=== PATIENT | female | born 1940 | race Caucasian/White ===

== ENCOUNTER 2020-07-03 06:47 | Emergency (ER) | payer MEDICARE, SELFPAY ==
--- NOTE | ~2020-07-03 | XR_ITS ---
EXAMINATION: XR CHEST CLINICAL INFORMATION: Chest pain. COMPARISON: 05/31/2011 chest radiographs TECHNIQUE: Frontal view of the chest was obtained. FINDINGS: The lungs are clear. The heart and mediastinal structures are remarkable. Mild multilevel degenerative changes and scoliosis are seen in the thoracolumbar spine. XR/XR chest 1V IMPRESSION: No acute cardiopulmonary process.
--- NOTE | ~2020-07-03 | CT_ITS ---
EXAMINATION: CT CHEST ANGIOGRAM PE PROTOCOL CLINICAL INFORMATION: , Reason for Exam dyspnea chest pain r/o PE COMPARISON: None TECHNIQUE: Volumetric imaging was performed through the chest. Reformatted coronal and sagittal imaging was performed. 3-D MIP images performed at a dedicated separate workstation. This CT examination was performed using dose optimization techniques as appropriate, variously including the following: *Automated exposure control *Adjustment of mA and/or kV according to patient size (this includes techniques or standardized protocols for targeted exams where dose is matched to indication/reason for exam; i.e. extremities or head) *Use of iterative reconstruction technique CONTRAST: 65 mL of Omnipaque 350 injected. DLP: 1442 FINDINGS: PULMONARY ARTERIES: There is proper opacification of the pulmonary artery and its main branches. No CT evidence of pulmonary emboli. LINES/TUBES: None LUNGS: Lung Parenchyma: There is no CT evidence of significant lung parenchymal disease. Lung Nodules:There is 8 mm nodule right upper lobe image 49 series 7. No suspicious lung mass. AIRWAYS: Trachea and bronchi are normal. PLEURA: No pleural effusion or pneumothorax. MEDIASTINUM AND EDDIE: The visualized thyroid gland is unremarkable. No mediastinal, hilar or axillary lymphadenopathy. Esophagus is mildly dilated with fluid throughout, cannot rule out systemic sclerosis /scleroderma. VESSELS: Ascending aorta borderline aneurysmal measure up to 4 cm. HEART AND PERICARDIUM: Heart is normal in size. There is no pericardial effusion. There are coronary calcifications. CHEST WALL, LOWER NECK, SURROUNDING SOFT TISSUES: Normal VISUALIZED ABDOMEN: Unremarkable BONES: The visualized bony thorax is within normal limits. CT/CT angio chest PE protocol IMPRESSION: 1. No CT evidence of pulmonary emboli 2. Esophagus is mildly dilated fluid-filled, nonspecific, cannot rule out scleroderma. Please correlate clinically. 3. 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 Follow-up CT in one year recommended.
--- NOTE | 2020-07-03 06:52 | ECG_ITS ---
Test Reason : REPEA Blood Pressure : / mmHG Vent. Rate : 061 BPM Atrial Rate : 061 BPM P-R Int : 174 ms QRS Dur : 082 ms QT Int : 442 ms P-R-T Axes : 043 -16 022 degrees QTc Int : 444 ms Normal sinus rhythm Normal ECG When compared with ECG of 03-JUL-2020 07:11, No significant change was found Referred By: Miley Gray Electronically Signed By:CORNELIA LAWSON
--- NOTE | 2020-07-03 06:57 | ED.CHESTPAIN ---
HPI - Chest Pain General Chief Complaint: Chest Pain Stated Complaint: chest pressure Time Seen by Provider: 07/03/20 06:52 Source: patient and EMS Mode of arrival: EMS Limitations: no limitations History of Present Illness HPI narrative: 80 yo female with HTN, HPL, hypothyroidism noted since yesterday some increased dyspnea and feels she cannot catch her breath she also notes the start of chest heaviness at that time as well, no prior cardiac issues per her came to get checked out today because her BP was 180 systolics MD complaint: chest heaviness Onset (ago): day(s) (1) Timing of current episode: constant Onset: during rest Pain location: substernal Pain radiation: none Severity: mild Quality: heaviness Relieving factors: nothing Exacerbating factors: inspiration Associated symptoms: dyspnea Treatment prior to arrival: none Related Data Previous Rx's Medication Instructions Recorded lorazepam [Ativan] 0.5 mg PO DAILY PRN #5 tab 07/03/20 Allergies Allergy/AdvReac Type Severity Reaction Status Date / Time amoxicillin [Amoxicillin] Allergy Intermediate RASH Unverified 02/12/20 14:51 cantaloupe Allergy Unknown Verified 07/03/20 09:16 fish derived [fish] Allergy Anaphylaxis Verified 07/03/20 09:16 shellfish derived Allergy Anaphylaxis Verified 07/03/20 09:16 gabapentin AdvReac Unknown Verified 07/03/20 09:16 Review of Systems Review of Systems: Constitutional : No Weight loss, No Fever, No Chills ENT/Mouth : No sore throat, No Rhinorrhea Eyes: No Eye Pain, No Swelling Cardiovascular : pos Chest Pain, pos SOB, no Dyspnea on Exertion, No Orthopnea, No Edema, No Palpitations Respiratory : No Cough, No Sputum Gastrointestinal : no Nausea, No Vomiting, No Diarrhea, No abdominal Pain, No Hematochezia, No Melena Genitourinary : No Dysuria, No Urinary Frequency Musculoskeletal : No joint pain, No Myalgias, No Joint Swelling Skin : No Skin Lesions, No rash Neuro : No Weakness, No Numbness, No Dizziness, No Headache Psych : No Anxiety/Panic, No Depression Heme/Lymph: No Bruising, No Lymphadenopathy Endocrine : No Polyuria, No Polydipsia All other systems reviewed and are negative [facility] Past Medical History Attestation statement: The following information was validated with the patient. Medical History (Updated 07/03/20 @ 11:30 by Miley Gray DO) HTN (hypertension) Hyperlipidemia Hypothyroidism Vertigo Social History Social History (Updated 07/03/20 @ 07:01 by Miley Gray DO) Smoking Status: Never smoker Advance Directives: No Advance Directives Information Provided: No Physical Exam Vital Signs: Vital Signs: Last Vital Signs Temp 98.2 F 07/03/20 06:59 Pulse 68 07/03/20 09:16 Resp 19 07/03/20 09:16 BP 152/85 H 07/03/20 09:16 Pulse Ox 96 07/03/20 09:16 Body Mass Index 29.2 Appearance: Alert. Oriented X3. No acute distress. Eyes: Pupils equal, round and reactive to light. ENT: Pharynx normal. Neck: Normal inspection. Neck supple. CVS: Normal heart rate and rhythm. Pulses normal. Respiratory: No respiratory distress. Breath sounds normal. Abdomen: Soft and non-tender. Skin: Skin warm and dry. Normal skin color. Normal skin turgor. Extremities: No lower extremity edema. No calf ttp Neuro: Oriented X 3. No motor deficit. No sensory deficit. Course Course Course Narrative: ddimer 254 above threshold, CTA for PE ordered negative CTA for PE EKG and trop negative with 24 hours of symptoms BP down to 160s after discussion she will monitor it this weekend and then follow up with PCP, dyspnea and heaviness resolved with ativan MDM - Chest Pain MDM Narrative Medical decision making narrative: 80 yo female with HTN, HPL, non smoker c/o dyspnea and chest heaviness that has worsened since yesterday - her BP has been elevated as well and she reports compliance with her medications, will give ASA obtain labs - ddimer and troponin, CXR, dispo per results and findings. Lab Data Result diagrams: 07/03/20 07:22 07/03/20 07:22 Labs: Lab Results 07/03/20 07/03/20 07/03/20 Range/Units 07:22 07:22 07:22 WBC 5.8 (4.8-10.8) X10*3/uL RBC 4.30 (4.20-5.50) X10*6/uL Hgb 12.9 (12.0-16.0) g/dl Hct 39.5 (37-47) % MCV 91.9 (80-98) fL MCH 30.0 (27.0-33.0) pg MCHC 32.7 (31.0-35.0) g/dl RDW 12.4 (11.0-16.0) % Plt Count 256 (160-400) X10*3/uL MPV 10.5 (9.4-12.3) fL Immature Gran % (Auto) 0.2 (0.0-0.4) % Neut % (Auto) 58.0 (45-73) % Lymph % (Auto) 28.5 (20-40) % Ponce % (Auto) 10.0 (2-11) % Eos % (Auto) 2.8 (0-4) % Baso % (Auto) 0.5 (0-2) % Lymph # (Auto) 1.7 (1.2-4.9) X10*3/uL Ponce # (Auto) 0.6 (0.1-1.2) X10*3/uL Eos # (Auto) 0.2 (0.0-0.4) X10*3/uL Baso # (Auto) 0.0 (0.0-0.2) X10*3/uL Abs Immat Gran (auto) 0.01 (0.00-0.03) X10*3/uL Absolute Neuts (auto) 3.4 (2.0-8.3) X10*3/uL Absolute Nucleated RBC 0.000 (0.0-0.012) X10*3/uL Nucleated RBC % (auto) 0.0 (0.0-0.2) /100WBC PT 12.6 (10.8-13.0) SEC INR 1.1 (0.9-1.1) APTT 32.1 (24.1-38.0) SEC D-Dimer 254 NG/ML Sodium 142 (135-145) mmol/L Potassium 4.0 (3.3-5.1) mmol/L Chloride 107 (96-108) mmol/L Carbon Dioxide 28 (22-29) mmol/L Anion Gap 11 L (12-20) BUN 10 (9-16) mg/dL Creatinine 0.66 (0.5-1.4) mg/dL Estim Creat Clear Calc 69.4 Estimated GFR > 60 Random Glucose 113 (60-115) mg/dL Calcium 9.8 (8.4-10.2) mg/dL Magnesium 2.1 (1.6-2.6) mg/dL Total Bilirubin 0.4 (0.0-1.0) mg/dL Direct Bilirubin 0.2 (0.0-0.5) mg/dL AST 17 (5-31) U/L ALT 11 (0-31) U/L Alkaline Phosphatase 107 (39-117) U/L Troponin I High Sens (<3.5-17.0) ng/L B-Natriuretic Peptide (<100) pg/mL Total Protein 6.7 (6.5-8.0) g/dL Albumin 4.2 (3.5-5.0) g/dL Lipase 13 (8-78) U/L COVID-19 ([facility]) (Negative) COVID-19 Clin Com 07/03/20 07/03/20 Range/Units 07:22 07:22 WBC (4.8-10.8) X10*3/uL RBC (4.20-5.50) X10*6/uL Hgb (12.0-16.0) g/dl Hct (37-47) % MCV (80-98) fL MCH (27.0-33.0) pg MCHC (31.0-35.0) g/dl RDW (11.0-16.0) % Plt Count (160-400) X10*3/uL MPV (9.4-12.3) fL Immature Gran % (Auto) (0.0-0.4) % Neut % (Auto) (45-73) % Lymph % (Auto) (20-40) % Ponce % (Auto) (2-11) % Eos % (Auto) (0-4) % Baso % (Auto) (0-2) % Lymph # (Auto) (1.2-4.9) X10*3/uL Ponce # (Auto) (0.1-1.2) X10*3/uL Eos # (Auto) (0.0-0.4) X10*3/uL Baso # (Auto) (0.0-0.2) X10*3/uL Abs Immat Gran (auto) (0.00-0.03) X10*3/uL Absolute Neuts (auto) (2.0-8.3) X10*3/uL Absolute Nucleated RBC (0.0-0.012) X10*3/uL Nucleated RBC % (auto) (0.0-0.2) /100WBC PT (10.8-13.0) SEC INR (0.9-1.1) APTT (24.1-38.0) SEC D-Dimer NG/ML Sodium (135-145) mmol/L Potassium (3.3-5.1) mmol/L Chloride (96-108) mmol/L Carbon Dioxide (22-29) mmol/L Anion Gap (12-20) BUN (9-16) mg/dL Creatinine (0.5-1.4) mg/dL Estim Creat Clear Calc Estimated GFR Random Glucose (60-115) mg/dL Calcium (8.4-10.2) mg/dL Magnesium (1.6-2.6) mg/dL Total Bilirubin (0.0-1.0) mg/dL Direct Bilirubin (0.0-0.5) mg/dL AST (5-31) U/L ALT (0-31) U/L Alkaline Phosphatase (39-117) U/L Troponin I High Sens 3.5 (<3.5-17.0) ng/L B-Natriuretic Peptide 228 H (<100) pg/mL Total Protein (6.5-8.0) g/dL Albumin (3.5-5.0) g/dL Lipase (8-78) U/L COVID-19 ([facility]) Negative (Negative) COVID-19 Clin Com See Note ECG Data ECG #1: Attestation: I personally reviewed and interpreted this ECG as follows: ECG interpretation date: 07/03/20 ECG interpretation time: 07:19 Interpretation: Rate: 70 Rhythm: NSR Coronado: left Normal P waves. Normal DANDY. Normal QRS complex. ST T wave : nonspecific, no TAMMY qTC: normal prior studies: no ischemia but artifact noted The study has been interpreted contemporaneously by me. . ECG #2: Attestation: I personally reviewed and interpreted this ECG as follows: ECG interpretation date: 07/03/20 ECG interpretation time: 08:01 Interpretation: Rate: 61 Rhythm: NSR Coronado: left Normal P waves. Normal DANDY. Normal QRS complex. ST T wave : normal no TAMMY qTC: normal prior studies: no acute ischemia, done as artifact in first EKG The study has been interpreted contemporaneously by me. . Discharge Plan Discharge Clinical Impression: Acute dyspnea Chest pain Qualifiers: Chest pain type: chest pain on breathing Qualified Code(s): R07.1 - Chest pain on breathing Patient Disposition: Home, Self-Care Instructions: Chest Pain (ED), Chronic Hypertension (ED) Additional Instructions: return to ED for any worsening symptoms or concerns CT scan 1. No CT evidence of pulmonary emboli 2. Esophagus is mildly dilated fluid-filled, nonspecific, cannot rule out scleroderma. Please correlate clinically. 3. 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 Follow-up CT in one year recommended. Prescriptions: New lorazepam [Ativan] 0.5 mg tablet 0.5 mg PO DAILY PRN (Reason: anxiety) Qty: 5 RF: 0 Referrals: Edvin Pruett MD [Primary Care Provider] - 2 days (recheck blood pressure)
[2020-07-03 06:59] VITALS: BP 179/99; BP 180/96; PULSE 70; PULSE 95; RESP 17; TEMP 36.8; O2SAT 97; BMI 29.2
[2020-07-03 07:27] LABS: MANUAL DIFF FLAG NO
[2020-07-03 07:30] LABS: Basophils Percent Auto 0.5 % (0-2); Eosinophils Absolute Auto 0.2 X10*3/uL (0.0-0.4); Eosinophils Percent Auto 2.8 % (0-4); Hematocrit 39.5 % (37-47); Hemoglobin 12.9 g/dl (12.0-16.0); Imm Gran Abs Auto 0.01 X10*3/uL (0.00-0.03); Imm Gran Pct Auto 0.2 % (0.0-0.4); Lymphocytes Absolute Auto 1.7 X10*3/uL (1.2-4.9); Lymphocytes Percent Auto 28.5 % (20-40); Mean Corpuscular HGB Conc 32.7 g/dl (31.0-35.0); Mean Corpuscular Volume 91.9 fL (80-98); Mean Platelet Volume 10.5 fL (9.4-12.3); Monocytes Absolute Auto 0.6 X10*3/uL (0.1-1.2); Neutrophils Absolute Auto 3.4 X10*3/uL (2.0-8.3); Platelet Count 256 X10*3/uL (160-400); Red Cell Distribution Width 12.4 % (11.0-16.0); White Blood Count 5.8 X10*3/uL (4.8-10.8)
[2020-07-03 07:36] LABS: INTERNATIONAL NORM RATIO 1.1 (0.9-1.1); Prothrombin Time 12.6 SEC (10.8-13.0)
[2020-07-03 07:39] LABS: D Dimer 254 NG/ML; Partial Thromboplastin Time 32.1 SEC (24.1-38.0)
[2020-07-03 07:44] LABS: IDNOW Serial# 9DD0AD1C
[2020-07-03 07:45] LABS: COVID-19 Test Negative (Negative)
[2020-07-03] MEDS: LORazepam 0.5 MG TABLET PO (07:47)
[2020-07-03] MEDS: Aspirin 81 MG TAB.CHEW 162 MG PO (07:48)
[2020-07-03 08:01] LABS: Alanine Aminotransferase 11 U/L (0-31); Albumin Level 4.2 g/dL (3.5-5.0); Alkaline Phosphatase 107 U/L (39-117); Anion Gap 11 (12-20); Aspartate Amino Transferase 17 U/L (5-31); Bilirubin Direct 0.2 mg/dL (0.0-0.5); Bilirubin Total 0.4 mg/dL (0.0-1.0); Blood Urea Nitrogen 10 mg/dL (9-16); Calcium 9.8 mg/dL (8.4-10.2); Carbon Dioxide 28 mmol/L (22-29); Chloride 107 mmol/L (96-108); Creatinine Clr Calc Pharmacy 69.4; Estimated Glomerular Filt Rate > 60; Glucose Random 113 mg/dL (60-115); Lipase 13 U/L (8-78); Magnesium 2.1 mg/dL (1.6-2.6); Sodium 142 mmol/L (135-145); Total Protein 6.7 g/dL (6.5-8.0)
[2020-07-03 08:08] LABS: B Type Natriuretic Peptide 228 pg/mL (<100); Troponin-I High Sensitivity 3.5 ng/L (<3.5-17.0)
[2020-07-03 09:16] VITALS: BP 152/85; PULSE 68; RESP 19; O2SAT 96
[2020-07-03] MEDS: diphenhydrAMINE HCL 50 MG/ML VIAL 25 MG IVPUSH (09:28)
[2020-07-03] MEDS: methylPREDNISolone Sod Succ/PF 125 MG/2 ML VIAL IVPUSH (09:28)
[2020-07-03] MEDS: iohexoL 350 MG/ML 100 ML INFUS..BTL IV (10:29)
[2020-07-03 11:59] VITALS: BP 153/76; PULSE 65; RESP 16; TEMP 36.4; O2SAT 94
== END 2020-07-03 12:14 | disposition home or self-care (01) ==
PROVIDERS: Emergency Provider Emergency Medicine; PCP Internal Medicine
DX: R06.00 Dyspnea, unspecified (principal); R07.1 Chest pain on breathing; I10 Essential (primary) hypertension; Z20.822 Contact with and (suspected) exposure to COVID-19
CPT/HCPCS: 36415; 71045; 71275; 80048; 80076; 83690; 83735; 83880; 84484; 85025; 85379; 85610; 85730; 87635; 93005; 96374; 96375; 99284; J1200; J2930; Q9967

== ENCOUNTER 2021-03-04 12:58 | Outpatient (REF) | payer MEDICARE, OTHER, SELFPAY | END 2021-03-04 12:59 | disposition home or self-care (01) | LOC: HO.LAB 12:58 | PROVIDERS: PCP Internal Medicine; Visit Provider Internal Medicine | DX: Z20.822 Contact with and (suspected) exposure to COVID-19 (principal) | CPT/HCPCS: C9803; U0003; U0005 ==

== ENCOUNTER 2022-07-28 14:52 | Observation (INO) | payer MEDICARE, SELFPAY ==
--- NOTE | ~2022-07-28 | CT_ITS ---
EXAMINATION: CT head/brain wo IV con CLINICAL INFORMATION: Expressive aphasia COMPARISON: None. TECHNIQUE: Contiguous axial imaging was performed from the skull base to vertex without intravenous contrast. Sagittal and coronal reformatted images were obtained. This CT examination was performed using dose optimization techniques as appropriate, variously including the following: * Automated exposure control * Adjustment of mA and/or kV according to patient size (this includes techniques or standardized protocols for targeted exams where dose is matched to indication/reason for exam; i.e. extremities or head) Use of iterative reconstruction technique DLP: 532.26 mGy-cm mGy-cm FINDINGS: The ventricles and sulci are normal in size and configuration without significant volume loss or hydrocephalus. There is no abnormal attenuation within the brain parenchyma. No territorial loss of jean baptiste-white differentiation.No acute intracranial hemorrhage or extra-axial fluid collection. No mass lesion, significant mass effect, or herniation pattern. The orbits are grossly normal. Imaged portions of the paranasal sinuses demonstrate partial opacification within the nasal cavities. The mastoid air cells are well aerated. Osseous structures are intact. CT/CT head/brain wo IV con IMPRESSION: No territorial loss of jean baptiste-white matter differentiation, noting MRI would be more sensitive modality for detection of acute ischemia. No acute intracranial hemorrhage.
--- NOTE | ~2022-07-28 | MR_ITS ---
EXAMINATION: MR BRAIN WITHOUT CONTRAST CLINICAL INFORMATION: Stroke COMPARISON: CT head without contrast 07/28/2022 TECHNIQUE: Multiplanar multisequence MR imaging of the brain was obtained without intravenous contrast. FINDINGS: There is no acute infarct on diffusion-weighted imaging. Right globus pallidus susceptibility artifact, corresponding to mineralization on noncontrast CT. No extra-axial collection or mass effect/herniation. Patchy periventricular, deep white matter, and brainstem T2 FLAIR hyperintensities consistent with moderate underlying microangiopathy. No hydrocephalus. The ventricles are normal in morphology and size. The major flow voids at the skull base are preserved. The midline structures are normal. The cerebellar tonsils are normally positioned. The craniocervical junction is normal. Upper cervical facet arthropathy. Marrow signal is within normal limits. The visualized soft tissues are without significant abnormality. No signal abnormality within the paranasal sinuses or within the mastoid air cells. MR/MR head/brain wo con IMPRESSION: No acute infarct or other acute intracranial abnormality Moderate chronic microangiopathy.
--- NOTE | ~2022-07-28 | US_ITS ---
EXAMINATION: US EXTRACRANIAL CAROTID DUPLEX, BILATERAL CLINICAL INFORMATION: TIA. COMPARISON: None TECHNIQUE: Real-time ultrasound and Doppler techniques (integrating B-mode 2-D vascular images, Doppler spectral analysis and color-flow Doppler imaging) were utilized to interrogate the extracranial carotid arteries, the vertebral arteries and proximal subclavian arteries bilaterally. The degree of stenosis is determined by criteria similar to NASCET. FINDINGS: No significant atherosclerotic plaque was seen in the carotid bulbs bilaterally. Color Doppler interrogation demonstrated normal arterial waveforms with brisk systolic upstrokes. No tardus parvus waveform was identified. Arterial velocities were as follows in cm/s: RIGHT: Proximal CCA: 59 Distal CCA: 65 Bulb: Patent Proximal ICA: 56 Mid ICA: 63 Distal ICA: 75 ECA: 83 LEFT: Proximal CCA: 82 Distal CCA: 63 Bulb: Patent Proximal ICA: 46 Mid ICA: 55 Distal ICA: 73 ECA: 76 The vertebral arteries demonstrated normal arterial waveforms and direction of flow. US/US carotid duplex BI IMPRESSION: No hemodynamically significant arterial stenosis bilaterally.
[2022-07-28 15:01] VITALS: BP 173/85; BP 178/98; PULSE 80; RESP 18; TEMP 37.1; O2SAT 95; O2SAT 98; BMI 29.0
--- NOTE | 2022-07-28 15:23 | ECG_ITS ---
Test Reason : cp Blood Pressure : / mmHG Vent. Rate : 077 BPM Atrial Rate : 077 BPM P-R Int : 176 ms QRS Dur : 084 ms QT Int : 414 ms P-R-T Axes : 038 -27 -03 degrees QTc Int : 468 ms Normal sinus rhythm Minimal voltage criteria for LVH, may be normal variant ( R in aVL ) Borderline ECG When compared with ECG of 03-JUL-2020 07:54, No significant change was found Referred By: Generic ED Physician Electronically Signed By:CORNELIA LAWSON
--- NOTE | 2022-07-28 15:29 | PC.NURSE ---
PA notified of patient.
--- NOTE | 2022-07-28 15:45 | MHC.EDTECH ---
this pct assumed care of pt at 1545 ,stroke protocol done and blood sugar taken ,also 1600 vitals sign ,pt resting in bed .
[2022-07-28 15:59] LABS: MANUAL DIFF FLAG NO
[2022-07-28 15:59] LABS: Glucose, Whole Blood 115 mg/dL (60-115)
[2022-07-28 16:00] VITALS: BP 137/77; PULSE 80; RESP 16; TEMP 36.7; O2SAT 98
[2022-07-28 16:01] LABS: Basophils Percent Auto 0.3 % (0-2); Eosinophils Absolute Auto 0.2 X10*3/uL (0.0-0.4); Hematocrit 39.3 % (37.0-47.0); Hemoglobin 12.7 g/dl (12.0-16.0); Imm Gran Abs Auto 0.02 X10*3/uL (0.00-0.03); Imm Gran Pct Auto 0.3 % (0.0-0.4); Lymphocytes Absolute Auto 1.5 X10*3/uL (1.2-4.9); Mean Corpuscular HGB Conc 32.3 g/dl (31.0-35.0); Mean Corpuscular Volume 92.9 fL (80.0-98.0); Mean Platelet Volume 10.3 fL (9.4-12.3); Monocytes Absolute Auto 0.8 X10*3/uL (0.1-1.2); Monocytes Percent Auto 13.4 % (2-11); Neutrophils Absolute Auto 3.3 x10*3/uL (2.0-8.3); Platelet Count 269 X10*3/uL (160-400); Red Blood Count 4.23 X10*6/uL (4.20-5.50); Red Cell Distribution Width 12.6 % (11.0-16.0); White Blood Count 5.7 X10*3/uL (4.8-10.8)
[2022-07-28 16:06] LABS: Appearance Urine Clear; Color Urine Yellow; Glucose Urine UA Negative (Negative); Leukocyte Esterase Urine Negative (Negative); Nitrite Urine Negative (Negative); PH 6.5 (5.0-9.0); Prothrombin Time 11.6 SEC (10.0-13.1); Specific Gravity - Urine <= 1.005 (1.005-1.025); Urine Blood Negative (Negative); Urine Ketones Negative (Negative); Urine Protein Negative (Neg-Trace)
--- NOTE | 2022-07-28 16:08 | ED.NEUROSD ---
HPI - Neuro Symptoms/Deficit General Chief Complaint: Neuro Symptoms/Deficit Stated Complaint: Jaw tightness, diff speaking since 2pm per EMS Time Seen by Provider: 07/28/22 16:01 Source: patient Limitations: no limitations History of Present Illness HPI Narrative: 82-year-old female who presents emergency department for evaluation of expressive aphasia. The patient states that at 14:15 hours she got up from her chair and developed pain across her lower thoracic back. She states that the pain was hard to describe approximately 3/10. The pain lasted about 10 minutes. She denied associated symptoms with the back pain such as lightheadedness, dizziness, pain in her neck, jaw or arms numbness or weakness. She was then looking at her calendar and was trying to pronounce the word August 03 but was unable to say it. She states that this difficulty with pronouncing words lasted for approximately 2 minutes. The patient states that this is a 1st episode of this type of difficulty with speaking and with back pain. She was concerned that she may be having a stroke so she came to the emergency department for evaluation. Related Data Home Medications Medication Instructions Recorded Confirmed clonidine HCl 0.2 mg tablet 1 tab PO BID 07/28/22 07/28/22 levothyroxine 88 mcg tablet 88 mcg PO DAILY 07/28/22 07/28/22 losartan 25 mg tablet 1 tab PO DAILY 07/28/22 07/28/22 pravastatin 40 mg tablet 1 tab PO BEDTIME 07/28/22 07/28/22 Allergies Allergy/AdvReac Type Severity Reaction Status Date / Time amoxicillin [Amoxicillin] Allergy Intermediate RASH Verified 07/28/22 15:12 cantaloupe Allergy Unknown Verified 07/28/22 15:12 fish derived [fish] Allergy Anaphylaxis Verified 07/28/22 15:12 shellfish derived Allergy Anaphylaxis Verified 07/28/22 15:12 gabapentin AdvReac Unknown Verified 07/28/22 15:12 Review of Systems Review of Systems: Yes all other systems are reviewed and are negative [facility] Past Medical History [facility] Narrative: Past medical history: Reviewed below she also states she has dysphagia secondary to esophageal stricture and requires this often dilatation every 6 months. Social history: She lives alone. She denies tobacco, alcohol and drug use. Medical History HTN (hypertension) Hyperlipidemia Hypothyroidism Vertigo Social History Social History Alcohol intake: never Smoked in Last 30 Days: No Use of substances other than those prescribed or required for medical reasons: No Advance Directives: No Advance Directives Information Provided: Yes Physical Exam Vital Signs: Vital Signs: Last Vital Signs Temp 98.3 F 07/28/22 18:33 Pulse 67 07/28/22 18:33 Resp 16 07/28/22 18:33 BP 130/81 07/28/22 18:33 Pulse Ox 97 07/28/22 18:33 O2 Del Method 07/28/22 18:33 BMI result Body Mass Index 29.0 Const: General: cooperative and no acute distress Orientation/consciousness: oriented to person and oriented to place Limitations: no limitations HEENT: Head: Yes normal to inspection, Yes normocephalic and Yes atraumatic Ears: external ears normal General nose exam: Normal external nose present Face and sinus: Yes normal facial exam Mouth: Normal oral and palatal mucosa present Throat: Yes posterior oropharynx normal Eyes: General: appearance normal, both eyes and all related structures Pupils: Equal, round and reactive pupils present Neck: Neck: Yes normal visual inspection, Yes no lymphadenopathy, Yes trachea midline and Yes supple Chest: Chest palpation & inspection: normal inspection of the chest and normal palpation of entire chest wall Resp: Effort & Inspection: normal respiratory effort and able to speak in complete sentences Auscultation: clear to auscultation bilaterally Cardio: Rate: regular rate Rhythm: regular rhythm Heart sounds: S1 normal heart sound present, S2 normal heart sound present and no murmurs GI: Inspection: Yes normal to inspection Palpation (GI): Soft to palpation, nontender and no guarding Auscultation: normal bowel sounds : General: Yes no CVA tenderness Back/Spine/Pelvis: Back: no CVA tenderness Skin: General skin exam: no rashes or lesions noted Neuro: General: oriented to person and oriented to place Cranial nerves: Yes CN's II-XII intact bilaterally and Yes Equal, round and reactive pupils present Cognition (Neuro): normal cognition Motor exam (neuro): 5/5 motor strength present throughout Extrem: General: Yes normal to inspection Psych: Appearance: grossly normal Speech and movement: Normal speech and movement present Affect: normal affect Attitude: cooperative Thought process: Normal thought process present Thought content: Normal thought content present Medications Administered Discontinued Medications Generic Name Dose Route Start Last Admin Trade Name Kentrell PRN Reason Stop Dose Admin Aspirin 324 mg 07/28/22 19:07 07/28/22 19:15 Aspirin 81 Mg Tab.Chew PO 07/28/22 19:08 324 mg ONCE ONE Administration Medical Decision Making Medical Decision Making [facility] [place] Narrative: 82-year-old female who presents emergency department for evaluation of back pain and difficulty with word finding that lasted approximately 2 minutes. The patient's symptoms have completely resolved. Patient's physical examination was unremarkable with a normal neurologic exam and an AH stroke scale of 0. Did order laboratory evaluation to include CBC, CMP, PT/INR, PTT, troponin, urinalysis. 190: Independent interpretation of the patient's laboratory evaluation as follows: CBC was normal. CMP was normal except for an elevated glucose of 120. Urinalysis was negative. CT scan of the head revealed no acute disease. Twelve EKG was unremarkable. The patient's presentation is consistent with either a new TIA or small stroke. The patient was ordered to get aspirin 324 mg orally. The patient has no symptoms, her NIH stroke scale is 0 therefore she is not a thrombolytics candidate at this time. I will discuss the patient's admission with the covering hospitalist. 192: I did discuss over tiger text the patient with the covering hospitalist, the patient will be admitted for further management. Differential Diagnosis Differential Diagnoses: The differential diagnosis associated with the presentation includes Differential diagnosis includes but is not limited to stroke, TIA, seizure, electrolyte abnormality Consult Healthcare Provider Management of the patient was discussed with: Hospitalist Lab Data [facility] [place] Lab Attestation statement: I reviewed the patient's lab results. Please see [facility] [place] for discussion 07/28/22 15:52 07/28/22 15:52 Labs: Lab Results 07/28/22 07/28/22 07/28/22 Range/Units 15:52 15:52 15:52 WBC 5.7 (4.8-10.8) X10*3/uL RBC 4.23 (4.20-5.50) X10*6/uL Hgb 12.7 (12.0-16.0) g/dl Hct 39.3 (37.0-47.0) % MCV 92.9 (80.0-98.0) fL MCH 30.0 (27.0-33.0) pg MCHC 32.3 (31.0-35.0) g/dl RDW 12.6 (11.0-16.0) % Plt Count 269 (160-400) X10*3/uL MPV 10.3 (9.4-12.3) fL Immature Gran % (Auto) 0.3 (0.0-0.4) % Neut % (Auto) 57.0 (45-73) % Lymph % (Auto) 26.0 (20-40) % [place] % (Auto) 13.4 H (2-11) % Eos % (Auto) 3.0 (0-4) % Baso % (Auto) 0.3 (0-2) % Lymph # (Auto) 1.5 (1.2-4.9) X10*3/uL [place] # (Auto) 0.8 (0.1-1.2) X10*3/uL Eos # (Auto) 0.2 (0.0-0.4) X10*3/uL Baso # (Auto) 0.0 (0.0-0.2) X10*3/uL Abs Immat Gran (auto) 0.02 (0.00-0.03) X10*3/uL Absolute Neuts (auto) 3.3 (2.0-8.3) x10*3/uL Absolute Nucleated RBC 0.000 (0.0-0.012) X10*3/uL Nucleated RBC % (auto) 0.0 (0.0-0.2) /100WBC PT 11.6 (10.0-13.1) SEC Whole Blood PT (11.1-13.5) sec INR 1.0 (0.9-1.1) Whole Blood INR (0.9-1.1) APTT 29.5 (26.0-36.4) SEC Sodium 142 (135-145) mmol/L Potassium 4.1 (3.3-5.1) mmol/L Chloride 108 (96-108) mmol/L Carbon Dioxide 27 (22-29) mmol/L Anion Gap 11 L (12-20) BUN 9 (9-16) mg/dL Creatinine 0.69 (0.5-1.4) mg/dL Estim Creat Clear Calc 68.9 Estimated GFR > 60 POC Glucose (60-115) mg/dL Random Glucose 120 H (60-115) mg/dL Calcium 9.9 (8.4-10.2) mg/dL Total Bilirubin 0.4 (0.0-1.0) mg/dL Direct Bilirubin 0.2 (0.0-0.5) mg/dL AST 17 (5-31) U/L ALT 8 (0-31) U/L Alkaline Phosphatase 116 (39-117) U/L Total Creatine Kinase 73 (26-140) U/L Troponin I High Sens (<3.5-17.0) ng/L Total Protein 6.3 L (6.5-8.0) g/dL Albumin 3.9 (3.5-5.0) g/dL Urine Color Urine Appearance Urine pH (5.0-9.0) Ur Specific White (1.005-1.025) Urine Protein (Neg-Trace) mg/dL Urine Glucose (UA) (Negative) mg/dL Urine Ketones (Negative) mg/dL Urine Blood (Negative) Urine Nitrite (Negative) Ur Leukocyte Esterase (Negative) COVID-19 ([facility]) (Negative) COVID-19 Clin Com Influenza Type A (YAYA) (Negative) Influenza Type B (YAYA) (Negative) Influenza A & B Note 07/28/22 07/28/22 07/28/22 Range/Units 15:52 15:52 15:52 WBC (4.8-10.8) X10*3/uL RBC (4.20-5.50) X10*6/uL Hgb (12.0-16.0) g/dl Hct (37.0-47.0) % MCV (80.0-98.0) fL MCH (27.0-33.0) pg MCHC (31.0-35.0) g/dl RDW (11.0-16.0) % Plt Count (160-400) X10*3/uL MPV (9.4-12.3) fL Immature Gran % (Auto) (0.0-0.4) % Neut % (Auto) (45-73) % Lymph % (Auto) (20-40) % [place] % (Auto) (2-11) % Eos % (Auto) (0-4) % Baso % (Auto) (0-2) % Lymph # (Auto) (1.2-4.9) X10*3/uL [place] # (Auto) (0.1-1.2) X10*3/uL Eos # (Auto) (0.0-0.4) X10*3/uL Baso # (Auto) (0.0-0.2) X10*3/uL Abs Immat Gran (auto) (0.00-0.03) X10*3/uL Absolute Neuts (auto) (2.0-8.3) x10*3/uL Absolute Nucleated RBC (0.0-0.012) X10*3/uL Nucleated RBC % (auto) (0.0-0.2) /100WBC PT (10.0-13.1) SEC Whole Blood PT 12.4 (11.1-13.5) sec INR (0.9-1.1) Whole Blood INR 1.0 (0.9-1.1) APTT (26.0-36.4) SEC Sodium (135-145) mmol/L Potassium (3.3-5.1) mmol/L Chloride (96-108) mmol/L Carbon Dioxide (22-29) mmol/L Anion Gap (12-20) BUN (9-16) mg/dL Creatinine (0.5-1.4) mg/dL Estim Creat Clear Calc Estimated GFR POC Glucose (60-115) mg/dL Random Glucose (60-115) mg/dL Calcium (8.4-10.2) mg/dL Total Bilirubin (0.0-1.0) mg/dL Direct Bilirubin (0.0-0.5) mg/dL AST (5-31) U/L ALT (0-31) U/L Alkaline Phosphatase (39-117) U/L Total Creatine Kinase (26-140) U/L Troponin I High Sens < 3.5 (<3.5-17.0) ng/L Total Protein (6.5-8.0) g/dL Albumin (3.5-5.0) g/dL Urine Color Yellow Urine Appearance Clear Urine pH 6.5 (5.0-9.0) Ur Specific White <= 1.005 (1.005-1.025) Urine Protein Negative (Neg-Trace) mg/dL Urine Glucose (UA) Negative (Negative) mg/dL Urine Ketones Negative (Negative) mg/dL Urine Blood Negative (Negative) Urine Nitrite Negative (Negative) Ur Leukocyte Esterase Negative (Negative) COVID-19 ([facility]) (Negative) COVID-19 Clin Com Influenza Type A (YAYA) (Negative) Influenza Type B (YAYA) (Negative) Influenza A & B Note 07/28/22 07/28/22 07/28/22 Range/Units 15:54 18:39 18:39 WBC (4.8-10.8) X10*3/uL RBC (4.20-5.50) X10*6/uL Hgb (12.0-16.0) g/dl Hct (37.0-47.0) % MCV (80.0-98.0) fL MCH (27.0-33.0) pg MCHC (31.0-35.0) g/dl RDW (11.0-16.0) % Plt Count (160-400) X10*3/uL MPV (9.4-12.3) fL Immature Gran % (Auto) (0.0-0.4) % Neut % (Auto) (45-73) % Lymph % (Auto) (20-40) % [place] % (Auto) (2-11) % Eos % (Auto) (0-4) % Baso % (Auto) (0-2) % Lymph # (Auto) (1.2-4.9) X10*3/uL [place] # (Auto) (0.1-1.2) X10*3/uL Eos # (Auto) (0.0-0.4) X10*3/uL Baso # (Auto) (0.0-0.2) X10*3/uL Abs Immat Gran (auto) (0.00-0.03) X10*3/uL Absolute Neuts (auto) (2.0-8.3) x10*3/uL Absolute Nucleated RBC (0.0-0.012) X10*3/uL Nucleated RBC % (auto) (0.0-0.2) /100WBC PT (10.0-13.1) SEC Whole Blood PT (11.1-13.5) sec INR (0.9-1.1) Whole Blood INR (0.9-1.1) APTT (26.0-36.4) SEC Sodium (135-145) mmol/L Potassium (3.3-5.1) mmol/L Chloride (96-108) mmol/L Carbon Dioxide (22-29) mmol/L Anion Gap (12-20) BUN (9-16) mg/dL Creatinine (0.5-1.4) mg/dL Estim Creat Clear Calc Estimated GFR POC Glucose 115 (60-115) mg/dL Random Glucose (60-115) mg/dL Calcium (8.4-10.2) mg/dL Total Bilirubin (0.0-1.0) mg/dL Direct Bilirubin (0.0-0.5) mg/dL AST (5-31) U/L ALT (0-31) U/L Alkaline Phosphatase (39-117) U/L Total Creatine Kinase (26-140) U/L Troponin I High Sens (<3.5-17.0) ng/L Total Protein (6.5-8.0) g/dL Albumin (3.5-5.0) g/dL Urine Color Urine Appearance Urine pH (5.0-9.0) Ur Specific White (1.005-1.025) Urine Protein (Neg-Trace) mg/dL Urine Glucose (UA) (Negative) mg/dL Urine Ketones (Negative) mg/dL Urine Blood (Negative) Urine Nitrite (Negative) Ur Leukocyte Esterase (Negative) COVID-19 ([facility]) Negative (Negative) COVID-19 Clin Com See Note Influenza Type A (YAYA) Negative (Negative) Influenza Type B (YAYA) Negative (Negative) Influenza A & B Note See Note Independent Interpretation I performed an independent interpretation of an: EKG Interpretation: My independent interpretation of the EKG done at 15:42 hours is as follows: Normal sinus rhythm rate of 77, normal [place], QRS and QTC interval, no ST segment elevation, no ST segment depression, no PACs, no PVCs. This is a normal EKG Radiology Impression Discussion of test interpretation with radiology: I have reviewed the radiologist's reading. Radiologist Impression: IMPRESSION: No territorial loss of jean baptiste-white matter differentiation, noting MRI would be more sensitive modality for detection of acute ischemia. No acute intracranial hemorrhage. Dictated By:Yvonne Gallowaygned By:<Electronically signed by Elyse Galloway in OV>07/28/22 7662 NIH Stroke Scale Internal: Initial- Upon Arrival Level of Consciousness: Alert Level of Consciousness Questions: Answers both questions correctly Level of Consciousness Commands: Performs both tasks correctly Best Gaze: Normal Visual: No visual loss Facial Palsy: Normal Motor Arm (Right): No drift Motor Arm (Left): No drift Motor Leg (Right): No drift Motor Leg (Left): No drift Limb Ataxia: Absent Sensory: Normal Best Language: No aphasia Dysarthia: Normal Extinction and Inattention: No abnormality Score: 0 Discharge Plan Discharge Clinical Impression: Brain TIA Patient Disposition: Admitted As Inpatient
[2022-07-28 16:09] LABS: Partial Thromboplastin Time 29.5 SEC (26.0-36.4)
[2022-07-28 16:22] LABS: Troponin-I High Sensitivity < 3.5 ng/L (<3.5-17.0)
[2022-07-28 16:23] LABS: Alanine Aminotransferase 8 U/L (0-31); Albumin Level 3.9 g/dL (3.5-5.0); Alkaline Phosphatase 116 U/L (39-117); Anion Gap 11 (12-20); Aspartate Amino Transferase 17 U/L (5-31); Bilirubin Direct 0.2 mg/dL (0.0-0.5); Bilirubin Total 0.4 mg/dL (0.0-1.0); Blood Urea Nitrogen 9 mg/dL (9-16); Calcium 9.9 mg/dL (8.4-10.2); Carbon Dioxide 27 mmol/L (22-29); Chloride 108 mmol/L (96-108); Creatinine Clr Calc Pharmacy 68.9; Estimated Glomerular Filt Rate > 60; Glucose Random 120 mg/dL (60-115); Potassium 4.1 mmol/L (3.3-5.1); Prothrombin Time Whole Bld POC 12.4 sec (11.1-13.5); Sodium 142 mmol/L (135-145); Total Protein 6.3 g/dL (6.5-8.0)
[2022-07-28 17:32] LABS: Stroke Lab Use COMPLETE
--- NOTE | 2022-07-28 17:33 | PHA.MEDREC ---
Pharmacy Consult ? Medication Reconciliation Pharmacy has completed the medication reconciliation. spoke with pt
[2022-07-28 18:33] VITALS: BP 130/81; PULSE 67; RESP 16; TEMP 36.8; O2SAT 97
[2022-07-28 19:10] LABS: COVID-19 Test Negative (Negative); IDNOW Serial# 16C4AD1C; IDNOW Serial# BCCEAD1C; Influenza A Negative (Negative); Influenza B2 Negative (Negative)
[2022-07-28] MEDS: Aspirin 81 MG TAB.CHEW 324 MG PO (19:15)
--- NOTE | 2022-07-28 20:19 | P.HPHOSP_ITS ---
History of Present Illness Date of Service: 07/28/22 Chief Complaint: Aphasia This is a 82-year-old female with pertinent history of essential hypertension, hypothyroidism, mixed hyperlipidemia who presents to the emergency department for evaluation of dysarthria/expressive aphasia. Patient states that in the aft ernoon while she was sitting in the chair, she looked at the calendar and could not say the word July or . Patient states this lasted for about 2-3 minutes. Never has happened in the past. No history of atrial fibrillation. No focal motor weakness, facial droop, blurry vision, headache. Had mild associated back pain but no tingling or numbness in extremities. Patient was concerned for stroke and hence decided to present to the ER. No loss of consciousness or rhythmic jerking movement of extremities. Patient denies fever, chills, chest discomfort, palpitations, shortness of breath, abdominal pain, changes in urinary or bowel habits. In the emergency department CT head without acute abnormalities Review of Systems Constitutional: Constitutional: Reports no additional constitutional complaints Cardiovascular: Cardiovascular: Reports no additional cardiovascular complaints Respiratory: Respiratory: Reports no additional respiratory complaints Gastrointestinal: Gastrointestinal: Reports no additional gastrointestinal complaints Genitourinary: Genitourinary: Reports no additional female genitourinary complaints Musculoskeletal: Musculoskeletal: Reports no additional musculoskeletal complaints Neurologic: Reports Abnormal speech present [facility] Medical History HTN (hypertension) Hyperlipidemia Hypothyroidism Vertigo Social History Alcohol intake: never Patient Tobacco Use Status: Never used Tobacco Smoked in Last 30 Days: No Use of substances other than those prescribed or required for medical reasons: No Advance Directives: No Advance Directives Information Provided: Yes Meds Allergies Allergy/AdvReac Type Severity Reaction Status Date / Time amoxicillin [Amoxicillin] Allergy Intermediate RASH Verified 07/28/22 15:12 cantaloupe Allergy Unknown Verified 07/28/22 15:12 fish derived [fish] Allergy Anaphylaxis Verified 07/28/22 15:12 shellfish derived Allergy Anaphylaxis Verified 07/28/22 15:12 gabapentin AdvReac Unknown Verified 07/28/22 15:12 Active Medications: Current Medications Pharmacy Consult (Consult Rx Perform Med Rec) 1 each MISCELLANE ONCE PRN PRN Reason: Consult order Home Medications Medication Instructions Recorded Confirmed Last Taken Type clonidine HCl 0.2 mg tablet 1 tab PO BID 07/28/22 07/28/22 07/28/22 History levothyroxine 88 mcg tablet 88 mcg PO DAILY 07/28/22 07/28/22 Unknown History losartan 25 mg tablet 1 tab PO DAILY 07/28/22 07/28/22 07/28/22 History pravastatin 40 mg tablet 1 tab PO BEDTIME 07/28/22 07/28/22 Unknown History Physical Exam Vital Signs and Narrative: Vital Signs: Last Vital Signs Temp 98.3 F 07/28/22 18:33 Pulse 67 07/28/22 18:33 Resp 16 07/28/22 18:33 BP 130/81 07/28/22 18:33 Pulse Ox 97 07/28/22 18:33 O2 Del Method 07/28/22 18:33 BMI result Body Mass Index 29.0 Elderly female lying in bed in no distress Neck supple, no JVD Regular rate and rhythm, S1-S2 heard Regular breath sounds bilaterally, no wheezing or crackles appreciated Abdomen soft nontender, no guarding, no rigidity Patient is awake, alert and oriented to self, place, time and person ; no facial droop, no nystagmus, strength equal in bilateral upper and lower extremities, tongue and uvula midline, Psych: Normal mood No pedal edema Neuro: Speech: Abnormal speech present Results Labs 07/28/22 15:52 07/28/22 15:52 Labs: Laboratory Results - last 24 hr 07/28/22 07/28/22 07/28/22 15:52 15:52 15:52 MCV 92.9 MCH 30.0 MCHC 32.3 RDW 12.6 Plt Count 269 MPV 10.3 Immature Gran % (Auto) 0.3 Neut % (Auto) 57.0 Lymph % (Auto) 26.0 [place] % (Auto) 13.4 H Eos % (Auto) 3.0 Baso % (Auto) 0.3 Lymph # (Auto) 1.5 [place] # (Auto) 0.8 Eos # (Auto) 0.2 Baso # (Auto) 0.0 Abs Immat Gran (auto) 0.02 Absolute Neuts (auto) 3.3 Absolute Nucleated RBC 0.000 Nucleated RBC % (auto) 0.0 PT 11.6 Whole Blood PT INR 1.0 Whole Blood INR APTT 29.5 Anion Gap 11 L Estim Creat Clear Calc 68.9 Estimated GFR > 60 POC Glucose Random Glucose 120 H Calcium 9.9 Total Bilirubin 0.4 Direct Bilirubin 0.2 AST 17 ALT 8 Alkaline Phosphatase 116 Total Creatine Kinase 73 Troponin I High Sens Total Protein 6.3 L Albumin 3.9 Urine Color Urine Appearance Urine pH Ur Specific [place] Urine Protein Urine Glucose (UA) Urine Ketones Urine Blood Urine Nitrite Ur Leukocyte Esterase COVID-19 ([facility]) COVID-19 Clin Com Influenza Type A (YAYA) Influenza Type B (YAYA) Influenza A & B Note 07/28/22 07/28/22 07/28/22 15:52 15:52 15:52 MCV MCH MCHC RDW Plt Count MPV Immature Gran % (Auto) Neut % (Auto) Lymph % (Auto) [place] % (Auto) Eos % (Auto) Baso % (Auto) Lymph # (Auto) [place] # (Auto) Eos # (Auto) Baso # (Auto) Abs Immat Gran (auto) Absolute Neuts (auto) Absolute Nucleated RBC Nucleated RBC % (auto) PT Whole Blood PT 12.4 INR Whole Blood INR 1.0 APTT Anion Gap Estim Creat Clear Calc Estimated GFR POC Glucose Random Glucose Calcium Total Bilirubin Direct Bilirubin AST ALT Alkaline Phosphatase Total Creatine Kinase Troponin I High Sens < 3.5 Total Protein Albumin Urine Color Yellow Urine Appearance Clear Urine pH 6.5 Ur Specific [place] <= 1.005 Urine Protein Negative Urine Glucose (UA) Negative Urine Ketones Negative Urine Blood Negative Urine Nitrite Negative Ur Leukocyte Esterase Negative COVID-19 ([facility]) COVID-19 Clin Com Influenza Type A (YAYA) Influenza Type B (YAYA) Influenza A & B Note 07/28/22 07/28/22 07/28/22 15:54 18:39 18:39 MCV MCH MCHC RDW Plt Count MPV Immature Gran % (Auto) Neut % (Auto) Lymph % (Auto) [place] % (Auto) Eos % (Auto) Baso % (Auto) Lymph # (Auto) [place] # (Auto) Eos # (Auto) Baso # (Auto) Abs Immat Gran (auto) Absolute Neuts (auto) Absolute Nucleated RBC Nucleated RBC % (auto) PT Whole Blood PT INR Whole Blood INR APTT Anion Gap Estim Creat Clear Calc Estimated GFR POC Glucose 115 Random Glucose Calcium Total Bilirubin Direct Bilirubin AST ALT Alkaline Phosphatase Total Creatine Kinase Troponin I High Sens Total Protein Albumin Urine Color Urine Appearance Urine pH Ur Specific [place] Urine Protein Urine Glucose (UA) Urine Ketones Urine Blood Urine Nitrite Ur Leukocyte Esterase COVID-19 ([facility]) Negative COVID-19 Clin Com See Note Influenza Type A (YAYA) Negative Influenza Type B (YAYA) Negative Influenza A & B Note See Note Imaging Radiologist's Impressions: Impressions Head CT 07/28/22 18:18 IMPRESSION: No territorial loss of jean baptiste-white matter differentiation, noting MRI would be more sensitive modality for detection of acute ischemia. No acute intracranial hemorrhage. Assessment and Plan (1) Abnormal rate of speech: Status: Acute Plan This is a 82-year-old female with pertinent history of essential hypertension, hypothyroidism, mixed hyperlipidemia who presents to the emergency department for evaluation of dysarthria/expressive aphasia. #. Abnormal speech, resolved: Concerning for TIA. 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 Obtaining MRI of the brain to rule out CVA. Consulted Neurology, appreciate assistance. Obtaining echo, carotid ultrasound, A1c and lipid panel to complete workup. Patient received aspirin in the ER #. Essential hypertension: Continue home antihypertensives #. Hypothyroidism: On Synthroid. Obtaining TSH #. Mixed hyperlipidemia: On statin DVT prophylaxis: Lovenox 40 mg daily Cardiac diet after bedside speech evaluation Full code Time Spent With Patient Time: Total time managing care of this patient today ____ minutes. Quality Stroke Does the patient have a stroke diagnosis?: No Reason for No Anti-thrombotic by Day Two: N/A - Med Ordered VTE Prior VTE?: No VTE Risk Level:: Medical - moderate - high VTE Device Contraindication: Treatment Not Indicated VTE Drug Contraindication: N/A - Med Ordered
[2022-07-28 21:26] LABS: Cholesterol 162 mg/dL; HDL Cholesterol 54 mg/dL; LDL Cholesterol Calculated 73 mg/dl; Triglycerides 179 mg/dL
[2022-07-28 21:27] VITALS: BP 162/78; PULSE 86; RESP 16; TEMP 36.8; O2SAT 97
--- NOTE | 2022-07-28 21:27 | MHC.EDTECH ---
pt was given a turkey sandwich and a glass of water for snack .
[2022-07-28] MEDS: Enoxaparin Sodium 40 MG/0.4 ML SYRINGE SUBCUT (22:34)
[2022-07-28] MEDS: Pravastatin Sodium 40 MG TABLET PO (22:34)
[2022-07-28] MEDS: cloNIDine HCL 0.2 MG TABLET PO (22:34)
--- NOTE | 2022-07-28 22:40 | MHC.CM.PN ---
ELLIS 3/. Met with admitted patient with bed assignment pending. A&O x4. Speech clear, no difficulty with finding words. Placed to observation. Lives alone. Sister is next door. Independent. No DME/services. Pfizer x2/1 booster. HCP at home. HCP/daughter Yessica Estes ([phone]). D/C plan: Home without services. Patient to arrange transport home. CM will follow for d/c needs.
[2022-07-28] MEDS: 0.9 % Sodium Chloride Flush 3 ML SYRINGE IVFLUSH (23:47)
--- NOTE | 2022-07-29 02:21 | PC.NURSE ---
Attempted to call report at 02:21.
[2022-07-29 04:00] VITALS: BP 130/71; PULSE 62; RESP 16; TEMP 36.6; O2SAT 97
[2022-07-29] MEDS: Levothyroxine Sodium 88 MCG TABLET PO (04:53)
[2022-07-29 05:10] LABS: Estimated Average Glucose 123 mg/dL; Hemoglobin A1c % 5.9 %
[2022-07-29 06:07] VITALS: BMI 28.9
[2022-07-29 06:25] LABS: MANUAL DIFF FLAG NO
[2022-07-29 06:35] LABS: Hematocrit 39.9 % (37.0-47.0); Mean Corpuscular Volume 92.1 fL (80.0-98.0); Red Blood Count 4.33 X10*6/uL (4.20-5.50); White Blood Count 6.4 X10*3/uL (4.8-10.8)
[2022-07-29 06:36] LABS: Basophils Percent Auto 0.6 % (0-2); Eosinophils Absolute Auto 0.2 X10*3/uL (0.0-0.4); Eosinophils Percent Auto 3.6 % (0-4); Imm Gran Abs Auto 0.02 X10*3/uL (0.00-0.03); Imm Gran Pct Auto 0.3 % (0.0-0.4); Lymphocytes Absolute Auto 1.8 X10*3/uL (1.2-4.9); Lymphocytes Percent Auto 28.1 % (20-40); Mean Corpuscular HGB Conc 32.6 g/dl (31.0-35.0); Mean Platelet Volume 10.2 fL (9.4-12.3); Monocytes Absolute Auto 0.8 X10*3/uL (0.1-1.2); Monocytes Percent Auto 12.3 % (2-11); Neutrophils Absolute Auto 3.5 x10*3/uL (2.0-8.3); Neutrophils Percent Auto 55.1 % (45-73); Platelet Count 280 X10*3/uL (160-400); Red Cell Distribution Width 12.5 % (11.0-16.0)
[2022-07-29 06:52] LABS: Anion Gap 12 (12-20); Blood Urea Nitrogen 11 mg/dL (9-16); Calcium 9.7 mg/dL (8.4-10.2); Carbon Dioxide 26 mmol/L (22-29); Chloride 108 mmol/L (96-108); Creatinine Clr Calc Pharmacy 66.8; Estimated Glomerular Filt Rate > 60; Glucose Random 113 mg/dL (60-115); Potassium 4.3 mmol/L (3.3-5.1); Sodium 142 mmol/L (135-145)
[2022-07-29 07:08] LABS: Thyroid Stimulating Hormone 1.08 uIU/mL (0.32-4.0)
[2022-07-29 07:40] VITALS: BP 165/84; PULSE 65; RESP 17; TEMP 36.2; O2SAT 96
[2022-07-29] MEDS: Acetaminophen 325 MG TABLET 650 MG PO (09:47)
[2022-07-29] MEDS: 0.9 % Sodium Chloride Flush 3 ML SYRINGE IVFLUSH (09:48)
[2022-07-29] MEDS: Losartan Potassium 25 MG TABLET PO (09:48)
[2022-07-29] MEDS: cloNIDine HCL 0.2 MG TABLET PO (09:48)
--- NOTE | 2022-07-29 11:59 | MHC.STROKE ---
07/28/22 [facility] PRE-NOTIFIED JAW PAIN, WORD-FINDING ISSUES STARTED AROUND 1355, RESOLVED. NO STROKE ALERT CALLED. ARRIVED AT [facility] 1452 TRIAGE AND SEEN BY PROVIDER AT 1601, NIHSS = 0. CTH DONE AT 1752, I VERIFIED SHE PASSED NURSING SWALLOW SCREEN AT 1900. STARTED ON ASPIRIN. EXCLUDED FROM TPA BASED ON NIHSS = 0, ASSIGNED TO OBSERVATION, NO STROKE ORDER SET, ASSESSED FOR REHAB BUT BACK TO BASELINE, AMB AD ESSENCE. I ADDED STROKE EDUCATION, I NOTIFIED DR SRIVASTAVA OF THE CONSULT, I ALSO F/U WITH THE [facility]NA[facility]. I WILL CONTINUE TO FOLLOW.
[2022-07-29 12:00] VITALS: BP 138/75; PULSE 75; RESP 17; TEMP 36.7; O2SAT 98
--- NOTE | 2022-07-29 12:33 | P.CNNE_ITS ---
History of Present Illness Data of Consult Service Date: 07/29/22 Primary Care Provider: Edvin Pruett MD [facility] Reason for consult: Transient speech deficit This is a 82-year-old female with history of essential hypertension, hypothyroidism, mixed hyperlipidemia who presented to the ER for evaluation of a <5minute episode of dysarthria/expressive aphasia.?She lives alone and around 2pm yesterday, she looked at the calendar and could not say the word July or .? Patient states this lasted for about 2-3 minutes.? No h/o stroke, TIA.? No history of atrial fibrillation.? No focal motor weakness, facial droop, blurry vision, headache.?Patient denies fever, chills, chest discomfort, palpitations Review of Systems Review of Systems: Yes all other systems are reviewed and are negative Constitutional: Constitutional: Reports no additional constitutional complaints Cardiovascular: Cardiovascular: Reports no additional cardiovascular complaints Respiratory: Respiratory: Reports no additional respiratory complaints Gastrointestinal: Gastrointestinal: Reports no additional gastrointestinal complaints Musculoskeletal: Musculoskeletal: Reports no additional musculoskeletal complaints Neurologic: Reports Abnormal speech present [facility] Past Medical History Medical History HTN (hypertension) Hyperlipidemia Hypothyroidism Vertigo Social History Social History Alcohol intake: never Patient Tobacco Use Status: Never used Tobacco Second Hand Smoke Exposure: No service: No Current occupational status: retired Meds Allergies Allergy/AdvReac Type Severity Reaction Status Date / Time amoxicillin [Amoxicillin] Allergy Intermediate RASH Verified 07/28/22 15:12 cantaloupe Allergy Unknown Verified 07/28/22 15:12 fish derived [fish] Allergy Anaphylaxis Verified 07/28/22 15:12 shellfish derived Allergy Anaphylaxis Verified 07/28/22 15:12 gabapentin AdvReac Unknown Verified 07/28/22 15:12 Active Medications: Current Medications Acetaminophen (Acetaminophen 325 Mg Tablet) 650 mg PO Q6H PRN PRN Reason: Pain, Mild (Pain Scale 1-3) Last Admin: 07/29/22 09:47 Dose: 650 mg Aspirin (Aspirin Enteric Coated 81 Mg Tablet.) 81 mg PO DAILY KAYLEEN Clonidine HCl (Clonidine Hcl 0.2 Mg Tablet) 0.2 mg PO BID KAYLEEN; Protocol Last Admin: 07/29/22 09:48 Dose: 0.2 mg Enoxaparin Sodium (Enoxaparin Sodium 40 Mg/0.4 Ml Syringe) 40 mg SUBCUT Q24H [facility] Last Admin: 07/28/22 22:34 Dose: 40 mg Levothyroxine Sodium (Levothyroxine Sodium 88 Mcg Tablet) 88 mcg PO DAILY@0600 [facility] Last Admin: 07/29/22 04:53 Dose: 88 mcg Losartan Potassium (Losartan Potassium 25 Mg Tablet) 25 mg PO DAILY [facility]; Protocol Last Admin: 07/29/22 09:48 Dose: 25 mg Melatonin (Melatonin 3 Mg Tablet) 6 mg PO BEDTIME PRN PRN Reason: Insomnia Ondansetron HCl (Ondansetron Hcl 4 Mg/2 Ml Vial) 4 mg IVPUSH Q8H PRN PRN Reason: Nausea and Vomiting Pharmacy Consult (Consult Rx Perform Med Rec) 1 each MISCELLANE ONCE PRN PRN Reason: Consult order Pravastatin Sodium (Pravastatin Sodium 40 Mg Tablet) 40 mg PO BEDTIME [facility] Last Admin: 07/28/22 22:34 Dose: 40 mg Sodium Chloride (0.9 % Sodium Chloride Flush 3 Ml Syringe) 3 ml IVFLUSH QSHIFT [facility] Last Admin: 07/29/22 09:48 Dose: 3 ml Home Medications Medication Instructions Recorded Confirmed Last Taken Type clonidine HCl 0.2 mg tablet 1 tab PO BID 07/28/22 07/28/22 07/28/22 History levothyroxine 88 mcg tablet 88 mcg PO DAILY 07/28/22 07/28/22 Unknown History losartan 25 mg tablet 1 tab PO DAILY 07/28/22 07/28/22 07/28/22 History pravastatin 40 mg tablet 1 tab PO BEDTIME 07/28/22 07/28/22 Unknown History Physical Exam Vital Signs: Vital Signs: Last Vital Signs Temp 98.0 F 07/29/22 12:00 Pulse 75 07/29/22 12:00 Resp 17 07/29/22 12:00 BP 138/75 07/29/22 12:00 Pulse Ox 98 07/29/22 12:00 O2 Del Method 07/29/22 12:00 BMI result Body Mass Index 28.9 Const: General: cooperative and no acute distress Orientation/consciousness: oriented to person and oriented to place Limitations: no limitations HEENT: Head: Yes normal to inspection, Yes normocephalic and Yes atraumatic Ears: external ears normal General nose exam: Normal external nose present Face and sinus: Yes normal facial exam Mouth: Normal oral and palatal mucosa present Throat: Yes posterior oropharynx normal Eyes: General: appearance normal, both eyes and all related structures Pupils: Equal, round and reactive pupils present Neck: Neck: Yes normal visual inspection, Yes no lymphadenopathy, Yes trachea midline and Yes supple Chest: Chest palpation & inspection: normal inspection of the chest and normal palpation of entire chest wall Resp: Effort & Inspection: normal respiratory effort and able to speak in complete sentences Auscultation: clear to auscultation bilaterally Cardio: Rate: regular rate Rhythm: regular rhythm Heart sounds: S1 normal heart sound present, S2 normal heart sound present and no murmurs GI: Inspection: Yes normal to inspection Palpation (GI): Soft to palpation, nontender and no guarding Auscultation: normal bowel sounds : General: Yes no CVA tenderness Back/Spine/Pelvis: Back: no CVA tenderness Skin: General skin exam: no rashes or lesions noted Neuro: Other: completely normal. General: oriented to person and oriented to place Cranial nerves: Yes CN's II-XII intact bilaterally and Yes Equal, round and reactive pupils present Cognition (Neuro): normal cognition Speech: Abnormal speech present Motor exam (neuro): 5/5 motor strength present throughout Extrem: General: Yes normal to inspection Psych: Appearance: grossly normal Speech and movement: Normal speech and movement present Affect: normal affect Attitude: cooperative Thought process: Normal thought process present Thought content: Normal thought content present Results Labs 07/29/22 06:16 07/29/22 06:16 Labs: Short CBC 07/28/22 07/29/22 Range/Units 15:52 06:16 WBC 5.7 6.4 (4.8-10.8) X10*3/uL Hgb 12.7 13.0 (12.0-16.0) g/dl Hct 39.3 39.9 (37.0-47.0) % Plt Count 269 280 (160-400) X10*3/uL BMP 07/28/22 07/29/22 15:52 06:16 Sodium 142 142 Potassium 4.1 4.3 Chloride 108 108 Carbon Dioxide 27 26 BUN 9 11 Creatinine 0.69 0.71 Calcium 9.9 9.7 Cardiac Enzymes 07/28/22 Range/Units 15:52 Total Creatine Kinase 73 (26-140) U/L Liver Function 07/28/22 Range/Units 15:52 Total Bilirubin 0.4 (0.0-1.0) mg/dL Direct Bilirubin 0.2 (0.0-0.5) mg/dL AST 17 (5-31) U/L ALT 8 (0-31) U/L Alkaline Phosphatase 116 (39-117) U/L Albumin 3.9 (3.5-5.0) g/dL Urine 07/28/22 Range/Units 15:52 Urine Color Yellow Urine Appearance Clear Urine pH 6.5 (5.0-9.0) Ur Specific [place] <= 1.005 (1.005-1.025) Urine Protein Negative (Neg-Trace) mg/dL Urine Glucose (UA) Negative (Negative) mg/dL Assessment and Plan (1) Abnormal rate of speech: Status: Acute (2) Brain TIA: Status: Acute Probable TIA left hemisphere. MRI shows no acute infarct. Chronic microvascular changes. Carotid doppler normal. Recommend: Echocardiogram bubble study. Can be done OP. Start ASA 81mg/ day. Patient can be discharged Plan This is a 82-year-old female with pertinent history of essential hypertension, hypothyroidism, mixed hyperlipidemia who presents to the emergency department for evaluation of dysarthria/expressive aphasia. #. Abnormal speech, resolved: Concerning for TIA. 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 Obtaining MRI of the brain to rule out CVA. Consulted Neurology, appreciate assistance. Obtaining echo, carotid ultrasound, A1c and lipid panel to complete workup. Patient received aspirin in the ER #. Essential hypertension: Continue home antihypertensives #. Hypothyroidism: On Synthroid. Obtaining TSH #. Mixed hyperlipidemia: On statin DVT prophylaxis: Lovenox 40 mg daily Cardiac diet after bedside speech evaluation Full code Time Spent With Patient Time: Total time managing care of this patient today ____ minutes. Procedures Date of Service Date of Service: 07/29/22
--- NOTE | 2022-07-29 13:05 | PM.DS ---
DS: Providers Provider Date of Service: 07/29/22 Date of admission: 07/28/22 20:17 Date of discharge: 07/29/22 Primary care physician: Edvin Pruett MD Attending physician on admission: Salazar Mart Consults: 07/28/22 20:34 Consult to Neurology Routine Consulting Provider: [facility] Reason for consultation: TIA vs CVA Attending physician on discharge: Vikas [facility] Discharging clinician: Lizeth Bosch DS: Diagnosis Discharge Diagnosis (1) Abnormal rate of speech: Status: Acute (2) Brain TIA: Status: Acute DS: Summary Hospital Course Hospital Course: HPI on admission by Dr. Mart 07/28/22: This is a 82-year-old female with pertinent history of essential hypertension, hypothyroidism, mixed hyperlipidemia who presents to the emergency department for evaluation of dysarthria/expressive aphasia.? Patient states that in the afternoon while she was sitting in the chair, she looked at the calendar and could not say the word July or .? Patient states this lasted for about 2-3 minutes.? Never has happened in the past.? No history of atrial fibrillation.? No focal motor weakness, facial droop, blurry vision, headache.? Had mild associated back pain but no tingling or numbness in extremities.? Patient was concerned for stroke and hence decided to present to the ER.? No loss of consciousness or rhythmic jerking movement of extremities.? Patient denies fever, chills, chest discomfort, palpitations, shortness of breath, abdominal pain, changes in urinary or bowel habits. In the emergency department CT head without acute abnormalities Hospital course: Pt admitted for further work up and monitoring after probable TIA. Pt asymptomatic on admission without any recurrence of symptoms. MRI brain was obtained without any acute infarct or other acute intracranial abnormality. There was moderate chronic microangiopathy noted. While in the ED, she was given 325 mg aspirin and was continued on 81 mg of aspirin daily. Pravastatin 40 mg was continued on admission. Lipid profile revealed total cholesterol 162, LDL 73, HDL 54, triglycerides 179. Although other labs unremarkable. Patient has no known history of atrial fibrillation or atrial flutter and no events were noted on telemetry. She was evaluated by Neurology who does agree this was likely a TIA. Patient will be discharged home advised to continue 81 mg aspirin daily, statin as prescribed, and follow up for outpatient echocardiogram with bubble study per neurology. Follow-up with PCP soon. Educated on signs and symptoms of stroke and educated to return to the ED immediately should she experience any recurrent symptoms. Status at Discharge Functional status at discharge: independent ambulation Overall status at discharge: patient is back to baseline Time Spent with Patient Time attestation: Total time managing care of this patient today ____ minutes. Discharge coordination time: Greater than 30 minutes Quality: Safe Use of Opioids Does Pt have an Active Cancer Diagnosis on the Problem List?: No Quality: Stroke Does the patient have a stroke diagnosis?: No Physical Exam Vital Signs: Vital Signs: Last Vital Signs Temp 98.0 F 07/29/22 12:00 Pulse 75 07/29/22 12:00 Resp 17 07/29/22 12:00 BP 138/75 07/29/22 12:00 Pulse Ox 98 07/29/22 12:00 O2 Del Method 07/29/22 12:00 BMI result Body Mass Index 28.9 Constitutional - Awake and Alert, No apparent distress Eyes - PERRLA, EOMI Cardiovascular - S1S2, RRR, No edema Respiratory - Normal lung expansion, Normal respiratory effort, No respiratory distress, CTA bilaterally Gastrointestinal - NT / ND; +BS; No rebound or guarding Extremities - no calf tenderness bilaterally, no swelling Skin - Warm/Dry Neurological - Alert & oriented x3, CN II-XII in tact, 5/5 strength BUE and BLE Psychological - Appropriate affect DS: Data Data Completed and Pending Labs on day of discharge: Laboratory Results - last 24 hr 07/28/22 07/28/22 07/28/22 15:52 15:52 15:52 WBC 5.7 RBC 4.23 Hgb 12.7 Hct 39.3 MCV 92.9 MCH 30.0 MCHC 32.3 RDW 12.6 Plt Count 269 MPV 10.3 Immature Gran % (Auto) 0.3 Neut % (Auto) 57.0 Lymph % (Auto) 26.0 [place] % (Auto) 13.4 H Eos % (Auto) 3.0 Baso % (Auto) 0.3 Lymph # (Auto) 1.5 [place] # (Auto) 0.8 Eos # (Auto) 0.2 Baso # (Auto) 0.0 Abs Immat Gran (auto) 0.02 Absolute Neuts (auto) 3.3 Absolute Nucleated RBC 0.000 Nucleated RBC % (auto) 0.0 PT 11.6 Whole Blood PT INR 1.0 Whole Blood INR APTT 29.5 Sodium 142 Potassium 4.1 Chloride 108 Carbon Dioxide 27 Anion Gap 11 L BUN 9 Creatinine 0.69 Estim Creat Clear Calc 68.9 Estimated GFR > 60 POC Glucose Random Glucose 120 H Estimat Average Glucose Hemoglobin A1c % Calcium 9.9 Total Bilirubin 0.4 Direct Bilirubin 0.2 AST 17 ALT 8 Alkaline Phosphatase 116 Total Creatine Kinase 73 Troponin I High Sens Total Protein 6.3 L Albumin 3.9 Triglycerides 179 Cholesterol 162 LDL Cholesterol, Calc 73 HDL Cholesterol 54 TSH Urine Color Urine Appearance Urine pH Ur Specific [place] Urine Protein Urine Glucose (UA) Urine Ketones Urine Blood Urine Nitrite Ur Leukocyte Esterase COVID-19 ([facility]) COVID-19 Clin Com Influenza Type A (YAYA) Influenza Type B (YAYA) Influenza A & B Note 07/28/22 07/28/22 07/28/22 15:52 15:52 15:52 WBC RBC Hgb Hct MCV MCH MCHC RDW Plt Count MPV Immature Gran % (Auto) Neut % (Auto) Lymph % (Auto) [place] % (Auto) Eos % (Auto) Baso % (Auto) Lymph # (Auto) [place] # (Auto) Eos # (Auto) Baso # (Auto) Abs Immat Gran (auto) Absolute Neuts (auto) Absolute Nucleated RBC Nucleated RBC % (auto) PT Whole Blood PT 12.4 INR Whole Blood INR 1.0 APTT Sodium Potassium Chloride Carbon Dioxide Anion Gap BUN Creatinine Estim Creat Clear Calc Estimated GFR POC Glucose Random Glucose Estimat Average Glucose Hemoglobin A1c % Calcium Total Bilirubin Direct Bilirubin AST ALT Alkaline Phosphatase Total Creatine Kinase Troponin I High Sens < 3.5 Total Protein Albumin Triglycerides Cholesterol LDL Cholesterol, Calc HDL Cholesterol TSH Urine Color Yellow Urine Appearance Clear Urine pH 6.5 Ur Specific [place] <= 1.005 Urine Protein Negative Urine Glucose (UA) Negative Urine Ketones Negative Urine Blood Negative Urine Nitrite Negative Ur Leukocyte Esterase Negative COVID-19 ([facility]) COVID-19 Clin Com Influenza Type A (YAYA) Influenza Type B (YAYA) Influenza A & B Note 07/28/22 07/28/22 07/28/22 15:52 15:54 18:39 WBC RBC Hgb Hct MCV MCH MCHC RDW Plt Count MPV Immature Gran % (Auto) Neut % (Auto) Lymph % (Auto) [place] % (Auto) Eos % (Auto) Baso % (Auto) Lymph # (Auto) [place] # (Auto) Eos # (Auto) Baso # (Auto) Abs Immat Gran (auto) Absolute Neuts (auto) Absolute Nucleated RBC Nucleated RBC % (auto) PT Whole Blood PT INR Whole Blood INR APTT Sodium Potassium Chloride Carbon Dioxide Anion Gap BUN Creatinine Estim Creat Clear Calc Estimated GFR POC Glucose 115 Random Glucose Estimat Average Glucose 123 Hemoglobin A1c % 5.9 Calcium Total Bilirubin Direct Bilirubin AST ALT Alkaline Phosphatase Total Creatine Kinase Troponin I High Sens Total Protein Albumin Triglycerides Cholesterol LDL Cholesterol, Calc HDL Cholesterol TSH Urine Color Urine Appearance Urine pH Ur Specific [place] Urine Protein Urine Glucose (UA) Urine Ketones Urine Blood Urine Nitrite Ur Leukocyte Esterase COVID-19 ([facility]) COVID-19 Clin Com Influenza Type A (YAYA) Negative Influenza Type B (YAYA) Negative Influenza A & B Note See Note 07/28/22 07/29/22 07/29/22 18:39 06:16 06:16 WBC 6.4 RBC 4.33 Hgb 13.0 Hct 39.9 MCV 92.1 MCH 30.0 MCHC 32.6 RDW 12.5 Plt Count 280 MPV 10.2 Immature Gran % (Auto) 0.3 Neut % (Auto) 55.1 Lymph % (Auto) 28.1 [place] % (Auto) 12.3 H Eos % (Auto) 3.6 Baso % (Auto) 0.6 Lymph # (Auto) 1.8 [place] # (Auto) 0.8 Eos # (Auto) 0.2 Baso # (Auto) 0.0 Abs Immat Gran (auto) 0.02 Absolute Neuts (auto) 3.5 Absolute Nucleated RBC 0.000 Nucleated RBC % (auto) 0.0 PT Whole Blood PT INR Whole Blood INR APTT Sodium 142 Potassium 4.3 Chloride 108 Carbon Dioxide 26 Anion Gap 12 BUN 11 Creatinine 0.71 Estim Creat Clear Calc 66.8 Estimated GFR > 60 POC Glucose Random Glucose 113 Estimat Average Glucose Hemoglobin A1c % Calcium 9.7 Total Bilirubin Direct Bilirubin AST ALT Alkaline Phosphatase Total Creatine Kinase Troponin I High Sens Total Protein Albumin Triglycerides Cholesterol LDL Cholesterol, Calc HDL Cholesterol TSH 1.08 Urine Color Urine Appearance Urine pH Ur Specific [place] Urine Protein Urine Glucose (UA) Urine Ketones Urine Blood Urine Nitrite Ur Leukocyte Esterase COVID-19 ([facility]) Negative COVID-19 Clin Com See Note Influenza Type A (YAYA) Influenza Type B (YAYA) Influenza A & B Note Discharge Plan Discharge Anticipated Discharge Date/Time: 07/29/22 12:58 Patient Disposition: Home, Self-Care Discharge Diagnosis: TIA Referrals: Edvin Pruett MD [Primary Care Provider] - 1 Week Discharge Medications: New aspirin 81 mg Tablet,Delayed Release (Dr/Ec) 81 mg PO DAILY Qty: 30 0RF Continued pravastatin 40 mg tablet 1 tab PO BEDTIME clonidine HCl 0.2 mg tablet 1 tab PO BID levothyroxine 88 mcg tablet 88 mcg PO DAILY losartan 25 mg tablet 1 tab PO DAILY Discharge Orders: Discharge Order (Routine); Ordered 07/29/22 Ordered By: Lizeth Bosch Diet: Advance to usual diet Activity on Discharge: As tolerated Stand Alone Forms: Patient Portal Discharge page Other Ambulatory Orders: [place] echo transthoracic complete (Routine) Timeframe: 1 Week Facility: [facility] - Location: Cardiology Ordered By: Lizeth Bosch Care Plan Goals: Prevent stroke Health Concerns: TIA- transient ischemic attack mini stroke Plan of Treatment: TIA -The brief expressive aphasia you experienced was likely the result of a TIA -Head ct and brain mri were negative for stroke which is reassuring -You were evaluated by neurology who recommends outpatient follow up for an echo bubble study to look for anything abnormal with the heart that could predispose you to stroke -You should continue on your pravastatin and take a baby aspirin daily to help prevfent future strokes -Should you have any recurrent symptoms or focal weakness/numbness present to the ED immediately -Follow up with PCP soon Assessment: see above
[2022-07-29] MEDS: Aspirin Enteric Coated 81 MG TABLET.DR PO (13:51)
--- NOTE | 2022-07-29 15:11 | MHC.CM.PN ---
DP: PT HAS BEEN MEDICALLY CLEARED FOR DC HOME, NO SERVICES. RN AWARE. [facility] WILL TRANSPORT HOME
[2022-07-29 15:56] VITALS: BP 132/81; PULSE 83; RESP 17; TEMP 36.9; O2SAT 93
== END 2022-07-29 16:12 | disposition home or self-care (01) ==
LOC: HO.ED 19:08 → HO.EDOVER 20:38 → HO.IMC 07-29 00:59
PROVIDERS: Emergency Medicine; Admitting Provider Student in an Organized Health Care Education/Training Program; Emergency Provider Emergency Medicine Emergency Medical Services; PCP Internal Medicine; Visit Provider Physician Assistant
DX: G45.9 Transient cerebral ischemic attack, unspecified (principal); R47.89 Other speech disturbances; R47.01 Aphasia; Z20.822 Contact with and (suspected) exposure to COVID-19; I10 Essential (primary) hypertension; E78.5 Hyperlipidemia, unspecified; E03.9 Hypothyroidism, unspecified; Z79.02 Long term (current) use of antithrombotics/antiplatelets; Z79.899 Other long term (current) drug therapy
CPT/HCPCS: 36415; 70450; 70551; 80048; 80061; 80076; 81003; 82550; 82947; 83036; 84443; 84484; 85025; 85610; 85730; 87502; 87635; 93005; 93880; 96372; 99222; 99285; J1650

== ENCOUNTER 2022-08-01 15:22 | Emergency (ER) | payer MEDICARE, SELFPAY ==
[2022-08-01 15:31] VITALS: BP 168/100; PULSE 90; O2SAT 98
--- NOTE | 2022-08-01 15:39 | ED.GENADULT ---
HPI - General Adult General Chief complaint: Anxiety Stated complaint: BODY SHAKING PER EMS Time Seen by Provider: 08/01/22 15:39 Source: patient and EMS Mode of arrival: EMS Limitations: no limitations History of Present Illness HPI narrative: Patient is an 82 year old assigned female at with a history of anxiety and TIA presenting to the emergency department today after an episode of shivering, high blood pressure, and palpitations. Patient states that she was discharged 3 days ago after a TIA and is concerned that this episode is something similar. Patient denies any neurological symptoms. Patient states that it was a quick episode of shivering and she checked her blood pressure and it was high, then she felt palpitations. Patient denies any current dizziness, lightheadedness, abdominal pain, nausea, vomiting, fever, chills, blurry vision, double vision, loss of vision, chest pain, difficulty breathing, shortness of breath, back pain, night sweats, pain with urination, increased urinary frequency, increased urinary urgency, blood in her urine or stool, syncope or a near syncopal episode, recent trauma or falls, bowel incontinence, bladder incontinence, bowel retention, bladder retention, or any other complaints at this time. Radiation: non-radiation Severity: mild Severity scale (1-10): 2 Relieving factors: none Exacerbating factors: none Associated symptoms: denies other symptoms Treatments prior to arrival: none Related Data Home Medications Medication Instructions Recorded Confirmed clonidine HCl 0.2 mg tablet 1 tab PO BID 07/28/22 07/28/22 levothyroxine 88 mcg tablet 88 mcg PO DAILY 07/28/22 07/28/22 losartan 25 mg tablet 1 tab PO DAILY 07/28/22 07/28/22 pravastatin 40 mg tablet 1 tab PO BEDTIME 07/28/22 07/28/22 Previous Rx's Medication Instructions Recorded aspirin 81 mg tablet,delayed 81 mg PO DAILY #30 tabs 07/29/22 release Allergies Allergy/AdvReac Type Severity Reaction Status Date / Time amoxicillin [Amoxicillin] Allergy Intermediate RASH Verified 07/28/22 15:12 cantaloupe Allergy Unknown Verified 07/28/22 15:12 fish derived [fish] Allergy Anaphylaxis Verified 07/28/22 15:12 shellfish derived Allergy Anaphylaxis Verified 07/28/22 15:12 gabapentin AdvReac Unknown Verified 07/28/22 15:12 Review of Systems Constitutional: Constitutional: Reports no additional constitutional complaints, Denies chills, Denies fever(s) and Denies night sweats Eyes: Eyes: Reports no additional eye complaints, Denies blurry vision, Denies change in vision, Denies diplopia, Denies eye discharge, Denies loss of vision and Denies eye pain ENT: Denies dizziness Cardiovascular: Cardiovascular: Reports no additional cardiovascular complaints, Denies chest pain, Denies lightheadedness, Denies Loss of Consciousness and Denies dyspnea Respiratory: Respiratory: Reports no additional respiratory complaints and Denies dyspnea Gastrointestinal: Gastrointestinal: Reports no additional gastrointestinal complaints, Denies abdominal pain, Denies melena, Denies hematochezia, Denies change in bowel habits and Denies change in stool character Genitourinary: Genitourinary: Denies hematuria, Denies urinary frequency, Denies dysuria, Denies urinary incontinence, Denies urinary hesitancy and Denies urinary urgency Musculoskeletal: Musculoskeletal: Reports no additional musculoskeletal complaints, Denies numbness and Denies tingling Neurologic: Denies dizziness, Denies loss of vision, Denies numbness and Denies tingling Psychiatric: Psychiatric: Reports no additional psychiatric complaints Endocrine: Endocrine: Reports no additional endocrine complaints Hematologic/Lymphatic: Hematologic/Lymphatic: Reports no additional hematologic/lymphatic complaints Allergic/Immunologic: Allergic/Immunologic: Reports no additional allergic/immunologic complaints [facility] Past Medical History Attestation statement: The following information was validated with the patient. Source: old records reviewed and nursing notes reviewed Medical History HTN (hypertension) Hyperlipidemia Hypothyroidism Vertigo Social History Social History Alcohol intake: never Patient Tobacco Use Status: Never used Tobacco Smoked in Last 30 Days: No Second Hand Smoke Exposure: No Use of substances other than those prescribed or required for medical reasons: No Advance Directives: No Advance Directives Information Provided: No service: No Current occupational status: retired Physical Exam ED Vital Signs: Vital Signs - 24 hr 08/01/22 15:54 08/01/22 16:03 Temperature 98.2 F 97.7 F Pulse Rate 80 Respiratory Rate 16 Blood Pressure 145/72 H Pulse Oximetry 96 Oxygen Delivery Method Room Air BMI result Body Mass Index 27.8 Const General: cooperative, no acute distress, alert and awake Nutritional Appearance: well nourished Orientation/consciousness: patient oriented x3 Limitations: no limitations HENMT Head: Yes normal to inspection and Yes atraumatic Ears: hearing grossly normal bilaterally and external ears normal General nose exam: Normal external nose present, no nasal discharge noted and no epistaxis Face and sinus: Yes normal facial exam, No abrasion and No laceration Mouth: Normal oral and palatal mucosa present, no drooling and no muffled voice Eyes General: appearance normal, both eyes and all related structures Periorbital: periorbital findings normal Eyelids: Yes eyelids normal Conjunctivae: conjunctivae normal Pupils: Equal, round and reactive pupils present EOM: EOMs intact bilaterally Neck Neck: Yes normal visual inspection, Yes full ROM and Yes no lymphadenopathy Chest Chest palpation & inspection: normal inspection of the chest Resp Effort & Inspection: normal respiratory effort and able to speak in complete sentences Auscultation: clear to auscultation bilaterally Cardio Rate: regular rate Rhythm: regular rhythm GI Inspection: Yes normal to inspection Palpation (GI): Soft to palpation, not firm, nontender, no guarding and not rigid Neuro General: patient oriented x3 and moves all extremities Cranial nerves: Yes Equal, round and reactive pupils present Cognition (Neuro): normal cognition Motor exam (neuro): 5/5 motor strength present throughout Sensory Exam: Normal double simultaneous stimulation for sensation Coordination: [id number] test normal Extrem General: Yes normal to inspection, Yes full ROM and Yes capillary refill normal Psych Appearance: grossly normal Mental Status: mental status grossly normal Affect: normal affect Attitude: cooperative Thought process: Normal thought process present Thought content: Normal thought content present Insight: Good insight present (Psych) NIH Stroke Scale Internal: Initial- Upon Arrival Time: 15:39 Level of Consciousness: Alert Level of Consciousness Questions: Answers both questions correctly Level of Consciousness Commands: Performs both tasks correctly Best Gaze: Normal Visual: No visual loss Facial Palsy: Normal Motor Arm (Right): No drift Motor Arm (Left): No drift Motor Leg (Right): No drift Motor Leg (Left): No drift Limb Ataxia: Absent Sensory: Normal Best Language: No aphasia Dysarthia: Normal Extinction and Inattention: No abnormality Score: 0 Medications Administered Discontinued Medications Generic Name Dose Route Start Last Admin Trade Name Freq PRN Reason Stop Dose Admin Lorazepam 1 mg 08/01/22 17:10 08/01/22 17:34 Lorazepam 1 Mg Tablet PO 08/01/22 17:11 1 mg ONCE ONE Administration Medical Decision Making Medical Decision Making [facility] Narrative: Patient is an 82 year old assigned female at with a history of anxiety and a TIA presenting to the emergency department today after an episode of a shiver and high blood pressure. Patient's physical exam was unremarkable. Patient's blood work was unremarkable. Patient's urine showed no acute process. Patient's EKG was unremarkable. I spoke to neurology who believed this to be anxiety and recommended discharging the patient and giving her strict return precautions. I explained my physical exam findings as well as all test results to the patient. I answered all questions asked by the patient. I stressed the importance of the patient taking her medication as prescribed. I stressed the importance of the patient following up with her primary care provider and her neurologist. I stressed the importance of the patient returning to the emergency department immediately if her symptoms were to worsen or if she were to develop any dizziness, shortness of breath, difficulty breathing, chest pain, blurry vision, loss of vision, nausea, vomiting, abdominal pain, fever, chills, back pain, or any other complaints. Patient verbalized agreement and understanding with this treatment plan and discharge. Differential Diagnosis Differential Diagnoses: The differential diagnosis associated with the presentation includes anxiety Consult Healthcare Provider Management of the patient was discussed with: Water Treatment Specialist (neurology believed this to be an anxious episode and recommended discharge with strict return precautions) Lab Data [facility] Lab Attestation statement: I reviewed the patient's lab results. 08/01/22 16:27 08/01/22 16:27 Labs: Lab Results 08/01/22 08/01/22 08/01/22 Range/Units 16:12 16:27 16:27 WBC 7.4 (4.8-10.8) X10*3/uL RBC 4.54 (4.20-5.50) X10*6/uL Hgb 13.5 (12.0-16.0) g/dl Hct 41.8 (37.0-47.0) % MCV 92.1 (80.0-98.0) fL MCH 29.7 (27.0-33.0) pg MCHC 32.3 (31.0-35.0) g/dl RDW 12.3 (11.0-16.0) % Plt Count 291 (160-400) X10*3/uL MPV 10.1 (9.4-12.3) fL Immature Gran % (Auto) 0.3 (0.0-0.4) % Neut % (Auto) 66.0 (45-73) % Lymph % (Auto) 19.5 L (20-40) % [place] % (Auto) 11.9 H (2-11) % Eos % (Auto) 1.9 (0-4) % Baso % (Auto) 0.4 (0-2) % Lymph # (Auto) 1.4 (1.2-4.9) X10*3/uL [place] # (Auto) 0.9 (0.1-1.2) X10*3/uL Eos # (Auto) 0.1 (0.0-0.4) X10*3/uL Baso # (Auto) 0.0 (0.0-0.2) X10*3/uL Abs Immat Gran (auto) 0.02 (0.00-0.03) X10*3/uL Absolute Neuts (auto) 4.9 (2.0-8.3) x10*3/uL Absolute Nucleated RBC 0.000 (0.0-0.012) X10*3/uL Nucleated RBC % (auto) 0.0 (0.0-0.2) /100WBC Sodium 142 (135-145) mmol/L Potassium 4.4 (3.3-5.1) mmol/L Chloride 107 (96-108) mmol/L Carbon Dioxide 29 (22-29) mmol/L Anion Gap 10 L (12-20) BUN 11 (9-16) mg/dL Creatinine 0.70 (0.5-1.4) mg/dL Estim Creat Clear Calc 68.9 Estimated GFR > 60 Random Glucose 114 (60-115) mg/dL Calcium 10.6 H D (8.4-10.2) mg/dL Magnesium 2.0 (1.6-2.6) mg/dL Total Bilirubin 0.4 (0.0-1.0) mg/dL AST 16 (5-31) U/L ALT 9 (0-31) U/L Alkaline Phosphatase 112 (39-117) U/L Troponin I High Sens (<3.5-17.0) ng/L B-Natriuretic Peptide (<100) pg/mL Total Protein 6.6 (6.5-8.0) g/dL Albumin 4.2 (3.5-5.0) g/dL Urine Color Yellow Urine Appearance Clear Urine pH 6.0 (5.0-9.0) Ur Specific [place] <= 1.005 (1.005-1.025) Urine Protein Negative (Neg-Trace) mg/dL Urine Glucose (UA) Negative (Negative) mg/dL Urine Ketones Negative (Negative) mg/dL Urine Blood Negative (Negative) Urine Nitrite Negative (Negative) Ur Leukocyte Esterase Trace H (Negative) Urine RBC 0-2 (0-2) /HPF Urine WBC 0-5 (0-5) /HPF Ur Squamous Epith Cells 0-2 (0-2) /HPF Urine Bacteria None Seen (None Seen) Hyaline Casts 0-2 (0-2) /LPF COVID-19 ([facility]) (Negative) COVID-19 Clin Com 08/01/22 08/01/22 08/01/22 Range/Units 16:27 16:27 16:27 WBC (4.8-10.8) X10*3/uL RBC (4.20-5.50) X10*6/uL Hgb (12.0-16.0) g/dl Hct (37.0-47.0) % MCV (80.0-98.0) fL MCH (27.0-33.0) pg MCHC (31.0-35.0) g/dl RDW (11.0-16.0) % Plt Count (160-400) X10*3/uL MPV (9.4-12.3) fL Immature Gran % (Auto) (0.0-0.4) % Neut % (Auto) (45-73) % Lymph % (Auto) (20-40) % [place] % (Auto) (2-11) % Eos % (Auto) (0-4) % Baso % (Auto) (0-2) % Lymph # (Auto) (1.2-4.9) X10*3/uL [place] # (Auto) (0.1-1.2) X10*3/uL Eos # (Auto) (0.0-0.4) X10*3/uL Baso # (Auto) (0.0-0.2) X10*3/uL Abs Immat Gran (auto) (0.00-0.03) X10*3/uL Absolute Neuts (auto) (2.0-8.3) x10*3/uL Absolute Nucleated RBC (0.0-0.012) X10*3/uL Nucleated RBC % (auto) (0.0-0.2) /100WBC Sodium (135-145) mmol/L Potassium (3.3-5.1) mmol/L Chloride (96-108) mmol/L Carbon Dioxide (22-29) mmol/L Anion Gap (12-20) BUN (9-16) mg/dL Creatinine (0.5-1.4) mg/dL Estim Creat Clear Calc Estimated GFR Random Glucose (60-115) mg/dL Calcium (8.4-10.2) mg/dL Magnesium (1.6-2.6) mg/dL Total Bilirubin (0.0-1.0) mg/dL AST (5-31) U/L ALT (0-31) U/L Alkaline Phosphatase (39-117) U/L Troponin I High Sens < 3.5 (<3.5-17.0) ng/L B-Natriuretic Peptide 84 (<100) pg/mL Total Protein (6.5-8.0) g/dL Albumin (3.5-5.0) g/dL Urine Color Urine Appearance Urine pH (5.0-9.0) Ur Specific [place] (1.005-1.025) Urine Protein (Neg-Trace) mg/dL Urine Glucose (UA) (Negative) mg/dL Urine Ketones (Negative) mg/dL Urine Blood (Negative) Urine Nitrite (Negative) Ur Leukocyte Esterase (Negative) Urine RBC (0-2) /HPF Urine WBC (0-5) /HPF Ur Squamous Epith Cells (0-2) /HPF Urine Bacteria (None Seen) Hyaline Casts (0-2) /LPF COVID-19 ([place]) Negative (Negative) COVID-19 Clin Com See Note Independent Interpretation I performed an independent interpretation of an: EKG Interpretation: Vent. Rate: 080 BPM ? ? Atrial Rate: 080 BPM P-R Int: 176 ms? QRS Dur: 088 ms QT Int: 398 ms ? ? ? P-R-T Axes: 033 -30 001 degrees QTc Int: 459 ms ? Normal sinus rhythm Left axis deviation Moderate voltage criteria for LVH, may be normal variant ( R in aVL , [place] product ) Abnormal ECG When compared with ECG of 28-JUL-2022 15:42, No significant change was found DD/ 1606 Independent Historian Clinical information obtained from an independent historian. History obtained from or confirmed by: EMS Critical Care Time Critical Care Time Critical Care Time: Yes Total Critical Care Time: 30 Attestation: I spent 30 minutes of Critical Care Time with this patient. This does not include time spent on separately reported billable procedures. Discharge Plan Discharge Clinical Impression: Acute anxiety Patient Disposition: Home, Self-Care Instructions: Anxiety (ED) Additional Instructions: Follow up with your primary care provider and your neurologist. Get your echo as scheduled. Return to the emergency department immediately if your symptoms worsen or if you develop any dizziness, shortness of breath, difficulty breathing, chest pain, blurry vision, loss of vision, nausea, vomiting, abdominal pain, fever, chills, back pain, or any other complaints. Prescriptions: No Action pravastatin 40 mg tablet 1 tab PO BEDTIME clonidine HCl 0.2 mg tablet 1 tab PO BID levothyroxine 88 mcg tablet 88 mcg PO DAILY losartan 25 mg tablet 1 tab PO DAILY aspirin 81 mg Tablet,Delayed Release (Dr/Ec) 81 mg PO DAILY Qty: 30 0RF [place] [facility] [place] Group] Edvin Pruett MD [Primary Care Provider] - Interventions: ED Discharge Assessment Last Done: 08/01/22 18:30 Discharge Date/Time: 08/01/22 18:30 Print Language: Turkish
--- NOTE | 2022-08-01 15:52 | ECG_ITS ---
Test Reason : WEAKNESS Blood Pressure : / mmHG Vent. Rate : 080 BPM Atrial Rate : 080 BPM P-R Int : 176 ms QRS Dur : 088 ms QT Int : 398 ms P-R-T Axes : 033 -30 001 degrees QTc Int : 459 ms Normal sinus rhythm Left axis deviation Moderate voltage criteria for LVH, may be normal variant ( R in aVL , [place] product ) Abnormal ECG When compared with ECG of 28-JUL-2022 15:42, No significant change was found Referred By: Verna Mays Electronically Signed By:CORNELIA LAWSON
[2022-08-01 15:54] VITALS: TEMP 36.8; BMI 27.8
[2022-08-01 16:03] VITALS: BP 145/72; PULSE 80; RESP 16; TEMP 36.5; O2SAT 96
[2022-08-01 16:29] LABS: Appearance Urine Clear; Color Urine Yellow; Glucose Urine UA Negative (Negative); Leukocyte Esterase Urine Trace (Negative); Nitrite Urine Negative (Negative); Specific Gravity - Urine <= 1.005 (1.005-1.025); UMIC TRIGGER UACC YES; Urine Blood Negative (Negative); Urine Ketones Negative (Negative); Urine Protein Negative (Neg-Trace)
--- NOTE | 2022-08-01 16:31 | MHC.STROKE ---
1517 EMS PRE-NOTIFIED SHAKING MOVEMENTS OVERALL WEAKNESS BP 168/100, ARRIVED AT [place] 1522. SEEN BY PROVIDER NIHSS = 0, WE DISCUSSED THE CASE, PATIENT KNOWN TO STROKE SERVICE FROM RECENT VISIT 07/28/22-07/29/22, AT THAT TIME SEEN BY DR. SRIVASTAVA, HE RECOMMENDED ASPIRIN, AND AN ECHO WITH BUBBLE WHICH IS BOOKED FOR THIS Sunday08/03/22. I DID MEET WITH HER, SHE EXPLAINED THAT SHE STARTED TO FEEL COLD AND THEN STARTED TO SHAKE, SHE WAS FEELING NERVOUS AND THIS HAS HAPPENED BEFORE. I DID DISCUSS THE PATIENT WITH DR. SRIVASTAVA, SHE HAD A COMPLETE WORK UP DURING THAT VISIT AND THE ONLY RECOMMENDATION IS TO GIVE HER A SMALL DOSE OF ATIVAN AND MAKE SURE SHE COMES IN ON SUNDAY FOR HER APPOINTMENT. SHE SAID SHE DID RECEIVE STROKE EDUCATION THE LAST VISIT THAT'S WHY SHE CALLED [phone]. I REINFORCED THE PLAN OF CARE AND REVIEWED HER MEDICATIONS, HER INDIVIDUAL RISK FACTORS, RELAXATION TECHNIQUES, SHE DOES TRY TO CLOSE HER EYES AND RELAX. I GAVE HER THE STROKE EDUCATION BOOKLET, HER SON IS THE PERSON THAT WILL DRIVE HER HOME IF SHE IS DISCHARGED, SHE DOES CONTINUE TO DRIVE AND IS SELF-SUFFICIENT. LABS ARE BEING DRAWN, CASE REVIEWED WITH
[2022-08-01 16:36] LABS: MANUAL DIFF FLAG NO
[2022-08-01 16:40] LABS: Basophils Percent Auto 0.4 % (0-2); Eosinophils Absolute Auto 0.1 X10*3/uL (0.0-0.4); Eosinophils Percent Auto 1.9 % (0-4); Hematocrit 41.8 % (37.0-47.0); Hemoglobin 13.5 g/dl (12.0-16.0); Imm Gran Abs Auto 0.02 X10*3/uL (0.00-0.03); Imm Gran Pct Auto 0.3 % (0.0-0.4); Lymphocytes Absolute Auto 1.4 X10*3/uL (1.2-4.9); Lymphocytes Percent Auto 19.5 % (20-40); Mean Corpuscular HGB Conc 32.3 g/dl (31.0-35.0); Mean Corpuscular Hemoglobin 29.7 pg (27.0-33.0); Mean Corpuscular Volume 92.1 fL (80.0-98.0); Mean Platelet Volume 10.1 fL (9.4-12.3); Monocytes Absolute Auto 0.9 X10*3/uL (0.1-1.2); Monocytes Percent Auto 11.9 % (2-11); Neutrophils Absolute Auto 4.9 x10*3/uL (2.0-8.3); Platelet Count 291 X10*3/uL (160-400); Red Blood Count 4.54 X10*6/uL (4.20-5.50); Red Cell Distribution Width 12.3 % (11.0-16.0); White Blood Count 7.4 X10*3/uL (4.8-10.8)
[2022-08-01 16:59] LABS: COVID-19 Test Negative (Negative); IDNOW Serial# BCCEAD1C
[2022-08-01 17:01] LABS: Alanine Aminotransferase 9 U/L (0-31); Albumin Level 4.2 g/dL (3.5-5.0); Alkaline Phosphatase 112 U/L (39-117); Anion Gap 10 (12-20); Aspartate Amino Transferase 16 U/L (5-31); Bilirubin Total 0.4 mg/dL (0.0-1.0); Blood Urea Nitrogen 11 mg/dL (9-16); Calcium 10.6 mg/dL (8.4-10.2); Carbon Dioxide 29 mmol/L (22-29); Chloride 107 mmol/L (96-108); Creatinine Clr Calc Pharmacy 68.9; Estimated Glomerular Filt Rate > 60; Glucose Random 114 mg/dL (60-115); Potassium 4.4 mmol/L (3.3-5.1); Sodium 142 mmol/L (135-145); Total Protein 6.6 g/dL (6.5-8.0)
[2022-08-01 17:08] LABS: B Type Natriuretic Peptide 84 pg/mL (<100)
[2022-08-01 17:09] LABS: Troponin-I High Sensitivity < 3.5 ng/L (<3.5-17.0)
[2022-08-01] MEDS: LORazepam 1 MG TABLET PO (17:34)
[2022-08-01 18:35] LABS: Bacteria Urine None Seen (None Seen); Hyaline Casts Urine 0-2 /LPF (0-2); RBC Urine 0-2 /HPF (0-2); Squamous Epithelial Cell Urine 0-2 /HPF (0-2); WBC Urine 0-5 /HPF (0-5)
== END 2022-08-01 18:30 | disposition home or self-care (01) ==
PROVIDERS: Physician Assistant Medical; Emergency Provider Student in an Organized Health Care Education/Training Program; PCP Internal Medicine
DX: F41.9 Anxiety disorder, unspecified (principal); R06.02 Shortness of breath; R53.1 Weakness; Z20.822 Contact with and (suspected) exposure to COVID-19; Z20.828 Contact with and (suspected) exposure to other viral communicable diseases; Z86.73 Personal history of transient ischemic attack (TIA), and cerebral infarction without residual deficits; Z79.899 Other long term (current) drug therapy
CPT/HCPCS: 80053; 81001; 83735; 83880; 84484; 85025; 87635; 93005; 99283; 99284

== ENCOUNTER → 2022-08-15 13:10 | Outpatient (REF) | payer MEDICARE, SELFPAY ==
--- NOTE | 2022-08-15 13:13 | CA_ITS ---
Transthoracic Echocardiogram Patient (Last, First, Middle): Madalyn Vera M Gender: Female Date of : 1940 Age: 82 Procedure Date: 08/15/2022 Procedure Type: Transthoracic Echocardiogram Location: S3W Height: 165.1 cm Weight: 80.29 kg BSA: 1.88 m2 Heart Rate: 61 bpm BP: 110 / 65 mmHg Customer Contact Sales Associate: PANFILO Elias MD: Lizeth [employer]ISH [employer] Alcohol Counselor: Jairo Aguilar MD Symptoms: tia, bubble study Study Quality: Adequate ECG Rhythm: Sinus Conclusions: - 1. Normal LV systolic function with grade 1 diastolic dysfunction 2. Mild aortic regurgitation 3. Normal RV systolic pressure 4. 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 No pericardial effusion Findings Left Ventricle Normal left ventricular size, thickness, and systolic function. The visually estimated ejection fraction is between 60-65%. Spectral Doppler is indicative of an impaired relaxation filling pattern. E/E prime ratio is <8, consistent with normal filling pressures. Evidence suggests grade I (mild) diastolic dysfunction. Right Ventricle Normal right ventricular cavity size and systolic function. Atria The left atrium is normal in size. There is lipomatous hypertrophy of the interatrial septum. There is no evidence of interatrial shunt. The right atrium is normal in size. Aortic Valve Normal aortic valve structure and function. There is no aortic valve stenosis. There is mild aortic valve regurgitation. Mitral Valve There is mild anterior and posterior mitral leaflet thickening. There is mild mitral annular calcification. There is trace mitral valve regurgitation. There is no mitral valve stenosis. Pulmonic Valve The pulmonic valve is likely normal. Tricuspid Valve Normal tricuspid valve structure. There is trace tricuspid valve regurgitation. The right ventricular systolic pressure is normal. The right ventricular systolic pressure is 22 mmHg. Normal right atrial pressure. There is no evidence of pulmonary hypertension. Great Vessels The pulmonary artery was not well visualized. There is mild dilatation of the ascending aorta measuring 4.00 cm. Small plaque is seen in the sino tubular ridge. Venous The inferior vena cava is normal in size and collapses greater than 50% with inspiration. Pericardium/Pleural There is no evidence of pericardial effusion. Prior Study Comparison No prior study available for comparison. Measurements 2D Linear Measurements IVSd: 1.20 0.6-0.9/0.6-1.0 cm LVIDd: 4.05 3.9-5.3/4.2-5.9 cm LVIDd Index: 2.15 2.4-3.2/2.2-3.1 cm/m2 LVIDs: 2.53 2.0-3.6 cm LVPWd: 1.28 0.7-1.1 cm LA Diam: 3.40 2.7-3.8/3.0-4.0 cm LAIDs Index: 1.81 1.5-2.3 cm/m2 LV Mass: 220.50 67-162/88-224 g LV Mass Index: 117.28 43-95/49-115 g/m2 LVOT Diam: 1.90 3.0+(-)1.3 cm 2D Systolic Function EF 4C: 66.20 >55% EF 2C: 60.20 >55% EF BiP: 62.90 >55% Mitral Valve MV Pk E: 0.50 MV PK A: 0.98 MV Decel Time: 304.00 E/A: 0.50 E'Lateral: 5.17 E'Medial: 3.86 E/E' Med: 13.00 E/E' Lat: 9.70 PHT: 89.00 MVA PHT: 2.47 Decel [place]: 1.65 Aortic Valve AoV Pk Doug: 1.14 AoV Mn Doug: 0.91 AoV VTI: 0.26 AoV Pk Grad: 5.00 Aov Mn Grad: 4.00 ELEANOR Cont.VTI: 2.83 AI Pk Doug: 3.60 AI [place]: 1.28 LVOT LVOT Pk Doug: 1.12 LVOT Mn Doug: 0.78 LVOT VTI: 0.26 LVOT Pk Grad: 5.00 LVOT Mn Grad: 3.00 LVOT Diam: 1.90 LVOT Area: 2.84 Diastolic Function MV Pk E: 0.50 MV Pk A: 0.98 E/A: 0.50 E'Medial: 3.86 E/E' Med: 13.00 E' Laterial: 5.17 E/E' Lat: 9.70 Right Ventricle TAPSE (mm): 22.40 TVS' Doug: 15.40 Tricuspid Valve TR Pk Doug: 2.18 TR Pk Grad: 19.00 RA Press: 3.00 RVSP: 22.00 Great Vessels Aorta Sinus of Valsalva: 3.80 2.0-3.5 cm Ao Asc: 4.00 2.1-3.4 cm Pulmonary Valve PV Pk Doug: 0.80 Peak PV Grad: 3.00 Updated in Other Vendor System with Status of Final Jairo Aguilar MD electronically signed on 08/15/2022 4:44:38 PM with status of Final
== END ==
LOC: HO.CARD 13:10
PROVIDERS: PCP Internal Medicine; Visit Provider Nurse Practitioner Primary Care
DX: R00.2 Palpitations (principal); G45.9 Transient cerebral ischemic attack, unspecified
CPT/HCPCS: 93306

== ENCOUNTER 2022-10-15 15:15 | Emergency (ER) | payer MEDICARE, SELFPAY ==
[2022-10-15 15:35] VITALS: BP 149/86; PULSE 88; RESP 18; TEMP 36.6; O2SAT 95; BMI 32.2
--- NOTE | 2022-10-15 15:36 | ED.GENADULT ---
HPI - General Adult General Chief complaint: Wound/Laceration Stated complaint: bumped head, bleeding Time Seen by Provider: 10/15/22 16:57 Source: patient Mode of arrival: ambulatory History of Present Illness HPI narrative: 82 yold female presents to the ED for scalp laceration after hitting head on overhead door at [facility]. patient states it was a low impact hit. patient denies falling to the ground or loss of conscisouness. Patient denies any other trauma. Patient states no nausea, vomiting, dizziness, chest pain, shortness of breath, slurred speech, facial droop, loss of vision, or paralysis of extremities. Patient takes daily aspirin. Patient denies any history of brain bleed. Related Data Home Medications Medication Instructions Recorded Confirmed clonidine HCl 0.2 mg tablet 1 tab PO BID 07/28/22 07/28/22 levothyroxine 88 mcg tablet 88 mcg PO DAILY 07/28/22 07/28/22 losartan 25 mg tablet 1 tab PO DAILY 07/28/22 07/28/22 pravastatin 40 mg tablet 1 tab PO BEDTIME 07/28/22 07/28/22 Previous Rx's Medication Instructions Recorded aspirin 81 mg tablet,delayed 81 mg PO DAILY #30 tabs 07/29/22 release Allergies Allergy/AdvReac Type Severity Reaction Status Date / Time amoxicillin [Amoxicillin] Allergy Intermediate RASH Verified 10/15/22 15:34 cantaloupe Allergy Unknown Verified 10/15/22 15:34 fish derived [fish] Allergy Anaphylaxis Verified 10/15/22 15:34 shellfish derived Allergy Anaphylaxis Verified 07/28/22 15:12 gabapentin AdvReac Unknown Verified 10/15/22 15:34 Review of Systems Review of Systems: scalp laceration Yes all other systems are reviewed and are negative [facility] Past Medical History Medical History HTN (hypertension) Hyperlipidemia Hypothyroidism Vertigo Social History Social History Alcohol intake: never Patient Tobacco Use Status: Never used Tobacco Second Hand Smoke Exposure: No Advance Directives: No Advance Directives Information Provided: No service: No Current occupational status: retired Physical Exam ED Vital Signs: Vital Signs - 24 hr 10/15/22 15:35 Temperature 97.9 F Pulse Rate 88 Respiratory Rate 18 Blood Pressure 149/86 H Pulse Oximetry 95 Oxygen Delivery Method Room Air BMI result Body Mass Index 32.2 Const General: cooperative, healthy appearing, comfortable, no acute distress, well developed, alert, awake and Physically active Orientation/consciousness: oriented to person, oriented to place, oriented to time and patient oriented x3 HENIL Head: Yes normal to inspection, Yes No palpable skull fracture present and Yes normocephalic Head images: 1. Small abrasion with mild bleeding. no crepitus/tenderness on palpation. Ears: hearing grossly normal bilaterally, external ears normal, TM's normal bilaterally, EAC's normal, mastoids normal and no periauricular adenopathy General nose exam: Normal external nose present and Normal nares present Face and sinus: Yes normal facial exam and Yes sinuses nontender Throat: Yes posterior oropharynx normal, Yes tonsils normal and Yes uvula midline Eyes General: appearance normal, both eyes and all related structures Neck Neck: Yes normal visual inspection, Yes full ROM, Yes no lymphadenopathy, Yes no meningeal signs, Yes trachea midline, Yes supple, No anterior neck swelling and No tender Chest Chest palpation & inspection: normal inspection of the chest and normal palpation of entire chest wall Resp Effort & Inspection: normal respiratory effort and able to speak in complete sentences Auscultation: clear to auscultation bilaterally Cardio Jugular venous distension: no JVD Heart sounds: S1 normal heart sound present and S2 normal heart sound present GI Inspection: Yes normal to inspection and No abdominal wall ecchymosis Palpation (GI): Soft to palpation, not firm, nontender, no guarding and not rigid General: No CVA tenderness and Yes no CVA tenderness Back/Spine/Pelvis Back: no CVA tenderness, No CVA tenderness and No back tenderness Skin General skin exam: no rashes or lesions noted and elasticity normal Neuro General: oriented to person, oriented to place, oriented to time, patient oriented x3, gait normal, tone normal, moves all extremities, Normal light touch and pain sensation, no meningeal signs, no focal motor deficits, CN's II-XI intact bilaterally and normal sensation to monofilament Extrem General: Yes normal to inspection and Yes full ROM Psych Appearance: grossly normal, well kempt and not disheveled Course Course Course Narrative: RME: 82 yold female presents to the Ed for head injury. Patient hit her head unto an overhead door at [facility] and now is bleeding from her sclap. positive for scalp laceration ( more like an abrasion). patient taking asprin daily. Medical Decision Making Medical Decision Making [facility] Narrative: 82-year-old female presents to the ED for evaluation of bleeding from scalp. Patient states she was in [employer] and she bumped her head against an overhead door. Patient it was low impact. Patient denies falling to the ground, loss of consciousness, dizziness, nausea weakness, blurry vision, or ringing in the ears. Injury occurred 3 hours ago. Physical exam shows more abrasion of scalp. No jg needed. No signs of any neuro deficits. Ear exam negative for bleeding, hemotympanic membrane, CSF fluids. Eyes exam normal. Negative for any cervical motion tenderness. patient only on 81mg Dose Asprin. Not supecting Brain bleed or Cervical spine fracture. patient presently asympomatic and is A0x3. patieint uptodate wtih tetanus Differential Diagnosis Differential Diagnoses: The differential diagnosis associated with the presentation includes (Abrasions, scalp laceration, brain bleed, cervical spine fracture. ) Admission/Observation Consideration of admission/observation: Escalation of care including admission/observation considered Tests considered The following testing was considered but not selected: head and CErvical SPine CT Discharge Plan Discharge Clinical Impression: Abrasion head, Head injury Patient Disposition: Home, Self-Care Instructions: Head Injury (ED), Abrasion (ED) Additional Instructions: Return to the ED immediately for any dizziness, nausea, vomiting, headache, altered mental status, worsening bleeding, bleeding from ears, paralysis/tingling of extremities, or any other concerning symptoms. Please follow-up with primary care provider. Prescriptions: No Action pravastatin 40 mg tablet 1 tab PO BEDTIME clonidine HCl 0.2 mg tablet 1 tab PO BID levothyroxine 88 mcg tablet 88 mcg PO DAILY losartan 25 mg tablet 1 tab PO DAILY aspirin 81 mg Tablet,Delayed Release (Dr/Ec) 81 mg PO DAILY Qty: 30 0RF Interventions: ED Discharge Assessment Last Done: 10/15/22 17:17 Discharge Date/Time: 10/15/22 17:18 Print Language: Upper Sorbian
--- NOTE | 2022-10-15 15:55 | PC.NURSE ---
wound cleansed with NS and hydrogen peroxide. wound bed was visualized, debris removed, bleeding controlled- well tolerated by pt, no new orders at this time
== END 2022-10-15 17:18 | disposition home or self-care (01) ==
PROVIDERS: Emergency Provider Internal Medicine; PCP Internal Medicine
DX: S00.91XA Abrasion of unspecified part of head, initial encounter (principal); R51.9 Headache, unspecified; Y29.XXXA Contact with blunt object, undetermined intent, initial encounter; Y93.9 Activity, unspecified; Y92.512 Supermarket, store or market as the place of occurrence of the external cause; Y99.9 Unspecified external cause status; Z79.899 Other long term (current) drug therapy
CPT/HCPCS: 99282; 99283

== ENCOUNTER → 2022-10-30 14:20 | Outpatient (BNVA) | payer MEDICARE, SELFPAY | PROVIDERS: PCP Internal Medicine; Referring Provider Internal Medicine; Visit Provider Internal Medicine | DX: I71.21 Aneurysm of the ascending aorta, without rupture (principal); G45.9 Transient cerebral ischemic attack, unspecified; R00.2 Palpitations | CPT/HCPCS: 99202 ==

== ENCOUNTER → 2022-11-02 13:40 | Outpatient (REF) | payer MEDICARE, SELFPAY ==
--- NOTE | 2022-11-02 13:44 | HM_ITS ---
Cardiac event monitor Indication: Paroxysmal atrial fibrillation Technique: Patient was hooked up to cardiac event monitor on 11/02/2022 for total period of 30 days with a compliance rate of 95% Findings: Baseline was normal sinus rhythm with slowest heart rate of 48 beats per minute and fastest heart of 148 beats per minute. There were no episodes of atrial fibrillation noted. There were rare PACs and PVCs noted Patient reported 1 event without any reported symptoms that correlated sinus rhythm Patient reported 1 event of chest pressure that correlated with PACs Patient reported 4 events with no symptoms in diary correlating sinus rhythm or PACs Patient reported 1 event of palpitation that correlated with sinus bradycardia. Conclusion: 1. Baseline was normal sinus rhythm with no pauses 2. No episodes of atrial fibrillation with rare PACs and PVCs 3. Patient reported multiple events correlated mostly with sinus rhythm and rarely with PACs MTDD
== END ==
LOC: HO.CARD 13:40
PROVIDERS: PCP Internal Medicine; Visit Provider Internal Medicine
DX: R00.2 Palpitations (principal); I48.0 Paroxysmal atrial fibrillation
CPT/HCPCS: 93270

== ENCOUNTER → 2022-11-02 13:44 | Outpatient (BNV) | payer MEDICARE, SELFPAY | PROVIDERS: PCP Internal Medicine; Visit Provider Internal Medicine Cardiovascular Disease | DX: I48.91 Unspecified atrial fibrillation (principal) | CPT/HCPCS: 93272 ==

== ENCOUNTER 2023-01-30 13:43 | Outpatient (AMB) | payer MEDICARE, SELFPAY ==
[2023-01-30 13:46] VITALS: BP 114/72; PULSE 80; BMI 30.6
--- NOTE | 2023-01-30 13:46 | MHC.OFFVIS ---
Intake Vital Signs 01/30/23 13:46 Height 5 ft 4 in Weight 178 lb 9.191 oz BMI 30.6 BP 114/72 Blood Pressure Location Lt brachial Position Sitting Pulse 80 Pulse Source Pulse Oximeter Intake Visit Reasons: 3 mth f/u after 30 day holter Intake Note: 3 month follow up after holter Air And Water Filler Required: No Allergies amoxicillin [Amoxicillin] Allergy (Intermediate, Verified 01/30/23 13:52) RASH cantaloupe Allergy (Verified 01/30/23 13:52) Unknown fish derived [fish] Allergy (Verified 01/30/23 13:52) Anaphylaxis shellfish derived Allergy (Verified 01/30/23 13:52) Anaphylaxis gabapentin Adverse Reaction (Verified 01/30/23 13:52) Unknown Medication List - Last Reconciled 01/30/23 by MARYBETH KiranC aspirin 81 mg PO DAILY clonidine HCl 0.2 mg PO BID epinephrine 0.3 mg IM ONCE levothyroxine 88 mcg PO DAILY losartan 50 mg PO DAILY meclizine 25 mg PO TID PRN pravastatin 40 mg PO BEDTIME HPI 3 mth f/u after 30 day holter HPI Details Madalyn is an 82-year-old female with past medical history of hypertension, hyperlipidemia who had a TIA episode in July with dysphagia that resolved quickly, reported heart palpitations who is undergoing evaluation to rule out atrial fibrillation. Today she reports she has been feeling well since her last visit in October. She has no recurrent neurological type symptoms. She denies any visual disturbances. No speech changes or word finding. Note numbness or tingling of her extremities. She reports good activity tolerance. No shortness of breath, chest discomfort, palpitations, presyncope, syncope, PND, orthopnea or edema. She does have a history of vertigo without recent problems. She describes having her esophagus dilated and Botox injected recently. She describes having a hiatal hernia and feels that may be the palpitations she previously felt. She takes all her meds as directed. [facility] Medical History Ascending aortic aneurysm HTN (hypertension) Hyperlipidemia Hypothyroidism Vertigo Family History Mother No problems noted. Father No problems noted. Social History Alcohol intake: never Patient Tobacco Use Status: Never used Tobacco Second Hand Smoke Exposure: No service: No Current occupational status: retired Review of Systems Const All systems reviewed & are unremarkable except as noted in HPI and below ENT Reports dizziness Card Denies chest pain, Denies chest pain at rest, Denies chest pain with activity, Denies rapid heart rate, Denies pedal edema, Denies edema, Denies leg edema, Denies lightheadedness, Denies palpitations, Denies dyspnea, Denies dyspnea on exertion and Denies orthopnea Resp Denies cough, Denies dyspnea and Denies dyspnea on exertion GI Denies hematochezia and Denies change in stool character Musc Denies abnormal gait, Denies limited range of motion, Denies muscle cramps, Denies muscle weakness, Denies numbness, Denies radiating pain into limb, Denies stiffness and Denies tingling Neuro Denies abnormal gait, Reports dizziness, Denies numbness and Denies tingling Endo Denies palpitations Physical Exam Vital Signs: Last Vital Signs Pulse 80 01/30/23 13:46 BP 114/72 01/30/23 13:46 BMI result Body Mass Index 30.6 Const General: cooperative, healthy appearing, comfortable and no acute distress Orientation/consciousness: patient oriented x3 Neck Neck: Yes normal visual inspection and Yes no JVD Resp Effort & Inspection: normal respiratory effort Auscultation: clear to auscultation bilaterally, no crackles, no rales, no rhonchi and no wheezes Cardio Jugular venous distension: no JVD Rate: regular rate Rhythm: regular rhythm Heart sounds: S1 normal heart sound present, S2 normal heart sound present, no gallops, no murmurs and no rubs Peripheral pulses: Peripheral pulses 2+ throughout Neuro General: patient oriented x3 Extrem General: Yes normal to inspection, No no pedal edema and No calf tenderness Psych Appearance: grossly normal Mental Status: mental status grossly normal Speech and movement: Normal speech and movement present Assessment & Plan Assessment & Plan (1) Heart palpitations: Code(s): R00.2 - Palpitations Plan: On last visit reported heart palpitations described as intermittent feeling of her heart racing that could last up to 15 or 20 minute. Concern for possible atrial fibrillation in the setting of TIA July 2022. Brain MRI did not show any acute findings. EKG done on 08/01/2022 shows normal sinus rhythm with no acute ST or T-wave abnormalities. Echocardiogram done 08/15/2022 showed EF 60-65%, mild aortic regurgitation, ascending aorta 4 cm. Thirty day cardiac event monitor applied 11/02/2022 shows sinus rhythm, no atrial fibrillation, heart rate range 48 to 148 with occasional PACs and PVCs. Her symptoms correlated with sinus rhythm and PACs. Today she reports that she has not been bothered as much by any heart palpitations. She has had no new neurological changes, TIAs. She describes having her esophagus dilated, and underlying hiatal hernia. She believes that gives her bubbling sensations in her chest that she feels could be the symptom of palpitations she was feeling. Pulse is regular on examination today. Discussed further evaluation for AFib with a implanted loop recorder. She is quite reluctant at this time. She says she is overall feeling fine. Spent time reviewing the signs and symptoms of stroke so that early recognition can be achieved. She will continue on aspirin 81 mg daily. Continue pravastatin. Blood pressure is currently well controlled. Emergency care if needed for any concerning symptoms. Cardiology office visit in 6 months, sooner if needed. (2) Brain TIA: Code(s): G45.9 - Transient cerebral ischemic attack, unspecified (3) Ascending aortic aneurysm: Code(s): I71.21 - Aneurysm of the ascending aorta, without rupture Plan: Echocardiogram done 08/15/2022 showed ascending aorta 4 cm. Plan for repeat echo in 1 year from last, due 07/2023. Blood pressure is well controlled Coding Level of Care Code Est Pt Level 4 (43235) Diagnoses Heart palpitations R00.2 Brain TIA G45.9 Ascending aortic aneurysm I71.21 Time Spent (min) 24 Comment Chart review, documentation, interview, assess
== END 2023-01-30 14:18 | disposition home or self-care (01) ==
PROVIDERS: PCP Internal Medicine; Referring Provider Internal Medicine; Visit Provider Nurse Practitioner Family
DX: R00.2 Palpitations (principal); G45.9 Transient cerebral ischemic attack, unspecified; I71.21 Aneurysm of the ascending aorta, without rupture
CPT/HCPCS: 99214

== ENCOUNTER → 2023-01-30 13:43 | Outpatient (BNVA) | payer MEDICARE, SELFPAY | PROVIDERS: PCP Internal Medicine; Referring Provider Internal Medicine; Visit Provider Nurse Practitioner Family | DX: I71.21 Aneurysm of the ascending aorta, without rupture (principal); G45.9 Transient cerebral ischemic attack, unspecified; R00.2 Palpitations | CPT/HCPCS: 99212 ==

== ENCOUNTER → 2023-08-16 09:51 | Outpatient (REF) | payer MEDICARE, SELFPAY ==
--- NOTE | 2023-08-16 09:54 | CA_ITS ---
Transthoracic Echocardiogram Patient (Last, First, Middle): Madalyn Vera M Gender: Female Date of : 1940 Age: 83 Procedure Date: 08/16/2023 Procedure Type: Transthoracic Echocardiogram Location: OP Height: 165.1 cm Weight: 78.47 kg BSA: 1.86 m2 Heart Rate: bpm BP: 142 / 82 mmHg Ocular Care Aide: TO Referring MD: Ally Olivares QUANTITATIVE DEVELOPERGonzálezC Symptoms: I71.21 - Aneurysm of the ascending aorta, without rupture Study Quality: Adequate ECG Rhythm: Sinus Conclusions: - The calculated ejection fraction is 68% by biplane method. There is no evidence of regional wall motion abnormalities. - There is mild aortic valve regurgitation. - There is mild dilatation of the ascending aorta measuring 4.20 cm. Findings Left Ventricle Normal left ventricular cavity size. The left ventricular systolic function is normal. The calculated ejection fraction is 68% by biplane method. There is no evidence of regional wall motion abnormalities. Evidence suggests grade I (mild) diastolic dysfunction. There is mild septal asymmetric hypertrophy. LV peak GLS -19.7%. Right Ventricle Normal right ventricular cavity size and systolic function. Atria The left atrium is mildly dilated. The right atrium is normal in size. Aortic Valve There is a normal trileaflet aortic valve. There is mild calcification of the aortic valve. There is no aortic valve stenosis. There is mild aortic valve regurgitation. Mitral Valve There is mild mitral annular calcification. There is mild mitral valve regurgitation. There is no mitral valve stenosis. Pulmonic Valve There is trace pulmonic valve regurgitation. Tricuspid Valve There is mild tricuspid valve regurgitation. There is no evidence of pulmonary hypertension. Great Vessels There is mild dilatation of the ascending aorta measuring 4.20 cm. Venous The inferior vena cava is normal in size and collapses greater than 50% with inspiration. Pericardium/Pleural There is no evidence of pericardial effusion. Prior Study Comparison Changes noted compared to prior study dated: 08/15/2022. change in ascending aortic size. Measurements 2D Linear Measurements IVSd: 1.24 0.6-0.9/0.6-1.0 cm LVIDd: 4.36 3.9-5.3/4.2-5.9 cm LVIDd Index: 2.34 2.4-3.2/2.2-3.1 cm/m2 LVIDs: 2.67 2.0-3.6 cm LVPWd: 0.78 0.7-1.1 cm LA Diam: 3.70 2.7-3.8/3.0-4.0 cm LAIDs Index: 1.99 1.5-2.3 cm/m2 LV Mass: 183.50 67-162/88-224 g LV Mass Index: 98.66 43-95/49-115 g/m2 LVOT Diam: 2.00 3.0+(-)1.3 cm 2D Systolic Function EF 4C: 66.80 >55% EF 2C: 69.80 >55% EF BiP: 67.70 >55% Mitral Valve MV VTI: 0.30 MV Pk Doug: 1.16 MV Mn Doug: 0.50 MV Pk Grad: 5.00 MV Mn Grad: 1.00 MV Pk E: 0.58 MV PK A: 0.95 MV Decel Time: 221.00 E/A: 0.60 E'Lateral: 5.44 E'Medial: 3.48 E/E' Med: 16.60 E/E' Lat: 10.60 PHT: 65.00 MVA PHT: 3.38 MVA Continuity: 2.62 Decel Sullivan: 2.62 Aortic Valve AoV Pk Doug: 1.13 AoV Mn Doug: 0.78 AoV VTI: 0.24 AoV Pk Grad: 5.00 Aov Mn Grad: 3.00 ELEANOR Cont.VTI: 3.34 AI Pk Doug: 4.08 AI Sullivan: 1.54 LVOT LVOT Pk Doug: 1.06 LVOT Mn Doug: 0.70 LVOT VTI: 0.25 LVOT Pk Grad: 4.00 LVOT Mn Grad: 2.00 LVOT Diam: 2.00 LVOT Area: 3.14 Diastolic Function MV Pk E: 0.58 MV Pk A: 0.95 E/A: 0.60 E'Medial: 3.48 E/E' Med: 16.60 E' Laterial: 5.44 E/E' Lat: 10.60 Right Ventricle TAPSE (mm): 19.50 TVS' Doug: 11.20 Tricuspid Valve TR Pk Doug: 2.49 TR Pk Grad: 25.00 RA Press: 3.00 RVSP: 28.00 Great Vessels Aorta Sinus of Valsalva: 3.99 2.0-3.[address] Ridge: 3.43 1.7-3.4 cm Ao Asc: 4.20 2.1-3.4 cm Ao Arch: 3.60 Updated in Other Vendor System with Status of Final Ernesto Camejo MD electronically signed on 08/18/2023 11:16:57 AM with status of Final
== END ==
LOC: HO.CARD 09:51
PROVIDERS: PCP Internal Medicine; Visit Provider Nurse Practitioner Family
DX: I71.21 Aneurysm of the ascending aorta, without rupture (principal)
CPT/HCPCS: 93306; 93356

== ENCOUNTER → 2023-08-16 09:54 | Outpatient (BNV) | payer MEDICARE, SELFPAY | PROVIDERS: PCP Internal Medicine; Visit Provider Internal Medicine | DX: I35.1 Nonrheumatic aortic (valve) insufficiency (principal) | CPT/HCPCS: 93306; 93356 ==

== ENCOUNTER 2023-08-21 13:49 | Outpatient (AMB) | payer MEDICARE, SELFPAY ==
[2023-08-21 13:52] VITALS: BP 120/82; PULSE 73; BMI 30.9
--- NOTE | 2023-08-21 13:52 | A.OFFVIS_ITS ---
Intake Vital Signs 08/21/23 13:52 Height 5 ft 4 in Weight 179 lb 14.355 oz BMI 30.9 BP 120/82 Blood Pressure Location Rt brachial Position Sitting Pulse 73 Pulse Source Monitor Intake Visit Reasons: f/u after after echo Allergies amoxicillin [Amoxicillin] Allergy (Intermediate, Verified 08/21/23 13:54) RASH cantaloupe Allergy (Verified 08/21/23 13:54) Unknown fish derived [fish] Allergy (Verified 08/21/23 13:54) Anaphylaxis shellfish derived Allergy (Verified 08/21/23 13:54) Anaphylaxis gabapentin Adverse Reaction (Verified 08/21/23 13:54) Unknown Medication List - Last Reconciled 08/21/23 by Ally Olivares, CANDELARIO-C aspirin 81 mg PO DAILY clonidine HCl 0.2 mg PO BID epinephrine 0.3 mg IM ONCE levothyroxine 88 mcg PO DAILY losartan 50 mg PO DAILY meclizine 25 mg PO TID PRN pravastatin 40 mg PO BEDTIME HPI f/u after after echo HPI Details Madalyn is an 83-year-old female with past medical history of hypertension, hyperlipidemia who had a TIA episode in July 2022 with dysarthria that resolved quickly, heart palpitations without findings of AFib, dilated ascending aorta who presents for follow-up after recent echocardiogram. Today she reports she has been doing well since her last visit in January. She will feel very brief heart palpitations lasting a second. No sustained heart palpitations or rapid rates. No new neurological type symptoms. She does have some double vision in her left eye if she lays on her left side. She has seen an eye doctor and was told that everything was okay. No chest discomfort, shortness of breath, lightheadedness, presyncope, syncope, falls. No PND, orthopnea or edema. Takes meds as directed [facility] Medical History Ascending aortic aneurysm Hypothyroidism Hyperlipidemia Vertigo HTN (hypertension) Family History Mother No problems noted. Father No problems noted. Social History Alcohol intake: never Patient Tobacco Use Status: Never used Tobacco Second Hand Smoke Exposure: No service: No Current occupational status: retired Review of Systems Const All systems reviewed & are unremarkable except as noted in HPI and below ENT Denies dizziness Card Details: Brief heart palpitations Denies chest pain, Denies chest pain at rest, Denies chest pain with activity, Denies rapid heart rate, Denies pedal edema, Denies edema, Denies leg edema, Denies lightheadedness, Denies palpitations, Denies dyspnea, Denies dyspnea on exertion and Denies orthopnea Resp Denies cough, Denies dyspnea and Denies dyspnea on exertion GI Denies hematochezia and Denies change in stool character Musc Denies abnormal gait, Denies limited range of motion, Denies muscle cramps, Denies muscle weakness, Denies numbness, Denies radiating pain into limb, Denies stiffness and Denies tingling Neuro Denies abnormal gait, Denies dizziness, Denies numbness and Denies tingling Endo Denies palpitations Physical Exam Vital Signs: Last Vital Signs Pulse 73 08/21/23 13:52 BP 120/82 08/21/23 13:52 BMI result Body Mass Index 30.9 Const General: cooperative, healthy appearing, comfortable and no acute distress Orientation/consciousness: patient oriented x3 Neck Neck: Yes normal visual inspection and Yes no JVD Resp Effort & Inspection: normal respiratory effort Auscultation: clear to auscultation bilaterally, no crackles, no rales, no rhonchi and no wheezes Cardio Jugular venous distension: no JVD Rate: regular rate Rhythm: regular rhythm Heart sounds: S1 normal heart sound present, S2 normal heart sound present, no gallops, no murmurs and no rubs Peripheral pulses: Peripheral pulses 2+ throughout Neuro General: patient oriented x3 Extrem General: Yes normal to inspection, No no pedal edema and No calf tenderness Psych Appearance: grossly normal Mental Status: mental status grossly normal Speech and movement: Normal speech and movement present Office Procedures EKG Details: Today, read by me, normal sinus rhythm, left axis deviation, nonspecific ST abno rmality, rate 73, QTC 445 millisecond [id number], Complete Assessment & Plan Assessment & Plan (1) Heart palpitations: Code(s): R00.2 - Palpitations Plan: Previously reported heart palpitations described as intermittent feeling of her heart racing that could last up to 15 or 20 minute. Concern for possible atrial fibrillation in the setting of TIA July 2022. Brain MRI did not show any acute findings. EKG done on 08/01/2022 shows normal sinus rhythm with no acute ST or T-wave abnormalities. Echocardiogram done 08/15/2022 showed sinus rhythm, EF 60-65%, mild aortic regurgitation, ascending aorta 4 cm. Thirty day cardiac event monitor applied 11/02/2022 shows sinus rhythm, no atrial fibrillation, heart rate range 48 to 148 with occasional PACs and PVCs. Her symptoms correlated with sinus rhythm and PACs. Today she reports very brief heart palpitations lasting a second and resolving. She has had no new neurological changes, TIAs. She previously had her esophagus dilated, and has hiatal hernia. She believed that gives her bubbling sensations in her chest that she feels could be the symptom of palpitations she was feeling. EKG done today showing normal sinus rhythm, rate 73. Previously Discussed further evaluation for AFib with a implanted loop recorder. And she declined. I brought it up again today and she again declines. She will notify this office if she has any concerning heart palpitations. Emergency care if needed for symptoms. Spent time reviewing the signs and symptoms of stroke so that early recognition can be achieved. She will continue on aspirin 81 mg daily. Continue pravastatin. Blood pressure is currently well controlled. Cardiology office visit in 6 months, sooner if needed. (2) Brain TIA: Code(s): G45.9 - Transient cerebral ischemic attack, unspecified Plan: As above (3) Ascending aortic aneurysm: Code(s): I71.21 - Aneurysm of the ascending aorta, without rupture Plan: Echocardiogram done 08/15/2022 showed ascending aorta 4 cm. Echocardiogram done 08/16/2023 shows EF 68%, ascending aorta 4.2 cm. Blood pressure is well controlled. Will continue to follow Plan Time spent on chart review, documentation, interview and assessment Coding Level of Care Code Est Pt Level 3 (24356) Diagnoses Heart palpitations R00.2 Brain TIA G45.9 Ascending aortic aneurysm I71.21 CPT Codes EKG - CPT: 86176-[id number], Complete ([id number]) Time Spent (min) 24
== END 2023-08-21 14:29 | disposition home or self-care (01) ==
PROVIDERS: PCP Internal Medicine; Visit Provider Nurse Practitioner Family
DX: R00.2 Palpitations (principal); G45.9 Transient cerebral ischemic attack, unspecified; I71.21 Aneurysm of the ascending aorta, without rupture
CPT/HCPCS: 93010; 99213

== ENCOUNTER → 2023-08-21 13:49 | Outpatient (BNVA) | payer MEDICARE, SELFPAY | PROVIDERS: PCP Internal Medicine; Visit Provider Nurse Practitioner Family | DX: I10 Essential (primary) hypertension (principal); I71.21 Aneurysm of the ascending aorta, without rupture; E78.5 Hyperlipidemia, unspecified; R00.2 Palpitations; Z86.73 Personal history of transient ischemic attack (TIA), and cerebral infarction without residual deficits | CPT/HCPCS: 93005; 99212 ==

== ENCOUNTER 2023-09-09 02:24 | Emergency (ER) | payer MEDICARE, SELFPAY ==
--- NOTE | 2023-09-09 | ECG_ITS ---
Test Reason : dizziness Blood Pressure : / mmHG Vent. Rate : 075 BPM Atrial Rate : 075 BPM P-R Int : 176 ms QRS Dur : 084 ms QT Int : 424 ms P-R-T Axes : 029 -29 006 degrees QTc Int : 473 ms Normal sinus rhythm Minimal voltage criteria for LVH, may be normal variant ( R in aVL ) Borderline ECG When compared with ECG of 01-AUG-2022 16:06, No significant change was found Referred By: Generic ED Physician Electronically Signed By:Chato Landon
[2023-09-09 02:47] VITALS: BP 146/76; BP 150/70; PULSE 82; PULSE 84; RESP 17; TEMP 36.6; O2SAT 93; O2SAT 98; BMI 30.1
--- NOTE | 2023-09-09 03:05 | PC.NURSE ---
pt biba from home, a&ox4, respirations even and unlabored, reporting x3 days of increasing dizziness, reports hx of vertigo, reports at 0030 she began feeling chest flutters which are intermittent. ems placed 20G in pt left forearm. pt denies chest pain, n/v/d. pt neuros in tact.
[2023-09-09 03:08] LABS: MANUAL DIFF FLAG NO
[2023-09-09 03:10] LABS: Basophils Percent Auto 0.7 % (0-2); Eosinophils Absolute Auto 0.2 X10*3/uL (0.0-0.4); Eosinophils Percent Auto 3.1 % (0-4); Hematocrit 38.9 % (37.0-47.0); Hemoglobin 12.9 g/dl (12.0-16.0); Imm Gran Abs Auto 0.01 X10*3/uL (0.00-0.03); Imm Gran Pct Auto 0.2 % (0.0-0.4); Lymphocytes Absolute Auto 1.4 X10*3/uL (1.2-4.9); Lymphocytes Percent Auto 23.3 % (20-40); Mean Corpuscular HGB Conc 33.2 g/dl (31.0-35.0); Mean Corpuscular Hemoglobin 29.8 pg (27.0-33.0); Mean Corpuscular Volume 89.8 fL (80.0-98.0); Monocytes Absolute Auto 0.7 X10*3/uL (0.1-1.2); Monocytes Percent Auto 11.6 % (2-11); Neutrophils Absolute Auto 3.6 x10*3/uL (2.0-8.3); Neutrophils Percent Auto 61.1 % (45-73); Platelet Count 259 X10*3/uL (160-400); Red Blood Count 4.33 X10*6/uL (4.20-5.50); Red Cell Distribution Width 12.9 % (11.0-16.0); White Blood Count 5.8 X10*3/uL (4.8-10.8)
[2023-09-09 03:24] LABS: Alanine Aminotransferase 10 U/L (0-31); Albumin Level 4.1 g/dL (3.5-5.0); Alkaline Phosphatase 110 U/L (39-117); Anion Gap 11 (12-20); Aspartate Amino Transferase 18 U/L (5-31); Bilirubin Total 0.4 mg/dL (0.0-1.0); Blood Urea Nitrogen 12 mg/dL (9-16); Calcium 10.7 mg/dL (8.4-10.2); Carbon Dioxide 27 mmol/L (22-29); Chloride 108 mmol/L (96-108); Creatinine Clr Calc Pharmacy 67.4; Estimated Glomerular Filt Rate > 60; Glucose Random 128 mg/dL (60-115); Sodium 142 mmol/L (135-145); Total Protein 6.9 g/dL (6.5-8.0)
[2023-09-09 03:31] LABS: Troponin-I High Sensitivity < 2.7 ng/L (<3.5-17.0)
--- NOTE | 2023-09-09 05:17 | ED_ITS ---
HPI - Dizziness General Chief Complaint: Dizziness Stated Complaint: SOB, DIZZY Time Seen by Provider: 09/09/23 05:13 History of Present Illness HPI Narrative: Patient went to sleep woke up from sleep not feeling good and then noticed her heart was beating fast which lasted for 10-15 minutes with dizziness, Patient does have episodes of intermittent heart racing lasting for 15-20 minutes concern for possible AFib with setting of TIA in 08/17 no proof of AFib so far Patient had 30 day event monitor applied on 11/02/2022 which showed normal sinus rhythm no AFib Related Data Home Medications ?Medication ?Instructions ?Recorded ?Confirmed levothyroxine 88 mcg tablet 88 mcg PO DAILY 07/28/22 08/21/23 clonidine HCl 0.2 mg tablet 0.2 mg PO BID 10/30/22 08/21/23 pravastatin 40 mg tablet 40 mg PO BEDTIME 10/30/22 08/21/23 epinephrine 0.3 mg/0.3 mL 0.3 mg IM ONCE 01/30/23 08/21/23 injection, auto-injector losartan 50 mg tablet 50 mg PO DAILY 01/30/23 08/21/23 meclizine 25 mg tablet 25 mg PO TID PRN 01/30/23 08/21/23 Previous Rx's ?Medication ?Instructions ?Recorded aspirin 81 mg tablet,delayed 81 mg PO DAILY #30 tabs 07/29/22 release Allergies Allergy/AdvReac Type Severity Reaction Status Date / Time amoxicillin [Amoxicillin] Allergy Intermediate RASH Verified 09/09/23 02:49 cantaloupe Allergy Unknown Verified 09/09/23 02:49 fish derived [fish] Allergy Anaphylaxis Verified 09/09/23 02:49 shellfish derived Allergy Anaphylaxis Verified 09/09/23 02:49 gabapentin AdvReac Unknown Verified 09/09/23 02:49 Review of Systems 2 Review of Systems: Yes all other systems are reviewed and are negative [facility] Past Medical History Medical History Ascending aortic aneurysm Hypothyroidism Hyperlipidemia Vertigo HTN (hypertension) Family History Family History Mother No problems noted. Father No problems noted. Social History Social History Alcohol intake: never Patient Tobacco Use Status: Never used Tobacco Smoked in Last 30 Days: No Second Hand Smoke Exposure: No Use of substances other than those prescribed or required for medical reasons: No Advance Directives: No Advance Directives Information Provided: No service: No Current occupational status: retired Physical Exam 2 Vital Signs: Vital Signs: Last Vital Signs Temp 97.7 F 09/09/23 06:09 Pulse 61 09/09/23 06:09 Resp 12 09/09/23 06:09 BP 120/70 09/09/23 06:09 Pulse Ox 94 09/09/23 06:09 O2 Del Method Room Air 09/09/23 06:09 BMI result Body Mass Index 30.1 Appearance: Alert. Oriented X3. No acute distress. Eyes: PERRLA, No Nystagmus ENT: Pharynx normal. Oral Mucosa moist Neck: Normal inspection. Neck supple. CVS: Normal heart rate and rhythm. Pulses normal. Respiratory: No respiratory distress. Equal air entry bilateral, no wheezing/rales/rhonchi Abdomen: Soft and nontender. Bowel sounds are present, no mass palpable, no CVA tenderness Skin: Skin warm and dry. Normal skin color. Normal skin turgor. Extremities: No lower extremity edema. No calf tenderness Neuro: Oriented X 3. No motor deficit. No sensory deficit.No cerebellar signs , cranial nerves II-XII intact Medical Decision Making Medical Decision Making [facility] Narrative: Patient with history of palpitation episode without diagnosis of the etiology event monitor in 2022 but at that time patient did not have any palpitation episode spasm that patient might have SVT/AFib/atrial flutter advised to follow with spar machine operator helper for further management and placement of event monitor labs are stable EKG without any ischemic changes Differential Diagnosis Differential Diagnoses: The differential diagnosis associated with the presentation includes As above Admission/Observation Consideration of admission/observation: Escalation of care including admission/observation considered Lab Data [facility] Lab Attestation statement: I reviewed the patient's lab results. 09/09/23 03:05 09/09/23 03:05 Labs: Lab Results 09/09/23 Range/Units 03:05 WBC 5.8 (4.8-10.8) X10*3/uL RBC 4.33 (4.20-5.50) X10*6/uL Hgb 12.9 (12.0-16.0) g/dl Hct 38.9 (37.0-47.0) % MCV 89.8 (80.0-98.0) fL MCH 29.8 (27.0-33.0) pg MCHC 33.2 (31.0-35.0) g/dl RDW 12.9 (11.0-16.0) % Plt Count 259 (160-400) X10*3/uL MPV 10.0 (9.4-12.3) fL Immature Gran % (Auto) 0.2 (0.0-0.4) % Neut % (Auto) 61.1 (45-73) % Lymph % (Auto) 23.3 (20-40) % [place] % (Auto) 11.6 H (2-11) % Eos % (Auto) 3.1 (0-4) % Baso % (Auto) 0.7 (0-2) % Lymph # (Auto) 1.4 (1.2-4.9) X10*3/uL [place] # (Auto) 0.7 (0.1-1.2) X10*3/uL Eos # (Auto) 0.2 (0.0-0.4) X10*3/uL Baso # (Auto) 0.0 (0.0-0.2) X10*3/uL Abs Immat Gran (auto) 0.01 (0.00-0.03) X10*3/uL Absolute Neuts (auto) 3.6 (2.0-8.3) x10*3/uL Absolute Nucleated RBC 0.000 (0.0-0.012) X10*3/uL Nucleated RBC % (auto) 0.0 (0.0-0.2) /100WBC Sodium 142 (135-145) mmol/L Potassium 4.0 (3.3-5.1) mmol/L Chloride 108 (96-108) mmol/L Carbon Dioxide 27 (22-29) mmol/L Anion Gap 11 L (12-20) BUN 12 (9-16) mg/dL Creatinine 0.68 (0.5-1.4) mg/dL Estim Creat Clear Calc 67.4 Estimated GFR > 60 Random Glucose 128 H (60-115) mg/dL Calcium 10.7 H (8.4-10.2) mg/dL Total Bilirubin 0.4 (0.0-1.0) mg/dL AST 18 (5-31) U/L ALT 10 (0-31) U/L Alkaline Phosphatase 110 (39-117) U/L Troponin I High Sens < 2.7 (<3.5-17.0) ng/L Total Protein 6.9 (6.5-8.0) g/dL Albumin 4.1 (3.5-5.0) g/dL Independent Interpretation I performed an independent interpretation of an: EKG Interpretation: Normal sinus rhythm with heart rate of 75 beats per minute LVH no acute ST T wave changes no acute ischemia Discharge Plan Discharge Clinical Impression: Heart palpitations Patient Disposition: Home, Self-Care Instructions: Heart Palpitations (ED) Additional Instructions: You need to follow with your spar machine operator helper for further management for palpitation including repeat event monitor At this time we have not yet noticed any arrhythmias on cardiac/vascular sonographer Report to the ER if more frequent palpitation episode Prescriptions: No Action levothyroxine 88 mcg tablet 88 mcg PO DAILY aspirin 81 mg Tablet,Delayed Release (Dr/Ec) 81 mg PO DAILY Qty: 30 0RF clonidine HCl 0.2 mg tablet 0.2 mg PO BID pravastatin 40 mg tablet 40 mg PO BEDTIME losartan 50 mg tablet 50 mg PO DAILY meclizine 25 mg tablet 25 mg PO TID PRN epinephrine 0.3 mg/0.3 mL auto-injector 0.3 mg IM ONCE Print Language: Bulgarian
[2023-09-09 06:09] VITALS: BP 120/70; PULSE 61; RESP 12; TEMP 36.5; O2SAT 94
[2023-09-09 06:40] VITALS: BP 120/70; PULSE 61; RESP 12; TEMP 36.5; O2SAT 94
== END 2023-09-09 06:48 | disposition home or self-care (01) ==
PROVIDERS: Emergency Provider Internal Medicine; PCP Internal Medicine
DX: R00.2 Palpitations (principal); I10 Essential (primary) hypertension; Z88.0 Allergy status to penicillin
CPT/HCPCS: 36415; 80053; 84484; 85025; 93005; 99283; 99285

== ENCOUNTER → 2023-09-09 02:47 | Outpatient (BNV) | payer MEDICARE, SELFPAY | PROVIDERS: Emergency Provider Internal Medicine; PCP Internal Medicine; Visit Provider Internal Medicine Cardiovascular Disease | DX: R42 Dizziness and giddiness (principal) | CPT/HCPCS: 93010 ==

== ENCOUNTER 2023-11-05 13:11 | Outpatient (AMB) | payer MEDICARE, SELFPAY ==
[2023-11-05 13:13] VITALS: BP 118/60; PULSE 83; BMI 29.5
--- NOTE | 2023-11-05 13:13 | A.OFFVIS_ITS ---
Vital Signs 11/05/23 13:13 Height 5 ft 4 in Weight 171 lb 15.369 oz BMI 29.5 BP 118/60 Blood Pressure Location Lt brachial Position Sitting Pulse 83 Pulse Source Pulse Oximeter Intake Visit Reasons: c dc fu Allergies amoxicillin [Amoxicillin] Allergy (Intermediate, Verified 09/09/23 02:49) RASH cantaloupe Allergy (Verified 09/09/23 02:49) Unknown fish derived [fish] Allergy (Verified 09/09/23 02:49) Anaphylaxis shellfish derived Allergy (Verified 09/09/23 02:49) Anaphylaxis gabapentin Adverse Reaction (Verified 09/09/23 02:49) Unknown Medication List - Last Reconciled 11/05/23 by Ernesto Camejo MD aspirin 81 mg PO DAILY clonidine HCl 0.2 mg PO BID epinephrine 0.3 mg IM ONCE levothyroxine 88 mcg PO DAILY losartan 50 mg PO DAILY meclizine 25 mg PO TID PRN pravastatin 40 mg PO BEDTIME HPI Comments Details: Madalyn returns for follow-up. To recall, per neurology consultation, she came to the emergency room for evaluation of less than 5 minute episode of dysarthria/expressive aphasia. It was felt that she might have a TIA. However, MRI did not show any findings acutely. Showed moderate chronic microangiopathy. She has not had any recurrence of symptoms. No neurological deficits. From a cardiac standpoint, she states she gets palpitations intermittently. These are intermittent sensations of heart racing. They can last as much as 15-20 minutes. No other complaints like angina or shortness of breath. No known coronary artery disease, myocardial infarction or cardiomyopathy. She continues to have these palpitations but not clear what it is. She believes it might be all just anxiety but not sure. [facility] Medical History Ascending aortic aneurysm Hypothyroidism Hyperlipidemia Vertigo HTN (hypertension) Family History Mother No problems noted. Father No problems noted. Social History Alcohol intake: never Patient Tobacco Use Status: Never used Tobacco Second Hand Smoke Exposure: No service: No Current occupational status: retired Review of Systems Const Denies weakness ENT Denies dizziness Card Denies chest pain, Denies chest pain with activity, Denies syncope, Denies rapid heart rate, Denies pedal edema, Denies edema, Denies leg edema, Denies lightheadedness, Denies palpitations, Denies dyspnea, Denies dyspnea on exertion and Denies orthopnea Resp Denies cough, Denies dyspnea and Denies dyspnea on exertion GI Denies hematochezia and Denies change in stool character Musc Denies abnormal gait, Denies muscle cramps, Denies muscle weakness, Denies numbness, Denies radiating pain into limb and Denies tingling Neuro Denies abnormal gait, Denies dizziness, Denies syncope, Denies numbness, Denies tingling and Denies weakness Endo Denies palpitations Physical Exam Vital Signs: Last Vital Signs Pulse 83 11/05/23 13:13 BP 118/60 11/05/23 13:13 BMI result Body Mass Index 29.5 Const General: comfortable and no acute distress Orientation/consciousness: patient oriented x3 HEENT Other: Unremarkable Head: Yes normal to inspection Neck Neck: Yes normal visual inspection Chest Chest palpation & inspection: normal inspection of the chest Resp Auscultation: clear to auscultation bilaterally Cardio Palpation: normal PMI Heart sounds: S1 normal heart sound present, S2 normal heart sound present, no gallops, no murmurs and no rubs GI Palpation (GI): Soft to palpation Back/Spine/Pelvis Other: unremarkable Skin General skin exam: no rashes or lesions noted Neuro General: patient oriented x3 Extrem General: Yes normal to inspection Psych Mental Status: mental status grossly normal Assessment & Plan Assessment & Plan (1) Heart palpitations: Code(s): R00.2 - Palpitations Category: Medical (2) Brain TIA: Code(s): G45.9 - Transient cerebral ischemic attack, unspecified Category: Medical (3) Ascending aortic aneurysm: Code(s): I71.21 - Aneurysm of the ascending aorta, without rupture Category: Medical Qualifiers: Presence of rupture: without rupture Qualified Code(s): I71.21 - Aneurysm of the ascending aorta, without rupture Plan Cardiac studies reviewed. EKG with sinus rhythm at 80/Min; left ventricular hypertrophy; leftward axis; nonspecific ST-T changes; normal OR and corrected QT. In the most recent echocardiogram, LVEF 68%. No wall motion abnormalities. Ascending aortic size 4.2 cm with mild aortic regurgitation. 30 day monitor shows underlying sinus rhythm and no episodes of atrial fibrillation. Rare PACs/PVCs. Patient reported events correlated mostly with sinus rhythm/PACs. Brain MRI shows no acute infarct or other acute intracranial abnormality. Moderate chronic microangiopathy. No significant carotid stenosis on the ultrasound. With regard to the palpitations, not entirely clear if it is just anxiety or if she truly has any atrial arrhythmias like atrial fibrillation. Discussed about implantable loop recorder but she has not interested. We can at least do another 30 day monitor. Otherwise, with regard to the ascending aortic dilatation, not significant at this time but can be monitored by periodic echocardiograms. Otherwise, reassurance. Total time spent including review of data, counseling, documentation, coordination of care-31 minutes. Orders: Orders ECG 30 day event monitor Today I48.0 - Paroxysmal atrial fibrillation, R00.2 - Palpitations Coding Level of Care Code Est Pt Level 4 (65892) Diagnoses Heart palpitations R00.2 Brain TIA G45.9 Aneurysm of ascending aorta without rupture I71.21 Presence of rupture: without rupture
== END 2023-11-05 13:32 | disposition home or self-care (01) ==
PROVIDERS: PCP Internal Medicine; Visit Provider Internal Medicine
DX: R00.2 Palpitations (principal); G45.9 Transient cerebral ischemic attack, unspecified; I71.21 Aneurysm of the ascending aorta, without rupture
CPT/HCPCS: 99214

== ENCOUNTER → 2023-11-05 13:11 | Outpatient (BNVA) | payer MEDICARE, SELFPAY | PROVIDERS: PCP Internal Medicine; Visit Provider Internal Medicine | DX: R00.2 Palpitations (principal); G45.9 Transient cerebral ischemic attack, unspecified; I71.21 Aneurysm of the ascending aorta, without rupture | CPT/HCPCS: 99212 ==

== ENCOUNTER → 2023-11-08 10:56 | Outpatient (REF) | payer MEDICARE, SELFPAY ==
--- NOTE | 2023-11-08 11:00 | HM_ITS ---
* Procedure length 30 days. Wear time 20 days. * Underlying rhythm is sinus with an average rate of 70/Min. * Rare supraventricular ectopy with short runs. * Rare ventricular ectopy. * No evidence of atrial fibrillation. * Patient activated the symptom burden 30 times and reported 1 symptom of feeling shaky. Associated with sinus rhythm. MTDD
== END ==
LOC: HO.CARD 10:56
PROVIDERS: Visit Provider Internal Medicine
DX: I48.0 Paroxysmal atrial fibrillation (principal); R00.2 Palpitations
CPT/HCPCS: 93270

== ENCOUNTER → 2023-11-08 11:00 | Outpatient (BNV) | payer MEDICARE, SELFPAY | PROVIDERS: Visit Provider Internal Medicine | DX: I47.10 Supraventricular tachycardia, unspecified (principal); I49.3 Ventricular premature depolarization | CPT/HCPCS: 93272 ==

== ENCOUNTER 2023-12-30 19:37 | Emergency (ER) | payer MEDICARE, SELFPAY ==
[2023-12-30 20:00] VITALS: BP 155/85; PULSE 87; RESP 18; TEMP 36.7; O2SAT 97; BMI 28.2
--- NOTE | 2023-12-30 20:09 | ECG_ITS ---
Test Reason : WEAKNESS Blood Pressure : / mmHG Vent. Rate : 084 BPM Atrial Rate : 084 BPM P-R Int : 186 ms QRS Dur : 078 ms QT Int : 386 ms P-R-T Axes : 049 -26 028 degrees QTc Int : 456 ms Normal sinus rhythm Normal ECG When compared with ECG of 09-SEP-2023 02:47, No significant change was found Referred By: Tay Lofton Electronically Signed By:RAJAN HOUSE MD
--- NOTE | 2023-12-30 20:09 | ED.GENADULT ---
HPI - General Adult General Chief complaint: General Medical Stated complaint: low blood pressure Time Seen by Provider: 12/30/23 21:26 Source: patient Mode of arrival: ambulatory Limitations: no limitations History of Present Illness ED Provider: shanda WHELAN narrative: Patient history of hypertension, TIA on clonidine 0.2 mg twice a day and losartan 50 mg daily which been taking for long time been feeling weak for last few days today she fell lightheaded checked her blood pressure was systolic in 80s no fever no chills no cough abdominal pain no chest pain no palpitation patient has lost about 19 lb in last 1 month because she had esophageal achalasia which has been corrected 1 week ago Related Data Home Medications ?Medication ?Instructions ?Recorded ?Confirmed levothyroxine 88 mcg tablet 88 mcg PO DAILY 07/28/22 11/05/23 clonidine HCl 0.2 mg tablet 0.2 mg PO BID 10/30/22 11/05/23 pravastatin 40 mg tablet 40 mg PO BEDTIME 10/30/22 11/05/23 epinephrine 0.3 mg/0.3 mL 0.3 mg IM ONCE 01/30/23 11/05/23 injection, auto-injector losartan 50 mg tablet 50 mg PO DAILY 01/30/23 11/05/23 meclizine 25 mg tablet 25 mg PO TID PRN 01/30/23 11/05/23 Previous Rx's ?Medication ?Instructions ?Recorded aspirin 81 mg tablet,delayed 81 mg PO DAILY #30 tabs 07/29/22 release Allergies Allergy/AdvReac Type Severity Reaction Status Date / Time amoxicillin [Amoxicillin] Allergy Intermediate RASH Verified 12/30/23 20:08 cantaloupe Allergy Unknown Verified 12/30/23 20:08 fish derived [fish] Allergy Anaphylaxis Verified 12/30/23 20:08 shellfish derived Allergy Anaphylaxis Verified 12/30/23 20:08 gabapentin AdvReac Unknown Verified 12/30/23 20:08 Review of Systems Review of Systems: Yes all other systems are reviewed and are negative [facility] Past Medical History Medical History Ascending aortic aneurysm Hypothyroidism Hyperlipidemia Vertigo HTN (hypertension) Family History Family History Mother No problems noted. Father No problems noted. Social History Social History Alcohol intake: never Patient Tobacco Use Status: Never used Tobacco Second Hand Smoke Exposure: No Advance Directives: Yes Advance Directives Information Provided: No Advance Directives on File: No Do you have a plan to hurt others: No Plan service: No Current occupational status: retired Physical Exam ED Vital Signs: Vital Signs - 24 hr 12/30/23 20:00 12/30/23 21:24 12/30/23 21:58 Temperature 98.1 F 97.8 F Pulse Rate 87 84 72 Respiratory Rate 18 16 Blood Pressure 155/85 H 137/64 138/73 Pulse Oximetry 97 98 Oxygen Delivery Method Room Air Room Air 12/30/23 21:58 12/30/23 21:59 12/30/23 22:21 Temperature 98.2 F Pulse Rate 82 81 81 Respiratory Rate 16 Blood Pressure 128/73 128/71 128/71 Pulse Oximetry Oxygen Delivery Method BMI result Body Mass Index 28.2 Appearance: Alert. Oriented X3. No acute distress. Eyes: No pallor or icterus ENT: Pharynx normal. Oral Mucosa moist Neck: Normal inspection. Neck supple. CVS: Normal heart rate and rhythm. Pulses normal. Respiratory: No respiratory distress. Equal air entry bilateral, no wheezing/rales/rhonchi Abdomen: Soft and nontender. Bowel sounds are present, no mass palpable, no CVA tenderness Skin: Skin warm and dry. Normal skin color. Normal skin turgor. Extremities: No lower extremity edema. No calf tenderness Neuro: Oriented X 3. No motor deficit. Course Course Course Narrative: RME; [employer] by AMADOR Fontana. 83-year-old female presents to ED for generalized fatigue. Patient states blood pressure was in the 80s 90 systolic. Patient's blood pressure normalized. Patient denies any chest pain or shortness of breath. Patient denies any neuro stroke-like symptoms. NIH score is 0. EKG labs ordered Medical Decision Making Medical Decision Making MDM Narrative: Patient history of hypertension on clonidine and losartan comes with transient low blood pressure likely from clonidine use patient advised to stop clonidine and recheck the blood pressure before taking the clonidine take plenty of fluids. Patient's urine shows WBCs 11-20 without any urinary symptoms no bacteria seen patient advised to report to the PCP in case has any dysuria /fever no orthostatic hypotension Differential Diagnosis Differential Diagnoses: The differential diagnosis associated with the presentation includes Lab Data MDM Lab Attestation statement: I reviewed the patient's lab results. 12/30/23 20:40 12/30/23 20:40 Labs: Lab Results 12/30/23 12/30/23 Range/Units 20:40 21:27 WBC 7.7 (4.8-10.8) X10*3/uL RBC 4.35 (4.20-5.50) X10*6/uL Hgb 13.3 (12.0-16.0) g/dl Hct 39.6 (37.0-47.0) % MCV 91.0 (80.0-98.0) fL MCH 30.6 (27.0-33.0) pg MCHC 33.6 (31.0-35.0) g/dl RDW 12.5 (11.0-16.0) % Plt Count 262 (160-400) X10*3/uL MPV 10.3 (9.4-12.3) fL Immature Gran % (Auto) 0.1 (0.0-0.4) % Neut % (Auto) 55.3 (45-73) % Lymph % (Auto) 28.8 (20-40) % [place] % (Auto) 11.5 H (2-11) % Eos % (Auto) 3.8 (0-4) % Baso % (Auto) 0.5 (0-2) % Lymph # (Auto) 2.2 (1.2-4.9) X10*3/uL [place] # (Auto) 0.9 (0.1-1.2) X10*3/uL Eos # (Auto) 0.3 (0.0-0.4) X10*3/uL Baso # (Auto) 0.0 (0.0-0.2) X10*3/uL Abs Immat Gran (auto) 0.01 (0.00-0.03) X10*3/uL Absolute Neuts (auto) 4.3 (2.0-8.3) x10*3/uL Absolute Nucleated RBC 0.000 (0.0-0.012) X10*3/uL Nucleated RBC % (auto) 0.0 (0.0-0.2) /100WBC PT 12.3 (11.1-13.3) SEC INR 1.0 (0.9-1.1) APTT 29.0 (26.0-36.8) SEC Sodium 137 (135-145) mmol/L Potassium 4.5 (3.3-5.1) mmol/L Chloride 104 (96-108) mmol/L Carbon Dioxide 25 (22-29) mmol/L Anion Gap 13 (12-20) BUN 16 (9-16) mg/dL Creatinine 0.75 (0.5-1.4) mg/dL Estim Creat Clear Calc 59.3 Estimated GFR > 60 Random Glucose 136 H (60-115) mg/dL Calcium 10.3 H (8.4-10.2) mg/dL Magnesium 2.1 (1.6-2.6) mg/dL Total Bilirubin 0.4 (0.0-1.0) mg/dL AST 19 (5-31) U/L ALT 12 (0-31) U/L Alkaline Phosphatase 120 H (39-117) U/L Total Creatine Kinase 51 (26-140) U/L Troponin I High Sens < 2.7 (<3.5-17.0) ng/L Total Protein 7.0 (6.5-8.0) g/dL Albumin 4.3 (3.5-5.0) g/dL Urine Color Yellow Urine Appearance Clear Urine pH 6.0 (5.0-9.0) Ur Specific [place] 1.015 (1.005-1.025) Urine Protein Negative (Neg-Trace) mg/dL Urine Glucose (UA) Negative (Negative) mg/dL Urine Ketones Negative (Negative) mg/dL Urine Blood Negative (Negative) Urine Nitrite Negative (Negative) Ur Leukocyte Esterase Moderate (2+) H (Negative) Urine RBC 0-2 (0-2) /HPF Urine WBC 11-20 H (0-5) /HPF Ur Squamous Epith Cells 0-2 (0-2) /HPF Urine Bacteria None Seen (None Seen) Hyaline Casts 0-2 (0-2) /LPF Discharge Plan Discharge Clinical Impression: Hypotension Patient Disposition: Home, Self-Care Instructions: Hypotension (ED) Additional Instructions: Your low blood pressure is likely from use of clonidine Drink plenty of fluids Stop taking clonidine Check blood pressure twice a day If blood pressure is higher than 160/90 you may take 0.1 mg of clonidine twice a day Continue take your losartan Follow up with PCP in 1 week regarding blood pressure control Prescriptions: No Action levothyroxine 88 mcg tablet 88 mcg PO DAILY aspirin 81 mg Tablet,Delayed Release (Dr/Ec) 81 mg PO DAILY Qty: 30 0RF clonidine HCl 0.2 mg tablet 0.2 mg PO BID pravastatin 40 mg tablet 40 mg PO BEDTIME losartan 50 mg tablet 50 mg PO DAILY meclizine 25 mg tablet 25 mg PO TID PRN epinephrine 0.3 mg/0.3 mL auto-injector 0.3 mg IM ONCE Interventions: ED Discharge Assessment Last Done: 12/30/23 22:21 Discharge Date/Time: 12/30/23 22:22 Print Language: Yemeni
[2023-12-30 20:46] LABS: MANUAL DIFF FLAG NO
[2023-12-30 20:54] LABS: Basophils Percent Auto 0.5 % (0-2); Eosinophils Absolute Auto 0.3 X10*3/uL (0.0-0.4); Eosinophils Percent Auto 3.8 % (0-4); Hematocrit 39.6 % (37.0-47.0); Hemoglobin 13.3 g/dl (12.0-16.0); Imm Gran Abs Auto 0.01 X10*3/uL (0.00-0.03); Imm Gran Pct Auto 0.1 % (0.0-0.4); Lymphocytes Absolute Auto 2.2 X10*3/uL (1.2-4.9); Lymphocytes Percent Auto 28.8 % (20-40); Mean Corpuscular HGB Conc 33.6 g/dl (31.0-35.0); Mean Corpuscular Hemoglobin 30.6 pg (27.0-33.0); Mean Platelet Volume 10.3 fL (9.4-12.3); Monocytes Absolute Auto 0.9 X10*3/uL (0.1-1.2); Monocytes Percent Auto 11.5 % (2-11); Neutrophils Absolute Auto 4.3 x10*3/uL (2.0-8.3); Neutrophils Percent Auto 55.3 % (45-73); Platelet Count 262 X10*3/uL (160-400); Red Blood Count 4.35 X10*6/uL (4.20-5.50); Red Cell Distribution Width 12.5 % (11.0-16.0); White Blood Count 7.7 X10*3/uL (4.8-10.8)
[2023-12-30 21:01] LABS: Alanine Aminotransferase 12 U/L (0-31); Albumin Level 4.3 g/dL (3.5-5.0); Alkaline Phosphatase 120 U/L (39-117); Anion Gap 13 (12-20); Aspartate Amino Transferase 19 U/L (5-31); Bilirubin Total 0.4 mg/dL (0.0-1.0); Blood Urea Nitrogen 16 mg/dL (9-16); Calcium 10.3 mg/dL (8.4-10.2); Carbon Dioxide 25 mmol/L (22-29); Chloride 104 mmol/L (96-108); Creatinine Clr Calc Pharmacy 59.3; Estimated Glomerular Filt Rate > 60; Glucose Random 136 mg/dL (60-115); Magnesium 2.1 mg/dL (1.6-2.6); Potassium 4.5 mmol/L (3.3-5.1); Sodium 137 mmol/L (135-145)
[2023-12-30 21:03] LABS: Prothrombin Time 12.3 SEC (11.1-13.3)
[2023-12-30 21:17] LABS: Troponin-I High Sensitivity < 2.7 ng/L (<3.5-17.0)
[2023-12-30 21:24] VITALS: BP 137/64; PULSE 84; RESP 16; TEMP 36.6; O2SAT 98
[2023-12-30 21:39] LABS: Appearance Urine Clear; Color Urine Yellow; Glucose Urine UA Negative (Negative); Leukocyte Esterase Urine Moderate (2+) (Negative); Nitrite Urine Negative (Negative); Specific Gravity - Urine 1.015 (1.005-1.025); UMIC TRIGGER UACC YES; Urine Blood Negative (Negative); Urine Ketones Negative (Negative); Urine Protein Negative (Neg-Trace)
[2023-12-30 21:44] LABS: Bacteria Urine None Seen (None Seen); Hyaline Casts Urine 0-2 /LPF (0-2); RBC Urine 0-2 /HPF (0-2); Squamous Epithelial Cell Urine 0-2 /HPF (0-2); UACC Culture Trigger YES
[2023-12-30 21:58] VITALS: BP 128/73; BP 138/73; PULSE 72; PULSE 82
[2023-12-30 21:59] VITALS: BP 128/71; PULSE 81
[2023-12-30 22:21] VITALS: BP 128/71; PULSE 81; RESP 16; TEMP 36.8
== END 2023-12-30 22:22 | disposition home or self-care (01) ==
PROVIDERS: Physician Assistant; Emergency Provider Internal Medicine; PCP Internal Medicine
DX: R42 Dizziness and giddiness (principal); I95.9 Hypotension, unspecified; R53.1 Weakness; K22.0 Achalasia of cardia; R06.02 Shortness of breath; Z79.899 Other long term (current) drug therapy; Z86.73 Personal history of transient ischemic attack (TIA), and cerebral infarction without residual deficits
CPT/HCPCS: 36415; 80053; 81001; 82550; 83735; 84484; 85025; 85610; 85730; 87086; 93005; 96360; 96375; 99283; 99284; 99285

== ENCOUNTER → 2023-12-30 20:09 | Outpatient (BNV) | payer MEDICARE, SELFPAY | PROVIDERS: Emergency Provider Internal Medicine; PCP Internal Medicine; Visit Provider Internal Medicine Cardiovascular Disease | DX: R53.1 Weakness (principal) | CPT/HCPCS: 93010 ==

== ENCOUNTER 2024-02-12 13:51 | Outpatient (AMB) | payer MEDICARE, SELFPAY ==
[2024-02-12 13:52] VITALS: BP 130/82; PULSE 85; BMI 29.3
--- NOTE | 2024-02-12 13:52 | MHC.OFFVIS ---
Vital Signs 02/12/24 13:52 Height 5 ft 4 in Weight 170 lb 10.205 oz BMI 29.3 BP 130/82 Blood Pressure Location Lt brachial Position Sitting Pulse 85 Pulse Source Pulse Oximeter Intake Visit Reasons: 6 mth f/up Quality Assurance Intern Required: No Allergies amoxicillin [Amoxicillin] Allergy (Intermediate, Verified 02/12/24 13:55) RASH cantaloupe Allergy (Verified 02/12/24 13:55) Unknown fish derived [fish] Allergy (Verified 02/12/24 13:55) Anaphylaxis shellfish derived Allergy (Verified 02/12/24 13:55) Anaphylaxis gabapentin Adverse Reaction (Verified 02/12/24 13:55) Unknown Medication List - Last Reconciled 02/12/24 by Ally Olivares NP-C aspirin 81 mg PO DAILY clonidine HCl 0.2 mg PO BID epinephrine 0.3 mg IM ONCE famotidine mg PO BID levothyroxine 88 mcg PO DAILY losartan 50 mg PO DAILY meclizine 25 mg PO TID PRN pravastatin 40 mg PO BEDTIME HPI HPI 6 mth f/up: Details: Madalyn is a 83-year-old female with past medical history hypertension, ascending aortic aneurysm who had a brief episode of expressive aphasia 07/2022 and has undergone evaluation for heart palpitations without finding of atrial fibrillation. Today she reports she has been doing well since her last visit in October. She will feel an occasional flip in her chest but no sustained rapid or irregular heart rates. She has not had any repeat neurological events. No visual loss, numbness or weakness of her extremities, speech disturbances. No chest discomfort at rest or with activity. No shortness of breath, PND, orthopnea or edema. She has been walking 1 mi 1-2 times daily. She says she tolerates this well. Takes all meds as directed [facility] Medical History Ascending aortic aneurysm Hypothyroidism Hyperlipidemia Vertigo HTN (hypertension) Family History Mother No problems noted. Father No problems noted. Social History Alcohol intake: never Patient Tobacco Use Status: Never used Tobacco Second Hand Smoke Exposure: No service: No Current occupational status: retired Review of Systems Const All systems reviewed & are unremarkable except as noted in HPI and below ENT Denies dizziness Card Denies chest pain, Denies chest pain at rest, Denies chest pain with activity, Denies rapid heart rate, Denies pedal edema, Denies edema, Denies leg edema, Denies lightheadedness, Denies palpitations, Denies dyspnea, Denies dyspnea on exertion and Denies orthopnea Resp Denies cough, Denies dyspnea and Denies dyspnea on exertion GI Denies hematochezia and Denies change in stool character Musc Denies abnormal gait, Denies limited range of motion, Denies muscle cramps, Denies muscle weakness, Denies numbness, Denies radiating pain into limb, Denies stiffness and Denies tingling Neuro Denies abnormal gait, Denies dizziness, Denies numbness and Denies tingling Endo Denies palpitations Physical Exam Vital Signs: Last Vital Signs Pulse 85 02/12/24 13:52 BP 130/82 02/12/24 13:52 BMI result Body Mass Index 29.3 Const General: cooperative, healthy appearing, comfortable and no acute distress Orientation/consciousness: patient oriented x3 Neck Neck: Yes normal visual inspection and Yes no JVD Resp Effort & Inspection: normal respiratory effort Auscultation: clear to auscultation bilaterally, no crackles, no rales, no rhonchi and no wheezes Cardio Jugular venous distension: no JVD Rate: regular rate Rhythm: regular rhythm Heart sounds: S1 normal heart sound present, S2 normal heart sound present, no gallops, no murmurs and no rubs Peripheral pulses: Peripheral pulses 2+ throughout Neuro General: patient oriented x3 Extrem General: Yes normal to inspection, No no pedal edema and No calf tenderness Psych Appearance: grossly normal Mental Status: mental status grossly normal Speech and movement: Normal speech and movement present Assessment & Plan Assessment & Plan (1) Heart palpitations: Code(s): R00.2 - Palpitations Category: Medical Plan: [facility] evaluation 07/2022 for a brief episode of expressive aphasia. Her episode lasted approximately 2 minutes and resolve. She has not had any recurrent episodes since that time. She did undergo evaluation including: Brain MRI 07/30/23 shows no acute infarct or other acute intracranial abnormality. Moderate chronic microangiopathy. Carotid ultrasound done 07/29/23 No significant carotid stenosis. Echocardiogram 08/16/23, LVEF 68%. No wall motion abnormalities. Ascending aortic size 4.2 cm with mild aortic regurgitation. 30 day monitor applied 11/02/22 shows underlying sinus rhythm and no episodes of atrial fibrillation. Rare PACs/PVCs. EKG 12/30/23 with sinus rhythm at 84, leftward axis, normal IA and corrected QT. a repeat 30 day cardiac event monitor was done on 11/08/2023 showing sinus rhythm with average heart rate 78, rare SVE and VE, no evidence of atrial fibrillation. -to date there have been no findings of atrial fibrillation and she has had no recurrent neurological type events. All the above reviewed with her. Cardiology follow-up with EKG in 6 months, sooner if needed. Emergency care if ever needed for concerning palpitations or recurrent neurological events. (2) Brain TIA: Comment: Expressive aphagia episode 07/29/23, approx 2 min. Brain MRI without acute abn Code(s): G45.9 - Transient cerebral ischemic attack, unspecified Category: Medical Plan: As above (3) Ascending aortic aneurysm: Code(s): I71.21 - Aneurysm of the ascending aorta, without rupture Category: Medical Qualifiers: Presence of rupture: without rupture Qualified Code(s): I71.21 - Aneurysm of the ascending aorta, without rupture Plan: Ascending aorta 4.2 cm on last echocardiogram. Blood pressure is well controlled. She is on statin therapy. Will continue to follow with periodic echoes. Plan Time spent on chart review, documentation, interview and assessment Coding Level of Care Code Est Pt Level 4 (35372) Diagnoses Heart palpitations R00.2 Brain TIA G45.9 Aneurysm of ascending aorta without rupture I71.21 Presence of rupture: without rupture Time Spent (min) 28
== END 2024-02-12 14:18 | disposition home or self-care (01) ==
PROVIDERS: PCP Internal Medicine; Visit Provider Nurse Practitioner Family
DX: R00.2 Palpitations (principal); G45.9 Transient cerebral ischemic attack, unspecified; I71.21 Aneurysm of the ascending aorta, without rupture
CPT/HCPCS: 99214

== ENCOUNTER → 2024-02-12 13:51 | Outpatient (BNVA) | payer MEDICARE, SELFPAY | PROVIDERS: PCP Internal Medicine; Visit Provider Nurse Practitioner Family | DX: I10 Essential (primary) hypertension (principal); R00.2 Palpitations; I71.21 Aneurysm of the ascending aorta, without rupture; Z86.73 Personal history of transient ischemic attack (TIA), and cerebral infarction without residual deficits | CPT/HCPCS: 99212 ==

== ENCOUNTER 2024-06-18 14:29 | Emergency (ER) | payer MEDICARE, OTHER, SELFPAY ==
[2024-06-18 14:39] VITALS: BP 132/69; BP 174/83; PULSE 82; PULSE 86; RESP 16; TEMP 36.7; O2SAT 95; O2SAT 96; BMI 29.1
--- NOTE | 2024-06-18 14:43 | ECG_ITS ---
Test Reason : DIZINESS Blood Pressure : */* mmHG Vent. Rate : 84 BPM Atrial Rate : 84 BPM P-R Int : 168 ms QRS Dur : 84 ms QT Int : 392 ms P-R-T Axes : 35 -33 18 degrees QTcB Int : 463 ms Normal sinus rhythm Left axis deviation Abnormal ECG When compared with ECG of 30-Dec-2023 20:23, No significant change was found Referred By: Generic ED Physician Electronically Signed By: RAJAN HOUSE MD
[2024-06-18 15:08] LABS: MANUAL DIFF FLAG NO
[2024-06-18 15:13] LABS: Basophils Percent Auto 0.7 % (0-2); Eosinophils Absolute Auto 0.2 X10*3/uL (0.0-0.4); Eosinophils Percent Auto 3.5 % (0-4); Hematocrit 37.6 % (37.0-47.0); Hemoglobin 12.4 g/dl (12.0-16.0); Imm Gran Abs Auto 0.02 X10*3/uL (0.00-0.03); Imm Gran Pct Auto 0.3 % (0.0-0.4); Lymphocytes Absolute Auto 1.3 X10*3/uL (1.2-4.9); Lymphocytes Percent Auto 21.4 % (20-40); Mean Corpuscular Hemoglobin 30.1 pg (27.0-33.0); Mean Corpuscular Volume 91.3 fL (80.0-98.0); Mean Platelet Volume 10.1 fL (9.4-12.3); Monocytes Absolute Auto 0.8 X10*3/uL (0.1-1.2); Monocytes Percent Auto 12.7 % (2-11); Neutrophils Absolute Auto 3.7 x10*3/uL (2.0-8.3); Neutrophils Percent Auto 61.4 % (45-73); Platelet Count 251 X10*3/uL (160-400); Red Blood Count 4.12 X10*6/uL (4.20-5.50); Red Cell Distribution Width 12.6 % (11.0-16.0)
[2024-06-18 15:35] LABS: Alanine Aminotransferase 12 U/L (0-31); Albumin Level 3.9 g/dL (3.5-5.0); Alkaline Phosphatase 109 U/L (39-117); Anion Gap 13 (12-20); Aspartate Amino Transferase 22 U/L (5-31); Bilirubin Total 0.3 mg/dL (0.0-1.0); Blood Urea Nitrogen 13 mg/dL (9-16); Calcium 10.2 mg/dL (8.4-10.2); Carbon Dioxide 26 mmol/L (22-29); Chloride 107 mmol/L (96-108); Creatinine Clr Calc Pharmacy 57.8; Estimated Glomerular Filt Rate > 60; Glucose Random 133 mg/dL (60-115); Potassium 3.9 mmol/L (3.3-5.1); Sodium 142 mmol/L (135-145); Total Protein 6.7 g/dL (6.5-8.0); Troponin-I High Sensitivity < 2.7 ng/L (<3.5-17.0)
--- NOTE | 2024-06-18 16:03 | ED.DIZZY ---
HPI - Dizziness General Chief Complaint: Dizziness Stated Complaint: DIZZY X6D,HIGH BP 174/83 PER EMS Time Seen by Provider: 06/18/24 16:01 Source: patient Mode of arrival: EMS Limitations: no limitations History of Present Illness ED Provider: Dr. Tal Gill HPI Narrative: 84-year-old female with a history ascending aortic aneurysm, hypothyroidism, hyperlipidemia, vertigo, hypertension who presents emergency department for evaluation of sudden onset of room spinning dizziness. Patient states that last night she got up to go to the bathroom when she had a sudden onset of room spinning dizziness. She states it was associated with nausea but no vomiting. She states that the dizziness is also brought on by minimal head movement. She states she stays still the dizziness resolves. She was had similar vertigo in the past. She states she was taken meclizine in the past but it makes her very tired. She did not take any meclizine for this episode. She denied fever, chills, chest pain, shortness of breath. Patient states she has been getting double vision in his seen 3 different doctors in his not been able to determine the cause of her double vision. Related Data Home Medications ?Medication ?Instructions ?Recorded ?Confirmed levothyroxine 88 mcg tablet 88 mcg PO DAILY 07/28/22 02/12/24 clonidine HCl 0.2 mg tablet 0.2 mg PO BID 10/30/22 02/12/24 pravastatin 40 mg tablet 40 mg PO BEDTIME 10/30/22 02/12/24 epinephrine 0.3 mg/0.3 mL 0.3 mg IM ONCE 01/30/23 02/12/24 injection, auto-injector losartan 50 mg tablet 50 mg PO DAILY 01/30/23 02/12/24 meclizine 25 mg tablet 25 mg PO TID PRN 01/30/23 02/12/24 famotidine 40 mg tablet mg PO BID 02/12/24 02/12/24 Previous Rx's ?Medication ?Instructions ?Recorded aspirin 81 mg tablet,delayed 81 mg PO DAILY #30 tabs 07/29/22 release meclizine 12.5 mg tablet 12.5 mg PO TID PRN dizziness #20 06/18/24 tabs Allergies Allergy/AdvReac Type Severity Reaction Status Date / Time amoxicillin [Amoxicillin] Allergy Intermediate RASH Verified 06/18/24 14:47 cantaloupe Allergy Unknown Verified 06/18/24 14:47 fish derived [fish] Allergy Anaphylaxis Verified 06/18/24 14:47 shellfish derived Allergy Anaphylaxis Verified 06/18/24 14:47 gabapentin AdvReac Unknown Verified 06/18/24 14:47 Review of Systems Review of Systems: Yes all other systems are reviewed and are negative [facility] Past Medical History Medical History Ascending aortic aneurysm Hypothyroidism Hyperlipidemia Vertigo HTN (hypertension) Family History Family History Mother No problems noted. Father No problems noted. Social History Social History Alcohol intake: never Patient Tobacco Use Status: Never used Tobacco Second Hand Smoke Exposure: No service: No Current occupational status: retired Physical Exam Vital Signs: Vital Signs: Last Vital Signs Temp 98.1 F 06/18/24 14:39 Pulse 82 06/18/24 14:39 Resp 16 06/18/24 14:39 BP 132/69 06/18/24 14:39 Pulse Ox 95 06/18/24 14:39 O2 Del Method Room Air 06/18/24 14:39 BMI result Body Mass Index 29.1 Vital signs revealed an elevated blood pressure of 132/69 otherwise unremarkable Exam: General: Awake, alert in no distress Head: Normocephalic, atraumatic EENT: PERRL, lateral nystagmus Lids normal, sclera normal, conjunctiva normal, nose normal , ears normal, throat without erythema or exudates Neck: Supple, no adenopathy Lung: breath sounds symmetric, no wheezing, rales or rhonchi Chest: symmetric movement, nontender Heart: regular rate and rhythm, normal S1, S2 no murmurs or rubs Abdomen: soft, non-tender, nondistended, normal bowel sounds Back: no vertebral tenderness, no CVAT Extremities: no deformities, moves all extremities symmetrically Neuro: General: Awake, alert, oriented, normal speech Cranial nerves: cranial nerves intact Strength: moves all extremities symmetrically, strength is 5/5 symmetric Cerebellar: Normal [id number]-finger, normal rapid finger movement, normal heel to call. Psych: Pleasant, cooperative Medical Decision Making Medical Decision Making [facility] Narrative: 84-year-old female with a history ascending aortic aneurysm, hypothyroidism, hyperlipidemia, vertigo, hypertension who presents emergency department for evaluation of sudden onset of room spinning dizziness started last night when she got up to go to the bathroom. Dizziness is treated with minimal head movement or position change and resolves with rest. Associated with nausea but no vomiting. She was had no numbness or weakness. Patient did not take any medications for her dizziness. Differential diagnosis: ?Includes but is not limited to cerebellar stroke, benign positional vertigo, labyrinthitis, myocardial infarction, myocardial ischemia, arrhythmia, anemia, electrolyte abnormalities Course: 16:34 My interpretation patient's laboratory evaluation as follows: CBC was normal. CMP was normal except for an elevated glucose of 133. High sensitive troponin I was below detectable limits. Twelve EKG was unremarkable. Patient's symptoms are consistent with benign positional vertigo. Patient was given meclizine 12.5 mg orally. She was advised to take meclizine 12.5 mg 3 times a day as needed for dizziness. The patient will be referred to our occupational therapy vestibular program for further treatment. Patient was given printed and verbal instructions and discharged home Admission/Observation Consideration of admission/observation: Escalation of care including admission/observation considered (Yes) Lab Data [facility] Lab Attestation statement: I reviewed the patient's lab results. 06/18/24 15:03 06/18/24 15:02 Labs: Lab Results 06/18/24 06/18/24 Range/Units 15:02 15:03 WBC 6.0 (4.8-10.8) X10*3/uL RBC 4.12 L (4.20-5.50) X10*6/uL Hgb 12.4 (12.0-16.0) g/dl Hct 37.6 (37.0-47.0) % MCV 91.3 (80.0-98.0) fL MCH 30.1 (27.0-33.0) pg MCHC 33.0 (31.0-35.0) g/dl RDW 12.6 (11.0-16.0) % Plt Count 251 (160-400) X10*3/uL MPV 10.1 (9.4-12.3) fL Immature Gran % (Auto) 0.3 (0.0-0.4) % Neut % (Auto) 61.4 (45-73) % Lymph % (Auto) 21.4 (20-40) % [place] % (Auto) 12.7 H (2-11) % Eos % (Auto) 3.5 (0-4) % Baso % (Auto) 0.7 (0-2) % Lymph # (Auto) 1.3 (1.2-4.9) X10*3/uL [place] # (Auto) 0.8 (0.1-1.2) X10*3/uL Eos # (Auto) 0.2 (0.0-0.4) X10*3/uL Baso # (Auto) 0.0 (0.0-0.2) X10*3/uL Abs Immat Gran (auto) 0.02 (0.00-0.03) X10*3/uL Absolute Neuts (auto) 3.7 (2.0-8.3) x10*3/uL Absolute Nucleated RBC 0.000 (0.0-0.012) X10*3/uL Nucleated RBC % (auto) 0.0 (0.0-0.2) /100WBC Sodium 142 (135-145) mmol/L Potassium 3.9 (3.3-5.1) mmol/L Chloride 107 (96-108) mmol/L Carbon Dioxide 26 (22-29) mmol/L Anion Gap 13 (12-20) BUN 13 (9-16) mg/dL Creatinine 0.74 (0.5-1.4) mg/dL Estim Creat Clear Calc 57.8 Estimated GFR > 60 Random Glucose 133 H (60-115) mg/dL Calcium 10.2 (8.4-10.2) mg/dL Total Bilirubin 0.3 (0.0-1.0) mg/dL AST 22 (5-31) U/L ALT 12 (0-31) U/L Alkaline Phosphatase 109 (39-117) U/L Troponin I High Sens < 2.7 (<3.5-17.0) ng/L Total Protein 6.7 (6.5-8.0) g/dL Albumin 3.9 (3.5-5.0) g/dL Independent Interpretation I performed an independent interpretation of an: EKG Interpretation: My independent interpretation 12 EKG done at 14:47 hours is as follows: Normal sinus rhythm with a rate of 84, normal IN interval, QRS duration QTC interval, no ST segment elevation, no ST segment depression, no significant T-wave abnormalities, no PACs, no PVCs. Compared to EKG dated 12/30/2023 there were no significant changes. Prescription Management I considered prescription management with: Other (Anti vertigo medication: Meclizine) Chronic Conditions Patient?s care impacted by: Hypertension Discharge Plan Discharge Clinical Impression: Benign paroxysmal positional vertigo Patient Disposition: Home, Self-Care Instructions: Benign Paroxysmal Positional Vertigo (ED) Additional Instructions: Your blood work was unremarkable. Your EKG was normal. Your examine symptoms are consistent with benign positional vertigo which is often caused by malfunction of your inner ear balance system. Take meclizine 12.5 mg pills, 1 pill 3 times a day for the next 3 days for dizziness then as needed for dizziness. ?This medication will make you sleepy. ?Do not drive or work while taking this medication. I did send an electronic ordered to our occupational/physical therapist department for vertigo/vestibular therapy. Please call and ask for [facility]?physical therapy?services to see if they can use my electronic order for physical therapy. If they can not use this electronic order then your doctor will need to write a prescription for vestibular therapy in order for you to get this treatment. Continue taking your other medications as prescribed by your providers Follow-up with your doctor in 2 days. Please return to the emergency department if your symptoms get worse or if you develop any symptoms that are concerning to you. Prescriptions: New meclizine 12.5 mg tablet 12.5 mg PO TID PRN (Reason: dizziness) Qty: 20 0RF No Action levothyroxine 88 mcg tablet 88 mcg PO DAILY aspirin 81 mg Tablet,Delayed Release (Dr/Ec) 81 mg PO DAILY Qty: 30 0RF clonidine HCl 0.2 mg tablet 0.2 mg PO BID pravastatin 40 mg tablet 40 mg PO BEDTIME losartan 50 mg tablet 50 mg PO DAILY meclizine 25 mg tablet 25 mg PO TID PRN epinephrine 0.3 mg/0.3 mL auto-injector 0.3 mg IM ONCE famotidine 40 mg tablet PO BID Print Language: Bur[place]ian
[2024-06-18 16:46] VITALS: BP 126/65; PULSE 70; RESP 14; TEMP 36.6; O2SAT 98
[2024-06-18] MEDS: Meclizine HCl 12.5 MG TABLET PO (16:54)
[2024-06-18 17:17] VITALS: BP 126/65; PULSE 70; RESP 14; TEMP 36.6; O2SAT 98
--- OUTSIDE RECORDS SUMMARY | 2024-06-18 17:38 | XMS_ITS | Clinical Summary ---
Author Organization [facility] Address [address] [place] [address] Care Team Providers Care Mail Opener Name Role Phone Unavailable Primary Care Provider Unavailabl e Source Comments PLEASE NOTE, if this patient is a minor, it may be UNLAWFUL to discuss sensitive information that is contained in these records (such as FAMILY PLANNING, MENTAL HEALTH or SUBSTANCE ABUSE) with the minor patient's parent or other person without the patient's specific authorization.[facility] Allergies Active Allergy Reactions Criticality Noted Date Comments Amoxicillin Hives 11/23/2021 Fish Containing Products Anaphylaxis 11/23/2021 Shellfish Derived Anaphylaxis 11/23/2021 Medications cloNIDine HCL (CATAPRES) 0.2 mg tablet Take 0.2 mg by mouth 2 (two) times daily Active carvediloL (COREG) 12.5 mg tablet Take 12.5 mg by mouth 2 (two) times daily with a meal Active levothyroxine sodium (LEVOTHROID ORAL) Take by mouth Active pravastatin (PRAVACHOL) 40 mg tablet Take 40 mg by mouth once daily Active fluticasone furoate (VERAMYST) 27.5 mcg/actuation nasal spray Place 1 [place] into the nostril(s) once daily Active cholecalciferol, vitamin D3, 25 mcg (1,000 unit) tablet Take 1,000 Units by mouth once daily Active acetaminophen (TYLENOL) 325 mg tablet Take 650 mg by mouth as needed Active Active Problems No known active problems Social History Tobacco Use Types Packs/Day Years Used Date Smoking Tobacco: Never Smokeless Tobacco: Never Social Connections Answer Date Recorded Connectedness 0 02/08/2024 Financial Resource Strain Answer Date R ecorded Financial Resource Strain 0 2021 Stress Answer Date Recorded Stress 0 11/23/2021 Physical Activity Answer Date Recorded Physical Activity 0 11/23/2021 Food Insecurity Answer Date Recorded Food 0 02/21/2024 Transportation Needs Answer Date Record ed Transportation 0 11/23/2021 Housing Stability Answer Date Recorded Housing 0 11/23/2021 Safety and Environment Answer Date Junior rded Safety 0 11/23/2021 Utilities Answer Date Recorded Utilities 0 11/23/2021 Employment Answer Date Recorded Stress 0 02/08/2024 Comments Unknown Sex and Gender Information Value Date Recorded Sex Assigned at Not on file Legal Sex Female 7:22 AM PDT Gender Identity Not on file Sexual Orientation Not on file Last Filed Vital Signs Vital Sign Reading Time Taken Comments Blood Pressure 152/85 11/23/2021 9:58 AM EDT Pulse 77 11/23/2021 9:58 AM EDT Temperature - - Respiratory Rate - - Oxygen Saturation - - Inhaled Oxygen Concentration - - Weight - - Height - - Body Mass Index - - Plan of Treatment Health Maintenance Due Date Last Done Comments TSH Monitoring 1940 Tobacco Screening 1940 Advanced Care Planning 1940 Annual Preventive Care Visit 1959 Imm-Zoster, Recombinant (1 of 2) 1991 Bone Density Screening 2006 Falls Prevention 2006 Hypertension Screening (#1) 11/23/2022 Imm-DTaP/Tdap/Td (2 - Td or Tdap) 04/15/2023 013, 12/27/1999 [id number] ( season) 2024 04/14/2021, 08/12/2020, 07/08/2020 Imm-Influenza (#1) 2024 04/14/2021, 1 , 03/04/2019, Additional history exists Alcohol and Drug Screen 05/28/2024 Depression Annual Screen 05/28/2024 Imm-Pneumococcal 65+ Completed 05/26/2021, 08/21/2014, 05/28/2003 Insurance [facility] SAFETY NET DENTAL [place] [id number]
--- OUTSIDE RECORDS SUMMARY | 2024-06-18 17:39 | XMS_ITS | Patient Health Record ---
Author Organization [facility] Address [address] [place] [address] Care Team Providers Care Personal Loan Specialist Name Role Phone Edvin Pruett MD Primary Care Provider Carlota Saldaña Unavailable [phone] Allergies Allergen (clinical drug ingredient) Drug/Non Drug Allergy documented on EMR Reaction Allergy Type Onset Date Status amoxicillin Amoxicillin Unknown Drug Allergy Act maria del rosario Cod Liver Oil Unknown Drug Allergy Act maria del rosario Tuna Flavor Unknown Drug Allergy Activ e Zach[place] Unknown Drug Allergy Active gabapentin Gabapentin Unknown Drug Allergy Activ e Shellfish (FN) Shellfish-derived Products Unknown Drug Allergy Active Reason For Referral No Information Medications Medication SIG (Take, Route, Frequency, Duration) Notes Start Date End Date Status Aspir-81 Active Meclizine HCl 25 MG 1 tablet as needed Orally every 12 hrs Active Flonase Active Tylenol Active cloNIDine HCl 0.2 MG 1 tablet Orally Onc e a day for 30 day(s) Active Levothyroxine Sodium 88 MCG 1 tablet on an empty stomach in the morning Orally Once a day Active Pravastatin Sodium 40 MG 1 tablet Orally Once a day for 30 day(s) Active Vitamin D3 2000 UNIT 1 capsule Orally On ce a day for 30 day(s) Active Thyroid 120 MG 1 tablet Orally Once a day for 30 day(s) Not-Taking Omeprazole 20 MG 1 capsule Orally Onc e a day for 30 day(s) Not-Taking Losartan Potassium A ctive Problems No Known Problems Plan Of Treatment Pending Test Test Name Order Date X ray : Ankle, left 2V 03/17/2013 X ray : Foot, left 2V 03/17/2013 [id number] NAIL, 1-5 12/10/2014 Insurance Providers Payer Name Payer Address Payer Phone Subscriber Number Group Number Insured Name Patient Relationship to Insured Coverage Start Date Coverage End Date Medicare National [facility] [address] [place] [address] [id number] Madalyn Nesbitt Self - patient is the insured [employer] [address] [place] [address] [phone] [id number] Madalyn Nesbitt Self - patient is the insured Medical (General) History Medical History History ICD Code Arthritis fibromyalgia headaches/migraines high blood pressure thyroid disorder measles mumps chicken pox Back,Hip,and Knee pain Cataracts TIA Transfusions Surgical History Surgery Date(Month/Year) vein surgery left knee replacement right knee replacement throat surgery
== END 2024-06-18 17:18 | disposition home or self-care (01) ==
PROVIDERS: Emergency Provider Emergency Medicine Emergency Medical Services; PCP Internal Medicine
DX: H81.13 Benign paroxysmal vertigo, bilateral (principal); R94.31 Abnormal electrocardiogram [ECG] [EKG]; Z79.899 Other long term (current) drug therapy
CPT/HCPCS: 36415; 80053; 84484; 85025; 93005; 99284

== ENCOUNTER → 2024-06-18 14:43 | Outpatient (BNV) | payer MEDICARE, MEDICAID, SELFPAY | PROVIDERS: Emergency Provider Emergency Medicine Emergency Medical Services; PCP Internal Medicine; Visit Provider Internal Medicine Cardiovascular Disease | DX: R42 Dizziness and giddiness (principal); R94.31 Abnormal electrocardiogram [ECG] [EKG] | CPT/HCPCS: 93010 ==

== ENCOUNTER 2024-08-14 14:54 | Outpatient (AMB) | payer MEDICARE, MEDICAID, SELFPAY ==
[2024-08-14 15:00] VITALS: BP 114/62; PULSE 64; BMI 29.4
--- NOTE | 2024-08-14 15:00 | A.OFFVIS_ITS ---
Vital Signs 08/14/24 15:00 Height 5 ft 4 in Weight 171 lb 8.314 oz BMI 29.4 BP 114/62 Blood Pressure Location Lt brachial Position Sitting Pulse 64 Pulse Source Pulse Oximeter Intake Visit Reasons: 6 mth f/up Book Binder Required: No Allergies amoxicillin [Amoxicillin] Allergy (Intermediate, Verified 08/14/24 15:02) RASH cantaloupe Allergy (Verified 08/14/24 15:02) Unknown fish derived [fish] Allergy (Verified 08/14/24 15:02) Anaphylaxis shellfish derived Allergy (Verified 08/14/24 15:02) Anaphylaxis gabapentin Adverse Reaction (Verified 08/14/24 15:02) Unknown Medication List - Last Reconciled 08/14/24 by Ally Olivares NP-C aspirin 81 mg PO DAILY clonidine HCl 0.2 mg PO BID epinephrine 0.3 mg IM ONCE famotidine mg PO BID levothyroxine 88 mcg PO DAILY losartan 50 mg PO DAILY meclizine 12.5 mg PO TID PRN pravastatin 40 mg PO BEDTIME HPI HPI 6 mth f/up: Details: Madalyn is a 84-year-old female with past medical history hypertension, ascending aortic aneurysm who had a brief episode of expressive aphasia 07/2022 and has undergone evaluation for heart palpitations without finding of atrial fibrillation. Today she reports she has been doing well since her last visit in January. She will feel an occasional flip in her chest but no sustained rapid or irregular heart rates. She has not had any repeat neurological events. No visual loss, numbness or weakness of her extremities, speech disturbances. No chest discomfort at rest or with activity. No shortness of breath, PND, orthopnea or edema. She continues to walk routinely for exercise. She says she tolerates this well. Takes all meds as directed [facility] Medical History Ascending aortic aneurysm Hypothyroidism Hyperlipidemia Vertigo HTN (hypertension) Family History Mother No problems noted. Father No problems noted. Social History Alcohol intake: never Patient Tobacco Use Status: Never used Tobacco Second Hand Smoke Exposure: No service: No Current occupational status: retired Review of Systems Const All systems reviewed & are unremarkable except as noted in HPI and below ENT Denies dizziness Card Denies chest pain, Denies chest pain at rest, Denies chest pain with activity, Denies rapid heart rate, Denies pedal edema, Denies edema, Denies leg edema, Denies lightheadedness, Denies palpitations, Denies dyspnea, Denies dyspnea on exertion and Denies orthopnea Resp Denies cough, Denies dyspnea and Denies dyspnea on exertion GI Denies hematochezia and Denies change in stool character Musc Denies abnormal gait, Denies limited range of motion, Denies muscle cramps, Denies muscle weakness, Denies numbness, Denies radiating pain into limb, Denies stiffness and Denies tingling Neuro Denies abnormal gait, Denies dizziness, Denies numbness and Denies tingling Endo Denies palpitations Physical Exam Vital Signs: Last Vital Signs Pulse 64 08/14/24 15:00 BP 114/62 08/14/24 15:00 BMI result Body Mass Index 29.4 Const General: cooperative, healthy appearing, comfortable and no acute distress Orientation/consciousness: patient oriented x3 Neck Neck: Yes normal visual inspection Resp Effort & Inspection: normal respiratory effort Auscultation: clear to auscultation bilaterally, no crackles, no rales, no rhonchi and no wheezes Cardio Rate: regular rate Rhythm: regular rhythm Heart sounds: S1 normal heart sound present, S2 normal heart sound present, no gallops, no murmurs and no rubs Skin General skin exam: no rashes or lesions noted Neuro General: patient oriented x3 Extrem General: Yes normal to inspection, No no pedal edema and No calf tenderness Psych Appearance: grossly normal Mental Status: mental status grossly normal Speech and movement: Normal speech and movement present Assessment & Plan Assessment & Plan (1) Ascending aortic aneurysm: Code(s): I71.21 - Aneurysm of the ascending aorta, without rupture Category: Medical Qualifiers: Presence of rupture: without rupture Qualified Code(s): I71.21 - Aneurysm of the ascending aorta, without rupture Plan: Ascending aorta 4.2 cm on last echocardiogram 08/16/2023. Blood pressure is well controlled. She is on statin therapy. Will recheck echocardiogram to assess for rate of change. This time I will put her for a 1 year follow-up but that can be pushed out further if her echo shows no changes. (2) Heart palpitations: Code(s): R00.2 - Palpitations Category: Medical Plan: [facility] evaluation 07/2022 for a brief episode of expressive aphasia. She has not had any recurrent episodes since that time. She did undergo evaluation including: Brain MRI 07/30/23 shows no acute infarct or other acute intracranial abnormality. Moderate chronic microangiopathy. Carotid ultrasound done 07/29/23 No significant carotid stenosis. Echocardiogram 08/16/23, LVEF 68%. No wall motion abnormalities. Ascending aortic size 4.2 cm with mild aortic regurgitation. 30 day monitor applied 11/02/22 shows underlying sinus rhythm and no episodes of atrial fibrillation. Rare PACs/PVCs. EKG 12/30/23 with sinus rhythm at 84, leftward axis, normal AR and corrected QT. a repeat 30 day cardiac event monitor was done on 11/08/2023 showing sinus rhythm with average heart rate 78, rare SVE and VE, no evidence of atrial fibrillation. -to date there have been no findings of atrial fibrillation and she has had no recurrent neurological type events. No further testing required. (3) Brain TIA: Comment: Expressive aphagia episode 07/29/23, approx 2 min. Brain MRI without acute abn Code(s): G45.9 - Transient cerebral ischemic attack, unspecified Category: Medical Plan: As above Plan Time spent on chart review, documentation, interview and assessment Orders: Orders CA echo transthoracic complete Today I71.21 - Aneurysm of the ascending aorta, without rupture Coding Level of Care Code Est Pt Level 3 (30122) Complex EM visit Add On G2211 Diagnoses Aneurysm of ascending aorta without rupture I71.21 Presence of rupture: without rupture Heart palpitations R00.2 Brain TIA G45.9 Time Spent (min) 24
--- OUTSIDE RECORDS SUMMARY | 2024-08-14 17:22 | XMS_ITS | Patient Health Record ---
Author Organization [facility] Address [address] [place] [address] Care Team Providers Care Machine Lacer Name Role Phone Edvin Pruett MD Primary Care Provider Carlota Saldaña Unavailable [phone] Allergies Allergen (clinical drug ingredient) Drug/Non Drug Allergy documented on EMR Reaction Allergy Type Onset Date Status amoxicillin Amoxicillin Unknown Drug Allergy Act maria del rosario Cod Liver Oil Unknown Drug Allergy Act maria del rosario Tuna Flavor Unknown Drug Allergy Activ e [place] Unknown Drug Allergy Active gabapentin Gabapentin Unknown [...] X ray : Foot, left 2V 03/17/2013 [id number] NAIL, 1-5 12/10/2014 Insurance Providers Payer Name Payer Address Payer Phone Subscriber Number Group Number Insured Name Patient Relationship to Insured Coverage Start Date Coverage End Date Medicare National [facility] [address] [place] [address] [id number] Madalyn Nesbitt Self - patient is the insured [employer] [address] [place] [address] [phone] [id number] Madalyn Nesbitt Self - patient is the insured Medical (General) History Medical History History ICD Code Arthritis fibromyalgia headaches/migraines high blood pressure thyroid disorder measles mumps chicken pox Back,Hip,and Knee pain Cataracts TIA Transfusions Surgical History Surgery Date(Month/Year) vein surgery left knee replacement right knee replacement throat surgery
--- OUTSIDE RECORDS SUMMARY | 2024-08-14 17:22 | XMS_ITS | Clinical Summary ---
Author Organization [facility] Address [address] [place] [address] Care Team Providers Care Coin Machine Operator Name Role Phone Unavailable Primary Care Provider [...] (VERAMYST) 27.5 mcg/actuation nasal spray Place 1 [place] into the nostril(s) once daily Active cholecalciferol, [...] - Td or Tdap) 04/15/2023 013, 12/27/1999 [id number] ( season) 2024 04/14/2021, 08/12/2020, 07/08/2020 Imm-Influenza (#1) 2024 04/14/2021, 1 , 03/04/2019, Additional history exists Alcohol and Drug Screen 05/28/2024 Depression Annual Screen 05/28/2024 Imm-Pneumococcal 65+ Completed 05/26/2021, 08/21/2014, 05/28/2003 Insurance [facility] SAFETY NET DENTAL [place] [id number]
== END 2024-08-14 15:37 | disposition home or self-care (01) ==
LOC: HO.HCS 14:54
PROVIDERS: PCP Internal Medicine; Visit Provider Nurse Practitioner Family
DX: I71.21 Aneurysm of the ascending aorta, without rupture (principal); R00.2 Palpitations; G45.9 Transient cerebral ischemic attack, unspecified
CPT/HCPCS: 99213; G2211

== ENCOUNTER → 2024-08-14 14:54 | Outpatient (BNVA) | payer MEDICARE, MEDICAID, SELFPAY | PROVIDERS: PCP Internal Medicine; Visit Provider Nurse Practitioner Family | DX: I10 Essential (primary) hypertension (principal); I71.21 Aneurysm of the ascending aorta, without rupture; R00.2 Palpitations; Z86.73 Personal history of transient ischemic attack (TIA), and cerebral infarction without residual deficits | CPT/HCPCS: 99212 ==

== ENCOUNTER → 2024-09-01 14:08 | Outpatient (REF) | payer MEDICARE, SELFPAY ==
--- NOTE | 2024-09-01 14:10 | CA_ITS ---
Transthoracic Echocardiogram Patient (Last, First, Middle): Madalyn Vera M Gender: Female Date of : 1940 Age: 84 Procedure Date: 09/01/2024 Procedure Type: Transthoracic Echocardiogram Location: OP Height: 162.56 cm Weight: 77.57 kg BSA: 1.83 m2 Heart Rate: bpm BP: 114 / 62 mmHg Electronic Transaction Implementer: JANELL Referring MD: Ally Olivares BAGGAGE AGENT SUPERVISORGonzálezC Symptoms: I71.21 - Aneurysm of the ascending aorta, without rupture Study Quality: Adequate ECG Rhythm: Sinus Conclusions: - The left ventricular systolic function is normal. The calculated ejection fraction is 62% by biplane method. - Moderate to severe focal hypertrophy of the basal septum. - No obvious valvular pathology seen on this study. - There is mild dilatation of the sinuses of Valsalva measuring 4.11 cm and mild dilatation of the ascending aorta measuring 4.20 cm. Findings Left Ventricle Normal left ventricular cavity size. The left ventricular systolic function is normal. The calculated ejection fraction is 62% by biplane method. There is no evidence of regional wall motion abnormalities. Evidence suggests grade I (mild) diastolic dysfunction. Moderate to severe focal hypertrophy of the basal septum. Right Ventricle Normal right ventricular cavity size and systolic function. Atria The left atrium is moderately dilated. The right atrium is normal in size. Aortic Valve There is a normal trileaflet aortic valve. There is mild calcification of the aortic valve. There is no aortic valve stenosis. There is mild aortic valve regurgitation. Mitral Valve There is mild mitral annular calcification. There is trace mitral valve regurgitation. There is no mitral valve stenosis. Pulmonic Valve There is trace pulmonic valve regurgitation. Tricuspid Valve There is mild tricuspid valve regurgitation. There is no evidence of pulmonary hypertension. Great Vessels The aortic arch is normal in size. There is mild dilatation of the sinuses of Valsalva measuring 4.11 cm and mild dilatation of the ascending aorta measuring 4.20 cm. Venous The inferior vena cava is normal in size and collapses greater than 50% with inspiration. Pericardium/Pleural There is no evidence of pericardial effusion. Prior Study Comparison No significant change compared to prior study dated: 08/16/2023. Recommendations, Care & Conclusions No obvious valvular pathology seen on this study. Measurements 2D Linear Measurements IVSd: 0.97 0.6-0.9/0.6-1.0 cm LVIDd: 3.78 3.9-5.3/4.2-5.9 cm LVIDd Index: 2.07 2.4-3.2/2.2-3.1 cm/m2 LVIDs: 2.47 2.0-3.6 cm LVPWd: 0.89 0.7-1.1 cm LA Diam: 3.00 2.7-3.8/3.0-4.0 cm LAIDs Index: 1.64 1.5-2.3 cm/m2 LV Mass: 130.21 67-162/88-224 g LV Mass Index: 71.15 43-95/49-115 g/m2 LVOT Diam: 2.00 3.0+(-)1.3 cm 2D Systolic Function EF 4C: 55.90 >55% EF 2C: 70.00 >55% EF BiP: 62.40 >55% Mitral Valve MV Pk E: 0.57 MV PK A: 0.99 MV Decel Time: 305.00 E/A: 0.60 E'Lateral: 5.44 E'Medial: 3.15 E/E' Med: 18.10 E/E' Lat: 10.50 PHT: 89.00 MVA PHT: 2.47 Decel [place]: 1.87 Aortic Valve AoV Pk Doug: 1.33 AoV Mn Doug: 0.89 AoV VTI: 0.33 AoV Pk Grad: 7.00 Aov Mn Grad: 4.00 ELEANOR Cont.VTI: 2.54 AI Pk Doug: 3.57 AI [place]: 1.30 LVOT LVOT Pk Doug: 1.21 LVOT Mn Doug: 0.77 LVOT VTI: 0.27 LVOT Pk Grad: 6.00 LVOT Mn Grad: 3.00 LVOT Diam: 2.00 LVOT Area: 3.14 Diastolic Function MV Pk E: 0.57 MV Pk A: 0.99 E/A: 0.60 E'Medial: 3.15 E/E' Med: 18.10 E' Laterial: 5.44 E/E' Lat: 10.50 Right Ventricle TAPSE (mm): 23.00 TVS' Doug: 14.60 Tricuspid Valve TR Pk Doug: 2.48 TR Pk Grad: 25.00 RA Press: 3.00 RVSP: 28.00 Great Vessels Aorta Sinus of Valsalva: 4.11 2.0-3.[address] [place]: 3.30 1.7-3.4 cm Ao Asc: 4.20 2.1-3.4 cm Ao Arch: 2.50 Updated in Other Vendor System with Status of Final Ernesto Camejo MD electronically signed on 09/02/2024 11:48:57 AM with status of Final
--- OUTSIDE RECORDS SUMMARY | 2024-09-01 16:54 | XMS_ITS | Clinical Summary ---
Author Organization [facility] Address [address] [place] [address] Care Team Providers Care Instructor Weaving Name Role Phone Unavailable Primary Care Provider [...] (VERAMYST) 27.5 mcg/actuation nasal spray Place 1 [place] into the nostril(s) once daily Active cholecalciferol, [...] Tobacco Screening 1940 Advanced Care Planning 1940 Imm-Zoster, Recombinant (1 of 2) 1991 Bone Density Screening 2006 Falls Prevention 2006 Hypertension Screening (#1) 11/23/2022 Imm-DTaP/Tdap/Td (2 - Td or Tdap) 04/15/2023 013, 12/27/1999 [id number] ( season) 2024 04/14/2021, 08/12/2020, 07/08/2020 Imm-Influenza (#1) 2024 04/14/2021, 1 , 03/04/2019, Additional history exists Alcohol and Drug Screen 05/28/2024 Depression Annual Screen 05/28/2024 Imm-Pneumococcal 65+ Completed 05/26/2021, 08/21/2014, 05/28/2003 Insurance [employer] NET DENTAL
--- OUTSIDE RECORDS SUMMARY | 2024-09-01 16:54 | XMS_ITS | Patient Health Record ---
Author Organization [facility] Address [address] [place] [address] Care Team Providers Care Trailer Sections Assembler Name Role Phone Edvin Pruett MD Primary Care Provider Carlota Saldaña Unavailable [phone] Allergies Allergen (clinical drug ingredient) Drug/Non Drug Allergy documented on EMR Reaction Allergy Type Onset Date Status amoxicillin Amoxicillin Unknown Drug Allergy Act maria del rosario Cod Liver Oil Unknown Drug Allergy Act maria del rosario Tuna Flavor Unknown Drug Allergy Activ e [place] Unknown Drug Allergy Active gabapentin Gabapentin Unknown [...] X ray : Foot, left 2V 03/17/2013 [id number] NAIL, 1-5 12/10/2014 Insurance Providers Payer Name Payer Address Payer Phone Subscriber Number Group Number Insured Name Patient Relationship to Insured Coverage Start Date Coverage End Date Medicare National [facility] [address] [place] [address] [id number] Madalyn Nesbitt Self - patient is the insured [employer] [address] [place] [address] [id number] Madalyn Nesbitt Self - patient is the insured Medical (General) History Medical History History ICD Code Arthritis fibromyalgia headaches/migraines high blood pressure thyroid disorder measles mumps chicken pox Back,Hip,and Knee pain Cataracts TIA Transfusions Surgical History Surgery Date(Month/Year) vein surgery left knee replacement right knee replacement throat surgery
== END ==
LOC: HO.CARD 14:08
PROVIDERS: PCP Internal Medicine; Visit Provider Nurse Practitioner Family
DX: I71.21 Aneurysm of the ascending aorta, without rupture (principal)
CPT/HCPCS: 93306

== ENCOUNTER → 2024-09-01 14:10 | Outpatient (BNV) | payer MEDICARE, SELFPAY | PROVIDERS: PCP Internal Medicine; Visit Provider Internal Medicine | DX: I42.2 Other hypertrophic cardiomyopathy (principal); I35.1 Nonrheumatic aortic (valve) insufficiency; I36.1 Nonrheumatic tricuspid (valve) insufficiency; I71.21 Aneurysm of the ascending aorta, without rupture | CPT/HCPCS: 93306 ==

== ENCOUNTER 2024-10-28 10:53 | Emergency (ER) | payer MEDICARE, SELFPAY ==
[2024-10-28] VITALS (7 sets, daily range): BP systolic 118–150; BP diastolic 63–80; PULSE 55–70; RESP 15–18; TEMP 36.6; O2SAT 93–95; BMI 31.0
--- NOTE | ~2024-10-28 | CT_ITS ---
EXAMINATION: CT HEAD WITHOUT IV CONTRAST HISTORY: dizzy. TECHNIQUE: Unenhanced helical CT of the head was performed per standard departmental protocol. Coronal and sagittal reformats of the head were also evaluated. One or more of the following techniques was used for dose reduction: Automated exposure control, adjustment of the mA and/or kV according to patient size, use of iterative reconstruction technique. DLP: 625 mGy-cm COMPARISON: Comparison is made with the prior examination dated 07/28/2022. FINDINGS: BRAIN: There is mild prominence of the ventricular system and cortical sulci, consistent with atrophy. Periventricular and subcortical white matter hypodensities are noted which are nonspecific, but often seen in the setting of small vessel ischemic disease. There is no mass effect or midline shift. No intra- or extra-axial fluid collections are identified. SINUSES: The visualized paranasal sinuses are clear. The mastoid air cells and middle ear cavities are well pneumatized. ORBITS: The visualized orbits are unremarkable. BONES/SOFT TISSUES: The extracranial soft tissues are unremarkable. The calvarium is intact. No suspicious lytic or sclerotic lesions. CT/CT head/brain wo IV con IMPRESSION: No acute intracranial abnormality. Electronically signed by: Rishi Leiva MD 10/28/2024 11:36 AM EDT
--- NOTE | ~2024-10-28 | XR_ITS ---
EXAMINATION: XR CHEST 1 VIEW HISTORY: cp COMPARISON: Comparison is made with the prior examination dated 07/03/2020. FINDINGS: A single AP portable view of the chest performed at 11:16 AM is submitted. The lungs are expanded and clear. There is no pleural effusion, pneumothorax, or pulmonary vascular congestion. The heart is normal in size. The aorta is calcified. There is degenerative disc disease and scoliosis of the spine. XR/XR chest 1V IMPRESSION: No acute cardiopulmonary abnormality. Electronically signed by: Rishi Leiva MD 10/28/2024 11:33 AM EDT
[2024-10-28 11:09] LABS: Glucose, Whole Blood 124 mg/dL (60-115)
--- NOTE | 2024-10-28 11:12 | ECG_ITS ---
Test Reason : SYNCOPE Blood Pressure : */* mmHG Vent. Rate : 65 BPM Atrial Rate : 65 BPM P-R Int : 172 ms QRS Dur : 82 ms QT Int : 452 ms P-R-T Axes : 24 -30 6 degrees QTcB Int : 470 ms Normal sinus rhythm Left axis deviation Minimal voltage criteria for LVH, may be normal variant ( R in aVL ) Abnormal ECG When compared with ECG of 18-Jun-2024 14:47, No significant change was found Referred By: Joanna Solorzano Electronically Signed By: CORNELIA LAWSON
--- NOTE | 2024-10-28 11:12 | PC.NURSE ---
Pt A&O X4 VSS NSR no ectopy on monitor- POC done and WNL. provider in and eval pr. Orders received- pt denies sx at this time. Neuro check benign
--- NOTE | 2024-10-28 11:14 | ED.DIZZY ---
HPI - Dizziness General Chief Complaint: Syncope Stated Complaint: WEAKNESS,DIZZINESS Time Seen by Provider: 10/28/24 11:03 History of Present Illness HPI Narrative: Patient is an 84-year-old female presented today with having episodes of dizziness that lasts approximately 10 seconds. And then it goes away. There is no palpitation there is no chest pain there is no diaphoresis there is no fever there is no chills there is no coughing is no congestion there is no focal weakness there is no change in bowel movement. There is no change in medication. There is no specific trigger but usually it is when patient is standing. Pain on urination. No frequency. No change in sleep pattern. No change in weight no change in voice. Related Data Home Medications ?Medication ?Instructions ?Recorded ?Confirmed levothyroxine 88 mcg tablet 88 mcg PO DAILY 07/28/22 08/14/24 clonidine HCl 0.2 mg tablet 0.2 mg PO BID 10/30/22 08/14/24 pravastatin 40 mg tablet 40 mg PO BEDTIME 10/30/22 08/14/24 epinephrine 0.3 mg/0.3 mL 0.3 mg IM ONCE 01/30/23 08/14/24 injection, auto-injector losartan 50 mg tablet 50 mg PO DAILY 01/30/23 08/14/24 famotidine 40 mg tablet mg PO BID 02/12/24 08/14/24 Previous Rx's ?Medication ?Instructions ?Recorded aspirin 81 mg tablet,delayed 81 mg PO DAILY #30 tabs 07/29/22 release meclizine 12.5 mg tablet 12.5 mg PO TID PRN dizziness #20 06/18/24 tabs Allergies Allergy/AdvReac Type Severity Reaction Status Date / Time amoxicillin [Amoxicillin] Allergy Intermediate RASH Verified 10/28/24 11:08 cantaloupe Allergy Unknown Verified 10/28/24 11:08 fish derived [fish] Allergy Anaphylaxis Verified 10/28/24 11:08 shellfish derived Allergy Anaphylaxis Verified 10/28/24 11:08 gabapentin AdvReac Unknown Verified 10/28/24 11:08 Review of Systems Review of Systems: No chest pain no shortness of breath no palpitation positive episode of dizziness lasting a few sec PMFSH Past Medical History Attestation statement: The following information was validated with the patient. Medical History Ascending aortic aneurysm Hypothyroidism Hyperlipidemia Vertigo HTN (hypertension) Family History Family History Mother No problems noted. Father No problems noted. Social History Social History Alcohol intake: never Patient Tobacco Use Status: Never used Tobacco Smoked in Last 30 Days: No Second Hand Smoke Exposure: No Advance Directives: Yes Advance Directives Information Provided: Yes Advance Directives on File: No service: No Current occupational status: retired Physical Exam Vital Signs: Vital Signs: Last Vital Signs Temp 97.8 F 10/28/24 11:09 Pulse 55 10/28/24 12:51 Resp 15 10/28/24 12:51 BP 126/72 10/28/24 12:51 Pulse Ox 94 10/28/24 12:51 O2 Del Method Room Air 10/28/24 12:51 BMI result Body Mass Index 31.0 Appearance: Alert. Oriented X3. No acute distress. Eyes: Pupils equal, round and reactive to light. ENT: Pharynx normal. Neck: Normal inspection. Neck supple. No lymph nodes noted. No crepitus CVS: Normal heart rate and rhythm. Pulses normal. Normal S1 and S2 Respiratory: No respiratory distress. Breath sounds normal. No Wheezing. No rales Abdomen: Soft and nontender. No rigidity. No distention. good BS x4 Skin: Skin warm and dry. Normal skin color. Normal skin turgor. Extremities: No lower extremity edema. Neurovascular intact to all extremities. No Lacerations. No Rash Neuro: Oriented X 3. No motor deficit. No sensory deficit. Moving all extermities. No slurred speech Medications Administered Discontinued Medications Generic Name Dose Route Start Last Admin Trade Name Freq PRN Reason Stop Dose Admin Sodium Chloride 500 mls @ 999 mls/hr 10/28/24 11:15 10/28/24 12:50 Ns IV 10/28/24 11:45 Infused .Q31M KAYLEEN Infusion Medical Decision Making Medical Decision Making MDM Narrative: patient presents today with having episodes of dizziness. patient's symptoms last a few sec each time. There is no specific trigger. Usually when patient is standing. Patient's hemoglobin is 12.3 this is baseline. No signs of anemia. Electrolytes showed a normal BUN and creatinine. Has a sugar of 116. No hyperglycemia. LFTs are normal. Patient's troponin is negative. Patient's urine showed positive leukocyte esterase which is old. Patient is chest x-ray by my interpretation was grossly negative. Patient's CT head by my interpretation. My interpretation patient's EKG showed a sinus rhythm heart rate is 60 [place] QRS QTC normal there is no acute ST segment elevation. Patient in no distress. Well-appearing. Ambulated without any difficulty not orthostatic. Wants to go home. No syncope. No near syncope. No chest pain. Nonspecific dizziness that lasts for few sec each time. Will discharge patient home. Differential Diagnosis Differential Diagnoses: The differential diagnosis associated with the presentation includes Irregular heartbeat, ACS, electrolyte disturbance, infection, PE Admission/Observation Consideration of admission/observation: Escalation of care including admission/observation considered Lab Data MDM Lab Attestation statement: I reviewed the patient's lab results. 10/28/24 11:38 10/28/24 11:38 Labs: Lab Results 10/28/24 10/28/24 10/28/24 Range/Units 11:02 11:38 11:48 WBC 7.5 (4.8-10.8) X10*3/uL RBC 3.99 L (4.20-5.50) X10*6/uL Hgb 12.3 (12.0-16.0) g/dl Hct 36.7 L (37.0-47.0) % MCV 92.0 (80.0-98.0) fL MCH 30.8 (27.0-33.0) pg MCHC 33.5 (31.0-35.0) g/dl RDW 12.7 (11.0-16.0) % Plt Count 269 (160-400) X10*3/uL MPV 9.9 (9.4-12.3) fL Immature Gran % (Auto) 0.5 H (0.0-0.4) % Neut % (Auto) 74.8 H (45-73) % Lymph % (Auto) 14.5 L (20-40) % [place] % (Auto) 8.2 (2-11) % Eos % (Auto) 1.6 (0-4) % Baso % (Auto) 0.4 (0-2) % Lymph # (Auto) 1.1 L (1.2-4.9) X10*3/uL [place] # (Auto) 0.6 (0.1-1.2) X10*3/uL Eos # (Auto) 0.1 (0.0-0.4) X10*3/uL Baso # (Auto) 0.0 (0.0-0.2) X10*3/uL Abs Immat Gran (auto) 0.04 H (0.00-0.03) X10*3/uL Absolute Neuts (auto) 5.6 (2.0-8.3) x10*3/uL Absolute Nucleated RBC 0.000 (0.0-0.012) X10*3/uL Nucleated RBC % (auto) 0.0 (0.0-0.2) /100WBC Sodium 139 (135-145) mmol/L Potassium 4.1 (3.3-5.1) mmol/L Chloride 107 (96-108) mmol/L Carbon Dioxide 26 (22-29) mmol/L Anion Gap 10 L (12-20) BUN 8 L (9-16) mg/dL Creatinine 0.61 (0.5-1.4) mg/dL Estim Creat Clear Calc 72.3 Estimated GFR > 60 POC Glucose 124 H (60-115) mg/dL Random Glucose 116 H (60-115) mg/dL Calcium 10.0 (8.4-10.2) mg/dL Total Bilirubin 0.5 (0.0-1.0) mg/dL Direct Bilirubin 0.2 (0.0-0.5) mg/dL AST 29 (5-31) U/L ALT 13 (0-31) U/L Alkaline Phosphatase 100 (39-117) U/L Troponin I High Sens < 2.7 (<3.5-17.0) ng/L Total Protein 6.4 L (6.5-8.0) g/dL Albumin 4.0 (3.5-5.0) g/dL TSH 0.81 (0.32-4.0) uIU/mL Urine Color Yellow Urine Appearance Clear Urine pH 7.5 (5.0-9.0) Ur Specific [place] <= 1.005 (1.005-1.025) Urine Protein Negative (Neg-Trace) mg/dL Urine Glucose (UA) Negative (Negative) mg/dL Urine Ketones Negative (Negative) mg/dL Urine Blood Negative (Negative) Urine Nitrite Negative (Negative) Ur Leukocyte Esterase Moderate (2+) H (Negative) Urine RBC 0-2 (0-2) /HPF Urine WBC 0-5 (0-5) /HPF Ur Squamous Epith Cells 0-2 (0-2) /HPF Urine Bacteria None Seen (None Seen) Hyaline Casts 0-2 (0-2) /LPF Independent Interpretation I performed an independent interpretation of an: EKG ( my interpretation patient's EKG as above), Plain X-Ray ( My interpretation patient's chest x-ray is grossly negative.) and CT Scan ( my interpretation patient's CT head was grossly negative.) Radiology Impression Discussion of test interpretation with radiology: I have reviewed the radiologist's reading. External Record Review External record reviewed: Inpatient record Social Determinants Patient?s care significantly limited by Social Determinants of Health including: Problems related to primary support group Discharge Plan Discharge Clinical Impression: Dizziness Patient Disposition: Home, Self-Care Instructions: Dizziness (ED) Prescriptions: No Action levothyroxine 88 mcg tablet 88 mcg PO DAILY aspirin 81 mg Tablet,Delayed Release (Dr/Ec) 81 mg PO DAILY Qty: 30 0RF clonidine HCl 0.2 mg tablet 0.2 mg PO BID pravastatin 40 mg tablet 40 mg PO BEDTIME meclizine 12.5 mg tablet 12.5 mg PO TID PRN (Reason: dizziness) Qty: 20 0RF losartan 50 mg tablet 50 mg PO DAILY epinephrine 0.3 mg/0.3 mL auto-injector 0.3 mg IM ONCE famotidine 40 mg tablet PO BID Referrals: Edvin Pruett MD [Primary Care Provider] - 11/05/24 Print Language: Kyrgyz
[2024-10-28 11:48] LABS: MANUAL DIFF FLAG NO
[2024-10-28 11:49] LABS: Basophils Percent Auto 0.4 % (0-2); Eosinophils Absolute Auto 0.1 X10*3/uL (0.0-0.4); Eosinophils Percent Auto 1.6 % (0-4); Hematocrit 36.7 % (37.0-47.0); Hemoglobin 12.3 g/dl (12.0-16.0); Imm Gran Abs Auto 0.04 X10*3/uL (0.00-0.03); Imm Gran Pct Auto 0.5 % (0.0-0.4); Lymphocytes Absolute Auto 1.1 X10*3/uL (1.2-4.9); Lymphocytes Percent Auto 14.5 % (20-40); Mean Corpuscular HGB Conc 33.5 g/dl (31.0-35.0); Mean Corpuscular Hemoglobin 30.8 pg (27.0-33.0); Mean Platelet Volume 9.9 fL (9.4-12.3); Monocytes Absolute Auto 0.6 X10*3/uL (0.1-1.2); Monocytes Percent Auto 8.2 % (2-11); Neutrophils Absolute Auto 5.6 x10*3/uL (2.0-8.3); Neutrophils Percent Auto 74.8 % (45-73); Platelet Count 269 X10*3/uL (160-400); Red Blood Count 3.99 X10*6/uL (4.20-5.50); Red Cell Distribution Width 12.7 % (11.0-16.0); White Blood Count 7.5 X10*3/uL (4.8-10.8)
[2024-10-28] MEDS: 0.9 % Sodium Chloride 500 ML 999 ML IV (11:52)
[2024-10-28 12:00] LABS: Appearance Urine Clear; Color Urine Yellow; Glucose Urine UA Negative (Negative); Leukocyte Esterase Urine Moderate (2+) (Negative); Nitrite Urine Negative (Negative); PH 7.5 (5.0-9.0); Specific Gravity - Urine <= 1.005 (1.005-1.025); UMIC TRIGGER UACC YES; Urine Blood Negative (Negative); Urine Ketones Negative (Negative); Urine Protein Negative (Neg-Trace)
[2024-10-28 12:07] LABS: Bacteria Urine None Seen (None Seen); Hyaline Casts Urine 0-2 /LPF (0-2); RBC Urine 0-2 /HPF (0-2); Squamous Epithelial Cell Urine 0-2 /HPF (0-2); UACC Culture Trigger YES; WBC Urine 0-5 /HPF (0-5)
[2024-10-28 12:12] LABS: Alanine Aminotransferase 13 U/L (0-31); Alkaline Phosphatase 100 U/L (39-117); Anion Gap 10 (12-20); Aspartate Amino Transferase 29 U/L (5-31); Bilirubin Direct 0.2 mg/dL (0.0-0.5); Bilirubin Total 0.5 mg/dL (0.0-1.0); Blood Urea Nitrogen 8 mg/dL (9-16); Carbon Dioxide 26 mmol/L (22-29); Chloride 107 mmol/L (96-108); Creatinine Clr Calc Pharmacy 72.3; Estimated Glomerular Filt Rate > 60; Glucose Random 116 mg/dL (60-115); Potassium 4.1 mmol/L (3.3-5.1); Sodium 139 mmol/L (135-145); Total Protein 6.4 g/dL (6.5-8.0)
[2024-10-28 12:15] LABS: Troponin-I High Sensitivity < 2.7 ng/L (<3.5-17.0)
[2024-10-28 12:27] LABS: TSH reflex Free T4 0.81 uIU/mL (0.32-4.0)
--- OUTSIDE RECORDS SUMMARY | 2024-10-28 13:46 | XMS_ITS | Patient Health Record ---
Author Organization [facility] Address [address] [place] [address] Care Team Providers Care Product Development Chemist Name Role Phone Edvin Pruett MD Primary Care Provider Carlota Saldaña Unavailable [phone] Allergies Allergen (clinical drug ingredient) Drug/Non Drug Allergy documented on EMR Reaction Allergy Type Onset Date Status amoxicillin Amoxicillin Unknown Drug Allergy Act maria del rosario Cod Liver Oil Unknown Drug Allergy Act maria del rosario Tuna Flavor Unknown Drug Allergy Activ e [place] Unknown Drug Allergy Active gabapentin Gabapentin Unknown [...] X ray : Foot, left 2V 03/17/2013 [id number] NAIL, 1-5 12/10/2014 Insurance Providers Payer Name Payer Address Payer Phone Subscriber Number Group Number Insured Name Patient Relationship to Insured Coverage Start Date Coverage End Date Medicare [facility] [address] [place] [address] [id number] Madalyn Nesbitt Self - patient is the insured [employer] [address] [place] [address] [id number] Madalyn Nesbitt Self - patient is the insured Medical (General) History Medical History History ICD Code Arthritis fibromyalgia headaches/migraines high blood pressure thyroid disorder measles mumps chicken pox Back,Hip,and Knee pain Cataracts TIA Transfusions Surgical History Surgery Date(Month/Year) vein surgery left knee replacement right knee replacement throat surgery
--- NOTE | 2024-10-28 14:20 | PC.NURSE ---
Pt ambulated to and from BR well without assist several times- No syncope no dizziness- VSS NAD Provider aware.
== END 2024-10-28 15:08 | disposition home or self-care (01) ==
PROVIDERS: Emergency Provider Emergency Medicine Emergency Medical Services; PCP Internal Medicine
DX: R42 Dizziness and giddiness (principal); I10 Essential (primary) hypertension; E78.5 Hyperlipidemia, unspecified; E03.9 Hypothyroidism, unspecified; Z86.73 Personal history of transient ischemic attack (TIA), and cerebral infarction without residual deficits; Z79.82 Long term (current) use of aspirin; Z79.02 Long term (current) use of antithrombotics/antiplatelets; Z79.899 Other long term (current) drug therapy
CPT/HCPCS: 36415; 70450; 71045; 80048; 80076; 81001; 82947; 84443; 84484; 85025; 87086; 93005; 96360; 99284; 99285

== ENCOUNTER → 2024-10-28 11:11 | Outpatient (BNV) | payer MEDICARE, SELFPAY | PROVIDERS: Emergency Provider Emergency Medicine Emergency Medical Services; Visit Provider Radiology Diagnostic Radiology | DX: R42 Dizziness and giddiness (principal); R07.9 Chest pain, unspecified | CPT/HCPCS: 70450; 71045 ==

== ENCOUNTER → 2024-10-28 11:12 | Outpatient (BNV) | payer MEDICARE, SELFPAY | PROVIDERS: Emergency Provider Emergency Medicine Emergency Medical Services; PCP Internal Medicine; Visit Provider Internal Medicine | DX: R94.31 Abnormal electrocardiogram [ECG] [EKG] (principal); R55 Syncope and collapse | CPT/HCPCS: 93010 ==

== ENCOUNTER → 2025-01-14 19:14 | Outpatient (BNV) | payer MEDICARE, SELFPAY | PROVIDERS: Emergency Provider Emergency Medicine Emergency Medical Services; PCP Internal Medicine; Visit Provider Radiology Neuroradiology | DX: M48.02 Spinal stenosis, cervical region (principal); S09.90XA Unspecified injury of head, initial encounter; M16.11 Unilateral primary osteoarthritis, right hip | CPT/HCPCS: 70450; 72125; 73502 ==

== ENCOUNTER 2025-01-14 19:55 | Emergency (ER) | payer MEDICARE, SELFPAY ==
--- NOTE | 2025-01-14 | ECG_ITS ---
Test Reason : FALL Blood Pressure : */* mmHG Vent. Rate : 72 BPM Atrial Rate : 72 BPM P-R Int : 188 ms QRS Dur : 82 ms QT Int : 414 ms P-R-T Axes : 28 -25 -1 degrees QTcB Int : 453 ms Normal sinus rhythm Minimal voltage criteria for LVH, may be normal variant ( R in aVL ) Borderline ECG When compared with ECG of 28-Oct-2024 11:31, Nonspecific T wave abnormality now evident in Anterior leads Referred By: Generic ED Physician Electronically Signed By: RAJAN HOUSE MD
--- NOTE | ~2025-01-14 | CT_ITS ---
CLINICAL HISTORY: fall head strike CT cervical spine without contrast Comparison: None provided Findings: No acute fracture of the cervical spine. Straightening of the cervical lordosis. Mild anterolisthesis of the C4-C5. Ligament calcifications, facet arthropathy, and disc osteophyte complexes are multifocal. Least partial facet fusion from C2 to C4. Mild spinal canal stenosis including C3-C4 to C5-C6. Foramina foraminal narrowing includes [id number] right at C3-C4 and accentuated mild additional foramina. No paraspinal hematoma. Vascular calcifications noted. Scarring, motion artifacts, and emphysematous changes noted in the imaged lung apices. IMPRESSION: No acute fracture of the cervical spine. This document has been electronically signed by: Pako Huntley MD on 01/14/2025 21:27:43
--- NOTE | ~2025-01-14 | XR_ITS ---
CLINICAL HISTORY: Fall, right hip pain, R O fracture 3 view, pelvis and right hip Comparison: None provided Findings: Moderate osteoarthritis of the both hips. No displaced fracture or dislocation right hip. No displaced fracture of the imaged pelvis. Portions of the pelvis including sacrum and SI joints are obscured. Vascular calcifications noted, including phleboliths in the pelvis. IMPRESSION: No acute displaced fracture or dislocation by radiographs. This document has been electronically signed by: Pako Huntley MD on 01/14/2025 22:54:05
--- NOTE | ~2025-01-14 | CT_ITS ---
CLINICAL HISTORY: fall head strike CT head without contrast Comparison: Head CT from 10/28/2024 Findings: No acute intracranial hemorrhage. No midline shift or hydrocephalus. Basal ganglia mineralization redemonstrated. Mild white matter lesions are redemonstrated likely due to small-vessel ischemic disease. No large arterial territorial infarction by CT. Mild volume loss is generalized. Imaged paranasal sinuses and imaged mastoid air cells are well aerated. No acute skull fracture. IMPRESSION: No acute intracranial abnormality by CT. This document has been electronically signed by: Pako Huntley MD on 01/14/2025 21:31:37
[2025-01-14 20:02] VITALS: BP 190/100; BP 194/83; PULSE 73; RESP 15; TEMP 36.7; O2SAT 96; BMI 27.1
[2025-01-14 20:06] VITALS: BP 194/83; PULSE 73; RESP 15; TEMP 36.7; O2SAT 96
[2025-01-14 20:17] LABS: MANUAL DIFF FLAG NO
--- NOTE | 2025-01-14 20:33 | ED.FALL ---
HPI - Fall General Chief Complaint: Dizziness Stated Complaint: Fall w/ head strike x5 hours ago, woke up dizzy Time Seen by Provider: 01/14/25 20:33 Source: patient Mode of arrival: EMS Limitations: no limitations History of Present Illness ED Provider: Dr. Tal Gill HPI Narrative: 84-year-old female with a history of ascending aortic aneurysm, hypothyroidism, hyperlipidemia, vertigo, hypertension who presents emergency department for evaluation of headache, room spinning dizziness and right hip pain after a fall that occurred earlier today. Patient states she was at home and tripped over her rug causing her to fall to her left knee , striking the right side of her head on her recliner chair. She had no loss of consciousness. She states that she was able to get up and she lay down on her recliner and fell asleep. She states that when she woke up, she developed a room spinning dizziness which is worse with head movement and resolves if she lies still. She states she has had similar vertigo-like symptoms in the past and had vestibular therapy and was treated with meclizine with improvement of her symptoms. She also states that has developed a constant, left-sided dull headache pain which is 8/10 at its worst. The patient had nausea but no vomiting. She has had similar headaches in the past. She denied any weakness. The patient states that over the last several months, she has developed pain in her right buttocks and right hip with the pain radiating down the back of her leg to her knee. She states that since the fall, this pain has gotten worse and she is also having pain with movement of her right hip. She denied back pain. She states she was in her usual state of health prior to the fall. Related Data Home Medications ?Medication ?Instructions ?Recorded ?Confirmed levothyroxine 88 mcg tablet 88 mcg PO DAILY 07/28/22 08/14/24 clonidine HCl 0.2 mg tablet 0.2 mg PO BID 10/30/22 08/14/24 pravastatin 40 mg tablet 40 mg PO BEDTIME 10/30/22 08/14/24 epinephrine 0.3 mg/0.3 mL 0.3 mg IM ONCE 01/30/23 08/14/24 injection, auto-injector losartan 50 mg tablet 50 mg PO DAILY 01/30/23 08/14/24 famotidine 40 mg tablet mg PO BID 02/12/24 08/14/24 Previous Rx's ?Medication ?Instructions ?Recorded aspirin 81 mg tablet,delayed 81 mg PO DAILY #30 tabs 07/29/22 release meclizine 12.5 mg tablet 12.5 mg PO TID PRN dizziness #20 06/18/24 tabs Allergies Allergy/AdvReac Type Severity Reaction Status Date / Time amoxicillin (Amoxicillin) Allergy Intermediate RASH Verified 01/14/25 20:04 cantaloupe Allergy Unknown Verified 01/14/25 20:04 fish derived (fish) Allergy Anaphylaxis Verified 01/14/25 20:04 shellfish derived Allergy Anaphylaxis Verified 01/14/25 20:04 gabapentin AdvReac Unknown Verified 01/14/25 20:04 Review of Systems Review of Systems: Yes all other systems are reviewed and are negative [facility] Past Medical History [facility] Narrative: Social history: She lives alone. She denies tobacco and alcohol use. Medical History Ascending aortic aneurysm Hypothyroidism Hyperlipidemia Vertigo HTN (hypertension) Family History Family History Mother No problems noted. Father No problems noted. Social History Social History Alcohol intake: never Patient Tobacco Use Status: Never used Tobacco Smoked in Last 30 Days: No Second Hand Smoke Exposure: No Use of substances other than those prescribed or required for medical reasons: No Advance Directives: No Advance Directives Information Provided: No service: No Current occupational status: retired Physical Exam Vital Signs: Vital Signs: Last Vital Signs Temp 97.7 F 01/14/25 22:02 Pulse 63 01/14/25 22:02 Resp 16 01/14/25 22:02 BP 146/69 H 01/14/25 22:02 Pulse Ox 96 01/14/25 22:02 O2 Del Method Room Air 01/14/25 22:02 BMI result Body Mass Index 27.1 Vital signs revealed an elevated blood pressure of 194/83 Exam: General: Awake, alert in no distress Head: Normocephalic, tenderness with palpation of the left temporal area, no hematoma, no ecchymosis, no facial tenderness EENT: PERRL, Lids normal, sclera normal, conjunctiva normal, nose normal , ears normal, throat without erythema or exudates Neck: Supple, no adenopathy Lung: breath sounds symmetric, no wheezing, rales or rhonchi Chest: symmetric movement, nontender Heart: regular rate and rhythm, normal S1, S2 no murmurs or rubs Abdomen: soft, non-tender, nondistended, normal bowel sounds Back: no vertebral tenderness, no CVAT Extremities: no deformities, moves all extremities symmetrically, tenderness palpation of the right hip joint and bilateral tenderness over the lateral aspect of the hip. No significant pain of the right hip with log-rolling of the right leg. Neuro: General: ?Awake, alert, oriented, normal speech Cranial nerves: ?Cranial nerves ?intact Strength: ?Moves all extremities symmetrically, strength 5/5 Cerebellar: ?Good [id number]-finger, good rapid finger movement, normal heel to call. Lateral nystagmus, inducible vertigo with minimal movement of the head Psych: Pleasant, cooperative Medications Administered Discontinued Medications Generic Name Dose Route Start Last Admin Trade Name Kentrell PRN Reason Stop Dose Admin Ketorolac Tromethamine 15 mg 01/14/25 22:21 01/14/25 22:57 Ketorolac Tromethamine 15 Mg/Ml Vial IVPUSH 01/14/25 22:22 15 mg ONCE STA Administration Meclizine HCl 12.5 mg 01/14/25 22:21 01/14/25 22:57 Meclizine Hcl 12.5 Mg Tablet PO 01/14/25 22:22 12.5 mg ONCE ONE Administration Morphine Sulfate 4 mg 01/14/25 21:00 01/14/25 21:08 Morphine Sulfate 4 Mg/Ml Cartridge IVPUSH 01/14/25 21:01 4 mg ONCE STA Administration Protocol Ondansetron HCl 4 mg 01/14/25 21:00 01/14/25 21:08 Ondansetron Hcl 4 Mg/2 Ml Vial IVPUSH 01/14/25 21:01 4 mg ONCE ONE Administration Medical Decision Making Medical Decision Making MDM Narrative: 84-year-old female with a history of ascending aortic aneurysm, hypothyroidism, hyperlipidemia, vertigo, hypertension who presents emergency department for evaluation of headache, room spinning dizziness and right hip pain after a fall that occurred earlier today. Patient states she was at home and tripped over her rug causing her to fall to her left knee , striking the right side of her head on her recliner chair. She had no loss of consciousness. She states that she was able to get up and she lay down on her recliner and fell asleep. She states that when she woke up, she developed a room spinning dizziness which is worse with head movement and resolves if she lies still. She states she has had similar vertigo-like symptoms in the past and had vestibular therapy and was treated with meclizine with improvement of her symptoms. She also states that has developed a constant, left-sided dull headache pain which is 8/10 at its worst. The patient had nausea but no vomiting. She has had similar headaches in the past. She denied any weakness. The patient states that over the last several months, she has developed pain in her right buttocks and right hip with the pain radiating down the back of her leg to her knee. She states that since the fall, this pain has gotten worse and she is also having pain with movement of her right hip. She denied back pain. She states she was in her usual state of health prior to the fall. Vital signs revealed an elevated blood pressure. Exam revealed nystagmus with a inducible vertigo with minimal movement of her head, right hip joint tenderness otherwise exam was unremarkable. Differential diagnosis: ?Includes but is not limited to skull fracture, intracranial bleed, neck fracture, neck sprain, posttraumatic vertigo, benign positional vertigo, right hip contusion, right hip sprain, right hip fracture, sciatica, anemia, electrolyte abnormalities Course: 21:11 My interpretation of the patient's laboratory evaluation is as follows: CBC was normal. BNP was normal. Troponin was below detectable limits.Twelve EKG revealed revealed a sinus rhythm with no significant abnormalities Patient was given morphine 4 mg IV and Zofran 4 mg IV for her headache. 22:22 CT scan of the head and cervical spine revealed no acute abnormalities. X-ray of the right hip on my interpretation revealed no acute fractures. Patient states she got no relief of her headache from the above treatment. Patient was ordered to get Toradol 15 mg IV and meclizine 12.5 mg orally. 23:58 Patient's headache is resolved and she is feeling significantly better. She has had some improvement in her vertigo as well. Patient will be discharged home and advised to take ibuprofen 400 mg every 6 hours as needed for pain and extra-strength Tylenol 1000 mg every 6 hours as needed for pain. Patient was advised to take meclizine 12.5 mg 3 times a day as needed for dizziness. Patient was instructed to contact her PCP to get a referral to our physical therapy department for vestibular therapy for benign positional vertigo. She was given printed and verbal instructions and discharged home Admission/Observation Consideration of admission/observation: Escalation of care including admission/observation considered (Yes) Lab Data MDM Lab Attestation statement: I reviewed the patient's lab results. 01/14/25 20:13 01/14/25 20:13 Labs: Lab Results 01/14/25 01/14/25 Range/Units 20:13 23:14 WBC 5.8 (4.8-10.8) X10*3/uL RBC 4.09 L (4.20-5.50) X10*6/uL Hgb 12.4 (12.0-16.0) g/dl Hct 37.0 (37.0-47.0) % MCV 90.5 (80.0-98.0) fL MCH 30.3 (27.0-33.0) pg MCHC 33.5 (31.0-35.0) g/dl RDW 12.3 (11.0-16.0) % Plt Count 212 (160-400) X10*3/uL MPV 11.1 (9.4-12.3) fL Immature Gran % (Auto) 0.3 (0.0-0.4) % Neut % (Auto) 57.2 (45-73) % Lymph % (Auto) 26.7 (20-40) % [place] % (Auto) 12.2 H (2-11) % Eos % (Auto) 3.3 (0-4) % Baso % (Auto) 0.3 (0-2) % Lymph # (Auto) 1.6 (1.2-4.9) X10*3/uL [place] # (Auto) 0.7 (0.1-1.2) X10*3/uL Eos # (Auto) 0.2 (0.0-0.4) X10*3/uL Baso # (Auto) 0.0 (0.0-0.2) X10*3/uL Abs Immat Gran (auto) 0.02 (0.00-0.03) X10*3/uL Absolute Neuts (auto) 3.3 (2.0-8.3) x10*3/uL Absolute Nucleated RBC 0.000 (0.0-0.012) X10*3/uL Nucleated RBC % (auto) 0.0 (0.0-0.2) /100WBC Sodium 142 (135-145) mmol/L Potassium 3.5 (3.3-5.1) mmol/L Chloride 109 H (96-108) mmol/L Carbon Dioxide 24 (22-29) mmol/L Anion Gap 13 (12-20) BUN 10 (9-16) mg/dL Creatinine 0.62 (0.5-1.4) mg/dL Estim Creat Clear Calc 69.2 Estimated GFR > 60 Random Glucose 114 (60-115) mg/dL Calcium 9.8 (8.4-10.2) mg/dL Magnesium 2.1 (1.6-2.6) mg/dL Troponin I High Sens < 2.7 (<3.5-17.0) ng/L Urine Color Yellow Urine Appearance Clear Urine pH 6.5 (5.0-9.0) Ur Specific [place] 1.010 (1.005-1.025) Urine Protein Negative (Neg-Trace) mg/dL Urine Glucose (UA) Negative (Negative) mg/dL Urine Ketones Negative (Negative) mg/dL Urine Blood Negative (Negative) Urine Nitrite Negative (Negative) Ur Leukocyte Esterase Moderate (2+) H (Negative) Urine RBC 0-2 (0-2) /HPF Urine WBC 0-5 (0-5) /HPF Ur Squamous Epith Cells 3-5 (0-2) /HPF Urine Bacteria None Seen (None Seen) Hyaline Casts 0-2 (0-2) /LPF Independent Interpretation I performed an independent interpretation of an: EKG and Plain X-Ray Interpretation: My independent interpretation of the patient's 12 lead EKG done on 01/14/2025 at 20:09 hours is as follows: Normal sinus rhythm rate of 72, normal AK intervals QRS duration and QTC interval, no ST segment elevation, no ST segment depression, inverted T-waves in lead 3, V1 and V2, no PACs, no PVCs. Compared to EKG dated 10/28/2024 at 11:31 hours, inverted Q-waves in 3 and V1 were present. Inverted T-wave in lead V2 is new. My interpretation of the patient's three-view right hip and pelvis x-ray is as follows: No acute fracture seen, patient does have arthritic changes of her hip Radiology Impression Discussion of test interpretation with radiology: I have reviewed the radiologist's reading. Radiologist Impression: 3 view, pelvis and right hip Comparison: None provided Findings: Moderate osteoarthritis of the both hips. No displaced fracture or dislocation right hip. No displaced fracture of the imaged pelvis. Portions of the pelvis including sacrum and SI joints are obscured. Vascular calcifications noted, including phleboliths in the pelvis. IMPRESSION: No acute displaced fracture or dislocation by radiographs. This document has been electronically signed by: Pako Huntley MD on 01/14/2025 22:54:05 CT head without contrast Comparison: Head CT from 10/28/2024 Findings: No acute intracranial hemorrhage. No midline shift or hydrocephalus. Basal ganglia mineralization redemonstrated. Mild white matter lesions are redemonstrated likely due to small-vessel ischemic disease. No large arterial territorial infarction by CT. Mild volume loss is generalized. Imaged paranasal sinuses and imaged mastoid air cells are well aerated. No acute skull fracture. IMPRESSION: No acute intracranial abnormality by CT. This document has been electronically signed by: Pako Huntley MD on 01/14/2025 21:31:37 CT cervical spine without contrast Comparison: None provided Findings: No acute fracture of the cervical spine. Straightening of the cervical lordosis. Mild anterolisthesis of the C4-C5. Ligament calcifications, facet arthropathy, and disc osteophyte complexes are multifocal. Least partial facet fusion from C2 to C4. Mild spinal canal stenosis including C3-C4 to C5-C6. Foramina foraminal narrowing includes [id number] right at C3-C4 and accentuated mild additional foramina. No paraspinal hematoma. Vascular calcifications noted. Scarring, motion artifacts, and emphysematous changes noted in the imaged lung apices. IMPRESSION: No acute fracture of the cervical spine. This document has been electronically signed by: Pako Huntley MD on 01/14/2025 21:27:43 Independent Historian Clinical information obtained from an independent historian. History obtained from or confirmed by: Other (Son, Hunter) Chronic Conditions Patient?s care impacted by: Hypertension and Other (Hyperlipidemia) Critical Care Time Critical Care Time Critical Care Time: Yes Total Critical Care Time: 35 Attestation: Critical Care: The patient was critically ill with a high probability of imminent or life threatening deterioration. I spent greater than 30 minutes of discontinuous time evaluating the patient,delivering critical care at the bedside, discussing and evaluating pertinent data with consultants. Critical care time does not include time spent performing separately billable procedures or teaching. Total time spent performing critical care was minutes. Discharge Plan Discharge Clinical Impression: Fall due to tripping on loose carpet, Closed head injury, Posttraumatic vertigo, Headache, Contusion of hip, right Patient Disposition: Home, Self-Care Instructions: Benign Paroxysmal Positional Vertigo (ED) Additional Instructions: Your blood work was unremarkable. The CT scan of your head neck revealed no skull fracture, bleeding in the brain or broken bones in your neck. The x-ray of your right hip revealed no broken bones but you do have arthritis of the hip. Your headache and dizziness were caused by your head injury from falling. Take ibuprofen 200 mg pills, 2 pills every 6 hours as needed for pain or fever. Take Tylenol (acetaminophen) 500 mg pills, 2 pills every 6 hours as needed for pain or fever. Take meclizine 12.5 mg pills, 1 pill 3 times a day for the next 3 days for dizziness then as needed for dizziness. ?This medication will make you sleepy. ?Do not drive or work while taking this medication. Sometimes Edna maneuvers help with benign positional vertigo. Your doctor can send a fax order to our physical therapy department requesting Evaluation and treatment for vestibular therapy for benign positional vertigo?. The fax number is . You can also reach our physical therapy department at . Follow-up with your doctor in 2 days. Please return to the emergency department if your symptoms get worse or if you develop any symptoms that are concerning to you. Prescriptions: No Action levothyroxine 88 mcg tablet 88 mcg PO DAILY aspirin 81 mg Tablet,Delayed Release (Dr/Ec) 81 mg PO DAILY Qty: 30 0RF clonidine HCl 0.2 mg tablet 0.2 mg PO BID pravastatin 40 mg tablet 40 mg PO BEDTIME meclizine 12.5 mg tablet 12.5 mg PO TID PRN (Reason: dizziness) Qty: 20 0RF losartan 50 mg tablet 50 mg PO DAILY epinephrine 0.3 mg/0.3 mL auto-injector 0.3 mg IM ONCE famotidine 40 mg tablet PO BID Print Language: Belgian
[2025-01-14 20:40] LABS: Hematocrit 37.0 % (37.0-47.0); Hemoglobin 12.4 g/dl (12.0-16.0); Imm Gran Abs Auto 0.02 X10*3/uL (0.00-0.03); Imm Gran Pct Auto 0.3 % (0.0-0.4); Lymphocytes Absolute Auto 1.6 X10*3/uL (1.2-4.9); Mean Corpuscular HGB Conc 33.5 g/dl (31.0-35.0); Mean Corpuscular Hemoglobin 30.3 pg (27.0-33.0); Mean Corpuscular Volume 90.5 fL (80.0-98.0); NRBC Abs Auto 0.000 X10*3/uL (0.0-0.012); NRBC Pct Auto 0.0 /100WBC (0.0-0.2); Platelet Count 212 X10*3/uL (160-400); Red Blood Count 4.09 X10*6/uL (4.20-5.50); White Blood Count 5.8 X10*3/uL (4.8-10.8)
[2025-01-14 20:43] LABS: Anion Gap 13 (12-20); Blood Urea Nitrogen 10 mg/dL (9-16); Calcium 9.8 mg/dL (8.4-10.2); Carbon Dioxide 24 mmol/L (22-29); Chloride 109 mmol/L (96-108); Creatinine Clr Calc Pharmacy 69.2; Estimated Glomerular Filt Rate > 60; Magnesium 2.1 mg/dL (1.6-2.6); Potassium 3.5 mmol/L (3.3-5.1); Sodium 142 mmol/L (135-145)
[2025-01-14 20:51] LABS: Troponin-I High Sensitivity < 2.7 ng/L (<3.5-17.0)
[2025-01-14 21:18] VITALS: BP 165/79; PULSE 68; RESP 15; O2SAT 94
[2025-01-14 22:02] VITALS: BP 146/69; PULSE 63; RESP 16; TEMP 36.5; O2SAT 96
[2025-01-14 23:24] LABS: Appearance Urine Clear; Glucose Urine UA Negative (Negative); PH 6.5 (5.0-9.0); Specific Gravity - Urine 1.010 (1.005-1.025); UMIC TRIGGER UACC YES
[2025-01-14 23:47] LABS: UACC Culture Trigger YES
[2025-01-15 00:20] VITALS: BP 131/68; PULSE 61; RESP 16; TEMP 36.5; O2SAT 96
== END 2025-01-15 00:20 | disposition home or self-care (01) ==
PROVIDERS: Emergency Provider Emergency Medicine Emergency Medical Services; PCP Internal Medicine
DX: S70.01XA Contusion of right hip, initial encounter (principal); S09.8XXA Other specified injuries of head, initial encounter; R42 Dizziness and giddiness; I10 Essential (primary) hypertension; E78.5 Hyperlipidemia, unspecified; W01.198A Fall on same level from slipping, tripping and stumbling with subsequent striking against other object, initial encounter; Y93.89 Activity, other specified; Y92.098 Other place in other non-institutional residence as the place of occurrence of the external cause; Y99.8 Other external cause status; Z79.899 Other long term (current) drug therapy
CPT/HCPCS: 36415; 70450; 72125; 73502; 80048; 81001; 83735; 84484; 85025; 87086; 93005; 96374; 96375; 99284; J1885; J2270; J2405

== ENCOUNTER → 2025-01-14 20:09 | Outpatient (BNV) | payer MEDICARE, SELFPAY | PROVIDERS: Emergency Provider Emergency Medicine Emergency Medical Services; PCP Internal Medicine; Visit Provider Internal Medicine Cardiovascular Disease | DX: Z13.6 Encounter for screening for cardiovascular disorders (principal); W19.XXXA Unspecified fall, initial encounter | CPT/HCPCS: 93010 ==

== ENCOUNTER 2025-01-26 08:16 | Emergency (ER) | payer MEDICARE, SELFPAY ==
--- NOTE | ~2025-01-26 | CT_ITS ---
CLINICAL HISTORY: R flank pain Exam: CT abdomen and pelvis without IV contrast Comparison: None provided Findings: The lack of intravenous contrast hampers the evaluation of solid organs and the ability to detect and characterize soft tissue abnormalities. A few pulmonary parenchymal scar bilateral lung bases. Coronary artery and mitral annulus heavy calcification. Dilated esophagus contains layering fluid, GE junction is not dilated. Punctate calyceal calculus lower pole right kidney, no obstructive uropathy. Complex exophytic isodense lesion with thick rim calcification right kidney upper pole 2.2 x 1.6 cm. Punctate calcification situated between the gallbladder and right inferior hepatic lobe, may reflect focal gallbladder wall calcification or hepatic calcification, of doubtful clinical significance. No radiopaque cholelithiasis. Liver, spleen, pancreas, adrenal glands, left kidney, ureters, bladder, reproductive organs are unremarkable. Sigmoid diverticulosis, negative for acute diverticulitis. Otherwise unremarkable small and large bowel. Appendix is not seen but no pericecal inflammation. Atherosclerotic disease. Nonaneurysmal aorta. No bulky lymph nodes, ascites or pneumoperitoneum. Left inguinal subcutaneous small varices. Levoconvex curvature of the lumbar spine with multilevel degenerative spondylosis. 3 mm degenerative anterolisthesis L4-5. No acute fracture. Impression: 1. No acute finding. No CT finding to account for right flank pain. 2. Right renal complex lesion is indeterminate, recommend comparison with previous exam if available or further evaluation by outpatient renal CT. 3. Punctate nonobstructing right renal calculus. 4. Dilated esophagus with layering fluid, indeterminate, recommend lithoduplicator operator follow-up and endoscopy. 5. Sigmoid diverticulosis, no acute diverticulitis. 6. Additional chronic findings. This document has been electronically signed by: Elvira Lucas MD on 01/26/2025 10:10:32
[2025-01-26 08:25] VITALS: BP 181/79; PULSE 89; O2SAT 100
[2025-01-26 08:29] VITALS: BP 167/72; PULSE 67; RESP 18; TEMP 36.7; O2SAT 96; BMI 29.2
--- NOTE | 2025-01-26 08:30 | ED_ITS ---
HPI - General Adult General Chief complaint: Abdominal Pain Stated complaint: R SIDED PAIN Time Seen by Provider: 01/26/25 08:19 Source: patient, EMS, RN notes reviewed and old records reviewed Mode of arrival: EMS Limitations: no limitations History of Present Illness ED Provider: Christine HPI narrative: Patient is an 84-year-old female with history of TIA, ascending aortic aneurysm, palpitations presenting to the emergency department with right flank pain which began around 6:00 a.m. today. States the pain waxes and wanes but remains constant. She denies nausea or vomiting but reports recent constipation. Complains of ongoing urinary problems for months, no acute issues. Denies recent fevers. Denies history of prior abdominal surgeries. MD complaint: Flank pain Onset (ago): hour(s) Related Data Home Medications ?Medication ?Instructions ?Recorded ?Confirmed levothyroxine 88 mcg tablet 88 mcg PO DAILY 07/28/22 0 08/14/24 clonidine HCl 0.2 mg tablet 0.2 mg PO BID 10/30/22 pravastatin 40 mg tablet 40 mg PO BEDTIME 10/30/22 epinephrine 0.3 mg/0.3 mL 0.3 mg IM ONCE 01/30/2307/27 injection, auto-injector losartan 50 mg tablet 50 mg PO DAILY 01/30/2307/27 famotidine 40 mg tablet mg PO BID 02/12/24 08/14/24 Previous Rx's ?Medication ?Instructions ?Recorded aspirin 81 mg tablet,delayed 81 mg PO DAILY #30 tabs 0 07/29/22 release meclizine 12.5 mg tablet 12.5 mg PO TID PRN dizziness #20 06/18/24 tabs lidocaine 5 % topical patch 1 patch topical DAILY #15 ea 01/26/25 prednisone 20 mg tablet 20 mg PO DAILY #5 tabs 01/26 Allergies Allergy/AdvReac Type Severity Reaction Status Date / Time amoxicillin (Amoxicillin) Allergy Intermediate RASH Verified 01/26/25 08:34 cantaloupe Allergy Unknown Verified 01/26/25 08:34 fish derived (fish) Allergy Anaphylaxis Verified 01/26/25 08:34 shellfish derived Allergy Anaphylaxis Verified 01/26/25 08:34 gabapentin AdvReac Unknown Verified 01/26/25 08:34 Review of Systems 2 Review of Systems: As per HPI Yes all other systems are reviewed and are negative Constitutional: Constitutional: Reports as per HPI [facility] Past Medical History Medical History Ascending aortic aneurysm Hypothyroidism Hyperlipidemia Vertigo HTN (hypertension) Family History Family History Mother No problems noted. Father No problems noted. Social History Social History Alcohol intake: never Patient Tobacco Use Status: Never used Tobacco Smoked in Last 30 Days: No Second Hand Smoke Exposure: No Use of substances other than those prescribed or required for medical reasons: No Advance Directives: Yes Advance Directives Information Provided: No Advance Directives on File: No Do you have a plan to hurt others: No Plan service: No Current occupational status: retired Physical Exam ED Vital Signs: Vital Signs - 24 hr 01/26/25 08:29 01/26/25 11:14 01/26/25 12:51 Temperature 98.1 F 97.9 F 97.8 F Pulse Rate 67 68 63 Respiratory Rate 18 18 18 Blood Pressure 167/72 H 161/76 H 169/77 H Pulse Oximetry 96 96 97 Oxygen Delivery Method Room Air Nasal Cannula Nasal Cannula Oxygen Flow Rate 2 2 BMI result Body Mass Index 29.2 Vital signs have been reviewed and appear to be correct. Blood pressure elevated. Heart rate normal. Respiratory rate normal. Temperature normal. Oxygen saturation normal. Const General: cooperative, healthy appearing and no acute distress Orientation/consciousness: oriented to person, oriented to place, oriented to time and patient oriented x3 Limitations: no limitations [facility] Head: Yes normocephalic and Yes atraumatic Ears: external ears normal General nose exam: Normal external nose present Face and sinus: Yes face symmetric Mouth: oropharynx normal and moist mucous membranes Throat: Yes uvula midline Eyes Pupils: Equal, round and reactive pupils present Neck Neck: Yes normal visual inspection and Yes supple Resp Effort & Inspection: normal respiratory effort and able to speak in complete sentences Auscultation: clear to auscultation bilaterally Cardio Rate: regular rate Rhythm: regular rhythm Heart sounds: S1 normal heart sound present and S2 normal heart sound present GI Palpation (GI): Soft to palpation and nontender Auscultation: normoactive bowel sounds General: Yes no CVA tenderness Back/Spine/Pelvis Back: no CVA tenderness Skin General skin exam: elasticity normal and turgor normal Neuro General: oriented to person, oriented to place, oriented to time, patient oriented x3, moves all extremities, no focal motor deficits and CN's II-XI intact bilaterally Cranial nerves: Yes Equal, round and reactive pupils present Cognition (Neuro): normal cognition Extrem General: Yes full ROM, Yes no pedal edema and Yes no calf tenderness Psych Mental Status: mental status grossly normal Affect: normal affect Thought process: Normal thought process present Medications Administered Discontinued Medications Generic Name Dose Route Start Last Admin Trade Name Freq PRN Reason Stop Dose Admin Ketorolac Tromethamine 15 mg 01/26/25 08:34 01/26/25 08:49 Ketorolac Tromethamine 15 Mg/Ml Vial IVPUSH 01/26/25 08:35 15 mg ONCE ONE Administration Morphine Sulfate 2 mg 01/26/25 09:55 01/26/25 10:08 Morphine Sulfate 2 Mg/Ml Cartridge IVPUSH 01/26/25 09:56 2 mg ONCE ONE Administration Protocol Ondansetron HCl 4 mg 01/26/25 09:55 01/26/25 10:08 Ondansetron Hcl 4 Mg/2 Ml Vial IVPUSH 01/26/25 09:56 4 mg ONCE ONE Administration Medical Decision Making Medical Decision Making [facility] Narrative: Patient is an 84-year-old female with history of TIA, ascending aortic aneurysm, palpitations presenting to the emergency department with right flank pain which began around 6:00 a.m. today. On exam patient is awake, A+Ox3, VS WNL, afebrile, normal neurological exam without focal deficits, physical exam findings as above. Given reported symptoms and physical exam findings, initial differential includes but is not limited to UTI, pyelonephritis, renal colic, ureteral obstruction, hydronephrosis, muscle strain. Labs unremarkable. UA is without evidence of infection. CT A/P notable for no evidence of obstructing calculi or hydronephrosis. Right renal complex lesion noted but no prior imaging for comparison, will advised patient for outpatient follow-up. My interpretation is in agreement with the radiologist's interpretation. Results discussed with patient. Patient now stating that the pain is lower and radiating down her right leg and feel similar to a previous episode of sciatica. Will discharge patient home on course of prednisone with lidocaine patches. Advised close follow up with PCP. Return precautions discussed at bedside. Patient verbalized understanding of and agreement with plan. Differential Diagnosis Differential Diagnoses: The differential diagnosis associated with the presentation includes As per [facility] Admission/Observation Consideration of admission/observation: Escalation of care including admission/observation considered Patient would have been admitted to the hospital had their clinical presentation warranted hospital admission. Lab Data [facility] Lab Attestation statement: I reviewed the patient's lab results. as per [facility] 01/26/25 08:45 01/26/25 08:45 Labs: Lab Results 01/26/25 01/26/25 Range/Units 08:45 09:44 WBC 8.6 (4.8-10.8) X10*3/uL RBC 4.54 (4.20-5.50) X10*6/uL Hgb 13.6 (12.0-16.0) g/dl Hct 40.5 (37.0-47.0) % MCV 89.2 (80.0-98.0) fL MCH 30.0 (27.0-33.0) pg MCHC 33.6 (31.0-35.0) g/dl RDW 12.3 (11.0-16.0) % Plt Count 217 (160-400) X10*3/uL MPV 10.8 (9.4-12.3) fL Immature Gran % (Auto) 0.3 (0.0-0.4) % Neut % (Auto) 76.0 H (45-73) % Lymph % (Auto) 14.3 L (20-40) % [place] % (Auto) 8.1 (2-11) % Eos % (Auto) 1.0 (0-4) % Baso % (Auto) 0.3 (0-2) % Lymph # (Auto) 1.2 (1.2-4.9) X10*3/uL [place] # (Auto) 0.7 (0.1-1.2) X10*3/uL Eos # (Auto) 0.1 (0.0-0.4) X10*3/uL Baso # (Auto) 0.0 (0.0-0.2) X10*3/uL Abs Immat Gran (auto) 0.03 (0.00-0.03) X10*3/uL Absolute Neuts (auto) 6.5 (2.0-8.3) x10*3/uL Absolute Nucleated RBC 0.000 (0.0-0.012) X10*3/uL Nucleated RBC % (auto) 0.0 (0.0-0.2) /100WBC Sodium 142 (135-145) mmol/L Potassium 3.9 (3.3-5.1) mmol/L Chloride 108 (96-108) mmol/L Carbon Dioxide 25 (22-29) mmol/L Anion Gap 13 (12-20) BUN 12 (9-16) mg/dL Creatinine 0.58 (0.5-1.4) mg/dL Estim Creat Clear Calc 76.6 Estimated GFR > 60 Random Glucose 117 H (60-115) mg/dL Calcium 9.9 (8.4-10.2) mg/dL Total Bilirubin 0.8 (0.0-1.0) mg/dL AST 20 (5-31) U/L ALT 6 (0-31) U/L Alkaline Phosphatase 85 (39-117) U/L Total Protein 6.7 (6.5-8.0) g/dL Albumin 4.4 (3.5-5.0) g/dL Urine Color Yellow Urine Appearance Clear Urine pH 7.0 (5.0-9.0) Ur Specific [place] 1.010 (1.005-1.025) Urine Protein Negative (Neg-Trace) mg/dL Urine Glucose (UA) Negative (Negative) mg/dL Urine Ketones Negative (Negative) mg/dL Urine Blood Negative (Negative) Urine Nitrite Negative (Negative) Ur Leukocyte Esterase Moderate (2+) H (Negative) Urine RBC 0-2 (0-2) /HPF Urine WBC 6-10 H (0-5) /HPF Ur Squamous Epith Cells 3-5 (0-2) /HPF Calcium Oxalate Crystal Present Urine Bacteria None Seen (None Seen) Hyaline Casts 0-2 (0-2) /LPF Independent Interpretation I performed an independent interpretation of an: CT Scan Interpretation: CT A/P notable for no evidence of obstructing calculi or hydronephrosis. Radiology Impression Discussion of test interpretation with radiology: I have reviewed the radiologist's reading. Radiologist Impression: Impression: 1. No acute finding. No CT finding to account for right flank pain. 2. Right renal complex lesion is indeterminate, recommend comparison with previous exam if available or further evaluation by outpatient renal CT. 3. Punctate nonobstructing right renal calculus. 4. Dilated esophagus with layering fluid, indeterminate, recommend high school mathematics teacher follow-up and endoscopy. 5. Sigmoid diverticulosis, no acute diverticulitis. 6. Additional chronic findings. External Record Review External record reviewed: Inpatient record, Office record and Outpatient record Prescription Management I considered prescription management with: Pain Medication and Other Discharge Plan Discharge Clinical Impression: Acute lumbar radiculopathy Patient Disposition: Home, Self-Care Instructions: Lumbar Radiculopathy (ED) Additional Instructions: You were evaluated in the emergency department today for lower back pain. This is likely due to an inflammation of the sciatic nerve with runs from the lower back down both legs. You are being prescribed a course of prednisone which is a steroid to decrease inflammation. You have been prescribed 5% topical lidocaine patches which you can wear for up to 12 hours in a 24 hour period. Do not apply heat directly over the patches. Use all medications as prescribed. Please schedule an appointment for follow-up with your primary care physician this week for further evaluation of your symptoms. Return to the emergency department if you experience worsening back pain, difficulty walking, fevers, numbness, tingling, incontinence, groin numbness or tingling, or any other concerning symptoms. Prescriptions: New lidocaine 5 % adhesive patch,medicated 1 patch topical DAILY Qty: 15 0RF Rx Instructions: leave on most painful area for up to 12 hrs prednisone 20 mg tablet 20 mg PO DAILY Qty: 5 0RF No Action levothyroxine 88 mcg tablet 88 mcg PO DAILY aspirin 81 mg Tablet,Delayed Release (Dr/Ec) 81 mg PO DAILY Qty: 30 0RF clonidine HCl 0.2 mg tablet 0.2 mg PO BID pravastatin 40 mg tablet 40 mg PO BEDTIME meclizine 12.5 mg tablet 12.5 mg PO TID PRN (Reason: dizziness) Qty: 20 0RF losartan 50 mg tablet 50 mg PO DAILY epinephrine 0.3 mg/0.3 mL auto-injector 0.3 mg IM ONCE famotidine 40 mg tablet PO BID Print Language: Croatian
[2025-01-26 08:52] LABS: MANUAL DIFF FLAG NO
--- NOTE | 2025-01-26 08:52 | PC.NURSE ---
pt is alert and oriented, skin pwd, respirations even and unlabored, pt reports around 0600 started with right mid/lower abd pain that wraps to the back, denies n/v/ but states being constipated, had a small bowel movement this morning but very small amount, also states that last few months having urinary problems like small amount of urine production and decreased urine stream flow, states she needs a bladder swing, abd soft and non-tender
--- OUTSIDE RECORDS SUMMARY | 2025-01-26 08:54 | XMS_ITS | Encounter Summary ---
Author Organization [facility] Address [address] [facility] [address] [place] [place] [id number] Phone Care Team Providers Care Mutual Fund Manager Name Role Phone Edvin Pruett MD Primary Care Provider [phone] Encounter Details Date Type Department Care Team (Latest Contact Info) Description 12/28/2020 Transcribe Orders Virtual Department [address] [place] [address] Tila Rojas NP [address] [place] [id number] Right lower quadrant abdominal pain (Primary Dx); Constipation, unspecified constipation type Social History Tobacco Use Types Packs/Day Years Used Date Smoking Tobacco: Never Smokeless Tobacco: Never Alcohol Use Standard Drinks/Week Comments Never 0 (1 standard drink = 0.6 oz pur e alcohol) Comments Unknown Sex and Gender Information Value Date Recorded Sex Assigned at Not on file Legal Sex Female 5:29 PM EST Gender Identity Not on file Sexual Orientation Not on file documented as of this encounter Plan of Treatment Not on file documented as of this encounter Results * US Abdomen Complete (01/13/2021 9:06 AM EDT) Anatomical Region Laterality Modality Abdomen Ultrasound 01/13/2021 9:47 AM EDT Impressions 01/13/2021 9:52 AM EDT 1. No significant biliary, hepatic, pancreatic or renal pathology. 2. 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 Follow-up directed ultrasound in 6 months recommended. 3. Stable rim calcified right renal cyst. 4. No source of right-sided pain is apparent. POS [id number] Narrative 01/13/2021 9:52 AM EDT Compare to CT 12/30/2019 and limited ultrasound 12/18/2019 No gallstones, gallbladder wall thickening, hyperemia or pericholecystic fluid. No biliary dilatation. CBD 5 mm. Homogeneous hepatic echotexture. No focal masses. Hepatopedal flow in the main portal vein. Pancreas is fairly well-visualized and sonographically normal in appearance. The spleen is not enlarged. There is a focal hyperechoic, circumscribed 6 x 7 x 8 mm lesion in the central spleen which is likely a benign hemangioma. No other splenic pathology. Both kidneys normal in size and contour. Chronic 2.1 cm rim-calcified cyst at the upper pole of the right kidney unchanged from previous studies. No new cystic or solid renal masses. No stones or hydronephrosis. Echogenic plaque in the upper abdominal aorta but no dilatation. IVC unremarkable. Procedure Note Alessio Dean MD - 01/13/[address] 12/30/2019 and limited ultrasound 12/18/2019 No gallstones, gallbladder wall thickening, hyperemia or pericholecysticfluid. No biliary dilatation. CBD 5 mm. Homogeneous hepatic echotexture. No focal masses. Hepatopedal flow in themain portal vein. Pancreas is fairly well-visualized and sonographically normal inappearance. The spleen is not enlarged. There is a focal hyperechoic, circumscribed 6x 7 x 8 mm lesion in the central spleen which is likely a benignhemangioma. No other splenic pathology. Both kidneys normal in size and contour. Chronic 2.1 cm rim-calcified cyst at the upper pole of the right kidneyunchanged from previous studies. No new cystic or solid renal masses. No stones or hydronephrosis. Echogenic plaque in the upper abdominal aorta but no dilatation. IVCunremarkable. IMPRESSION: 1. No significant biliary, hepatic, pancreatic or renal pathology. 2. 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 Follow-up directed ultrasound in 6months recommended. 3. Stable rim calcified right renal cyst. 4. No source of right-sided pain is apparent. POS [id number] us Tila Rojas WEB PRODUCER IMG US ABDOMEN Final Res ult documented in this encounter Visit Diagnoses Diagnosis Right lower quadrant abdominal pain- Primary Constipation, unspecified constipation type Right lower quadrant abdominal pain Constipation, unspecified constipation type documented in this encounter Care Teams Mutual Fund Manager Relationship Specialty Start Date End Date Edvin Pruett MD [address] [place] [id number] PCP - General Internal Medicine 07/04/19 documented as of this encounter Additional Source Comments The information contained in this document represents components of the legal health record. It is not the complete legal health record.[facility]
--- OUTSIDE RECORDS SUMMARY | 2025-01-26 08:55 | XMS_ITS | Encounter Summary ---
Author Organization [facility] Address [address] [facility] [address] [place] [address] Phone Care Team Providers Care Whale Trainer Name Role Phone Edvin Pruett MD Primary Care Provider [phone] Encounter Details Date Type Department Care Team (Late st Contact Info) Description 09/22/2021 Procedure Pass [facility] Endoscopy Admitting Dept Virtual Department [address] [place] [address] Social History Tobacco Use Types Packs/Day Years Used Date Smoking Tobacco: Never Smokeless Tobacco: Never Alcohol Use Standard Drinks/Week Comments Never 0 (1 standard drink = 0.6 oz pur e alcohol) Comments No Sex and Gender Information Value Date Recorded Sex Assigned at Not on file Legal Sex Female 5:29 PM EST Gender Identity Not on file Sexual Orientation Not on file documented as of this encounter Plan of Treatment Not on file documented as of this encounter Visit Diagnoses Not on filedocumented in this encounter Care Teams Whale Trainer Relationship Specialty Start Date End Date Edvin Pruett MD [address] [place] [address] [place] [id number] PCP - General Internal Medicine 07/04/19 documented as of this encounter Additional Source Comments The information contained in this document represents components of the legal health record. It is not the complete legal health record.[facility]
--- OUTSIDE RECORDS SUMMARY | 2025-01-26 08:55 | XMS_ITS | Encounter Summary ---
Author Organization [facility] Address [address] [facility] [address] [place] [address] Phone Care Team Providers Care Purchasing Assistant Name Role Phone Edvin Pruett MD Primary Care Provider [phone] Encounter Details Date Type Department Care Team (Late st Contact Info) Description 05/15/2022 Procedure Pass [facility] Endoscopy Admitting Dept Virtual Department [address] [place] [address] Social History Tobacco Use Types Packs/Day Years [...] on filedocumented in this encounter Care Teams Purchasing Assistant Relationship Specialty Start Date End Date Edvin Pruett MD [address] [place] [address] [place] [phone] PCP - General Internal Medicine 07/04/19 documented as of this encounter Additional Source Comments The information contained in this document represents components of the legal health record. It is not the complete legal health record.[facility]
--- OUTSIDE RECORDS SUMMARY | 2025-01-26 08:55 | XMS_ITS | Encounter Summary ---
Author Organization [facility] Address [address] [facility] [address] [place] [address] Phone Care Team Providers Care Airplane Patroller Name Role Phone Edvin Pruett MD Primary Care Provider [phone] Encounter Details Date Type Department Care Team (Late st Contact Info) Description 05/24/2022 Procedure Pass [facility] Endoscopy Admitting Dept Virtual Department [address] [place] [address] Social History Tobacco Use Types Packs/Day Years [...] on filedocumented in this encounter Care Teams Airplane Patroller Relationship Specialty Start Date End Date Edvin Pruett MD [address] [place] [address] [place] [address] PCP - General Internal Medicine 07/04/19 documented as of this encounter Additional Source Comments The information contained in this document represents components of the legal health record. It is not the complete legal health record.[facility]
--- OUTSIDE RECORDS SUMMARY | 2025-01-26 08:55 | XMS_ITS | Encounter Summary ---
Author Organization [facility] Address [address] [facility] [address] [place] [phone] Phone Care Team Providers Care Construction Helper Name Role Phone Edvin Pruett MD Primary Care Provider [phone] Encounter Details Date Type Department Care Team (Late st Contact Info) Description 12/11/2024 Procedure Pass [facility] Endoscopy Admitting Dept Virtual Department [address] [place] [address] Social History Tobacco Use Types Packs/Day Years Used Date Smoking Tobacco: Never Smokeless Tobacco: Never Alcohol Use Standard Drinks/Week Comments Never 0 (1 standard drink = 0.6 oz pur e alcohol) Education Answer Date Recorded Are you interested in more education? Not on lissette e 09/25/2022 Are you concerned about learning? Not on file 09/25/2022 No 09/25/2022 No 09/25/2022 Digital Access Answer Date Recorded No 10/22/2022 No 10/22/2022 Reliable internet access at home? Not on file 10/22/2022 Device with a working camera? Not on file Intimate Partner Violence Answer Date R ecorded Are you denied basic needs s uch as food, clothing, or medical care? No 12/11/2024 In the past 12 months have y ou been in a relationship with a person who hurts, threatens, or tries to control you? No 12/11/2024 Are you denied basic needs s uch as food, clothing, or medical care? No 12/11/2024 In the past 12 months have y ou been in a relationship with a person who hurts, threatens, or tries to control you? No 12/11/2024 Comments No Sex and Gender Information Value Date Recorded Sex Assigned at Not on file Legal Sex Female 5:29 PM EST Gender Identity Not on file Sexual Orientation Not on file documented as of this encounter Functional Status * Calculated C-SSRS Risk Score (Lifetime/Recent) Answer Date of Assessment Author No Risk Indicated 12/11/2024 10:33 AM EDT Jaylin Still RN * [place] Suicide Severity Rating Scale (Screener/Recent Self-Report) Question Answer Date of Assessment Author 1. Wish to be (Past 1 Month) No 12/11/2024 10:33 AM Jaylin Springer RN 2. Non-Specific Active Suicidal Thoughts (Past 1 Month) No 12/11/2024 10:33 AM EDT Jaylin Still RN 6. Suicidal Behavior (Lifetime) No 12/11/2024 10:33 AM EDT Jaylin Still RN documented as of this encounter Plan of Treatment Not on file documented as of this encounter Visit Diagnoses Not on filedocumented in this encounter Care Teams Construction Helper Relationship Specialty Start Date End Date Edvin Pruett MD [address] [place] [id number] PCP - General Internal Medicine 07/04/19 documented as of this encounter Additional Source Comments The information contained in this document represents components of the legal health record. It is not the complete legal health record.[facility]
--- OUTSIDE RECORDS SUMMARY | 2025-01-26 08:55 | XMS_ITS | Encounter Summary ---
Author Organization [facility] Address [address] [facility] [address] [place] [address] Phone Care Team Providers Care Ballistics Tester Name Role Phone Edvin Pruett MD Primary Care Provider [phone] Encounter Details Date Type Department Care Team (Latest Contact Info) Description 05/17/2021 Transcribe Orders Virtual Department [address] [place] [address] Tlia Rjoas NP [address] [place] [phone] Diarrhea, unspecified type Social History Tobacco Use Types Packs/Day [...] this encounter Results * US Abdomen Complete (05/31/2021 8:15 AM EST) Anatomical Region Laterality Modality Abdomen Ultrasound 05/31/2021 8:19 AM EST Impressions 05/31/2021 8:23 AM EST 1.Stable heterogeneous liver. No focal lesions. 2.Additional chronic findings as above. Narrative 05/31/2021 8:23 AM EST COMPARISON: Abdominal ultrasound 01/13/2021. CT abdomen pelvis 12/30/2019. ABDOMEN ULTRASOUND FINDINGS: Liver: Stable heterogeneity. No masses. Gallbladder: Normal. Common bile duct: Normal-3 mm. Pancreas: Imaged pancreas is normal. Pancreatic tail is obscured by bowel gas. Kidneys: Stable 2 cm right upper renal pole cortical cyst with thick wall calcification. Left kidney is normal. Spleen: Stable 7 mm heterogeneous hyperechoic avascular focus which may represent a hemangioma. Proximal abdominal aorta/IVC/Main Portal Vein: Aortic atherosclerosis. Otherwise unremarkable. Procedure Note Edvin Friedman MD - 05/31/2021 COMPARISON: Abdominal ultrasound 01/13/2021. CT abdomen pelvis 12/30/2019. ABDOMEN ULTRASOUND FINDINGS: Liver: Stable heterogeneity. No masses. Gallbladder: Normal. Common bile duct: Normal-3 mm. Pancreas: Imaged pancreas is normal. Pancreatic tail is obscured bybowel gas. Kidneys: Stable 2 cm right upper renal pole cortical cyst with thick wallcalcification. Left kidney is normal. Spleen: Stable 7 mm heterogeneous hyperechoic avascular focus which mayrepresent a hemangioma. Proximal abdominal aorta/IVC/Main Portal Vein: Aortic atherosclerosis.Otherwise unremarkable. IMPRESSION: 1.Stable heterogeneous liver. No focal lesions. 2.Additional chronic findings as above. us Tila Oneilrobson [address] SUPERVISOR IMG US ABDOMEN Final Res ult documented in this encounter Visit Diagnoses Diagnosis Diarrhea, unspecified type Diarrhea, unspecified type documented in this encounter Care Teams Ballistics Tester Relationship Specialty Start Date End Date Edvin Pruett MD [address] [place] [id number] PCP - General Internal Medicine 07/04/19 documented as of this encounter Additional Source Comments The information contained in this document represents components of the legal health record. It is not the complete legal health record.[facility]
--- OUTSIDE RECORDS SUMMARY | 2025-01-26 08:55 | XMS_ITS | Encounter Summary ---
Author Organization [facility] Address [address] [facility] [address] [place] [address] Phone Care Team Providers Care Canvass Manager Name Role Phone Edvin Pruett MD Primary Care Provider [phone] Encounter Details Date Type Department Care Team (Latest Contact Info) Description 08/01/2019 Transcribe Orders Virtual Department [address] [place] [address] Tello Quezada MD [address] [place] [phone] [email or web address] RUQ abdominal pain (Primary Dx) Social History Tobacco Use Types Packs/Day Years [...] as of this encounter Results * US ABDOMEN LIMITED RIGHT UPPER QUADRANT (12/18/2019 10:04 AM EDT) Anatomical Region Laterality Modality Abdomen Ultrasound 12/18/2019 10:0 6 AM EDT Impressions 12/18/2019 10:10 AM EDT Echogenic structure in the upper pole of the right kidney which could reflect a rim calcified cyst. CT recommended for further evaluation. No cholelithiasis or other significant abnormality of the visualized upper abdominal visceral structures. POS [id number] Narrative 12/18/2019 10:10 AM EDT COMPARISON: None FINDINGS: Study somewhat limited due to midline bowel gas. Gallbladder is within normal limits in appearance without evidence of cholelithiasis or focal wall thickening. Intrahepatic bile ducts are nondilated and the common duct within normal limits at 0.3 cm in diameter. Liver is within normal limits in size and displays homogeneous parenchymal echo-texture. Pancreatic tail is obscured by overlying bowel gas but the portions of the head and body which are visualized are unremarkable. Right kidney is within normal limits in size at 10.8 x 3.8 cm with a rounded peripherally calcified structure in the upper pole measuring 2.0 x 1.8 x 2.1 cm but displaying slightly enhanced midline through-transmission and marginal shadowing. No hydronephrosis or additional parenchymal mass or cyst identified. Visualized portions of the upper abdominal aorta and IVC are within normal limits. Procedure Note Tello Johnston MD - 12/18/2019 COMPARISON: None FINDINGS: Study somewhat limited due to midline bowel gas. Gallbladder is withinnormal limits in appearance without evidence of cholelithiasis or focalwall thickening. Intrahepatic bile ducts are nondilated and the commonduct within normal limits at 0.3 cm in diameter. Liver is within normallimits in size and displays homogeneous parenchymal echo-texture.Pancreatic tail is obscured by overlying bowel gas but the portions of thehead and body which are visualized are unremarkable. Right kidney iswithin normal limits in size at 10.8 x 3.8 cm with a rounded peripherallycalcified structure in the upper pole measuring 2.0 x 1.8 x 2.1 cm butdisplaying slightly enhanced midline through-transmission and marginalshadowing. No hydronephrosis or additional parenchymal mass or cystidentified. Visualized portions of the upper abdominal aorta and IVC arewithin normal limits. IMPRESSION: Echogenic structure in the upper pole of the right kidney which couldreflect a rim calcified cyst. CT recommended for further evaluation. No cholelithiasis or other significant abnormality of the visualized upperabdominal visceral structures. POS [id number] us Tello Quezada MD IMG US ABDOMEN Final Result documented in this encounter Visit Diagnoses Diagnosis RUQ abdominal pain- Primary Abdominal pain, right upper quadrant RUQ abdominal pain Abdominal pain, right upper quadrant documented in this encounter Care Teams Canvass Manager Relationship Specialty Start Date End Date Edvin Pruett MD [address] [place] [phone] PCP - General Internal Medicine 07/04/19 documented as of this encounter Additional Source Comments The information contained in this document represents components of the legal health record. It is not the complete legal health record.[facility]
--- OUTSIDE RECORDS SUMMARY | 2025-01-26 08:55 | XMS_ITS | Clinical Summary ---
Author Organization [facility] Address [address] [place] [address] Care Team Providers Care Manager Cosmetic Name Role Phone Unavailable Primary Care Provider [...] (VERAMYST) 27.5 mcg/actuation nasal spray Place 1 [place] into the nostril(s) once daily Active cholecalciferol, [...] Mass Index - - Plan of Treatment Not on file Insurance [facility]
--- OUTSIDE RECORDS SUMMARY | 2025-01-26 08:55 | XMS_ITS | Encounter Summary ---
Author Organization [facility] Address [address] [facility] [address] [place] [address] Phone Care Team Providers Care Manager Nursing Name Role Phone Edvin Pruett MD Primary Care Provider [phone] Encounter Details Date Type Department Care Team (Late st Contact Info) Description 10/23/2024 Procedure Pass [facility] Endoscopy Admitting Dept Virtual Department 30 [place] [address] Social History Tobacco Use Types Packs/Day Years [...] as food, clothing, or medical care? No 12/17/2023 In the past 12 months have y ou been in a relationship with a person who hurts, threatens, or tries to control you? No 12/17/2023 Are you denied basic needs s uch as food, clothing, or medical care? No 12/17/2023 In the past 12 months have y ou been in a relationship with a person who hurts, threatens, or tries to control you? No 12/17/2023 Comments No Sex and Gender Information Value Date Recorded Sex Assigned at Not on file Legal Sex Female 5:29 PM EST Gender Identity Not on file Sexual Orientation Not on file documented as of this encounter Plan of Treatment Not on file documented as of this encounter Visit Diagnoses Not on filedocumented in this encounter Care Teams Manager Nursing Relationship Specialty Start Date End Date Edvin Pruett MD [address] [place] [phone] PCP - General Internal Medicine 07/04/19 documented as of this encounter Additional Source Comments The information contained in this document represents components of the legal health record. It is not the complete legal health record.[facility]
--- OUTSIDE RECORDS SUMMARY | 2025-01-26 08:55 | XMS_ITS | Encounter Summary ---
Author Organization [facility] Address [address] [facility] [address] [place] [address] Phone Care Team Providers Care Drier Operator Name Role Phone Edvin Pruett MD Primary Care Provider [phone] Encounter Details Date Type Department Care Team (Late st Contact Info) Description 12/18/2023 Procedure Pass [facility] Endoscopy Admitting Dept Virtual Department [address] [place] [address] Social History Tobacco Use Types Packs/Day Years [...] on filedocumented in this encounter Care Teams Drier Operator Relationship Specialty Start Date End Date Edvin Pruett MD [address] [place] [address] PCP - General Internal Medicine 07/04/19 documented as of this encounter Additional Source Comments The information contained in this document represents components of the legal health record. It is not the complete legal health record.[facility]
--- OUTSIDE RECORDS SUMMARY | 2025-01-26 08:55 | XMS_ITS | Encounter Summary ---
Author Organization [facility] Address [address] [facility] [address] [place] [address] Phone Care Team Providers Care Kiln Loader Name Role Phone Edvin Pruett MD Primary Care Provider [phone] Encounter Details Date Type Department Care Team (Late st Contact Info) Description 12/30/2019 Procedure Pass [facility], Ct Scan - [address] [address] Social History Tobacco Use Types Packs/Day Years [...] on filedocumented in this encounter Care Teams Kiln Loader Relationship Specialty Start Date End Date Edvin Pruett MD [address] [place] [address] [address] [place] [address] PCP - General Internal Medicine 07/04/19 documented as of this encounter Additional Source Comments The information contained in this document represents components of the legal health record. It is not the complete legal health record.[facility]
--- OUTSIDE RECORDS SUMMARY | 2025-01-26 08:55 | XMS_ITS | Encounter Summary ---
Author Organization [facility] Address [address] [facility] [address] [place] [address] Phone Care Team Providers Care Senior Branch Manager Name Role Phone Unknown, Unknown Primary Care Provider Edvin Waterman MD Primary Care Provider [phone] Encounter Details Date Type Department Care Team (Latest Contact Info) Description 06/30/2019 Transcribe Orders Virtual Department 30 [place] [address] Tello Quezada MD [address] [place] [phone] [email or web address] Achalasia (Primary Dx) Social History Tobacco Use Types Packs/Day Years Used Date Smoking Tobacco: Never Assessed Comments Unknown Sex and Gender Information Value Date Recorded Sex Assigned at Not on file Legal Sex Female 5:29 PM EST Gender Identity Not on file Sexual Orientation Not on file documented as of this encounter Plan of Treatment Not on file documented as of this encounter Results * FL BARIUM SWALLOW ESOPHAGRAM DOUBLE CONTRAST (07/04/2019 8:30 AM EST) Anatomical Region Laterality Modality Chest Radiographic Raquel ging 07/04/2019 9:29 AM EST Impressions 07/04/2019 9:53 AM EST 1. 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 2. Dilated esophagus suggests long-standing distal obstruction. 3. 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 FLUOROSCOPY TIME: 3 MIN 50 SEC, 24 IMAGES/FRAMES POS - [id number] Edited by: Kalli Monroy on 07/04/2019 9:51 AM Narrative 07/04/2019 9:53 AM EST Biphasic barium swallow including 13 mm tablet and barium paste on bread. No comparison. The manager office film of the neck shows no soft tissue masses, suspicious calcifications or foreign bodies. No significant cervical osteophytes. Barium swallow shows reasonably normal oropharyngeal motility but esophageal motility becomes mildly weak at the thoracic inlet and is very weak below the aortic arch. No significant tertiary contractions nor spasm. The GE junction never opens beyond 8 to 9 mm, trapping the 13 mm barium tablet until it broke up. The narrowed segment is very short and smooth. Above the narrowed GE junction the esophagus is moderately dilated. There is a slightly nodular mucosal pattern but no focal ulceration or proximal stricturing is apparent. No masses are identified. Reflux could not be elicited but with the patient supine barium pools in the midesophagus seemingly indefinitely. Procedure Note Alessio Dean MD - 07/04/2019 Biphasic barium swallow including 13 mm tablet and barium paste onbread. No comparison. The manager office film of the neck shows no soft tissue masses, suspiciouscalcifications or foreign bodies. No significant cervical osteophytes. Barium swallow shows reasonably normal oropharyngeal motility butesophageal motility becomes mildly weak at the thoracic inlet and is veryweak below the aortic arch. No significant tertiary contractions norspasm. The GE junction never opens beyond 8 to 9 mm, trapping the 13 mm bariumtablet until it broke up. The narrowed segment is very short and smooth. Above the narrowed GE junction the esophagus is moderately dilated. Thereis a slightly nodular mucosal pattern but no focal ulceration or proximalstricturing is apparent. No masses are identified. Reflux could not be elicited but with the patient supine barium pools inthe midesophagus seemingly indefinitely. IMPRESSION: 1. Stricturing at the GE junction down to 8 to 9 mm luminal diameter overshort segment, no specific indications of malignancy. 2. Dilated esophagus suggests long-standing distal obstruction. 3. Significantly disordered esophageal motility with loss of strength butno spasm or tertiary contractions. 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 It is not the complete legal health record.[facility]
--- OUTSIDE RECORDS SUMMARY | 2025-01-26 08:55 | XMS_ITS | Clinical Summary ---
Author Organization [facility] Address [address] [address] Phone Care Team Providers Care Heat Set Operator Name Role Phone Thalia Lao MD Primary Care Provider [phone] Allergies Active Allergy Reactions Criticality Noted Date Comments Amoxicillin Rash Low 07/24/2019 Fish Derived Anaphylaxis High 07/24/2019 Fluorouracil-Adhesive Bandage 05/23/2022 Other reaction(s): band aid-mild rash Gabapentin 07/24/2019 Shellfish Containing Products Anaphylaxis High 07/24/2019 Medications cloNIDine HCL (CATAPRES) 0.2 MG tablet Take 0.2 mg by mouth 2 (two) times a day. Active omeprazole (PRILOSEC) 20 MG capsule Take 20 mg by mouth daily. Active cholecalciferol (VITAMIN D3) 2,000 unit capsule Take by mouth daily. Active acetaminophen (TYLENOL) 500 MG tablet Take 500 mg by mouth every 6 (six) hours as needed for pain (specific location in comments). Active levothyroxine (SYNTHROID, LEVOTHROID) 88 MCG tablet Take by mouth. 11/30/2021 Active pravastatin (PRAVACHOL) 40 MG tablet Take by mouth. 11/22/2021 Active aspirin 81 MG EC tablet Take 81 mg by mouth. 07/31/2022 Active losartan (COZAAR) 50 MG tablet Take 50 mg by mouth. 07/25/2022 Active meclizine (ANTIVERT) 25 mg tablet Take 25 mg by mouth. 03/24/2022 Active fluticasone propionate (FLONASE NASL) Flonase Activ e famotidine (PEPCID) 40 MG tablet Take 40 mg by mouth nightly at bedtime. 09/28/2023 Active Active Problems No known active problems Encounters Date Type Department Care Team Description 12/11/2024 11:28 AM EDT Anesthesia Event [facility] Admitting [facility] Virtual Department [address] [place] [address] Amanda Root MD Welch Marsh, Elizabeth J, MD 12/11/2024 11:00 AM EDT - 12/11/2024 11:30 AM EDT Surgery [facility] Ad[facility] Virtual Department [address] [place] [address] Rashmi Esquivel MD ESOPHAGOGASTRODUODENOSCOPY WITH DILATATION 12/11/2024 9:52 AM EDT - 12/11/2024 12:34 PM EDT Hospital Encounter [facility] Virtual Department [address] [place] [address] Rashmi Esquivel MD Discharge Disposition: Home or Self Care 12/11/2024 Procedure Pass [facility] Admitting [facility] Virtual Department [address] [place] [address] from Last 3 Months Social History Tobacco Use Types Packs/Day Years Used Date Smoking Tobacco: Never Smokeless Tobacco: Never Tobacco Cessation:Counseling Given: Not Answered Alcohol Use Standard Drinks/Week Comments Never 0 [...] Sign Reading Time Taken Comments Blood Pressure 132/76 12/11/2024 12:13 PM EDT Pulse 65 12/11/2024 12:13 PM EDT Temperature 35.8 C (96.5 F) 12/11/2024 11:53 AM EDT Respiratory Rate 19 12/11/2024 12:13 PM EDT Oxygen Saturation 92% 12/11/2024 12:13 PM EDT Inhaled Oxygen Concentration - - Weight 77.6 kg (171 lb) 12/17/2023 12:08 PM EDT Height 162.6 cm (5' 4 ) 12/17/2023 12:08 PM EDT Body Mass Index 29.35 12/17/2023 12:08 PM EDT Plan of Treatment Health Maintenance Due Date Last Done Comments TSH LEVEL 1940 DEPRESSION SCREENING 1953 OSTEOPOROSIS SCREENING INITIAL (ONE-TIME) 2006 RSV VACCINE (1 - 1-dose 75+ series) 2016 Adult Td,Tdap Booster 04/15/2023 04/15/2013, 000 COVID-19 VACCINE ( season) 2024 05/15/2022, 04/14/2021, 08/12/2020, Additional history exists ZOSTER VACCINES Completed 03/15/2021, 12/20/2020 PNEUMOCOCCAL VACCINES (50+ years) Completed 03/13/2023, 05/26/2021, 08/21/2014, Additional history exists HEPATITIS A VACCINES Aged Out No long er eligible based on patient's age to complete this topic HIB VACCINES Aged Out No longer eligi ble based on patient's age to complete this topic MENINGOCOCCAL VACCINES (ACWY) Aged Out No longer eligible based on patient's age to complete this topic MENINGOCOCCAL VACCINES (B) Aged Out N o longer eligible based on patient's age to complete this topic Medical Devices Implanted Type Area Hvac/R Instructor Device Identifier Shelf Expiration Date Model / Serial / Lot Prosthetic Joint Prosthetic Joint Bilatera l: Knee Procedures Procedure Name Priority Date/Time Associated Diagnosis Comments ESOPHAGOGASTRODUODENOSCOPY W ITH DILATATION 12/11/2024 11:28 AM EDT Esophageal stenosis Other specified disease of esophagus ENDOSCOPY PROCEDURE 12/11/2024 11:24 AM EDT from Last 3 Months Results * ENDOSCOPY PROCEDURE (12/11/2024 11:24 AM EDT) Narrative Transcriptions Rashmi Esquivel MD - 12/11/2024 11:24 AM EDT [facility] Patient Name: Madalyn Vera Attending MD:: RASHMI ESQUIVEL MD, Procedure Date: 12/11/2024 11:24 AM Date of : 1940 Age: 84 Admit Type: Outpatient Gender: Female Room: [place] [address] Referring MD: THALIA LAO MD Exam Type: Upper GI endoscopy Indications: Dysphagia, For therapy of achalasia Medications: Propofol per Anesthesia Procedure: Informed consent was obtained from the patientafter discussion of the indications, limitations, alternatives, benefits, and risks of the procedure. Risks specifically discussed include but are not limited to medication reactions, missed lesions, bleeding, perforation, or the need for emergent surgery. Throughout the procedure, the patient's blood pressure, pulse, end-tidal CO2, and oxygensaturations were monitored continuously. The Endoscope was introduced through the mouth, and advanced to the second part of duodenum. The upperGI endoscopy was accomplished without difficulty. The patient tolerated the procedure well. Complications: No immediate complications. Estimated blood loss:None. Findings: The lumen of the esophagus was moderatelydilated. Food was found in the middle third of theesophagus. One benign-appearing, intrinsic mild stenosis was found at the gastroesophageal junction, really no resistance to the scope. A TTS dilator was passed through the scope. Dilation with a 15-16.5-18 mm x8 cm CRE balloon dilator was performed to 18 mm. The dilation site was examined and showed moderatemucosal disruption, though no obvious change with 15mm inflation which was more in keeping wt theendoscopic appearance. The cardia and gastric fundus were normal on retroflexion. A small amount of food (residue) was found in the gastric body. The exam of the stomach was otherwise normal. The examined duodenum was normal. Impression: - Dilation in the entire esophagus. - Food in the middle third of the esophagus. - Benign-appearing esophageal stenosis. Dilated. - A small amount of food (residue) in thestomach. - Normal examined duodenum. - No specimens collected. THough dilation appeared to be effective, theinitial appearance suggested that the EG juntion was fairly open. Recommendation: - Observe patient's clinical course following today's procedure with therapeutic intervention. - Pureed diet and advance from there. RASHMI ESQUIVEL MD 12/11/2024 11:55:33 AM This report has been signed electronically. 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 All rights reserved. The codes documented in this report are preliminary and upon employment instructional associate reviewmay be revised to meet current compliance requirements. Procedure Date: 12/11/2024 11:24:27 AM [address] [place] [address] Thalia Lao MD GI PROCEDURE ORDERABLES Final Result from Last 3 Months Insurance MEDICARE PART A & B [employer] CROSS MEDEX SUPPLEMENT [facility] MEDICARE PART A & B [employer] CROSS MEDEX SUPPLEMENT [facility] MEDICARE PART A & B [employer] MEDEX SUPPLEMENT MEDICARE PART A & B [employer] MEDEX SUPPLEMENT MEDICARE PART A & B [employer] [facility]EX [facility]PP[facility] & B Video Passports MEDEX [place]LE[place] [address] [place] [address] MEDICARE PART A & B [employer] MEDEX SUPPLEMENT [facility] PART A & B Member Subscriber Plan / Payer (Ef fective 2006-Present) Name:Madalyn Vera Member ID:[id number] Relation to Subscriber:Self Name:Madalyn Vera Subscriber ID:[id number] Payer ID:[id number] Group ID:Not on file Type:Medicare Address: [facility] SmartPay [employer] [facility] [facility] [address] [place] [id number] BLUE CROSS MEDEX SUPPLEMENT MEDICARE PART A & B Video Passports MEDEX SUPPLEMENT [facility] [employer] Advance Directives For more information, please contact: [phone] (9AM - 5PM [facility], Sunday-Sunday) Documents on File Type Date Recorded Patient Overnight Stocker Expl anation Healthcare Proxy 12/31/2019 2:23 PM Care Teams Heat Set Operator Relationship Specialty Start Date End Date Thalia Lao MD [address] [place] [address] PCP - General Internal Medicine 07/04/19 Additional Source Comments The information contained in this document represents components of the legal health record. It is not the complete legal health record.[facility]
--- OUTSIDE RECORDS SUMMARY | 2025-01-26 08:55 | XMS_ITS | Encounter Summary ---
Author Organization [facility] Address [address] [facility] [address] [place] [address] Phone Care Team Providers Care Chef Passenger Vessel Name Role Phone Edvin Pruett MD Primary Care Provider [phone] Encounter Details Date Type Department Care Team (Late st Contact Info) Description 11/18/2020 Procedure Pass [facility]oscopy Admitting Dept Virtual Department [address] [place] [address] Social History Tobacco Use Types Packs/Day Years [...] on filedocumented in this encounter Care Teams Chef Passenger Vessel Relationship Specialty Start Date End Date Edvin Pruett MD [address] [place] [address] [place] [address] PCP - General Internal Medicine 07/04/19 documented as of this encounter Additional Source Comments The information contained in this document represents components of the legal health record. It is not the complete legal health record.[facility]
--- OUTSIDE RECORDS SUMMARY | 2025-01-26 08:55 | XMS_ITS | Encounter Summary ---
Author Organization [facility] Address [address] [facility] [address] [place] [address] Phone Care Team Providers Care Catering Sous Chef Name Role Phone Edvin Pruett MD Primary Care Provider [phone] Encounter Details Date Type Department Care Team (Latest Contact Info) Description 01/20/2021 Transcribe Orders [address] [place] [address] Tila Rojas, CANDELARIO [address] [place] [address] Frequent bowel movements (Primary Dx) Social History Tobacco Use Types [...] documented as of this encounter Results * Immunoglobulin A (01/20/2021 9:32 AM EDT) IgA 236 70 - 400 mg/dL [facility] Blood 01/20/2021 9:32 AM EDT 01/20/2021 9:37 AM EDT Tila Rojas NP LAB BLOOD ORDERABLES Sarah l Result [facility] [address] [place] [address] * Tissue transglutaminase IgA (01/20/2021 9:32 AM EDT) TTG IGA ANTIBODY <1.2 <4.0 (Negative) U/mL [facility] MED/[facility] SUPERIOR Blood 01/20/2021 9:32 AM EDT 01/20/2021 9:37 AM EDT us Tila Rojas CERAMIC CAPACITOR PROCESSOR LAB BLOOD ORDERABLES Sarah l Result [facility] MED/[facility] [address] [place] [address] documented in this encounter Visit Diagnoses Diagnosis Frequent bowel movements- Primary Other symptoms involving digestive system documented in this encounter Care Teams Catering Sous Chef Relationship Specialty Start Date End Date Edvin Pruett MD [address] [place] [address] PCP - General Internal Medicine 07/04/19 documented as of this encounter Additional Source Comments The information contained in this document represents components of the legal health record. It is not the complete legal health record.[facility]
--- OUTSIDE RECORDS SUMMARY | 2025-01-26 08:55 | XMS_ITS | Encounter Summary ---
Author Organization [facility] Address 399 [facility] [address] [place] [address] Phone Care Team Providers Care Hand Former Helper Name Role Phone Edvin Pruett MD Primary Care Provider [phone] Encounter Details Date Type Department Care Team (Late st Contact Info) Description 01/22/2023 Procedure Pass [facility] Endoscopy Admitting Dept Virtual Department [address] [place] [address] Social History Tobacco Use Types Packs/Day Years [...] with a working camera? Not on file Comments No Sex and Gender Information Value Date Recorded Sex Assigned at Not on file Legal Sex Female 5:29 PM EST Gender Identity Not on file Sexual Orientation Not on file documented as of this encounter Plan of Treatment Not on file documented as of this encounter Visit Diagnoses Not on filedocumented in this encounter Care Teams Hand Former Helper Relationship Specialty Start Date End Date Edvin Pruett MD [address] [place] [address] [address] [place] [address] PCP - General Internal Medicine 07/04/19 documented as of this encounter Additional Source Comments The information contained in this document represents components of the legal health record. It is not the complete legal health record.[facility]
--- OUTSIDE RECORDS SUMMARY | 2025-01-26 08:55 | XMS_ITS | Encounter Summary ---
Author Organization [facility] Address [address] [facility] [address] [place] [address] Phone Care Team Providers Care Gift Shop Manager Name Role Phone Edvin Pruett MD Primary Care Provider [phone] Encounter Details Date Type Department Care Team (Late st Contact Info) Description 02/17/2021 Procedure Pass [facility] Endoscopy Admitting Dept Virtual Department [address] [place] [address] Social History Tobacco Use Types Packs/Day Years [...] on filedocumented in this encounter Care Teams Gift Shop Manager Relationship Specialty Start Date End Date Edvin Pruett MD [address] [place] [address] [place] [address] PCP - General Internal Medicine 07/04/19 documented as of this encounter Additional Source Comments The information contained in this document represents components of the legal health record. It is not the complete legal health record.[facility]
--- OUTSIDE RECORDS SUMMARY | 2025-01-26 08:55 | XMS_ITS | Patient Health Record ---
Author Organization [facility] Address [address] [place] [address] Care Team Providers Care Solar Sales Assessor Name Role Phone Edvin Pruett MD Primary Care Provider Carlota Saldaña Unavailable [phone] Allergies Allergen (clinical drug ingredient) Drug/Non Drug Allergy documented on EMR Reaction Allergy Type Onset Date Status amoxicillin Amoxicillin Unknown Drug Allergy Act maria del rosario Cod Liver Oil Unknown Drug Allergy Act maria del rosario Tuna Flavor Unknown Drug Allergy Activ e [place] Unknown Drug Allergy Active gabapentin Gabapentin Unknown [...] MG 1 tablet Orally Onc e a day; Duration: 30 day(s) Active Levothyroxine Sodium 88 MCG 1 tablet on an empty stomach in the morning Orally Once a day Active Pravastatin Sodium 40 MG 1 tablet Orally Once a day; Duration: 30 day(s) Active Vitamin D3 2000 UNIT 1 capsule Orally On ce a day; Duration: 30 day(s) Active Thyroid 120 MG 1 tablet Orally Once a day; Duration: 30 day(s) Not-Taking Omeprazole 20 MG 1 capsule Orally Onc e a day; Duration: 30 day(s) Not-Taking Losartan Potassium A ctive Problems No Known Problems Plan Of Treatment Pending Test Test Name Order Date X ray : Ankle, left 2V 03/17/2013 X ray : Foot, left 2V 03/17/2013 [id number] NAIL, 1-5 12/10/2014 Insurance Providers Payer Name Payer Address Payer Phone Subscriber Number Group Number Insured Name Patient Relationship to Insured Coverage Start Date Coverage End Date Medicare National [employer] [address] [place] [address] [id number] Madalyn Nesbitt Self - patient is the insured [employer] [address] [place] [address] [phone] [id number] Madalyn Nesbitt Self - patient is the insured Medical (General) History Medical History History ICD Code Arthritis fibromyalgia headaches/migraines high blood pressure thyroid disorder measles mumps chicken pox Back,Hip,and Knee pain Cataracts TIA Transfusions Surgical History Surgery Date(Month/Year) vein surgery left knee replacement right knee replacement throat surgery
--- OUTSIDE RECORDS SUMMARY | 2025-01-26 08:55 | XMS_ITS | Encounter Summary ---
Author Organization [facility] Address [address] [facility] [address] [place] [address] Phone Care Team Providers Care Laborer Car Barn Name Role Phone Edvin Pruett MD Primary Care Provider [phone] Encounter Details Date Type Department Care Team (Latest Contact Info) Description 06/22/2021 Transcribe Orders Virtual Department [address] [place] [address] Tila Rojas NP [address] [place] [address] Hemangioma, unspecified site (Primary Dx) Social History Tobacco Use Types [...] documented as of this encounter Visit Diagnoses Diagnosis Hemangioma, unspecified site- Primary documented in this encounter Care Teams Laborer Car Barn Relationship Specialty Start Date End Date Edvin Pruett MD [address] [place] [address] 1 [place] [address] PCP - General Internal Medicine 07/04/19 documented as of this encounter Additional Source Comments The information contained in this document represents components of the legal health record. It is not the complete legal health record.[facility]
--- OUTSIDE RECORDS SUMMARY | 2025-01-26 08:55 | XMS_ITS | Encounter Summary ---
Author Organization [facility] Address [address] [facility] [address] [place] [address] Phone Care Team Providers Care Data Security Consultant Name Role Phone Edvin Pruett MD Primary Care Provider [phone] Encounter Details Date Type Department Care Team (Late st Contact Info) Description 07/25/2019 Procedure Pass [facility] Endoscopy Admitting Dept Virtual Department [address] [place] [address] Social History Tobacco Use Types Packs/Day Years [...] on filedocumented in this encounter Care Teams Data Security Consultant Relationship Specialty Start Date End Date Edvin Pruett MD [address] [place] [address] PCP - General Internal Medicine 07/04/19 documented as of this encounter Additional Source Comments The information contained in this document represents components of the legal health record. It is not the complete legal health record.[facility]
[2025-01-26 09:00] LABS: Hematocrit 40.5 % (37.0-47.0); Hemoglobin 13.6 g/dl (12.0-16.0); Imm Gran Abs Auto 0.03 X10*3/uL (0.00-0.03); Imm Gran Pct Auto 0.3 % (0.0-0.4); Lymphocytes Absolute Auto 1.2 X10*3/uL (1.2-4.9); Mean Corpuscular HGB Conc 33.6 g/dl (31.0-35.0); Mean Corpuscular Hemoglobin 30.0 pg (27.0-33.0); Mean Corpuscular Volume 89.2 fL (80.0-98.0); NRBC Abs Auto 0.000 X10*3/uL (0.0-0.012); NRBC Pct Auto 0.0 /100WBC (0.0-0.2); Platelet Count 217 X10*3/uL (160-400); Red Blood Count 4.54 X10*6/uL (4.20-5.50); White Blood Count 8.6 X10*3/uL (4.8-10.8)
[2025-01-26 09:07] LABS: Alanine Aminotransferase 6 U/L (0-31); Albumin Level 4.4 g/dL (3.5-5.0); Alkaline Phosphatase 85 U/L (39-117); Anion Gap 13 (12-20); Aspartate Amino Transferase 20 U/L (5-31); Blood Urea Nitrogen 12 mg/dL (9-16); Calcium 9.9 mg/dL (8.4-10.2); Carbon Dioxide 25 mmol/L (22-29); Chloride 108 mmol/L (96-108); Creatinine Clr Calc Pharmacy 76.6; Estimated Glomerular Filt Rate > 60; Potassium 3.9 mmol/L (3.3-5.1); Sodium 142 mmol/L (135-145); Total Protein 6.7 g/dL (6.5-8.0)
[2025-01-26 09:53] LABS: Appearance Urine Clear; Glucose Urine UA Negative (Negative); PH 7.0 (5.0-9.0); Specific Gravity - Urine 1.010 (1.005-1.025); UMIC TRIGGER UACC YES
[2025-01-26 10:05] LABS: UACC Culture Trigger YES
[2025-01-26 11:14] VITALS: BP 161/76; PULSE 68; RESP 18; TEMP 36.6; O2SAT 96
[2025-01-26 12:51] VITALS: BP 169/77; PULSE 63; RESP 18; TEMP 36.6; O2SAT 97
[2025-01-26 15:17] VITALS: BP 169/77; PULSE 63; RESP 18; TEMP 36.6; O2SAT 97
[2025-01-26 15:25] VITALS: BP 174/74; PULSE 74; RESP 18; TEMP 36.7; O2SAT 93
== END 2025-01-26 15:50 | disposition home or self-care (01) ==
PROVIDERS: Registered Nurse Emergency; Emergency Provider Emergency Medicine; PCP Internal Medicine
DX: M54.16 Radiculopathy, lumbar region (principal); R10.9 Unspecified abdominal pain
CPT/HCPCS: 36415; 74176; 80053; 81001; 85025; 87086; 96374; 96375; 99284; 99285; J1885; J2270; J2405

== ENCOUNTER → 2025-01-26 08:34 | Outpatient (BNV) | payer MEDICARE, SELFPAY | PROVIDERS: Emergency Provider Emergency Medicine; PCP Internal Medicine; Visit Provider Radiology Diagnostic Radiology | DX: N20.0 Calculus of kidney (principal) | CPT/HCPCS: 74176 ==

== ENCOUNTER 2025-03-10 15:21 | Emergency (ER) | payer MEDICARE, SELFPAY ==
--- NOTE | ~2025-03-10 | CT_ITS ---
EXAMINATION: CT ANGIOGRAM HEAD AND NECK CLINICAL INFORMATION: Word finding difficulty, rule out stroke/LVO. COMPARISON: No prior CT angiography. Noncontrast head CT dated earlier same day. Correlation made with MRI brain 07/29/2022. TECHNIQUE: Test bolus sequences and head and neck intravenous bolus administration 70 mL of Omnipaque 350. Helical imaging was performed in the axial plane from the aortic arch to the skull vertex. A [address] head was also obtained. The data was processed at the ct technologist's workstation for generation of MIP sequences. Angled MIPs and volume rendered reformatted images were also generated at an offline 3D workstation. Stenoses are assessed in accordance with NASCET criteria unless otherwise indicated. This CT examination was performed using dose optimization techniques as appropriate, variously including the following: *Automated exposure control *Adjustment of mA and/or kV according to patient size (this includes techniques or standardized protocols for targeted exams where dose is matched to indication/reason for exam; i.e. extremities or head) *Use of iterative reconstruction technique FINDINGS: NECK CTA: -AORTIC ARCH: Normal in caliber. Moderate atheromatous calcification. Three-vessel branching pattern. -GREAT VESSEL ORIGINS: Widely patent. No stenosis. -RIGHT COMMON CAROTID ARTERY: Normal in course and caliber to the level of the bifurcation. -CERVICAL RIGHT INTERNAL CAROTID ARTERY: Normal opacification without focal stenosis or occlusion. Remaining vessel is patent and tortuous into the skull base -LEFT COMMON CAROTID ARTERY: Normal in course and caliber to the level of the bifurcation. -CERVICAL LEFT INTERNAL CAROTID ARTERY: Calcific atherosclerotic disease of the carotid bulb and proximal internal carotid artery causing approximate 30% stenosis. Remaining vessel is patent and tortuous into the skull base. -CERVICAL RIGHT VERTEBRAL ARTERY: Codominant. Normal in origin, course and caliber into the skull base. -CERVICAL LEFT VERTEBRAL ARTERY: Codominant. Normal in origin, course and caliber into the skull base. OTHER, SOFT TISSUES: -No lymphadenopathy or mass. No abnormal fluid collection or soft tissue swelling. -Mildly heterogeneous thyroid without definable nodule. -Imaged superior mediastinal structures demonstrate a patulous appearing esophagus. -Imaged lung apices demonstrate mild biapical scarring, and mild hypoventilatory changes with Mosaic attenuation. CTA OF THE BRAIN: -INTRACRANIAL INTERNAL CAROTID ARTERIES: Calcific atherosclerotic disease of the intracranial internal carotid arteries without occlusion or flow-limiting stenosis. Patent ophthalmic artery origins. -RIGHT ANTERIOR CEREBRAL ARTERY: Normal A1 segment.. Normal arborization of the distal segments. -LEFT ANTERIOR CEREBRAL ARTERY: Normal A1 segment.. Normal arborization of the distal segments. -ANTERIOR COMMUNICATING ARTERY: Normal. -RIGHT MIDDLE CEREBRAL ARTERY: Normal M1 segment of the MCA without focal stenosis or occlusion. Normal bifurcation. Normal arborization of the distal segments. -LEFT MIDDLE CEREBRAL ARTERY: Normal M1 segment of the MCA without focal stenosis or occlusion. Normal bifurcation. Normal arborization of the distal segments. -RIGHT VERTEBRAL ARTERY V4: Normal in course and caliber. Normal PICA branch. -LEFT VERTEBRAL ARTERY V4: Normal in course and caliber. There is an AICA/PICA -BASILAR ARTERY: Normal without focal stenosis or occlusion. Normal appearance of the proximal superior cerebellar arteries. Normal basilar tip. -RIGHT POSTERIOR CEREBRAL ARTERY: Normal P1 segment. Normal opacification of the distal INDOOR LANDSCAPER/GARDENER segments. -LEFT POSTERIOR CEREBRAL ARTERY: Normal P1 segment. Normal opacification of the distal INDOOR LANDSCAPER/GARDENER segments. -POSTERIOR COMMUNICATING ARTERIES: Normal opacification of the superior sagittal, straight, transverse, and sigmoid sinuses. No venous thrombosis. No space-occupying hemorrhage or definite evolving infarct. CT/CT angio head neck STROKE IMPRESSION: CTA NECK: 1. There is an approximate 30% stenosis of the left ICA at the origin due to mixed soft and calcific plaque. 2. There is otherwise no hemodynamically significant stenosis, occlusion, dissection, or aneurysm of the major cervical arterial vasculature. 3. There is moderate atheromatous calcification of the aortic arch. Great vessels are patent. 4. Incidental note made of a patulous cervical esophagus. CTA HEAD: 1. There is no hemodynamically significant stenosis, occlusion, dissection, or aneurysm of the major intracranial arterial vasculature. 2. The major cortical and dural venous sinuses are patent. 3. There is no space-occupying hemorrhage or evolving infarct. Electronically signed by: Leonel Ma MD 03/10/2025 04:09 PM EDT
--- NOTE | ~2025-03-10 | CT_ITS ---
EXAMINATION: CT HEAD WITHOUT CONTRAST (STROKE PROTOCOL) CLINICAL INFORMATION: Stroke protocol. Word finding difficulty, history of TIA. COMPARISON: 01/14/2025. TECHNIQUE: Contiguous axial imaging was performed from the skull base to vertex without intravenous administration of contrast. This CT examination was performed using dose optimization techniques as appropriate, variously including the following: *Automated exposure control *Adjustment of mA and/or kV according to patient size (this includes techniques or standardized protocols for targeted exams where dose is matched to indication/reason for exam; i.e. extremities or head) *Use of iterative reconstruction technique FINDINGS: There is no evidence of intracranial hemorrhage or extra-axial fluid collection. There is no mass effect, or edema. No CT evidence of acute territorial infarct. Ventricles, sulci, and cisterns are normal in size and configuration for patient age. No hydrocephalus. No midline shift. Negative hyperdense MCA sign. Negative insular ribbon sign. Patchy periventricular and deep white matter hypoattenuation is consistent with moderate small vessel ischemic changes. Normal pituitary. Atheromatous calcification of the bilateral carotid siphons. Globes and orbital contents image normally. No extracranial soft tissue abnormalities. The paranasal sinuses, mastoid air cells, and tympanic cavities are normally aerated. No suspicious bony abnormalities. There are no acute fractures evident. CT/CT head for STROKE IMPRESSION: No acute intracranial abnormality. No CT evidence of acute territorial infarct. This critical result was discussed with of the [facility] at 15:41 hours on 03/10/2025. It was ascertained that the content and urgency of the report was understood at the time of direct communication. Electronically signed by: Leonel Ma MD 03/10/2025 03:43 PM EDT
--- NOTE | 2025-03-10 15:29 | ECG_ITS ---
Test Reason : STROKE ALERT Blood Pressure : */* mmHG Vent. Rate : 74 BPM Atrial Rate : 74 BPM P-R Int : 174 ms QRS Dur : 84 ms QT Int : 416 ms P-R-T Axes : 22 -28 12 degrees QTcB Int : 461 ms Normal sinus rhythm Moderate voltage criteria for LVH, may be normal variant ( R in aVL , Qamar product ) Borderline ECG When compared with ECG of 14-Jan-2025 20:09, No significant change was found Referred By: Tal Gill Electronically Signed By: Chato Landon
[2025-03-10 15:35] VITALS: BP 167/99; PULSE 77; O2SAT 97; BMI 28.6
[2025-03-10] MEDS: iohexoL 350 MG/ML 75 ML INFUS..BTL 70 ML IV (15:45)
[2025-03-10 15:54] LABS: Glucose, Whole Blood 105 mg/dL (60-115)
[2025-03-10 15:58] VITALS: BP 155/77; PULSE 74; RESP 12; TEMP 36.6; O2SAT 94
--- NOTE | 2025-03-10 16:09 | PC.NURSE ---
pt comes in via EMS from home. she was speaking to her sister on the phone and had sudden onset word finding issues and called EMS. reports similar symptoms when she had a TIA 3 years ago. On arrival pt is not having a hard time finding words and reports symptom improvement. NSR on tele monitor. CT done on arrival, EKG done. lab work pending.
[2025-03-10 16:37] LABS: MANUAL DIFF FLAG NO
[2025-03-10 16:40] LABS: Hematocrit 40.1 % (37.0-47.0); Hemoglobin 12.9 g/dl (12.0-16.0); Imm Gran Abs Auto 0.01 X10*3/uL (0.00-0.03); Imm Gran Pct Auto 0.2 % (0.0-0.4); Lymphocytes Absolute Auto 1.4 X10*3/uL (1.2-4.9); Mean Corpuscular HGB Conc 32.2 g/dl (31.0-35.0); Mean Corpuscular Hemoglobin 29.9 pg (27.0-33.0); Mean Corpuscular Volume 92.8 fL (80.0-98.0); NRBC Abs Auto 0.000 X10*3/uL (0.0-0.012); NRBC Pct Auto 0.0 /100WBC (0.0-0.2); Platelet Count 232 X10*3/uL (160-400); Red Blood Count 4.32 X10*6/uL (4.20-5.50); White Blood Count 5.8 X10*3/uL (4.8-10.8)
[2025-03-10 16:46] LABS: INTERNATIONAL NORM RATIO 1.0 (0.9-1.1); Prothrombin Time 11.8 SEC (10.9-12.4)
[2025-03-10 16:48] LABS: Partial Thromboplastin Time 26.6 SEC (26.7-34.1)
[2025-03-10 17:03] LABS: Stroke Lab Use COMPLETE
[2025-03-10 17:05] LABS: Alanine Aminotransferase 9 U/L (0-31); Albumin Level 4.1 g/dL (3.5-5.0); Alkaline Phosphatase 99 U/L (39-117); Anion Gap 11 (12-20); Aspartate Amino Transferase 40 U/L (5-31); Blood Urea Nitrogen 11 mg/dL (9-16); Calcium 9.8 mg/dL (8.4-10.2); Carbon Dioxide 26 mmol/L (22-29); Chloride 110 mmol/L (96-108); Cholesterol 139 mg/dL (<200); Creatinine Clr Calc Pharmacy 68.6; Estimated Glomerular Filt Rate > 60; HDL Cholesterol 58 mg/dL (>40); Potassium 4.3 mmol/L (3.3-5.1); Sodium 143 mmol/L (135-145); Total Protein 6.4 g/dL (6.5-8.0); Triglycerides 142 mg/dL (<150)
[2025-03-10 17:10] LABS: Troponin-I High Sensitivity < 2.7 ng/L (<3.5-17.0)
--- NOTE | 2025-03-10 17:22 | ED_ITS ---
HPI - Neuro Symptoms/Deficit General Chief Complaint: Stroke Stated Complaint: ?STROKE,14:50 SPEECH ISSUE,BP 175/103 Time Seen by Provider: 03/10/25 15:28 Source: patient Mode of arrival: EMS Limitations: no limitations History of Present Illness ED Provider: Dr. Tal Gill HPI Narrative: 82-year-old female with pertinent history of ascending aortic aneurysm, essential hypertension, hypothyroidism, mixed hyperlipidemia, TIAs who presents to the emergency department for evaluation of difficulty with word finding. The patient was with her sister when she had trouble speaking and finding words. Last well-known time was 14:40 hours. By the time she came to the emergency department she believes that her symptoms almost resolved but she still was having some difficulty with word finding.. Marketing Proposal Coordinator vital signs revealed a blood pressure of 167/99, heart rate 77, respiratory 18, O2 saturation 97% on room room air . Point of care glucose was 150 Patient states she has had similar presentations in the past with a TIA several months ago. The patient was admitted on 07/28/2022 for probable TIA. That time, MRI revealed no and feet abnormalities or stroke. The patient states that since that time she has been taking 81 mg aspirin daily. Related Data Home Medications ?Medication ?Instructions ?Recorded ?Confirmed levothyroxine 88 mcg tablet 88 mcg PO DAILY 07/28/22 0 08/14/24 clonidine HCl 0.2 mg tablet 0.2 mg PO BID 10/30/22 pravastatin 40 mg tablet 40 mg PO BEDTIME 10/30/22 epinephrine 0.3 mg/0.3 mL 0.3 mg IM ONCE 01/30/2307/27 injection, auto-injector losartan 50 mg tablet 50 mg PO DAILY 01/30/2307/27 famotidine 40 mg tablet mg PO BID 02/12/24 08/14/24 Previous Rx's ?Medication ?Instructions ?Recorded aspirin 81 mg tablet,delayed 81 mg PO DAILY #30 tabs 0 07/29/22 release meclizine 12.5 mg tablet 12.5 mg PO TID PRN dizziness #20 06/18/24 tabs lidocaine 5 % topical patch 1 patch topical DAILY #15 ea 01/26/25 prednisone 20 mg tablet 20 mg PO DAILY #5 tabs 01/26 Allergies Allergy/AdvReac Type Severity Reaction Status Date / Time amoxicillin (Amoxicillin) Allergy Intermediate RASH Verified 03/10/25 15:41 cantaloupe Allergy Unknown Verified 03/10/25 15:41 fish derived (fish) Allergy Anaphylaxis Verified 03/10/25 15:41 shellfish derived Allergy Anaphylaxis Verified 03/10/25 15:41 gabapentin AdvReac Unknown Verified 03/10/25 15:41 Review of Systems 2 Review of Systems: Yes all other systems are reviewed and are negative [facility] Past Medical History [facility] Narrative: Social history: She denies tobacco, alcohol or drug use. Medical History Ascending aortic aneurysm Hypothyroidism Hyperlipidemia Vertigo HTN (hypertension) Family History Family History Mother No problems noted. Father No problems noted. Social History Social History Alcohol intake: never Patient Tobacco Use Status: Never used Tobacco Smoked in Last 30 Days: No Second Hand Smoke Exposure: No Use of substances other than those prescribed or required for medical reasons: No Advance Directives: Yes Advance Directives Information Provided: No Advance Directives on File: No service: No Current occupational status: retired Physical Exam 2 Vital Signs: Vital Signs: Last Vital Signs Temp 97.5 F 03/10/25 18:34 Pulse 74 03/10/25 18:34 Resp 16 03/10/25 18:34 BP 165/86 H 03/10/25 18:34 Pulse Ox 98 03/10/25 18:34 O2 Del Method Room Air 03/10/25 18:34 BMI result Body Mass Index 28.6 Vital signs revealed an elevated blood pressure of 165/86 otherwise unremarkable Exam: General: Awake, alert in no distress Head: Normocephalic, atraumatic EENT: PERRL, sclera and conjunctiva are normal, mouth with no erythema or exudates Neck: Supple, no adenopathy Lung: breath sounds symmetric, no wheezing, no rales and no rhonchi Chest: symmetric movement, nontender Heart: regular rate and rhythm, normal S1, S2 no murmurs or rubs Abdomen: soft, non-tender, nondistended, normal bowel sounds Back: no vertebral tenderness, no CVAT Extremities: no deformities, moves all extremities symmetrically, no edema Neuro: General: ?Awake, alert, oriented, normal speech Cranial nerves: ?Cranial nerves ?2 through 12 intact Strength: ?Moves all extremities symmetrically, strength 5/5 Cerebellar: ?Good kkzsta-ot-ayal-to-finger, good rapid finger movement, normal heel to call Psych: Pleasant, cooperative Medications Administered Discontinued Medications Generic Name Dose Route Start Last Admin Trade Name Kentrell PRN Reason Stop Dose Admin Aspirin 81 mg 03/10/25 17:58 03/10/25 18:30 Aspirin Enteric Coated 81 Mg Tablet. PO 03/10/25 17:59 81 mg ONCE ONE Administration Iohexol 70 ml 03/10/25 15:45 03/10/25 15:45 Iohexol 350 Mg/Ml 75 Ml Infus..Btl IV 03/10/25 15:46 70 ml ONCE ONE Administration Medical Decision Making Medical Decision Making MDM Narrative: 82-year-old female with pertinent history of ascending aortic aneurysm, essential hypertension, hypothyroidism, mixed hyperlipidemia, TIAs who presents to the emergency department for evaluation of difficulty with word finding. The patient was with her sister when she had trouble speaking and finding words. Last well-known time was 14:40 hours. By the time she came to the emergency department she believes that her symptoms almost resolved but she still was having some difficulty with word finding.. Marketing Proposal Coordinator vital signs revealed a blood pressure of 167/99, heart rate 77, respiratory 18, O2 saturation 97% on room room air . Point of care glucose was 150 Patient states she has had similar presentations in the past with a TIA several months ago. The patient was admitted on 07/28/2022 for probable TIA. That time, MRI revealed no and feet abnormalities or stroke. The patient states that since that time she has been taking 81 mg aspirin daily. Vital signs revealed an elevated blood pressure otherwise unremarkable. Patient reported difficulty with word finding but her neurologic exam was unremarkable, speech appeared to be normal and NIH stroke scale was 0. Differential diagnosis: ?Includes but is not limited to stroke, TIA, large vessel occlusion anemia, electrolyte abnormality Course: My independent interpretation patient's laboratory evaluation is as follows: CBC was normal. Coags normal. Chloride elevated 110. AST elevated 40. Triglycerides normal. Total cholesterol and LDL cholesterol not elevated. HDL cholesterol elevated at 58. CT head revealed no acute stroke but the patient did have patchy periventricular and deep white matter hypoattenuation consistent with moderate small vessel ischemic changes. CT angiogram of the head and neck did not reveal any significant stenosis or large vessel occlusion. Patient's presentation is consistent with a TIA, the patient reports having multiple TIAs in the past. Given today's negative workup I do not think that the patient needs to be admitted for further evaluation of the stroke and I did discuss this with her and her son. The patient takes aspirin 81 mg daily and I advised her to take two 81 mg coated aspirin daily in order to try to prevent further TIA or future stroke. Recommended the patient follow up with our Neurology group to discuss further management of recurrent TIAs. Patient was given printed and verbal instructions and discharged home Differential Diagnosis Differential Diagnoses: The differential diagnosis associated with the presentation includes (See above) Admission/Observation Consideration of admission/observation: Escalation of care including admission/observation considered (Your) Lab Data MDM Lab Attestation statement: I reviewed the patient's lab results. 03/10/25 16:29 03/10/25 16:29 Labs: Lab Results 03/10/25 03/10/25 Range/Units 15:51 16:29 WBC 5.8 (4.8-10.8) X10*3/uL RBC 4.32 (4.20-5.50) X10*6/uL Hgb 12.9 (12.0-16.0) g/dl Hct 40.1 (37.0-47.0) % MCV 92.8 (80.0-98.0) fL MCH 29.9 (27.0-33.0) pg MCHC 32.2 (31.0-35.0) g/dl RDW 12.5 (11.0-16.0) % Plt Count 232 (160-400) X10*3/uL MPV 10.5 (9.4-12.3) fL Immature Gran % (Auto) 0.2 (0.0-0.4) % Neut % (Auto) 58.2 (45-73) % Lymph % (Auto) 24.3 (20-40) % Armstrong % (Auto) 13.0 H (2-11) % Eos % (Auto) 3.8 (0-4) % Baso % (Auto) 0.5 (0-2) % Lymph # (Auto) 1.4 (1.2-4.9) X10*3/uL Armstrong # (Auto) 0.8 (0.1-1.2) X10*3/uL Eos # (Auto) 0.2 (0.0-0.4) X10*3/uL Baso # (Auto) 0.0 (0.0-0.2) X10*3/uL Abs Immat Gran (auto) 0.01 (0.00-0.03) X10*3/uL Absolute Neuts (auto) 3.4 (2.0-8.3) x10*3/uL Absolute Nucleated RBC 0.000 (0.0-0.012) X10*3/uL Nucleated RBC % (auto) 0.0 (0.0-0.2) /100WBC PT 11.8 (10.9-12.4) SEC INR 1.0 (0.9-1.1) APTT 26.6 L (26.7-34.1) SEC Sodium 143 (135-145) mmol/L Potassium 4.3 (3.3-5.1) mmol/L Chloride 110 H (96-108) mmol/L Carbon Dioxide 26 (22-29) mmol/L Anion Gap 11 L (12-20) BUN 11 (9-16) mg/dL Creatinine 0.63 (0.5-1.4) mg/dL Estim Creat Clear Calc 68.6 Estimated GFR > 60 POC Glucose 105 (60-115) mg/dL Random Glucose 109 (60-115) mg/dL Calcium 9.8 (8.4-10.2) mg/dL Total Bilirubin 0.4 (0.0-1.0) mg/dL Direct Bilirubin 0.2 (0.0-0.5) mg/dL AST 40 H (5-31) U/L ALT 9 (0-31) U/L Alkaline Phosphatase 99 (39-117) U/L Troponin I High Sens < 2.7 (<3.5-17.0) ng/L Total Protein 6.4 L (6.5-8.0) g/dL Albumin 4.1 (3.5-5.0) g/dL Triglycerides 142 (<150) mg/dL Cholesterol 139 (<200) mg/dL LDL Cholesterol, Calc 53 (<100) mg/dL HDL Cholesterol 58 (>40) mg/dL Radiology Impression Discussion of test interpretation with radiology: I have reviewed the radiologist's reading. Radiologist Impression: CT head for STROKE IMPRESSION: No acute intracranial abnormality. No CT evidence of acute territorial infarct. This critical result was discussed with of the [facility] at 15:41 hours on 03/10/2025. It was ascertained that the content and urgency of the report was understood at the time of direct communication. Electronically signed by: Leonel Ma MD 03/10/2025 03:[address] angio head neck STROKE IMPRESSION: CTA NECK: 1. There is an approximate 30% stenosis of the left ICA at the origin due to mixed soft and calcific plaque. 2. There is otherwise no hemodynamically significant stenosis, occlusion, dissection, or aneurysm of the major cervical arterial vasculature. 3. There is moderate atheromatous calcification of the aortic arch. Great vessels are patent. 4. Incidental note made of a patulous cervical esophagus. CTA HEAD: 1. There is no hemodynamically significant stenosis, occlusion, dissection, or aneurysm of the major intracranial arterial vasculature. 2. The major cortical and dural venous sinuses are patent. 3. There is no space-occupying hemorrhage or evolving infarct. Electronically signed by: Leonel Ma MD 03/10/2025 04:09 PM EDT Dictated By: Leonel aM MD Independent Historian Clinical information obtained from an independent historian. History obtained from or confirmed by: Other (Son) External Record Review External record reviewed: Inpatient record Chronic Conditions Patient?s care impacted by: Hypertension and Other (Hyperlipidemia) NIH Stroke Scale Internal: Initial- Upon Arrival Level of Consciousness: Alert Level of Consciousness Questions: Answers both questions correctly Level of Consciousness Commands: Performs both tasks correctly Best Gaze: Normal Visual: No visual loss Facial Palsy: Normal Motor Arm (Right): No drift Motor Arm (Left): No drift Motor Leg (Right): No drift Motor Leg (Left): No drift Limb Ataxia: Absent Sensory: Normal Best Language: No aphasia Dysarthia: Normal Extinction and Inattention: No abnormality Score: 0 Critical Care Time Critical Care Time Critical Care Time: Yes Total Critical Care Time: 35 Attestation: Critical Care: The patient was critically ill with a high probability of imminent or life threatening deterioration. I spent greater than 30 minutes of discontinuous time evaluating the patient,delivering critical care at the bedside, discussing and evaluating pertinent data with consultants. Critical care time does not include time spent performing separately billable procedures or teaching. Total time spent performing critical care was 35 minutes. Discharge Plan Discharge Clinical Impression: Transient ischemic attack Patient Disposition: Home, Self-Care Instructions: Transient Ischemic Attack (ED) Additional Instructions: Your blood work was unremarkable The CT scan of your head did not reveal any bleeding in your brain or large stroke CT angiogram of your head and neck did not reveal any large blood clots causing a stroke Your symptoms are consistent with a TIA most likely caused by microvascular stenosis (small blood vessels that are narrow) I want you to change your aspirin to an enteric coated aspirin 81 mg. Take 2 pills once a day to increase your antiplatelet effect and hopefully prevent you from having another TIA or a stroke. I want you to follow-up with our neurologist to see if that has anything else to do to prevent you from having TIAs or a stroke. Call their office tomorrow to try to get the next available appointment either with the neurologist or with the advance practice provider (PA or nurse practitioner). Continue taking your other medications as prescribed. Please return to the emergency department if your symptoms get worse or if you develop any symptoms that are concerning to you. Prescriptions: No Action levothyroxine 88 mcg tablet 88 mcg PO DAILY aspirin 81 mg Tablet,Delayed Release (Dr/Ec) 81 mg PO DAILY Qty: 30 0RF clonidine HCl 0.2 mg tablet 0.2 mg PO BID pravastatin 40 mg tablet 40 mg PO BEDTIME lidocaine 5 % adhesive patch,medicated 1 patch topical DAILY Qty: 15 0RF Rx Instructions: leave on most painful area for up to 12 hrs prednisone 20 mg tablet 20 mg PO DAILY Qty: 5 0RF meclizine 12.5 mg tablet 12.5 mg PO TID PRN (Reason: dizziness) Qty: 20 0RF losartan 50 mg tablet 50 mg PO DAILY epinephrine 0.3 mg/0.3 mL auto-injector 0.3 mg IM ONCE famotidine 40 mg tablet PO BID Referrals: Nany Astorga MD [Physician, Neurology] Referral Note: Recurrent TIA's seen in ED for difficulty with word finding, workup negative increase the patient's aspirin from 81 mg to 162 mg daily. Interventions: ED Discharge Assessment Last Done: 03/10/25 18:34 Discharge Date/Time: 03/10/25 18:35 Print Language: Sami
[2025-03-10] MEDS: Aspirin Enteric Coated 81 MG TABLET.DR PO (18:30)
--- OUTSIDE RECORDS SUMMARY | 2025-03-10 18:31 | XMS_ITS | Encounter Summary ---
Author Organization [facility] Address [address] [facility] [address] [place] [phone] Phone Care Team Providers Care Bread Slicer Machine Name Role Phone Edvin Pruett MD Primary Care Provider [phone] Encounter Details Date Type Department Care Team (Late st Contact Info) Description 05/15/2022 Procedure Pass [facility] Endoscopy Admitting Dept Virtual Department [address] [place] [address] Social History Tobacco Use Types Packs/Day Years [...] on filedocumented in this encounter Care Teams Bread Slicer Machine Relationship Specialty Start Date End Date Edvin Pruett MD [address] [place] [address] [place] [address] PCP - General Internal Medicine 07/04/19 documented as of this encounter Additional Source Comments The information contained in this document represents components of the legal health record. It is not the complete legal health record.[facility]
--- OUTSIDE RECORDS SUMMARY | 2025-03-10 18:31 | XMS_ITS | Encounter Summary ---
Author Organization [facility] Address [address] [facility] [address] [place] [phone] Phone Care Team Providers Care Survey Research Manager Name Role Phone Edvin Pruett MD Primary Care Provider Encounter Details Date Type Department Care Team (Late st Contact Info) Description 02/17/2021 Procedure Pass [facility] Endoscopy Admitting Dept Virtual Department [address] [place] [address] Social History Tobacco Use Types Packs/Day Years [...] on filedocumented in this encounter Care Teams Survey Research Manager Relationship Specialty Start Date End Date Edvin Pruett MD [address] [place] [address] [place] [address] PCP - General Internal Medicine 07/04/19 documented as of this encounter Additional Source Comments The information contained in this document represents components of the legal health record. It is not the complete legal health record.[facility]
--- OUTSIDE RECORDS SUMMARY | 2025-03-10 18:31 | XMS_ITS | Encounter Summary ---
Author Organization [facility] Address [address] [facility] [address] [place] [address] Phone Care Team Providers Care Pig Farm Manager Name Role Phone Edvin Pruett MD Primary Care Provider [phone] Encounter Details Date Type Department Care Team (Late st Contact Info) Description 10/23/2024 Procedure Pass [facility] Endoscopy Admitting Dept Virtual Department [address] [place] [address] Social History Tobacco Use Types Packs/Day Years [...] on filedocumented in this encounter Care Teams Pig Farm Manager Relationship Specialty Start Date End Date Edvin Pruett MD [address] [place] [address] PCP - General Internal Medicine 07/04/19 documented as of this encounter Additional Source Comments The information contained in this document represents components of the legal health record. It is not the complete legal health record.[facility]
--- OUTSIDE RECORDS SUMMARY | 2025-03-10 18:31 | XMS_ITS | Encounter Summary ---
Author Organization [facility] Address [address] [facility] [address] [place] [address] Phone Care Team Providers Care Handstitching Machine Armhole Feller Name Role Phone Edvin Pruett MD Primary Care Provider [phone] Encounter Details Date Type Department Care Team (Late st Contact Info) Description 01/22/2023 Procedure Pass [facility] Endoscopy Admitting Dept Virtual Department [address] [place] [address] Social History Tobacco Use Types Packs/Day Years [...] on filedocumented in this encounter Care Teams Handstitching Machine Armhole Feller Relationship Specialty Start Date End Date Edvin Pruett MD [address] [place] [address] [address] [place] [address] PCP - General Internal Medicine 07/04/19 documented as of this encounter Additional Source Comments The information contained in this document represents components of the legal health record. It is not the complete legal health record.[facility]
--- OUTSIDE RECORDS SUMMARY | 2025-03-10 18:31 | XMS_ITS | Encounter Summary ---
Author Organization [facility] Address [address] [facility] [address] [place] [address] Phone Care Team Providers Care Train Station Server Name Role Phone Edvin Pruett MD Primary Care Provider [phone] Encounter Details Date Type Department Care Team (Latest Contact Info) Description 08/01/2019 Transcribe Orders Virtual Department [address] [place] [address] Tello Quezada MD [address] [place] [phone] [email or web address] RUQ abdominal pain (Primary [...] the visualized upper abdominal visceral structures. POS [id number] Narrative 12/18/2019 10:10 AM EDT COMPARISON: None [...] of the visualized upperabdominal visceral structures. POS [id number] us Tello Quezada MD IMG US ABDOMEN Final Result documented in this encounter Visit Diagnoses Diagnosis RUQ abdominal pain- Primary Abdominal pain, right upper quadrant RUQ abdominal pain Abdominal pain, right upper quadrant documented in this encounter Care Teams Train Station Server Relationship Specialty Start Date End Date Edvin Pruett MD [address] [place] [address] PCP - General Internal Medicine 07/04/19 documented as of this encounter Additional Source Comments The information contained in this document represents components of the legal health record. It is not the complete legal health record.[facility]
--- OUTSIDE RECORDS SUMMARY | 2025-03-10 18:31 | XMS_ITS | Clinical Summary ---
Author Organization [facility] Address [address] [address] Phone Care Team Providers Care Barrel Bander Name Role Phone Thalia Lao MD Primary Care Provider [phone] Allergies Active Allergy Reactions Criticality Noted Date [...] Event [facility] Endoscopy Admitting Dept Virtual Department [address] [place] [address] Amanda Root MD Welch Marsh, Elizabeth J, MD 12/11/2024 11:00 AM EDT - 12/11/2024 11:30 AM EDT Surgery [facility] Endoscopy Admitting Dept Virtual Department [address] [place] [address] Rashmi Esquivel MD ESOPHAGOGASTRODUODENOSCOPY WITH DILATATION 12/11/2024 9:52 AM EDT - 12/11/2024 12:34 PM EDT Hospital Encounter [facility]oscopy Admitting Dept Virtual Department [address] [place] [address] Rashmi Esquivel MD Discharge Disposition: Home or Self Care 12/11/2024 Procedure Pass [facility] Endoscopy Admitting Dept Virtual Department [address] [place] [address] from Last 3 Months Social History Tobacco [...] 2016 Adult Td,Tdap Booster 04/15/2023 04/15/2013, 000 INFLUENZA VACCINE (#1) 2024 , 03/02/2022, 04/14/2021, Additional history exists COVID-19 VACCINE ( season) 2025 05/15/2022, 04/14/2021, 08/12/2020, Additional history exists ZOSTER [...] this topic Medical Devices Implanted Type Area Librarian Helper Device Identifier Shelf Expiration Date Model / [...] Esquivel MD - 12/11/2024 11:24 AM EDT [facility] Patient Name: Madalyn Vera Attending MD:: RASHMI ESQUIVEL MD, Procedure Date: 12/11/2024 11:24 AM Date of : 1940 Age: 84 Admit Type: Outpatient Gender: Female Room: [place] [address] Referring MD: THALIA LAO MD Exam Type: [...] 15mm inflation which was more in keeping wth theendoscopic appearance. 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 All rights reserved. The codes documented in this report are preliminary and upon automotive design drafter reviewmay be revised to meet current compliance requirements. Procedure Date: 12/11/2024 11:24:27 AM [address] [place] [address] Thalia Lao MD GI PROCEDURE ORDERABLES Final Result from Last 3 Months Insurance [place] [id number] [facility] MEDEX SUPPLEMENT [facility] MEDICARE PART A & B theRightAPI [place] MEDEX SUPPLEMENT [facility] & B ClaimReturn MEDEX SUPPLEMENT MEDICARE PART A & B ClaimReturn MEDEX SUPPLEMENT MEDICARE PART A & B [facility] MEDEX SUPPLEMENT [facility] & B [facility] MEDEX SUPPLEMENT [facility] MEDICARE PART A & B [facility]EX SUPPLEMENT [facility] & B [place] [place] MEDEX SUPPLEMENT MEDICARE PART A & B ClaimReturn MEDEX SUPPLEMENT [facility] QMB Advance Directives For more information, please contact: [phone] (9AM - 5PM Cindy/[facility], Sunday-Sunday) Documents on File Type Date Recorded Patient Inspector Weights And Measures Expl anation Healthcare Proxy 12/31/2019 2:23 PM Care Teams Barrel Bander Relationship Specialty Start Date End Date Thalia Lao MD [address] [place] [address] [place] [address] [phone] PCP - General Internal Medicine 07/04/19 Additional Source Comments The information contained in this document represents components of the legal health record. It is not the complete legal health record.[facility]
--- OUTSIDE RECORDS SUMMARY | 2025-03-10 18:31 | XMS_ITS | Encounter Summary ---
Author Organization [facility] Address [address] [facility] [address] [place] [address] Phone Care Team Providers Care Box Liner Name Role Phone Edvin Pruett MD Primary Care Provider [phone] Encounter Details Date Type Department Care Team (Late st Contact Info) Description 05/24/2022 Procedure Pass [facility] Endoscopy Admitting Dept Virtual Department [address] [place] [address] Social History Tobacco Use Types Packs/Day Years [...] on filedocumented in this encounter Care Teams Box Liner Relationship Specialty Start Date End Date Edvin Pruett MD [address] [place] [address] [place] [address] PCP - General Internal Medicine 07/04/19 documented as of this encounter Additional Source Comments The information contained in this document represents components of the legal health record. It is not the complete legal health record.[facility]
--- OUTSIDE RECORDS SUMMARY | 2025-03-10 18:31 | XMS_ITS | Encounter Summary ---
Author Organization [facility] Address [address] [facility] [address] [place] [address] Phone Care Team Providers Care Deputy Sheriff Lieutenant Name Role Phone Edvin Pruett MD Primary Care Provider [phone] Encounter Details Date Type Department Care Team (Late st Contact Info) Description 11/18/2020 Procedure Pass [facility] Endoscopy Admitting Dept Virtual Department [address] [place] [address] Social History Tobacco Use Types Packs/Day Years [...] on filedocumented in this encounter Care Teams Deputy Sheriff Lieutenant Relationship Specialty Start Date End Date Edvin Pruett MD [address] [place] [address] [place] [address] PCP - General Internal Medicine 07/04/19 documented as of this encounter Additional Source Comments The information contained in this document represents components of the legal health record. It is not the complete legal health record.[facility]
--- OUTSIDE RECORDS SUMMARY | 2025-03-10 18:31 | XMS_ITS | Patient Health Record ---
Author Organization [facility] Address [address] [place] [address] Care Team Providers Care Tool Maker Apprentice Name Role Phone Edvin Pruett MD Primary Care Provider Carlota Saldaña Unavailable [phone] Allergies Allergen (clinical drug ingredient) Drug/Non Drug Allergy documented on EMR Reaction Allergy Type Onset Date Status amoxicillin Amoxicillin Unknown Drug Allergy Act maria del rosario Cod Liver Oil Unknown Drug Allergy Act maria del rosario Tuna Flavor Unknown Drug Allergy Activ e Gifford Unknown Drug Allergy Active gabapentin Gabapentin Unknown [...] X ray : Foot, left 2V 03/17/2013 [id number] NAIL, 1-5 12/10/2014 Insurance Providers Payer Name Payer Address Payer Phone Subscriber Number Group Number Insured Name Patient Relationship to Insured Coverage Start Date Coverage End Date Medicare National Govt Svcs Inc [address] [place] [address] [id number] Madalyn Nesbitt Self - patient is the insured [employer] [address] [place] [address] [id number] Madalyn Nesbitt Self - patient is the insured Medical (General) History Medical History History ICD Code Arthritis fibromyalgia headaches/migraines high blood pressure thyroid disorder measles mumps chicken pox Back,Hip,and Knee pain Cataracts TIA Transfusions Surgical History Surgery Date(Month/Year) vein surgery left knee replacement right knee replacement throat surgery
--- OUTSIDE RECORDS SUMMARY | 2025-03-10 18:31 | XMS_ITS | Encounter Summary ---
Author Organization [facility] Address [address] [facility] [address] [place] [address] Phone Care Team Providers Care Colorectal Surgeon Name Role Phone Edvin Pruett MD Primary Care Provider [phone] Encounter Details Date Type Department Care Team (Late st Contact Info) Description 12/11/2024 Procedure Pass [facility] Endoscopy Admitting Dept Virtual Department [address] [place] [address] Social History Tobacco Use Types Packs/Day Years [...] 10:33 AM EDT Jaylin Still RN * [place] Suicide Severity Rating Scale (Screener/Recent Self-Report) Question [...] on filedocumented in this encounter Care Teams Colorectal Surgeon Relationship Specialty Start Date End Date Edvin Pruett MD [address] [place] [address] PCP - General Internal Medicine 07/04/19 documented as of this encounter Additional Source Comments The information contained in this document represents components of the legal health record. It is not the complete legal health record.[facility]
--- OUTSIDE RECORDS SUMMARY | 2025-03-10 18:31 | XMS_ITS | Encounter Summary ---
Author Organization [facility] Address [address] [facility] [address] [place] [address] Phone Care Team Providers Care Route Sales Specialist Name Role Phone Edvin Pruett MD Primary Care Provider [phone] Encounter Details Date Type Department Care Team (Latest Contact Info) Description 05/17/2021 Transcribe Orders Virtual Department [address] [place] [address] Tila Rojas NP [address] [place] [address] Diarrhea, unspecified type Social History Tobacco Use [...] chronic findings as above. us Tila Oneilrobson INSURANCE AGENCY MANAGER IMG US ABDOMEN Final Res ult documented in this encounter Visit Diagnoses Diagnosis Diarrhea, unspecified type Diarrhea, unspecified type documented in this encounter Care Teams Route Sales Specialist Relationship Specialty Start Date End Date Edvin Pruett MD [address] [place] [address] PCP - General Internal Medicine 07/04/19 documented as of this encounter Additional Source Comments The information contained in this document represents components of the legal health record. It is not the complete legal health record.[facility]
--- OUTSIDE RECORDS SUMMARY | 2025-03-10 18:31 | XMS_ITS | Encounter Summary ---
Author Organization [facility] Address [address] [facility] [address] [place] [address] Phone Care Team Providers Care Sensor Operator Name Role Phone Edvin Pruett MD Primary Care Provider [phone] Encounter Details Date Type Department Care Team (Latest Contact Info) Description 12/28/2020 Transcribe Orders Virtual Department [address] [place] [address] Tila Rojas NP [address] [place] [address] Right lower quadrant abdominal pain (Primary Dx); [...] is apparent. POS [id number] us Tila Rojas SHOW HOST/HOSTESS IMG US ABDOMEN Final Res ult documented in this encounter Visit Diagnoses Diagnosis Right lower quadrant abdominal pain- Primary Constipation, unspecified constipation type Right lower quadrant abdominal pain Constipation, unspecified constipation type documented in this encounter Care Teams Sensor Operator Relationship Specialty Start Date End Date Edvin Pruett MD [address] [place] [address] PCP - General Internal Medicine 07/04/19 documented as of this encounter Additional Source Comments The information contained in this document represents components of the legal health record. It is not the complete legal health record.[facility]
--- OUTSIDE RECORDS SUMMARY | 2025-03-10 18:31 | XMS_ITS | Encounter Summary ---
Author Organization [facility] Address [address] [facility] [address] [place] [address] Phone Care Team Providers Care Oil Extractor Name Role Phone Edvin Pruett MD Primary Care Provider [phone] Encounter Details Date Type Department Care Team (Late st Contact Info) Description 09/22/2021 Procedure Pass [facility] Endoscopy Admitting Dept Virtual Department [address] [place] [address] Social History Tobacco Use Types Packs/Day Years [...] on filedocumented in this encounter Care Teams Oil Extractor Relationship Specialty Start Date End Date Edvin Pruett MD [address] [place] [address] [place] [address] PCP - General Internal Medicine 07/04/19 documented as of this encounter Additional Source Comments The information contained in this document represents components of the legal health record. It is not the complete legal health record.[facility]
--- OUTSIDE RECORDS SUMMARY | 2025-03-10 18:31 | XMS_ITS | Encounter Summary ---
Author Organization [facility] Address [address] [facility] [address] [place] [address] Phone Care Team Providers Care Shoe Polisher Name Role Phone Unknown, Unknown Primary Care Provider Edvin Waterman MD Primary Care Provider [phone] Encounter Details Date Type Department Care Team (Latest Contact Info) Description 06/30/2019 Transcribe Orders Virtual Department [address] [place] [address] Tello Quezada MD [address] [place] [address] [email or web address] Achalasia (Primary Dx) Social History Tobacco Use [...] barium paste on bread. No comparison. The chemical librarian film of the neck shows no soft [...] and barium paste onbread. No comparison. The chemical librarian film of the neck shows no soft [...] cardiospasm documented in this encounter Care Teams Shoe Polisher Relationship Specialty Start Date End Date Unknown, Unknown, MD PCP - General 07/01/19 07/03/19 Edvin Pruett MD [address] [place] [address] PCP - General Internal Medicine 07/04/19 documented as of this encounter Additional Source Comments The information contained in this document represents components of the legal health record. It is not the complete legal health record.[facility]
--- OUTSIDE RECORDS SUMMARY | 2025-03-10 18:31 | XMS_ITS | Encounter Summary ---
Author Organization [facility] Address [address] [facility] [address] [place] [address] Phone Care Team Providers Care Cat Driver Name Role Phone Edvin Pruett MD Primary Care Provider Encounter Details Date Type Department Care Team (Latest Contact Info) Description 01/20/2021 Transcribe Orders [address] [place] [address] Tila Rojas, CANDELARIO [address] [place] [address] Frequent bowel movements (Primary Dx) Social History [...] EDT) IgA 236 70 - 400 mg/dL [facility] Blood 01/20/2021 9:32 AM EDT 01/20/2021 9:37 AM EDT Tila Rojas NP LAB BLOOD ORDERABLES Sarah l Result [facility] [address] [place] [address] * Tissue transglutaminase IgA (01/20/2021 9:32 AM EDT) TTG IGA ANTIBODY <1.2 <4.0 (Negative) U/mL [facility] Blood 01/20/2021 9:32 AM EDT 01/20/2021 9:37 AM EDT us Tila Rojas LINE MAINTENANCE TECHNICIAN LAB BLOOD ORDERABLES Sarah l Result [facility] [address] [place] [address] documented in this encounter Visit Diagnoses Diagnosis Frequent bowel movements- Primary Other symptoms involving digestive system documented in this encounter Care Teams Cat Driver Relationship Specialty Start Date End Date Edvin Pruett MD [address] [place] [address] PCP - General Internal Medicine 07/04/19 documented as of this encounter Additional Source Comments The information contained in this document represents components of the legal health record. It is not the complete legal health record.[facility]
--- OUTSIDE RECORDS SUMMARY | 2025-03-10 18:31 | XMS_ITS | Encounter Summary ---
Author Organization [facility] Address [address] [facility] [address] [place] [address] Phone Care Team Providers Care New Accounts Representative Name Role Phone Edvin Pruett MD Primary Care Provider [phone] Encounter Details Date Type Department Care Team (Late st Contact Info) Description 12/18/2023 Procedure Pass [facility] Endoscopy Admitting Dept Virtual Department [address] [place] [address] Social History Tobacco Use Types Packs/Day Years [...] on filedocumented in this encounter Care Teams New Accounts Representative Relationship Specialty Start Date End Date Edvin Pruett MD [address] [place] [address] PCP - General Internal Medicine 07/04/19 documented as of this encounter Additional Source Comments The information contained in this document represents components of the legal health record. It is not the complete legal health record.[facility]
--- OUTSIDE RECORDS SUMMARY | 2025-03-10 18:31 | XMS_ITS | Encounter Summary ---
Author Organization [facility] Address [address] [facility] [address] [place] [address] Phone Care Team Providers Care Hose Inspector And Patcher Name Role Phone Edvin Pruett MD Primary Care Provider [phone] Encounter Details Date Type Department Care Team (Late st Contact Info) Description 12/30/2019 Procedure Pass [facility], Ct Scan - [address] [address] Social History Tobacco Use Types Packs/Day Years [...] on filedocumented in this encounter Care Teams Hose Inspector And Patcher Relationship Specialty Start Date End Date Edvin Pruett MD [address] [place] [address] [address] [place] [address] PCP - General Internal Medicine 07/04/19 documented as of this encounter Additional Source Comments The information contained in this document represents components of the legal health record. It is not the complete legal health record.[facility]
--- OUTSIDE RECORDS SUMMARY | 2025-03-10 18:31 | XMS_ITS | Encounter Summary ---
Author Organization [facility] Address [address] [facility] [address] [place] [address] Phone Care Team Providers Care Cadd Operator Name Role Phone Edvin Pruett MD Primary Care Provider [phone] Encounter Details Date Type Department Care Team (Late st Contact Info) Description 07/25/2019 Procedure Pass [facility] Endoscopy Admitting Dept Virtual Department [address] [place] [address] Social History Tobacco Use Types Packs/Day Years [...] on filedocumented in this encounter Care Teams Cadd Operator Relationship Specialty Start Date End Date Edvin Pruett MD [address] [place] [address] PCP - General Internal Medicine 07/04/19 documented as of this encounter Additional Source Comments The information contained in this document represents components of the legal health record. It is not the complete legal health record.[facility]
--- OUTSIDE RECORDS SUMMARY | 2025-03-10 18:31 | XMS_ITS | Encounter Summary ---
Author Organization [facility] Address [address] [facility] [address] [place] [address] Phone Care Team Providers Care Assistant Case Manager Name Role Phone Edvin Pruett MD Primary Care Provider Encounter Details Date Type Department Care Team (Latest Contact Info) Description 06/22/2021 Transcribe Orders Virtual Department [address] [place] [address] Tila Rojas NP [address] [place] [address] Hemangioma, unspecified site (Primary Dx) Social History [...] Primary documented in this encounter Care Teams Assistant Case Manager Relationship Specialty Start Date End Date Edvin Pruett MD [address] [place] [address] [address] [place] [address] PCP - General Internal Medicine 07/04/19 documented as of this encounter Additional Source Comments The information contained in this document represents components of the legal health record. It is not the complete legal health record.[facility]
[2025-03-10 18:33] VITALS: BP 165/86; PULSE 74; RESP 16; TEMP 36.4; O2SAT 98
[2025-03-10 18:34] VITALS: BP 165/86; PULSE 74; RESP 16; TEMP 36.4; O2SAT 98
[2025-03-11 15:44] LABS: INR Whole Blood 1.1 (0.9-1.1); Prothrombin Time Whole Blood 12.7 sec (11.1-13.5)
== END 2025-03-10 18:35 | disposition home or self-care (01) ==
PROVIDERS: Emergency Provider Emergency Medicine Emergency Medical Services; PCP Internal Medicine
DX: G45.9 Transient cerebral ischemic attack, unspecified (principal); I10 Essential (primary) hypertension; Z79.899 Other long term (current) drug therapy; Z86.73 Personal history of transient ischemic attack (TIA), and cerebral infarction without residual deficits
CPT/HCPCS: 36415; 70450; 70496; 70498; 80048; 80061; 80076; 82947; 84484; 85025; 85610; 85730; 93005; 99284; 99291; Q9967

== ENCOUNTER → 2025-03-10 15:28 | Outpatient (BNV) | payer MEDICARE, SELFPAY | PROVIDERS: Emergency Provider Emergency Medicine Emergency Medical Services; PCP Internal Medicine; Visit Provider Radiology Diagnostic Radiology | DX: R47.89 Other speech disturbances (principal); Z86.73 Personal history of transient ischemic attack (TIA), and cerebral infarction without residual deficits | CPT/HCPCS: 70450; 70496; 70498 ==

== ENCOUNTER → 2025-03-10 15:29 | Outpatient (BNV) | payer MEDICARE, SELFPAY | PROVIDERS: Emergency Provider Emergency Medicine Emergency Medical Services; PCP Internal Medicine; Visit Provider Internal Medicine Cardiovascular Disease | DX: I63.9 Cerebral infarction, unspecified (principal) | CPT/HCPCS: 93010 ==

== ENCOUNTER 2025-04-05 03:01 | Emergency (ER) | payer MEDICARE, SELFPAY ==
[2025-04-05] VITALS (10 sets, daily range): BP systolic 142–176; BP diastolic 72–98; PULSE 64–78; RESP 16–20; TEMP 36.4–36.7; O2SAT 94–97; BMI 29.1
--- NOTE | 2025-04-05 | ECG_ITS ---
Test Reason : DIZZINESS Blood Pressure : */* mmHG Vent. Rate : 62 BPM Atrial Rate : 62 BPM P-R Int : 174 ms QRS Dur : 88 ms QT Int : 436 ms P-R-T Axes : 12 -25 3 degrees QTcB Int : 442 ms Normal sinus rhythm Moderate voltage criteria for LVH, may be normal variant ( R in aVL , [place] product ) Borderline ECG When compared with ECG of 10-Mar-2025 16:02, No significant change was found Referred By: Generic ED Physician Electronically Signed By: Chato Landon
--- NOTE | 2025-04-05 03:18 | PC.NURSE ---
Pt assessed immediately on arrival by RN, no focal deficits noted. Pt a&ox4, speaking in clear complete sentences and answering questions appropriately. Strength equal in all extremities, denies any numbness or tingling. No facial droop noted. Denies chest pain or SOB.
--- OUTSIDE RECORDS SUMMARY | 2025-04-05 03:31 | XMS_ITS | Encounter Summary ---
Author Organization [facility] Address [address] [facility] [address] [place] [address] Phone Care Team Providers Care Adventure Education Teacher Name Role Phone Edvin Pruett MD Primary Care Provider [phone] Encounter Details Date Type Department Care Team (Late st Contact Info) Description 05/24/2022 Procedure Pass [facility] Endoscopy Admitting Dept Virtual Department [address] [place] [address] Social History Tobacco Use Types Packs/Day Years [...] as of this encounter Plan of Treatment Scheduled Procedures Name Priority Associated Diagnoses Date/Ti me ESOPHAGOGASTRODUODENOSCOPY Achalasia of esophagus Esophageal stenosis documented as of this encounter Visit Diagnoses Not on filedocumented in this encounter Care Teams Adventure Education Teacher Relationship Specialty Start Date End Date Edvin Pruett MD [address] [place] [address] [address] [place] [address] PCP - General Internal Medicine 07/04/19 documented as of this encounter Additional Source Comments The information contained in this document represents components of the legal health record. It is not the complete legal health record.[facility]
--- OUTSIDE RECORDS SUMMARY | 2025-04-05 03:31 | XMS_ITS | Encounter Summary ---
Author Organization [facility] Address [address] [facility] [address] [place] [address] Phone Care Team Providers Care Orthopedics Pediatric Physician Name Role Phone Edvin Pruett MD Primary Care Provider [phone] Encounter Details Date Type Department Care Team (Latest Contact Info) Description 12/28/2020 Transcribe Orders Virtual Department 30 [place] [address] Tila Rojas NP [address] [place] [address] Right lower quadrant abdominal pain (Primary Dx); [...] Esophageal stenosis documented as of this encounter Results * [...] pain is apparent. POS [id number] us Tila Chapin Crystal DISPLAY FABRICATOR IMG US ABDOMEN Final Res ult documented in this encounter Visit Diagnoses Diagnosis Right lower quadrant abdominal pain- Primary Constipation, unspecified constipation type Right lower quadrant abdominal pain Constipation, unspecified constipation type documented in this encounter Care Teams Orthopedics Pediatric Physician Relationship Specialty Start Date End Date Edvin Pruett MD [address] [place] [address] PCP - General Internal Medicine 07/04/19 documented as of this encounter Additional Source Comments The information contained in this document represents components of the legal health record. It is not the complete legal health record.[facility]
--- OUTSIDE RECORDS SUMMARY | 2025-04-05 03:31 | XMS_ITS | Encounter Summary ---
Author Organization [facility] Address [address] [facility] [address] [place] [address] Phone Care Team Providers Care Handle Rounder Operator Name Role Phone Edvin Pruett MD Primary Care Provider [phone] Encounter Details Date Type Department Care Team (Latest Contact Info) Description 08/01/2019 Transcribe Orders Virtual Department 30 [place] [address] Tello Quezada MD [address] [place] [address] [email or web address] RUQ abdominal pain (Primary [...] the visualized upper abdominal visceral structures. POS [id number] Narrative 12/18/2019 10:10 AM EDT COMPARISON: None [...] of the visualized upperabdominal visceral structures. POS [id number] us Tello Quezada MD IMG US ABDOMEN Final Result documented in this encounter Visit Diagnoses Diagnosis RUQ abdominal pain- Primary Abdominal pain, right upper quadrant RUQ abdominal pain Abdominal pain, right upper quadrant documented in this encounter Care Teams Handle Rounder Operator Relationship Specialty Start Date End Date Edvin Pruett MD [address] [place] [address] PCP - General Internal Medicine 07/04/19 documented as of this encounter Additional Source Comments The information contained in this document represents components of the legal health record. It is not the complete legal health record.[facility]
--- OUTSIDE RECORDS SUMMARY | 2025-04-05 03:31 | XMS_ITS | Encounter Summary ---
Author Organization [facility] Address [address] [facility] [address] [place] [address] Phone Care Team Providers Care Ash Pit Worker Name Role Phone Edvin Pruett MD Primary Care Provider [phone] Encounter Details Date Type Department Care Team (Late st Contact Info) Description 12/30/2019 Procedure Pass [facility], Ct Scan - [address] [address] Social History Tobacco Use Types Packs/Day Years [...] on filedocumented in this encounter Care Teams Ash Pit Worker Relationship Specialty Start Date End Date Edvin Pruett MD [address] [place] [address] [address] [place] [address] PCP - General Internal Medicine 07/04/19 documented as of this encounter Additional Source Comments The information contained in this document represents components of the legal health record. It is not the complete legal health record.[facility]
--- OUTSIDE RECORDS SUMMARY | 2025-04-05 03:31 | XMS_ITS | Clinical Summary ---
Author Organization [facility] Address [address] [place] [address] Care Team Providers Care All Terrain Vehicle Technician Name Role Phone Unavailable Primary Care Provider [...] (VERAMYST) 27.5 mcg/actuation nasal spray Place [address] [place] into the nostril(s) once daily Active cholecalciferol, [...] Plan of Treatment Not on file Insurance [facility]
--- OUTSIDE RECORDS SUMMARY | 2025-04-05 03:31 | XMS_ITS | Encounter Summary ---
Author Organization [facility] Address [address] [facility] [address] [place] [address] Phone Care Team Providers Care Alligator Trapper Name Role Phone Unknown, Unknown Primary Care Provider Edvin Waterman MD Primary Care Provider [phone] Encounter Details Date Type Department Care Team (Latest Contact Info) Description 06/30/2019 Transcribe Orders Virtual Department 30 [place] [address] Tello Quezada MD [address] [place] [address] [email or web address] Achalasia (Primary Dx) Social History Tobacco Use Types Packs/Day Years Used Date Smoking Tobacco: Never Assessed Comments Unknown Sex and Gender Information Value Date Recorded Sex Assigned at Not on file Legal Sex Female 5:29 PM EST Gender Identity Not on file Sexual Orientation Not on file documented as of this encounter Plan of Treatment Scheduled Procedures Name Priority Associated Diagnoses Date/Ti oh ESOPHAGOGASTRODUODENOSCOPY Achalasia of esophagus Esophageal stenosis documented [...] barium paste on bread. No comparison. The inside sales advertising executive film of the neck shows no soft [...] and barium paste onbread. No comparison. The inside sales advertising executive film of the neck shows no soft [...] on 07/04/2019 9:51 AM Tello Quezada MD IMG FL MISC Final Result documented in this encounter Visit Diagnoses Diagnosis Achalasia- Primary Achalasia and cardiospasm Achalasia Achalasia and cardiospasm documented in this encounter Care Teams Alligator Trapper Relationship Specialty Start Date End Date Unknown, Unknown, MD PCP - General 07/01/19 07/03/19 dEvin Pruett MD [address] [place] [address] PCP - General Internal Medicine 07/04/19 documented as of this encounter Additional Source Comments The information contained in this document represents components of the legal health record. It is not the complete legal health record.[facility]
--- OUTSIDE RECORDS SUMMARY | 2025-04-05 03:31 | XMS_ITS | Encounter Summary ---
Author Organization [facility] Address [address] [facility] [address] [place] [address] Phone Care Team Providers Care Balloon Pilot Name Role Phone Edvin Pruett MD Primary Care Provider [phone] Encounter Details Date Type Department Care Team (Late st Contact Info) Description 07/25/2019 Procedure Pass [facility] Endoscopy Admitting Dept Virtual Department [address] [place] [address] Social History Tobacco Use Types Packs/Day Years [...] Scheduled Procedures Name Priority Associated Diagnoses Date/Ti tn ESOPHAGOGASTRODUODENOSCOPY Achalasia of esophagus Esophageal stenosis documented as of this encounter Visit Diagnoses Not on filedocumented in this encounter Care Teams Balloon Pilot Relationship Specialty Start Date End Date Edvin Pruett MD [address] [place] [address] [address] [place] [address] PCP - General Internal Medicine 07/04/19 documented as of this encounter Additional Source Comments The information contained in this document represents components of the legal health record. It is not the complete legal health record.[facility]
--- OUTSIDE RECORDS SUMMARY | 2025-04-05 03:31 | XMS_ITS | Encounter Summary ---
Author Organization [facility] Address [address] [facility] [address] [place] [address] Phone Care Team Providers Care Contact Center Team Lead Name Role Phone Edvin Pruett MD Primary Care Provider [phone] Encounter Details Date Type Department Care Team (Late st Contact Info) Description 05/15/2022 Procedure Pass [facility] Endoscopy Admitting Dept Virtual Department [address] [place] [address] Social History Tobacco Use Types Packs/Day Years [...] on filedocumented in this encounter Care Teams Contact Center Team Lead Relationship Specialty Start Date End Date Edvin Pruett MD [address] [place] [address] [address] [place] [address] PCP - General Internal Medicine 07/04/19 documented as of this encounter Additional Source Comments The information contained in this document represents components of the legal health record. It is not the complete legal health record.[facility]
--- OUTSIDE RECORDS SUMMARY | 2025-04-05 03:31 | XMS_ITS | Encounter Summary ---
Author Organization [facility] Address 399 [facility] [address] [place] [address] Phone Care Team Providers Care Insole Stiffener Name Role Phone Edvin Pruett MD Primary Care Provider [phone] Encounter Details Date Type Department Care Team (Late st Contact Info) Description 11/18/2020 Procedure Pass [facility] Endoscopy Admitting Dept Virtual Department [address] [place] [address] Social History Tobacco Use Types Packs/Day Years [...] on filedocumented in this encounter Care Teams Insole Stiffener Relationship Specialty Start Date End Date Edvin Pruett MD [address] [place] [address] [address] [place] [address] PCP - General Internal Medicine 07/04/19 documented as of this encounter Additional Source Comments The information contained in this document represents components of the legal health record. It is not the complete legal health record.[facility]
--- OUTSIDE RECORDS SUMMARY | 2025-04-05 03:32 | XMS_ITS | Encounter Summary ---
Author Organization [facility] Address 399 [facility] [address] [place] [address] Phone Care Team Providers Care Machinist Name Role Phone Edvin Pruett MD Primary Care Provider [phone] Encounter Details Date Type Department Care Team (Late st Contact Info) Description 12/11/2024 Procedure Pass [facility] Endoscopy Admitting Dept Virtual Department 30 [place] [address] Social History Tobacco Use Types Packs/Day Years [...] 10:33 AM EDT Jaylin Still RN * [place] Suicide Severity Rating Scale (Screener/Recent Self-Report) Question Answer Date of Assessment Author 1. Wish to be (Past 1 Month) No 12/11/2024 10:33 AM JOSET Jaylin Still RN 2. Non-Specific Active Suicidal Thoughts (Past 1 Month) No 12/11/2024 10:33 AM EDT Jaylin Still RN 6. Suicidal Behavior (Lifetime) No 12/11/2024 10:33 AM EDT Jaylin Still RN documented as of this encounter Plan of Treatment Scheduled Procedures Name Priority Associated Diagnoses Date/Ti ks ESOPHAGOGASTRODUODENOSCOPY Achalasia of esophagus Esophageal stenosis documented as of this encounter Visit Diagnoses Not on filedocumented in this encounter Care Teams Machinist Relationship Specialty Start Date End Date Edvin Pruett MD [address] [place] [address] PCP - General Internal Medicine 07/04/19 documented as of this encounter Additional Source Comments The information contained in this document represents components of the legal health record. It is not the complete legal health record.[facility]
--- OUTSIDE RECORDS SUMMARY | 2025-04-05 03:32 | XMS_ITS | Encounter Summary ---
Author Organization [facility] Address [address] [facility] [address] [place] [address] Phone Care Team Providers Care Water Reuse Program Manager Name Role Phone Edvin Pruett MD Primary Care Provider [phone] Encounter Details Date Type Department Care Team (Latest Contact Info) Description 01/20/2021 Transcribe Orders [address] [place] [address] iTla Rojas, CANDELARIO [address] [place] [address] Frequent bowel movements (Primary Dx) Social History [...] EDT) IgA 236 70 - 400 mg/dL [facility] Blood 01/20/2021 9:32 AM EDT 01/20/2021 9:37 AM EDT us Tila Rojas ACADEMIC ASSISTANT LAB BLOOD BKR ORDERABLES Final Result [facility] [address] [place] [address] * Tissue transglutaminase IgA (01/20/2021 9:32 AM EDT) TTG IGA ANTIBODY <1.2 <4.0 (Negative) U/mL [facility]IOR Blood 01/20/2021 9:32 AM EDT 01/20/2021 9:37 AM EDT Tila Dari Rojas NP LAB BLOOD BKR ORDERABLES Final Result [facility] [address] [place] [address] documented in this encounter Visit Diagnoses Diagnosis Frequent bowel movements- Primary Other symptoms involving digestive system documented in this encounter Care Teams Water Reuse Program Manager Relationship Specialty Start Date End Date Edvin Pruett MD [address] [place] [address] PCP - General Internal Medicine 07/04/19 documented as of this encounter Additional Source Comments The information contained in this document represents components of the legal health record. It is not the complete legal health record.[facility]
--- OUTSIDE RECORDS SUMMARY | 2025-04-05 03:32 | XMS_ITS | Encounter Summary ---
Author Organization [facility] Address [address] [facility] [address] [place] [address] Phone Care Team Providers Care Health Care Facilities Inspector Name Role Phone Edvin Pruett MD Primary Care Provider [phone] Encounter Details Date Type Department Care Team (Late st Contact Info) Description 09/22/2021 Procedure Pass [facility] Endoscopy Admitting Dept Virtual Department [address] [place] [address] Social History Tobacco Use Types Packs/Day Years [...] on filedocumented in this encounter Care Teams Health Care Facilities Inspector Relationship Specialty Start Date End Date Edvin Pruett MD [address] [place] [address] [address] [place] [address] PCP - General Internal Medicine 07/04/19 documented as of this encounter Additional Source Comments The information contained in this document represents components of the legal health record. It is not the complete legal health record.[facility]
--- OUTSIDE RECORDS SUMMARY | 2025-04-05 03:32 | XMS_ITS | Encounter Summary ---
Author Organization [facility] Address [address] [facility] [address] [place] [address] Phone Care Team Providers Care Laborer Shaft Sinking Name Role Phone Edvin Pruett MD Primary Care Provider [phone] Encounter Details Date Type Department Care Team (Late st Contact Info) Description 10/23/2024 Procedure Pass [facility] Endoscopy Admitting Dept Virtual Department 30 [place] [address] Social History Tobacco Use Types Packs/Day Years [...] on filedocumented in this encounter Care Teams Laborer Shaft Sinking Relationship Specialty Start Date End Date Edvin Pruett MD [address] [place] [address] PCP - General Internal Medicine 07/04/19 documented as of this encounter Additional Source Comments The information contained in this document represents components of the legal health record. It is not the complete legal health record.[facility]
--- OUTSIDE RECORDS SUMMARY | 2025-04-05 03:32 | XMS_ITS | Encounter Summary ---
Author Organization [facility] Address [address] [facility] [address] [place] [address] Phone Care Team Providers Care Court Security Officer Name Role Phone Edvin Pruett MD Primary Care Provider Encounter Details Date Type Department Care Team (Late st Contact Info) Description 02/17/2021 Procedure Pass [facility] Endoscopy Admitting Dept Virtual Department [address] [place] [address] Social History Tobacco Use Types Packs/Day Years [...] on filedocumented in this encounter Care Teams Court Security Officer Relationship Specialty Start Date End Date Edvin Pruett MD [address] [place] [address] [address] [place] [address] PCP - General Internal Medicine 07/04/19 documented as of this encounter Additional Source Comments The information contained in this document represents components of the legal health record. It is not the complete legal health record.[facility]
--- OUTSIDE RECORDS SUMMARY | 2025-04-05 03:32 | XMS_ITS | Encounter Summary ---
Author Organization [facility] Address [address] [facility] [address] [address] Phone Care Team Providers Care Consumer Product Advisor Name Role Phone Edvin Pruett MD Primary Care Provider Encounter Details Date Type Department Care Team (Latest Contact Info) Description 06/22/2021 Transcribe Orders Virtual Department 30 [place] [address] Tila Rojas NP [address] [place] [address] Hemangioma, unspecified site (Primary Dx) Social History [...] Primary documented in this encounter Care Teams Consumer Product Advisor Relationship Specialty Start Date End Date Edvin Pruett MD [address] [place] [address] [address] [place] [address] PCP - General Internal Medicine 2/7/20 documented as of this encounter Additional Source Comments The information contained in this document represents components of the legal health record. It is not the complete legal health record.[facility]
--- OUTSIDE RECORDS SUMMARY | 2025-04-05 03:32 | XMS_ITS | Encounter Summary ---
Author Organization [facility] Address [address] [facility] [address] [place] [address] Phone Care Team Providers Care International Account Representative Name Role Phone Edvin Pruett MD Primary Care Provider [phone] Encounter Details Date Type Department Care Team (Late st Contact Info) Description 01/22/2023 Procedure Pass [facility] Endoscopy Admitting Dept Virtual Department [address] [place] [address] Social History Tobacco Use Types Packs/Day Years [...] on filedocumented in this encounter Care Teams International Account Representative Relationship Specialty Start Date End Date Edvin Pruett MD [address] [address] PCP - General Internal Medicine 07/04/19 documented as of this encounter Additional Source Comments The information contained in this document represents components of the legal health record. It is not the complete legal health record.[facility]
--- OUTSIDE RECORDS SUMMARY | 2025-04-05 03:32 | XMS_ITS | Encounter Summary ---
Author Organization [facility] Address [address] [facility] [address] [place] [address] Phone Care Team Providers Care Stretcher Operator Name Role Phone Edvin Pruett MD Primary Care Provider Encounter Details Date Type Department Care Team (Latest Contact Info) Description 05/17/2021 Transcribe Orders Virtual Department 30 [place] [address] Tila Rojas NP [address] [place] [address] Diarrhea, unspecified type Social History Tobacco Use [...] Scheduled Procedures Name Priority Associated Diagnoses Date/Ti ri ESOPHAGOGASTRODUODENOSCOPY Achalasia of esophagus Esophageal stenosis documented [...] focal lesions. 2.Additional chronic findings as above. Tila Rojas COPYIST IMG US ABDOMEN Final Res ult documented in this encounter Visit Diagnoses Diagnosis Diarrhea, unspecified type Diarrhea, unspecified type documented in this encounter Care Teams Stretcher Operator Relationship Specialty Start Date End Date Edvin Pruett MD [address] [place] [address] PCP - General Internal Medicine 07/04/19 documented as of this encounter Additional Source Comments The information contained in this document represents components of the legal health record. It is not the complete legal health record.[facility]
--- OUTSIDE RECORDS SUMMARY | 2025-04-05 03:32 | XMS_ITS ---
Author Organization Unknown ENCOUNTERS Encounter Performer Location Date Diagnosis Diagnosis Status Emergency Generic ED Physician [facility] [address] [place] [phone] [phone] Pre Admit Generic ED Physician [facility] [address] [place] [phone] [id number] Emergency Tal [facility] [address] [place] [address] [phone] GALE [facility] [address] [place] [address] [phone] *Note: Encounters from your own facility or health system may be excluded. Allergies, Adverse Reactions, Alerts Allergen Type Severity Identification Date gabapentin drug allergy 3 [id number] cantaloupe drug allergy 3 20250126 shellfish derived drug allergy 3 20250126 fish derived drug allergy 3 20250126 amoxicillin drug allergy 3 20250126 Medications Name Date Quantity Days Supplied GPI Number
--- OUTSIDE RECORDS SUMMARY | 2025-04-05 03:32 | XMS_ITS | Encounter Summary ---
Author Organization [facility] Address [address] [facility] [address] [place] [address] Phone Care Team Providers Care Steel Finisher Name Role Phone Edvin Pruett MD Primary Care Provider [phone] Encounter Details Date Type Department Care Team (Late st Contact Info) Description 03/19/2025 Telephone [facility] [address] [place] [address] [phone] Rolly Corcoran [address] [place] [address] [email or web address] Social History Tobacco Use Types Packs/Day Years [...] on file documented as of this encounter Progress Notes * Rolly Corcoran - 03/31/2025 11:14 AM EST error documented in this encounter Plan of Treatment Scheduled Procedures Name Priority Associated Diagnoses Date/Ti me ESOPHAGOGASTRODUODENOSCOPY Achalasia of esophagus Esophageal stenosis documented as of this encounter Visit Diagnoses Not on filedocumented in this encounter Care Teams Steel Finisher Relationship Specialty Start Date End Date Edvin Pruett MD [address] [place] [address] PCP - General Internal Medicine 07/04/19 documented as of this encounter Additional Source Comments The information contained in this document represents components of the legal health record. It is not the complete legal health record.[facility]
--- OUTSIDE RECORDS SUMMARY | 2025-04-05 03:32 | XMS_ITS | Clinical Summary ---
Author Organization [facility] Address [address] [address] Phone Care Team Providers Care Life Science Teacher Name Role Phone Edvin Pruett MD Primary Care Provider [phone] Allergies Active Allergy Reactions Criticality Noted Date [...] Encounters Date Type Department Care Team Description 03/19/2025 Telephone [facility] [address] [place] [address] Rolly Corcoran 03/19/2025 Telephone [facility] [address] [place] [address] Tello Quezada MD Heartburn from Last 3 Months Social History Tobacco [...] 12/17/2023 12:08 PM EDT Plan of Treatment Scheduled Procedures Name Priority Associated Diagnoses Date/Ti me ESOPHAGOGASTRODUODENOSCOPY Achalasia of esophagus Esophageal stenosis Health Maintenance Due Date Last Done Comments [...] this topic Medical Devices Implanted Type Area Vaccinator Device Identifier Shelf Expiration Date Model / Serial / Lot Prosthetic Joint Prosthetic Joint Bilatera l: Knee Insurance MEDICARE PART A & B [facility] MEDEX SUPPLEMENT [facility] MEDICARE PART A & B [place] MEDEX SUPPLEMENT [address] [place], [place] [id number] MEDICARE PART A & B [employer] MEDEX SUPPLEMENT MEDICARE PART A & B [employer] MEDEX SUPPLEMENT MEDICARE PART A & B [employer] [facility]EX [facility]PP[facility] PART [facility] B [employer] MEDEX [facility] & B [employer] MEDEX SUPPLEMENT [facility] MEDICARE PART A & B [employer] MEDEX SUPPLEMENT MEDICARE PART A & B [employer] MEDEX SUPPLEMENT [place] [facility] Advance Directives For more information, please contact: [phone] (9AM - 5PM [facility], Sunday-Sunday) Documents on File Type Date Recorded Patient Geodetic Technician Expl anation Healthcare Proxy 12/31/2019 2:23 PM Care Teams Life Science Teacher Relationship Specialty Start Date End Date Edvin Pruett MD [address] [place] [id number] PCP - General Internal Medicine 07/04/19 Additional Source Comments The information contained in this document represents components of the legal health record. It is not the complete legal health record.[facility]
--- OUTSIDE RECORDS SUMMARY | 2025-04-05 03:32 | XMS_ITS | Encounter Summary ---
Author Organization [facility] Address [address] [facility] [address] [place] [phone] Phone Care Team Providers Care Substation Operator Apprentice Name Role Phone Edvin Pruett MD Primary Care Provider [phone] Encounter Details Date Type Department Care Team (Late st Contact Info) Description 12/18/2023 Procedure Pass [facility] Endoscopy Admitting Dept Virtual Department [address] [place] [address] Social History Tobacco Use Types Packs/Day Years [...] on filedocumented in this encounter Care Teams Substation Operator Apprentice Relationship Specialty Start Date End Date Edvin Pruett MD [address] [place] [phone] PCP - General Internal Medicine 07/04/19 documented as of this encounter Additional Source Comments The information contained in this document represents components of the legal health record. It is not the complete legal health record.[facility]
--- OUTSIDE RECORDS SUMMARY | 2025-04-05 03:32 | XMS_ITS | Patient Health Record ---
Author Organization [facility] Address [address] [place] [address] Care Team Providers Care Dry Cleaning Machine Operator Name Role Phone Edvin Pruett MD Primary Care Provider Carlota Saldaña Unavailable [phone] Allergies Allergen (clinical drug ingredient) Drug/Non Drug Allergy documented on EMR Reaction Allergy Type Onset Date Status amoxicillin Amoxicillin Unknown Drug Allergy Act maria del rosario Cod Liver Oil Unknown Drug Allergy Act maria del rosario Tuna Flavor Unknown Drug Allergy Activ e [place] Unknown Drug Allergy Active gabapentin Gabapentin Unknown [...] X ray : Foot, left 2V 03/17/2013 [id number] NAIL, 1-5 12/10/2014 Insurance Providers Payer Name Payer Address Payer Phone Subscriber Number Group Number Insured Name Patient Relationship to Insured Coverage Start Date Coverage End Date Medicare National Govt Svcs Inc [address] [place] [address] [id number] Madalyn Nesbitt Self - patient is the insured [employer] [address] [place] [address] [id number] Madalyn Nesbitt Self - patient is the insured Medical (General) History Medical History History ICD Code Arthritis fibromyalgia headaches/migraines high blood pressure thyroid disorder measles mumps chicken pox Back,Hip,and Knee pain Cataracts TIA Transfusions Surgical History Surgery Date(Month/Year) vein surgery left knee replacement right knee replacement throat surgery
[2025-04-05 04:09] LABS: MANUAL DIFF FLAG NO
[2025-04-05 04:11] LABS: Hematocrit 36.7 % (37.0-47.0); Hemoglobin 12.0 g/dl (12.0-16.0); Imm Gran Abs Auto 0.01 X10*3/uL (0.00-0.03); Imm Gran Pct Auto 0.2 % (0.0-0.4); Lymphocytes Absolute Auto 1.3 X10*3/uL (1.2-4.9); Mean Corpuscular HGB Conc 32.7 g/dl (31.0-35.0); Mean Corpuscular Hemoglobin 29.6 pg (27.0-33.0); Mean Corpuscular Volume 90.6 fL (80.0-98.0); NRBC Abs Auto 0.000 X10*3/uL (0.0-0.012); NRBC Pct Auto 0.0 /100WBC (0.0-0.2); Platelet Count 219 X10*3/uL (160-400); Red Blood Count 4.05 X10*6/uL (4.20-5.50); White Blood Count 6.4 X10*3/uL (4.8-10.8)
[2025-04-05 04:23] LABS: INTERNATIONAL NORM RATIO 1.1 (0.9-1.1); Prothrombin Time 13.0 SEC (11.2-13.5)
[2025-04-05 04:25] LABS: Alanine Aminotransferase 11 U/L (0-31); Albumin Level 4.1 g/dL (3.5-5.0); Alkaline Phosphatase 95 U/L (39-117); Anion Gap 12 (12-20); Aspartate Amino Transferase 23 U/L (5-31); Blood Urea Nitrogen 13 mg/dL (9-16); Calcium 9.9 mg/dL (8.4-10.2); Carbon Dioxide 26 mmol/L (22-29); Chloride 109 mmol/L (96-108); Creatinine Clr Calc Pharmacy 75.1; Estimated Glomerular Filt Rate > 60; Magnesium 2.1 mg/dL (1.6-2.6); Potassium 3.5 mmol/L (3.3-5.1); Sodium 143 mmol/L (135-145); Total Protein 6.2 g/dL (6.5-8.0)
[2025-04-05 04:29] LABS: COVID-19 Test Negative (Negative); IDNOW Serial# 152EDE1D; IDNOW Serial# 16C4AD1C; Influenza B2 Negative (Negative)
[2025-04-05 04:31] LABS: Troponin-I High Sensitivity 3.4 ng/L (<3.5-17.0)
--- NOTE | 2025-04-05 05:41 | PC.NURSE ---
pt ambulatory with steady gait to the bathroom, ua obtained. pt did report dizziness initially but stated it resolved after walking. states she does usually take meclizine but hasnt in a while. pt requested tylenol for LY.
[2025-04-05 05:53] LABS: Appearance Urine Clear; Glucose Urine UA Negative (Negative); PH 6.5 (5.0-9.0); Specific Gravity - Urine 1.015 (1.005-1.025); UMIC TRIGGER UACC YES
[2025-04-05 05:58] LABS: UACC Culture Trigger YES
--- NOTE | 2025-04-05 06:34 | ED.DIZZY ---
HPI - Dizziness General Chief Complaint: Dizziness Stated Complaint: hypertensive/dizzy/weak Time Seen by Provider: 04/05/25 06:17 History of Present Illness HPI Narrative: 82-year-old female with pertinent history of ascending aortic aneurysm, essential hypertension, hypothyroidism, mixed hyperlipidemia, TIAs who presents to the emergency department for evaluation weakness, dizziness and elevated blood pressure. The patient states she got up at 0130 hours to go to the bathroom. She states that when she got up she felt dizzy which she describes as an off-balance lightheaded sensation. She states that she felt weak at that time but was able to go to the bathroom and get back in bed. At 02:00 hours she was still awake and checked her blood pressure and her blood pressure was elevated which concerned her. The patient then called an ambulance and came to the emergency department for evaluation. At the time my evaluation the patient complained of feeling lightheaded, weak and a mild burning sensation located in the left scalp area of her head. Review of systems was negative for fever, chills, chest pain, shortness of breath, nausea, vomiting, diarrhea, dark stools, bloody stools. She states she has been eating and drinking well. The patient was admitted on 07/28/2022 for probable TIA. Workup included a MRI with no significant acute abnormalities or stroke. The patient states that since that time she has been taking 81 mg aspirin daily. Related Data Home Medications ?Medication ?Instructions ?Recorded ?Confirmed levothyroxine 88 mcg tablet 88 mcg PO DAILY 07/28/22 08/14/24 clonidine HCl 0.2 mg tablet 0.2 mg PO BID 10/30/22 08/14/24 pravastatin 40 mg tablet 40 mg PO BEDTIME 10/30/22 08/14/24 epinephrine 0.3 mg/0.3 mL 0.3 mg IM ONCE 01/30/23 08/14/24 injection, auto-injector losartan 50 mg tablet 50 mg PO DAILY 01/30/23 08/14/24 famotidine 40 mg tablet mg PO BID 02/12/24 08/14/24 Previous Rx's ?Medication ?Instructions ?Recorded aspirin 81 mg tablet,delayed 81 mg PO DAILY #30 tabs 07/29/22 release meclizine 12.5 mg tablet 12.5 mg PO TID PRN dizziness #20 06/18/24 tabs lidocaine 5 % topical patch 1 patch topical DAILY #15 ea 01/26/25 prednisone 20 mg tablet 20 mg PO DAILY #5 tabs 01/26/25 Allergies Allergy/AdvReac Type Severity Reaction Status Date / Time amoxicillin (Amoxicillin) Allergy Intermediate RASH Verified 04/05/25 03:08 cantaloupe Allergy Unknown Verified 04/05/25 03:08 fish derived (fish) Allergy Anaphylaxis Verified 04/05/25 03:08 shellfish derived Allergy Anaphylaxis Verified 04/05/25 03:08 gabapentin AdvReac Unknown Verified 04/05/25 03:08 Review of Systems Review of Systems: Yes all other systems are reviewed and are negative [facility] Past Medical History [facility] Narrative: social history: She denies tobacco, alcohol and drug use Medical History Ascending aortic aneurysm Hypothyroidism Hyperlipidemia Vertigo HTN (hypertension) Family History Family History Mother No problems noted. Father No problems noted. Social History Social History Alcohol intake: never Patient Tobacco Use Status: Never used Tobacco Second Hand Smoke Exposure: No Advance Directives: Yes Advance Directives Information Provided: Yes Advance Directives on File: No service: No Current occupational status: retired Physical Exam Vital Signs: Vital Signs: Last Vital Signs Temp 97.9 F 04/05/25 08:58 Pulse 66 04/05/25 08:58 Resp 18 04/05/25 08:58 BP 164/82 H 04/05/25 08:58 Pulse Ox 96 04/05/25 08:58 O2 Del Method Room Air 04/05/25 08:58 BMI result Body Mass Index 29.1 vital signs did reveal an elevated blood pressure otherwise unremarkable. Exam: General: Awake, alert in no distress Head: Normocephalic, atraumatic EENT: PERRL, sclera and conjunctiva are normal, mouth with no erythema or exudates Neck: Supple, no adenopathy Lung: breath sounds symmetric, no wheezing, no rales and no rhonchi Chest: symmetric movement, nontender Heart: regular rate and rhythm, normal S1, S2 no murmurs or rubs Abdomen: soft, non-tender, nondistended, normal bowel sounds Back: no vertebral tenderness, no CVAT Extremities: no deformities, moves all extremities symmetrically, no edema Neuro: General: Awake, alert, oriented, normal speech Cranial nerves: Cranial nerves 2-12 intact Strength: Moves all extremities symmetrically, strength 5/5 Cerebellar: Good gnnycj-dz-iziz-to-finger, good rapid finger movement, normal heel to call Psych: Pleasant, cooperative Medications Administered Discontinued Medications Generic Name Dose Route Start Last Admin Trade Name Kentrell PRN Reason Stop Dose Admin Acetaminophen 975 mg 04/05/25 05:41 04/05/25 05:56 Acetaminophen 325 Mg Tablet PO 04/05/25 05:42 975 mg ONCE ONE Administration Sodium Chloride 1,000 mls @ 999 mls/hr 04/05/25 07:01 04/05/25 08:24 Ns IV 04/05/25 08:01 Infused .Q1H1M STA Infusion Meclizine HCl 25 mg 04/05/25 06:36 04/05/25 06:43 Meclizine Hcl 25 Mg Tablet PO 04/05/25 06:37 25 mg ONCE STA Administration Medical Decision Making Medical Decision Making MDM Narrative: 82-year-old female with pertinent history of ascending aortic aneurysm, essential hypertension, hypothyroidism, mixed hyperlipidemia, TIAs who presents to the emergency department for evaluation weakness, dizziness and elevated blood pressure. The patient states she got up at 0130 hours to go to the bathroom. She states that when she got up she felt dizzy which she describes as an off-balance lightheaded sensation. She states that she felt weak at that time but was able to go to the bathroom and get back in bed. At 02:00 hours she was still awake and checked her blood pressure and her blood pressure was elevated which concerned her. The patient then called an ambulance and came to the emergency department for evaluation. At the time my evaluation the patient complained of feeling lightheaded, weak and a mild burning sensation located in the left scalp area of her head . Vital signs revealed an elevated blood pressure. Orthostatic vital signs revealed a greater than 20 point drop in blood pressure, no change in heart rate, the patient did feel dizzy with standing. Exam including neurologic exam was otherwise unremarkable. Differential diagnosis: Includes but is not limited to troke, TIA, vertigo, orthostatic hypotension, dehydration /volume depletion, anemia, electrolyte abnormalities Course: my independent interpretation patient's laboratory evaluation is as follows: CBC was normal. Glucose elevated 120. Electrolytes normal. LFTs were normal. High sensitive troponin I was detectable but not elevated at 3.4. COVID influenza were negative. Urinalysis was positive for leukocyte esterase. Microscopic revealed 6-10 WBCs with no RBCs - unlikely to be urinary tract infection is the cause for symptoms. Given the patient's orthostatic hypotension and unremarkable laboratory evaluation suspect that her symptoms are caused by volume depletion, she may also have a component of vertigo I did discuss this with the patient. The patient was treated with normal saline 1000 mL IV, acetaminophen 975 mg orally and meclizine 25 mg orally with complete resolution of her symptoms. I do not think that the patient's elevated blood pressure lead to her symptoms I did discuss this with her. She was advised to continue taking medications as prescribed by your providers. She was instructed to take her blood pressures on Mondays, Wednesdays and Fridays for 2 weeks, record these blood pressures and make a follow-up appointment with her PCP to discuss whether not she needs a change in her blood pressure medications. She was given printed and verbal instructions discharged home. Differential Diagnosis Differential Diagnoses: The differential diagnosis associated with the presentation includes ( See above) Admission/Observation Consideration of admission/observation: Escalation of care including admission/observation considered ( yes) Lab Data MDM Lab Attestation statement: I reviewed the patient's lab results. 04/05/25 04:02 04/05/25 04:02 Labs: Lab Results 04/05/25 04/05/25 04/05/25 Range/Units 04:01 04:02 05:48 WBC 6.4 (4.8-10.8) X10*3/uL RBC 4.05 L (4.20-5.50) X10*6/uL Hgb 12.0 (12.0-16.0) g/dl Hct 36.7 L (37.0-47.0) % MCV 90.6 (80.0-98.0) fL MCH 29.6 (27.0-33.0) pg MCHC 32.7 (31.0-35.0) g/dl RDW 12.9 (11.0-16.0) % Plt Count 219 (160-400) X10*3/uL MPV 11.0 (9.4-12.3) fL Immature Gran % (Auto) 0.2 (0.0-0.4) % Neut % (Auto) 64.4 (45-73) % Lymph % (Auto) 20.4 (20-40) % [place] % (Auto) 11.7 H (2-11) % Eos % (Auto) 2.7 (0-4) % Baso % (Auto) 0.6 (0-2) % Lymph # (Auto) 1.3 (1.2-4.9) X10*3/uL [place] # (Auto) 0.8 (0.1-1.2) X10*3/uL Eos # (Auto) 0.2 (0.0-0.4) X10*3/uL Baso # (Auto) 0.0 (0.0-0.2) X10*3/uL Abs Immat Gran (auto) 0.01 (0.00-0.03) X10*3/uL Absolute Neuts (auto) 4.1 (2.0-8.3) x10*3/uL Absolute Nucleated RBC 0.000 (0.0-0.012) X10*3/uL Nucleated RBC % (auto) 0.0 (0.0-0.2) /100WBC PT 13.0 (11.2-13.5) SEC INR 1.1 (0.9-1.1) Sodium 143 (135-145) mmol/L Potassium 3.5 (3.3-5.1) mmol/L Chloride 109 H (96-108) mmol/L Carbon Dioxide 26 (22-29) mmol/L Anion Gap 12 (12-20) BUN 13 (9-16) mg/dL Creatinine 0.58 (0.5-1.4) mg/dL Estim Creat Clear Calc 75.1 Estimated GFR > 60 Random Glucose 120 H (60-115) mg/dL Calcium 9.9 (8.4-10.2) mg/dL Magnesium 2.1 (1.6-2.6) mg/dL Total Bilirubin 0.6 (0.0-1.0) mg/dL AST 23 (5-31) U/L ALT 11 (0-31) U/L Alkaline Phosphatase 95 (39-117) U/L Troponin I High Sens 3.4 (<3.5-17.0) ng/L Total Protein 6.2 L (6.5-8.0) g/dL Albumin 4.1 (3.5-5.0) g/dL Urine Color Yellow Urine Appearance Clear Urine pH 6.5 (5.0-9.0) Ur Specific [place] 1.015 (1.005-1.025) Urine Protein Negative (Neg-Trace) mg/dL Urine Glucose (UA) Negative (Negative) mg/dL Urine Ketones Negative (Negative) mg/dL Urine Blood Negative (Negative) Urine Nitrite Negative (Negative) Ur Leukocyte Esterase Moderate (2+) H (Negative) Urine RBC 0-2 (0-2) /HPF Urine WBC 6-10 H (0-5) /HPF Ur Squamous Epith Cells 3-5 (0-2) /HPF Urine Bacteria None Seen (None Seen) Hyaline Casts 0-2 (0-2) /LPF COVID-19 ([place]) Negative (Negative) COVID-19 Clin Com See Note Influenza Type A (YAYA) Negative (Negative) Influenza Type B (YAYA) Negative (Negative) Influenza A & B Note See Note Independent Interpretation I performed an independent interpretation of an: EKG Interpretation: my independent interpretation patient's 12 EKG done on April 05, 2025 at 03:51 hours is as follows: Normal sinus rhythm rate of 62, normal WI interval, QRS duration QTC interval, no ST segment elevation, no ST segment depression, inverted T-waves in 3 and V1, no PACs, no PVCs. Compared to EKG dated March 10 2025, inverted T-waves are old. External Record Review External record reviewed: Inpatient record Chronic Conditions Patient?s care impacted by: Hypertension and Other ( Hyperlipidemia) Discharge Plan Discharge Clinical Impression: Dizziness, Orthostatic hypotension, Essential (primary) hypertension Patient Disposition: Home, Self-Care Additional Instructions: Your blood work was unchanged from your baseline blood work which is reassuring Your COVID and influenza tests were negative Your urine revealed no evidence of a urine infection Your blood pressure did drop from lying to standing (orthostatic hypotension) which suggested that you may be dehydrated and this may be contributing to your dizziness. You received meclizine 25 mg orally in the emergency department for your dizziness. At home cut your 25 mg meclizine pill in half and take 12.5 mg 3 times a day as needed for dizziness. You also were treated with normal saline IV x1 L. Try to increase the amount of fluid that you drink today. Continue taking your medications as prescribed by your providers. Check your blood pressures on Mondays, Wednesdays and Fridays for 2 weeks and write these readings down. Do not worry if these readings are high. I want you to follow up with your doctor in 2 weeks and review these blood pressure readings with your doctor to see if he had a change in your blood pressure medications. Follow-up with your doctor in 2 days. Please return to the emergency department if your symptoms get worse or if you develop any symptoms that are concerning to you. Prescriptions: No Action levothyroxine 88 mcg tablet 88 mcg PO DAILY aspirin 81 mg Tablet,Delayed Release (Dr/Ec) 81 mg PO DAILY Qty: 30 0RF clonidine HCl 0.2 mg tablet 0.2 mg PO BID pravastatin 40 mg tablet 40 mg PO BEDTIME lidocaine 5 % adhesive patch,medicated 1 patch topical DAILY Qty: 15 0RF Rx Instructions: leave on most painful area for up to 12 hrs prednisone 20 mg tablet 20 mg PO DAILY Qty: 5 0RF meclizine 12.5 mg tablet 12.5 mg PO TID PRN (Reason: dizziness) Qty: 20 0RF losartan 50 mg tablet 50 mg PO DAILY epinephrine 0.3 mg/0.3 mL auto-injector 0.3 mg IM ONCE famotidine 40 mg tablet PO BID Interventions: ED Discharge Assessment Last Done: 04/05/25 08:58 Discharge Date/Time: 04/05/25 09:08 Print Language: Citizen [place]
--- NOTE | 2025-04-05 08:38 | PC.NURSE ---
Pt ambulatory to bathroom with steady gait, states no dizziness/pain. Pt remains hypertensive 153/84. MD Gill aware. Vitals updated in worklist, call duran within reach, all needs met at this time.
== END 2025-04-05 09:08 | disposition home or self-care (01) ==
PROVIDERS: Emergency Provider Emergency Medicine Emergency Medical Services; PCP Internal Medicine
DX: I95.1 Orthostatic hypotension (principal); R42 Dizziness and giddiness; R53.1 Weakness; I10 Essential (primary) hypertension; R94.31 Abnormal electrocardiogram [ECG] [EKG]; R11.0 Nausea; Z86.73 Personal history of transient ischemic attack (TIA), and cerebral infarction without residual deficits; Z11.52 Encounter for screening for COVID-19; Z79.899 Other long term (current) drug therapy
CPT/HCPCS: 36415; 80053; 81001; 83735; 84484; 85025; 85610; 87086; 87502; 87635; 93005; 96360; 99284; 99285

== ENCOUNTER → 2025-04-05 03:51 | Outpatient (BNV) | payer MEDICARE, SELFPAY | PROVIDERS: Emergency Provider Emergency Medicine Emergency Medical Services; PCP Internal Medicine; Visit Provider Internal Medicine Cardiovascular Disease | DX: R42 Dizziness and giddiness (principal) | CPT/HCPCS: 93010 ==

== ENCOUNTER 2025-05-20 12:56 | Outpatient (AMB) | payer MEDICARE, SELFPAY ==
--- OUTSIDE RECORDS SUMMARY | 2025-05-16 23:59 | XMS_ITS | Continuity of Care Document ---
Author Organization [facility] Address [address] [place] [address]- Care Team Providers Care Boot Trimmer Name Role Phone Seble GONZALEZ, Edvin Sheriff Primary Care Physician [phone] Encounter [facility] Date(s): 04/16/25 - 05/16/25 [facility] [address] [place] [address]- Encounter Type: Triage Allergies, Adverse Reactions, Alerts Substance Criticality Severity Reaction Reaction Severity Status amoxicillin rash Active gabapentin 1 short of breath A ctive Adhesive Bandage band aid-mild rash Active Fish throat closed Active 1high blood pressure and breathing was labored Immunizations Given and Recorded Vaccine Date Status Refusal Reason influenza virus vaccine, inactivated 07/07/24 Junior rded influenza virus vaccine, inactivated 1 03/13/23 Gi miryam influenza virus vaccine, inactivated 03/02/22 Give n influenza virus vaccine, inactivated 2 04/14/21 Gi miryam influenza virus vaccine, inactivated 3 03/11/20 Gi miryam influenza virus vaccine, inactivated 03/12/19 Junior rded influenza virus vaccine, inactivated 03/06/18 Give n influenza virus vaccine, inactivated 04/18/17 Give n influenza virus vaccine, inactivated 04/18/16 Give n influenza virus vaccine, inactivated 03/19/15 Give n influenza virus vaccine, inactivated 4 02/25/14 Re corded influenza virus vaccine, inactivated 03/15/13 Give n influenza virus vaccine, inactivated 03/14/11 Junior rded influenza virus vaccine, inactivated 03/22/10 Junior rded influenza virus vaccine, inactivated 04/06/08 Give n pneumococcal 20-valent conjugate vaccine 5 03/13/23 Given diphtheria/tetanus/pertussis, acel(DTaP) 01/15/23 Recorded [id number] 12y+ bivalent booster vax 05/15/22 Recorded pneumococcal 23-valent vaccine 05/26/21 Given SARS-CoV-2 (COVID-19) mRNA BNT-162b2 vac 04/14/21 Given SARS-CoV-2 (COVID-19) mRNA BNT-162b2 vac 6 08/12/20 Recorded SARS-CoV-2 (COVID-19) mRNA BNT-162b2 vac 07/29/20 Recorded SARS-CoV-2 (COVID-19) mRNA BNT-162b2 vac 7 07/08/20 Recorded zoster vaccine, inactivated 03/15/21 Recorded zoster vaccine, inactivated 12/20/20 Recorded Influenza Virus Vaccine (oldterm) 03/04/19 Recorde d Influenza Virus Vaccine (oldterm) 8 04/02/07 Given pneumococcal 13-valent vaccine 08/21/14 Given tetanus/diphtheria/pertussis, acel(Tdap) 04/15/13 Given FluLaval (oldterm) 03/28/12 Given FluLaval (oldterm) 9 03/23/10 Given Fluzone (oldterm) 10 03/15/11 Given Tetanus Toxoid 01/21/10 Given Pneumococcal Vaccine (oldterm) 05/28/03 Given tetanus-diphtheria toxoids (Td) 12/27/99 Given 1Result Comment: HD FLU [facility]: [id number] 2Result Comment: [facility]-[id number] 3Result Comment: [facility]-[id number] 4Location History: [facility] 5Result Comment: PCV20 - [facility]# [id number] 6Result Comment: Josue aguilera 7Result Comment: Josue aguilera....2nd appt scheduled for 07/29 8Admin Note: given in clinic 9Admin Note: [employer] [facility] 10Admin Note: [facility] Medications aspirin 81 mg oral delayed release tablet 162 mg, 2, tablet, By Mouth, Daily, changed by ED doc at [facility] to take 2 daily of enteric coated, Refills 0, Maintenance, 07/31/22 10:06:00 AM EST, Partial fill upon patient request if the prescription is for a schedule II opioid drug. Start Date: 07/31/22 Status: Ordered Medication Dispense Status: Completed Total Allowed Fills: 1 Fills Dispensed: 0 cloNIDine 0.1 mg oral tablet 0.1 mg, 1, tablet, By Mouth, 2 times a day, # 180 tablet, Refills 3, Tot. Refills 3, Maintenance, 11/20/24 11:49:00 AM EDT, Route to Pharmacy Electronically, [facility] #[id number], Partial fill upon patient request if the prescription is for a schedule II opioid drug., 163, cm, 11/20/24 11:18:0 0 EDT, Height, 88.9, kg, 09/27/23 11:17:00 EDT, Dry Weight Start Date: 11/20/24 Stop Date: 11/15/25 Status: Ordered Medication Dispense Status: Completed Quantity: 180.0 Unit: tablet Total Allowed Fills: 4 Fills Dispensed: 0 CPAP Machine See Instructions, # 1 each, Maintenance, Dx: [facility] Auto[employer]AP 8-20 cm H2O, 06/07/20 3:53:00 PM EST, Supply Start Date: 06/07/20 Status: Ordered Medication Dispense Status: Completed Quantity: 1.0 Unit: each Total Allowed Fills: 1 Fills Dispensed: 0 CPAP Equipment See Instructions, # 1 each, Refills 11, Tot. Refills 11, Maintenance, Dx: [facility] G47.30 Mask, tubing, water chamber,filter, head gear., 06/07/20 3:55:00 PM EST, Supply Start Date: 06/07/20 Status: Ordered Medication Dispense Status: Completed Quantity: 1.0 Unit: each Total Allowed Fills: 12 Fills Dispensed: 0 EpiPen 2-Archie 0.3 mg injectable kit = 0.3 mg, Intramuscular, Once, # 1 each, 1 Refills, Soft Stop, 01/09/23 12:00:00 PM EDT, [facility] #[id number], Partial fill upon patient request if the prescription is for a schedule II opioid drug., 163, cm, 01/09/23 11:47:00 EDT, Height, 82.9, kg, 02/28/22 15:29:00 EDT, Dry Weight Start Date: 01/09/23 Status: Ordered Medication Dispense Status: Completed Quantity: 1.0 Unit: each Total Allowed Fills: 2 Fills Dispensed: 0 famotidine 40 mg oral tablet 1 tablet = 40 mg, By Mouth, 2 times a day, # 180 tablet, 3 Refills, Maintenance, 09/26/24 10:01:00 AMEDT, Suspension, [facility] #[id number], Partial fill upon patient request if the prescriptionis for a schedule II opioid drug., 163, cm, 09/26/24 9:35:00 EDT, Height, 88.9, kg, 09/27/23 11:17:00 EDT, Dry Weight Start Date: 09/26/24 Stop Date: 09/21/25 Status: Ordered Medication Dispense Status: Completed Quantity: 180.0 Unit: tablet Total Allowed Fills: 4 Fills Dispensed: 0 fluticasone 50 mcg/inh nasal spray See Instructions, SHAKE LIQUID AND USE 1 SPRAY IN EACH NOSTRIL TWICE DAILY, # 48 Gm, 1 Refills, Maintenance, 04/16/25 11:08:00 AM EST, [facility] #[id number], 90, SHAKE LIQUID AND USE 1 SPRAY INEACH NOSTRIL TWICE DAILY, 163, cm, 04/06/25 10:02:00 EST, Height, 88.9, kg, 09/27/23 11:17:00 EDT, Dry Weight Start Date: 04/16/25 Status: Ordered Medication Dispense Status: Completed Quantity: 48.0 Unit: g Total Allowed Fills: 2 Fills Dispensed: 0 levothyroxine 0.088 mg oral tablet 1 tablet, By Mouth, Daily, # 90 tablet, 3 Refills, Maintenance, 09/26/24 10:01:00 AM EDT, [facility] #[id number], 163, cm, 09/26/24 9:35:00 EDT, Height, 88.9, kg, 09/27/23 11:17:00 EDT, Dry Weight Start Date: 09/26/24 Status: Ordered Medication Dispense Status: Completed Quantity: 90.0 Unit: tablet Total Allowed Fills: 4 Fills Dispensed: 0 losartan 50 mg oral tablet 50 mg, 1, tablet, By Mouth, Daily, # 90 tablet, Refills 3, Tot. Refills 3, Maintenance, 04/06/25 10:16:00 AM EST, Route to Pharmacy Electronically, [facility] #[id number], Partial fill upon patient request if the prescription is for a schedule II opioid drug., 163, cm, 04/06/25 10:02:00 EST, Height, 88.9, kg, 09/27/23 11:17:00 EDT, Dry Weight Start Date: 04/06/25 Status: Ordered Medication Dispense Status: Completed Quantity: 90.0 Unit: tablet Total Allowed Fills: 4 Fills Dispensed: 0 meclizine 25 mg oral tablet 1 tablet = 25 mg, By Mouth, Daily, PRN as needed for dizziness, PRN PER DR. LAO, # 8 tablet, 1 Refills, Maintenance, 09/26/24 10:01:00 AM EDT, [facility] #[id number], 163, cm, 09/26/24 9:35:00 EDT, Height, 88.9, kg, 09/27/23 11:17:00 EDT, Dry Weight Start Date: 09/26/24 Status: Ordered Medication Dispense Status: Completed Quantity: 8.0 Unit: tablet Total Allowed Fills: 2 Fills Dispensed: 0 pravastatin 40 mg oral tablet 1 tablet, By Mouth, Daily, # 90 tablet, 3 Refills, Maintenance, 09/26/24 10:01:00 AM EDT, [facility] #[id number], 163, cm, 09/26/24 9:35:00 EDT, Height, 88.9, kg, 09/27/23 11:17:00 EDT, Dry Weight Start Date: 09/26/24 Status: Ordered Medication Dispense Status: Completed Quantity: 90.0 Unit: tablet Total Allowed Fills: 4 Fills Dispensed: 0 Vitamin D3 2000 intl units oral tablet 1 tablet = 2,000 International_Units, By Mouth, Daily, 0 Refills, Maintenance, 10/22/15 9:31:06 AM EDT Start Date: 10/22/15 Status: Ordered Medication Dispense Status: Completed Total Allowed Fills: 1 Fills Dispensed: 0 Problem List Condition Confirmation Course Effective Dates Status Health Status Informant Achalasia 1 Confirmed Active Allergic rhinitis Confirmed Active Allergy to shellfish Confirmed Active Aneurysmal dilatation 2 Confirmed Active Aortic aneurysm, thoracic Confirmed Active Anxiety Confirmed Active Constipation, chronic Confirmed Active Colonoscopy 3, 4, 5 Confirmed Active Cough Confirmed Active Diverticulitis Confirmed Active Esophageal stricture Confirmed Active Gallstone Confirmed Active Gastroesophageal reflux disease with hiatal hernia 6, 7 Confirmed Active Glucose intolerance (pre-diabetes) Confirmed Active H/O: varicose veins Confirmed Active Headache disorder Confirmed Active History of shingles Confirmed Active History of knee replacement 8 Confirmed Active Hypercholesterolemia Confirmed Active Hyperparathyroidism Confirmed Active Hypertension Confirmed Active Hypothyroidism Confirmed Active Jaw pain Confirmed Active Lightheadedness Confirmed Active Migraine Confirmed Active Neck pain Confirmed Active Obstructive sleep apnea Confirmed Active Osteoarthritis Confirmed Active Leg pain, left Confirmed Active Hip pain, right Confirmed Active Palpitations Confirmed Active Postherpetic neuralgia Confirmed Active Primary fibromyalgia Confirmed Active Raynaud's phenomenon Confirmed Active Schatzki's ring 9 Confirmed Active Right sided sciatica Confirmed Active Renal cyst 10 Confirmed Active Sleep apnea Confirmed Active Superficial thrombophlebitis Confirmed 10/05/09 Active Brain TIA Confirmed Active Vestibular vertigo Confirmed Active Vitamin D deficiency Confirmed Active 1Diagnosed by esophageal motility test 2015. 84365; repeat CT 2021 C 82210; no repeat due to age 4colonoscopy 2013 normal, no further repeat secondary to age. [address] nl, rpt 2012 6EGD 2012 no Mcgill's. Mild Schatzki's ring, hiatal hernia 7egd 2002 negative barretts 8Right - 10/25/15 9Status post balloon dilation 2012 10Right renal cyst by multiple imaging modalities dating back to 2001, most recent imaging 2014 no significant change. Patient Care team information Care Team Personnel Name: Jennifer Riggs RN Position: [facility] RN Member Role: Primary Care Nurse Name: Maryanne Patterson RN Position: [facility] SN RN Member Role: Primary Care Nurse Name: Therese Cuevas RN Position: [facility] AMB Nurse Member Role: Primary Care Nurse Name: Leila Denise RN Position: [facility] RN Member Role: Primary Care Nurse Name: Edvin Lao MD Position: [facility] Physician - Primary Care Member Role: PCP Address: [address] [place] [address]- Telecom: Name: Bessie Sharp RN Position: [facility] RN Member Role: Primary Care Nurse Name: Marie Tsang RN Position: [facility] RN Member Role: Primary Care Nurse Name: Missy Cote RN Position: [facility] RN Member Role: Primary Care Nurse Name: Edvin Robles RN Position: [facility] RN Member Role: Primary Care Nurse Name: Traci Corona RN Position: [facility] RN Member Role: Primary Care Nurse Name: Claire RNSid Position: [facility] ED RN W/OE and Tasks Member Role: Primary Care Nurse Name: Wendy Hussein RN Position: [facility] RN Member Role: Primary Care Nurse Name: Luh Marshall RN Position: [facility] RN Member Role: Primary Care Nurse Name: Dena Milligan RN Position: [facility] RN Member Role: Primary Care Nurse Name: Vera Mckenzie RN Position: [facility] RN Member Role: Primary Care Nurse Name: Xochitl Amador LPN Position: [facility] RN Member Role: Primary Care Nurse Care Team Related Persons Name: COREY VIEIRA Name: BLAIR TOPETE Insurance Providers Guarantor name: PAM RAY Arteris Plan Information #: 1 Payer: MEDICARE B Payer Identifier: CECY Member Number: [id number] Group Number: [id number] Subscriber Identifier: CECY Relationship to Subscriber: self Coverage Type: NA Coverage Verification Date: NA Telecom: NA Address: Health Plan Information #: 2 Payer: MEDEX SECONDARY ONLY Payer Identifier: CECY Member Number: [id number] Group Number: [id number] Subscriber Identifier: CECY Relationship to Subscriber: self Coverage Type: Medicare Other Coverage Verification Date: Telecom: Address:
--- OUTSIDE RECORDS SUMMARY | 2025-05-20 12:59 | XMS_ITS | Encounter Summary ---
Author Organization [facility] Address [address] [facility] [address] [place] [address] Phone Care Team Providers Care Acetylene Torch Burner Name Role Phone Edvin Pruett MD Primary Care Provider [phone] Encounter Details Date Type Department Care Team (Late st Contact Info) Description 05/24/2022 Procedure Pass [facility] Endoscopy Admitting Dept Virtual Department [address] [place] [address] Social History Tobacco Use Types Packs/Day Years [...] on filedocumented in this encounter Care Teams Acetylene Torch Burner Relationship Specialty Start Date End Date Edvin Pruett MD [address] [place] [address] [address] [place] [address] PCP - General Internal Medicine 07/04/19 documented as of this encounter Additional Source Comments The information contained in this document represents components of the legal health record. It is not the complete legal health record.[facility]
--- OUTSIDE RECORDS SUMMARY | 2025-05-20 12:59 | XMS_ITS | Encounter Summary ---
Author Organization [facility] Address [address] [facility] [address] [place] [address] Phone Care Team Providers Care Program Director/Traffic Director Name Role Phone Edvin Pruett MD Primary Care Provider [phone] Encounter Details Date Type Department Care Team (Latest Contact Info) Description 12/28/2020 Transcribe Orders Virtual Department [address] [place] [address] Tila Rojas NP [address] [place] [address] Right lower quadrant abdominal pain (Primary Dx); [...] apparent. POS [id number] us Tila Chapin Crystal TOGGLER IMG US ABDOMEN Final Res ult documented in this encounter Visit Diagnoses Diagnosis Right lower quadrant abdominal pain- Primary Constipation, unspecified constipation type Right lower quadrant abdominal pain Constipation, unspecified constipation type documented in this encounter Care Teams Program Director/Traffic Director Relationship Specialty Start Date End Date Edvin Pruett MD [address] [place] [address] PCP - General Internal Medicine 07/04/19 documented as of this encounter Additional Source Comments The information contained in this document represents components of the legal health record. It is not the complete legal health record.[facility]
--- OUTSIDE RECORDS SUMMARY | 2025-05-20 12:59 | XMS_ITS | Encounter Summary ---
Author Organization [facility] Address [address] [facility] [address] [place] [address] Phone Care Team Providers Care Supervisor Epoxy Fabrication Name Role Phone Edvin Pruett MD Primary Care Provider [phone] Encounter Details Date Type Department Care Team (Latest Contact Info) Description 05/17/2021 Transcribe Orders Virtual Department [address] [place] [address] Tila Rojas NP [address] [place] [address] Diarrhea, unspecified type Social History Tobacco Use [...] 2.Additional chronic findings as above. Tila Rojas TOOLROOM HELPER IMG US ABDOMEN Final Res ult documented in this encounter Visit Diagnoses Diagnosis Diarrhea, unspecified type Diarrhea, unspecified type documented in this encounter Care Teams Supervisor Epoxy Fabrication Relationship Specialty Start Date End Date Edvin Pruett MD [address] [place] [address] PCP - General Internal Medicine 07/04/19 documented as of this encounter Additional Source Comments The information contained in this document represents components of the legal health record. It is not the complete legal health record.[facility]
--- OUTSIDE RECORDS SUMMARY | 2025-05-20 12:59 | XMS_ITS | Encounter Summary ---
Author Organization [facility] Address [address] [facility] [address] [place] [address] Phone Care Team Providers Care Clinical Cytogenetics Director Name Role Phone Edvin Pruett MD Primary Care Provider [phone] Encounter Details Date Type Department Care Team (Late st Contact Info) Description 12/30/2019 Procedure Pass [facility], Ct Scan - [address] [address] Social History Tobacco Use Types Packs/Day Years [...] on filedocumented in this encounter Care Teams Clinical Cytogenetics Director Relationship Specialty Start Date End Date Edvin Pruett MD [address] [place] [address] [address] [place] [address] PCP - General Internal Medicine 07/04/19 documented as of this encounter Additional Source Comments The information contained in this document represents components of the legal health record. It is not the complete legal health record.[facility]
--- OUTSIDE RECORDS SUMMARY | 2025-05-20 12:59 | XMS_ITS | Clinical Summary ---
Author Organization [facility] Address [address] [address] Phone Care Team Providers Care Auth Specialist Name Role Phone Edvin Pruett MD Primary Care Provider [phone] Allergies Active Allergy Reactions Criticality Noted Date [...] Type Department Care Team Description 03/19/2025 Telephone [facility] [address] [place] [address] Rolly Corcoran 03/19/2025 Telephone [facility] [address] [place] [address] Tello Quezada MD Heartburn from Last 3 [...] this topic Medical Devices Implanted Type Area Career Development Director Device Identifier Shelf Expiration Date Model / Serial / Lot Prosthetic Joint Prosthetic Joint Bilatera l: Knee Insurance MEDICARE PART A & B [facility] MEDEX SUPPLEMENT [facility] MEDICARE PART A & B [place] [employer] MEDEX SUPPLEMENT [address] [place], [place] [id number] MEDICARE PART A & B [employer] MEDEX SUPPLEMENT MEDICARE PART A & B [employer] MEDEX SUPPLEMENT MEDICARE PART A & B [employer] MEDEX SUPPLEMENT [facility] A & B [employer] MEDEX SUPPLEMENT [facility] PART A & B [employer] MEDEX SUPPLEMENT [facility] MEDICARE PART A & B [employer] MEDEX SUPPLEMENT MEDICARE PART A & B [employer] MEDEX SUPPLEMENT [place] [facility] Advance Directives For more information, please contact: [phone] (9AM - 5PM [facility], Sunday-Sunday) Documents on File Type Date Recorded Patient Juice Scaleman Expl anation Healthcare Proxy 12/31/2019 2:23 PM Care Teams Auth Specialist Relationship Specialty Start Date End Date Edvin Pruett MD [address] [place] [address] PCP - General Internal Medicine 07/04/19 Additional Source Comments The information contained in this document represents components of the legal health record. It is not the complete legal health record.[facility]
--- OUTSIDE RECORDS SUMMARY | 2025-05-20 12:59 | XMS_ITS | Encounter Summary ---
Author Organization [facility] Address [address] [facility] [address] [place] [address] Phone Care Team Providers Care Monitoring Analyst Name Role Phone Edvin Pruett MD Primary Care Provider [phone] Encounter Details Date Type Department Care Team (Latest Contact Info) Description 01/20/2021 Transcribe Orders [address] [place] [address] Tila Rojas, CANDELARIO [address] [place] [address] Frequent bowel movements (Primary Dx) Social History [...] EDT) IgA 236 70 - 400 mg/dL [facility] Blood 01/20/2021 9:32 AM EDT 01/20/2021 9:37 AM EDT us Tila Rojas ASSISTANT PROFESSOR OF MATHEMATICS LAB BLOOD BKR ORDERABLES Final Result [facility] [address] [place] [address] * Tissue transglutaminase IgA (01/20/2021 9:32 AM EDT) TTG IGA ANTIBODY <1.2 <4.0 (Negative) U/mL [facility] Blood 01/20/2021 9:32 AM EDT 01/20/2021 9:37 AM EDT Tila Dari Rojas NP LAB BLOOD BKR ORDERABLES Final Result [facility] [address] [place] [address] documented in this encounter Visit Diagnoses Diagnosis Frequent bowel movements- Primary Other symptoms involving digestive system documented in this encounter Care Teams Monitoring Analyst Relationship Specialty Start Date End Date Edvin Pruett MD [address] [place] [address] PCP - General Internal Medicine 07/04/19 documented as of this encounter Additional Source Comments The information contained in this document represents components of the legal health record. It is not the complete legal health record.[facility]
--- OUTSIDE RECORDS SUMMARY | 2025-05-20 12:59 | XMS_ITS | Encounter Summary ---
Author Organization [facility] Address [address] [facility] [address] [place] [address] Phone Care Team Providers Care Director E Learning Name Role Phone Edvin Pruett MD Primary Care Provider [phone] Encounter Details Date Type Department Care Team (Late st Contact Info) Description 05/15/2022 Procedure Pass [facility] Endoscopy Admitting Dept Virtual Department [address] [place] [address] Social History Tobacco Use Types Packs/Day Years [...] on filedocumented in this encounter Care Teams Director E Learning Relationship Specialty Start Date End Date Edvin Pruett MD [address] [place] [address] [address] [place] [address] PCP - General Internal Medicine 07/04/19 documented as of this encounter Additional Source Comments The information contained in this document represents components of the legal health record. It is not the complete legal health record.[facility]
--- OUTSIDE RECORDS SUMMARY | 2025-05-20 12:59 | XMS_ITS | Encounter Summary ---
Author Organization [facility] Address [address] [facility] [address] [place] [address] Phone Care Team Providers Care Buildings And Grounds Coordinator Name Role Phone Edvin Pruett MD Primary Care Provider [phone] Encounter Details Date Type Department Care Team (Latest Contact Info) Description 08/01/2019 Transcribe Orders Virtual Department [address] [place] [address] Tello Quezada MD [address] [place] [address] [email or web address] RUQ abdominal pain (Primary Dx) Social History [...] the visualized upper abdominal visceral structures. POS [id number] Narrative 12/18/2019 10:10 AM EDT COMPARISON: None [...] of the visualized upperabdominal visceral structures. POS [id number] us Tello Quezada MD IMG US ABDOMEN Final Result documented in this encounter Visit Diagnoses Diagnosis RUQ abdominal pain- Primary Abdominal pain, right upper quadrant RUQ abdominal pain Abdominal pain, right upper quadrant documented in this encounter Care Teams Buildings And Grounds Coordinator Relationship Specialty Start Date End Date Edvin Pruett MD [address] [place] [address] PCP - General Internal Medicine 07/04/19 documented as of this encounter Additional Source Comments The information contained in this document represents components of the legal health record. It is not the complete legal health record.[facility]
--- OUTSIDE RECORDS SUMMARY | 2025-05-20 12:59 | XMS_ITS | Encounter Summary ---
Author Organization [facility] Address [address] [facility] [address] [place] [address] Phone Care Team Providers Care Nursing Home Director Name Role Phone Edvin Pruett MD Primary Care Provider [phone] Encounter Details Date Type Department Care Team (Late st Contact Info) Description 11/18/2020 Procedure Pass [facility] Endoscopy Admitting Dept Virtual Department [address] [place] [address] Social History Tobacco Use Types Packs/Day Years [...] on filedocumented in this encounter Care Teams Nursing Home Director Relationship Specialty Start Date End Date Edvin Pruett MD [address] [place] [address] [address] [place] [address] PCP - General Internal Medicine 07/04/19 documented as of this encounter Additional Source Comments The information contained in this document represents components of the legal health record. It is not the complete legal health record.[facility]
--- OUTSIDE RECORDS SUMMARY | 2025-05-20 12:59 | XMS_ITS | Encounter Summary ---
Author Organization [facility] Address [address] [facility] [address] [place] [address] Phone Care Team Providers Care Distribution Center Supervisor Name Role Phone Edvin Pruett MD Primary Care Provider [phone] Encounter Details Date Type Department Care Team (Late st Contact Info) Description 09/22/2021 Procedure Pass [facility] Endoscopy Admitting Dept Virtual Department [address] [place] [address] Social History Tobacco Use Types Packs/Day Years [...] on filedocumented in this encounter Care Teams Distribution Center Supervisor Relationship Specialty Start Date End Date Edvin Pruett MD [address] [place] [address] [address] [place] [address] PCP - General Internal Medicine 07/04/19 documented as of this encounter Additional Source Comments The information contained in this document represents components of the legal health record. It is not the complete legal health record.[facility]
--- OUTSIDE RECORDS SUMMARY | 2025-05-20 12:59 | XMS_ITS | Encounter Summary ---
Author Organization [facility] Address [address] [facility] [address] [place] [address] Phone Care Team Providers Care Commercial Attache Name Role Phone Edvin Pruett MD Primary Care Provider [phone] Encounter Details Date Type Department Care Team (Late st Contact Info) Description 02/17/2021 Procedure Pass [facility] Endoscopy Admitting Dept Virtual Department [address] [place] [address] Social History Tobacco Use Types Packs/Day Years [...] on filedocumented in this encounter Care Teams Commercial Attache Relationship Specialty Start Date End Date Edvin Pruett MD [address] [place] [address] [address] [facility] [address] PCP - General Internal Medicine 07/04/19 documented as of this encounter Additional Source Comments The information contained in this document represents components of the legal health record. It is not the complete legal health record.[facility]
--- OUTSIDE RECORDS SUMMARY | 2025-05-20 12:59 | XMS_ITS | Encounter Summary ---
Author Organization [facility] Address [address] [facility] [address] [place] [address] Phone Care Team Providers Care Rotary Rock Drilling Machine Operator Name Role Phone Edvin Pruett MD Primary Care Provider [phone] Encounter Details Date Type Department Care Team (Late st Contact Info) Description 07/25/2019 Procedure Pass [facility] Endoscopy Admitting Dept Virtual Department [address] [place] [address] Social History Tobacco Use Types Packs/Day Years [...] Scheduled Procedures Name Priority Associated Diagnoses Date/Ti az ESOPHAGOGASTRODUODENOSCOPY Achalasia of esophagus Esophageal stenosis documented as of this encounter Visit Diagnoses Not on filedocumented in this encounter Care Teams Rotary Rock Drilling Machine Operator Relationship Specialty Start Date End Date Edvin Pruett MD [address] [place] [address] [address] [place] [address] PCP - General Internal Medicine 07/04/19 documented as of this encounter Additional Source Comments The information contained in this document represents components of the legal health record. It is not the complete legal health record.[facility]
--- OUTSIDE RECORDS SUMMARY | 2025-05-20 12:59 | XMS_ITS | Encounter Summary ---
Author Organization [facility] Address [address] [facility] [address] [place] [address] Phone Care Team Providers Care Buggy Man Name Role Phone Unknown, Unknown Primary Care Provider Edvin Waterman MD Primary Care Provider [phone] Encounter Details Date Type Department Care Team (Latest Contact Info) Description 06/30/2019 Transcribe Orders Virtual Department [address] [place] [address] Tello Quezada MD [address] [place] [address] [email or web address] Achalasia (Primary Dx) Social History Tobacco Use Types Packs/Day Years Used Date Smoking Tobacco: Never Assessed Comments Unknown Sex and Gender Information Value Date Recorded Sex Assigned at Not on file Legal Sex Female 5:29 PM EST Gender Identity Not on file Sexual Orientation Not on file documented as of this encounter Plan of Treatment Scheduled Procedures Name Priority Associated Diagnoses Date/Ti wi ESOPHAGOGASTRODUODENOSCOPY Achalasia of esophagus Esophageal stenosis documented [...] barium paste on bread. No comparison. The lighter film of the neck shows no soft [...] and barium paste onbread. No comparison. The lighter film of the neck shows no soft [...] cardiospasm documented in this encounter Care Teams Buggy Man Relationship Specialty Start Date End Date Unknown, Unknown, MD PCP - General 07/01/19 07/03/19 Edvin Pruett MD [address] [place] [address] PCP - General Internal Medicine 07/04/19 documented as of this encounter Additional Source Comments The information contained in this document represents components of the legal health record. It is not the complete legal health record.[facility]
--- OUTSIDE RECORDS SUMMARY | 2025-05-20 12:59 | XMS_ITS | Encounter Summary ---
Author Organization [facility] Address [address] [facility] [address] [place] [address] Phone Care Team Providers Care Semiconductor Packages Sealer Name Role Phone Edvin Pruett MD Primary Care Provider Encounter Details Date Type Department Care Team (Latest Contact Info) Description 06/22/2021 Transcribe Orders Virtual Department 30 [place] [address] Tila Rojas NP [address] [place] [address] Hemangioma, unspecified site (Primary Dx) Social History [...] Primary documented in this encounter Care Teams Semiconductor Packages Sealer Relationship Specialty Start Date End Date Edvin Pruett MD [address] [place] [address] [address] [place] [address] PCP - General Internal Medicine 2/7/20 documented as of this encounter Additional Source Comments The information contained in this document represents components of the legal health record. It is not the complete legal health record.[facility]
--- OUTSIDE RECORDS SUMMARY | 2025-05-20 13:00 | XMS_ITS | Encounter Summary ---
Author Organization [facility] Address [address] [facility] [address] [place] [address] Phone Care Team Providers Care Tax Collection Coordinator Name Role Phone Edvin Pruett MD Primary Care Provider [phone] Encounter Details Date Type Department Care Team (Late st Contact Info) Description 12/11/2024 Procedure Pass [facility] Endoscopy Admitting Dept Virtual Department 30 [place] [address] Social History Tobacco Use Types Packs/Day Years [...] on filedocumented in this encounter Care Teams Tax Collection Coordinator Relationship Specialty Start Date End Date Edvin Pruett MD [address] [place] [address] PCP - General Internal Medicine 07/04/19 documented as of this encounter Additional Source Comments The information contained in this document represents components of the legal health record. It is not the complete legal health record.[facility]
--- OUTSIDE RECORDS SUMMARY | 2025-05-20 13:00 | XMS_ITS | Encounter Summary ---
Author Organization [facility] Address [address] [facility] [address] [place] [address] Phone Care Team Providers Care Product Marketing Coordinator Name Role Phone Edvin Pruett MD Primary Care Provider [phone] Encounter Details Date Type Department Care Team (Late st Contact Info) Description 12/18/2023 Procedure Pass [facility] Endoscopy Admitting Dept Virtual Department [address] [place] [address] Social History Tobacco Use Types Packs/Day Years [...] on filedocumented in this encounter Care Teams Product Marketing Coordinator Relationship Specialty Start Date End Date Edvin Pruett MD [address] [place] [address] PCP - General Internal Medicine 07/04/19 documented as of this encounter Additional Source Comments The information contained in this document represents components of the legal health record. It is not the complete legal health record.[facility]
--- OUTSIDE RECORDS SUMMARY | 2025-05-20 13:00 | XMS_ITS | Encounter Summary ---
Author Organization [facility] Address [address] [facility] [address] [place] [address] Phone Care Team Providers Care Repairer Maintenance Building Name Role Phone Edvin Pruett MD Primary Care Provider [phone] Encounter Details Date Type Department Care Team (Late st Contact Info) Description 10/23/2024 Procedure Pass [facility] Endoscopy Admitting Dept Virtual Department [address] [place] [address] Social History Tobacco Use Types Packs/Day Years [...] on filedocumented in this encounter Care Teams Repairer Maintenance Building Relationship Specialty Start Date End Date Edvin Pruett MD [address] [place] [address] PCP - General Internal Medicine 07/04/19 documented as of this encounter Additional Source Comments The information contained in this document represents components of the legal health record. It is not the complete legal health record.[facility]
--- OUTSIDE RECORDS SUMMARY | 2025-05-20 13:00 | XMS_ITS | Encounter Summary ---
Author Organization [facility] Address [address] [facility] [address] [place] [address] Phone Care Team Providers Care Welcome Center Attendant Name Role Phone Edvin Pruett MD Primary Care Provider [phone] Encounter Details Date Type Department Care Team (Late st Contact Info) Description 01/22/2023 Procedure Pass [facility] Endoscopy Admitting Dept Virtual Department [address] [place] [address] Social History Tobacco Use Types Packs/Day Years [...] on filedocumented in this encounter Care Teams Welcome Center Attendant Relationship Specialty Start Date End Date Edvin Pruett MD [address] [address] PCP - General Internal Medicine 07/04/19 documented as of this encounter Additional Source Comments The information contained in this document represents components of the legal health record. It is not the complete legal health record.[facility]
--- OUTSIDE RECORDS SUMMARY | 2025-05-20 13:00 | XMS_ITS | Patient Health Record ---
Author Organization [facility] Address [address] [place] [address] Care Team Providers Care Construction Project Engineer Name Role Phone Edvin Pruett MD Primary Care Provider Carlota Saldaña Unavailable [phone] Allergies Allergen (clinical drug ingredient) Drug/Non Drug Allergy documented on EMR Reaction Allergy Type Onset Date Status amoxicillin Amoxicillin Unknown Drug Allergy Act maria del rosario Cod Liver Oil Unknown Drug Allergy Act maria del rosario Tuna Flavor Unknown Drug Allergy Activ e Rawlings Unknown Drug Allergy Active gabapentin Gabapentin Unknown [...] X ray : Foot, left 2V 03/17/2013 [id number] NAIL, 1-5 12/10/2014 Insurance Providers Payer Name Payer Address Payer Phone Subscriber Number Group Number Insured Name Patient Relationship to Insured Coverage Start Date Coverage End Date Medicare National [employer] [address] [place] [address] [id number] Madalyn Nesbitt Self - patient is the insured [employer] [address] [place] [address] [id number] Madalyn Nesbitt Self - patient is the insured Medical (General) History Medical History History ICD Code Arthritis fibromyalgia headaches/migraines high blood pressure thyroid disorder measles mumps chicken pox Back,Hip,and Knee pain Cataracts TIA Transfusions Surgical History Surgery Date(Month/Year) vein surgery left knee replacement right knee replacement throat surgery
--- NOTE | 2025-05-20 13:03 | MHC.OFFVIS ---
Intake Visit Reasons: TIA's difficulty word finding Allergies amoxicillin (Amoxicillin) Allergy (Intermediate, Verified 04/05/25 03:08) RASH cantaloupe Allergy (Verified 04/05/25 03:08) Unknown fish derived (fish) Allergy (Verified 04/05/25 03:08) Anaphylaxis shellfish derived Allergy (Verified 04/05/25 03:08) Anaphylaxis gabapentin Adverse Reaction (Verified 04/05/25 03:08) Unknown HPI Comments Details: The patient is an 85-year-old female presenting for follow-up of transient ischemic attacks (TIAs). She reports having two TIAs, with the last episode occurring about a month and a half ago. Her symptoms included trouble speaking and word-finding difficulties, which had mostly resolved by the time she arrived in the emergency room. She recalls a previous episode in 2022 when she looked at a calendar and could not say the word. Her medical history is notable for an aortic aneurysm and hypertension. She takes baby aspirin twice daily and her blood pressure medication. The patient also reports issues with bladder control, urinary frequency, and a tear pain in her hip. She mentions having issues with her esophagus that are evaluated every six months and experiences regurgitation of food. [facility] Medical History Ascending aortic aneurysm Hypothyroidism Hyperlipidemia Vertigo HTN (hypertension) Family History Mother No problems noted. Father No problems noted. Social History Alcohol intake: never Patient Tobacco Use Status: Never used Tobacco Second Hand Smoke Exposure: No service: No Current occupational status: retired Review of Systems Narrative Constitutional:?No fever, chills, fatigue, weight loss, or night sweats. HEENT:?No headache, vision changes, hearing loss, nasal congestion, sore throat. Cardiovascular:?No chest pain, palpitations, orthopnea, PND, or leg swelling. Respiratory:?No cough, shortness of breath, wheezing, or hemoptysis. Gastrointestinal:? She has reflex disease Genitourinary:? Complain of frequent urination Musculoskeletal:? Pain in different joints including hips Neurological:? Difficulty speaking Psychiatric:?No anxiety, depression, mood swings, sleep disturbance, or hallucinations. Endocrine:?No heat/cold intolerance, polydipsia, polyuria, or hair/skin changes. Hematologic/Lymphatic:?No easy bruising, bleeding, or lymphadenopathy. Integumentary (Skin):?No rash, lesions, itching, or color changes. Allergic/Immunologic:?No seasonal allergies, hives, or recurrent infections. Physical Exam Neuro Other: Mental Status: Alert and oriented to person, place, and time. Normal attention. Normal spontaneous speech, fluency, and comprehension. Cranial Nerves: CN II: Visual schmitt full to confrontation, visual acuity intact. CN III, IV, : Pupils equal, round, reactive to light and accommodation. Extraocular movements are normal. CN V: Facial sensation is normal. CN VII: Facial movements symmetrical. CN VIII: Hearing intact to bedside conversation is normal. CN IX, X: Palate elevates symmetrically. CN XI: Shoulder shrug and head turn symmetrical. CN XII: Tongue midline without atrophy or fasciculations. Motor: Bulk and tone normal in all extremities. No significant muscle weakness in arms and legs. No drift. Reflexes: Deep tendon reflexes 2+ and symmetric. Plantar response down-going bilaterally. Coordination: [id number] and [id number] testing normal. No dysmetria. Gait and Station: No obvious gait abnormality. No ataxia or instability. Extrapyramidal: Full facial expressions and blinking. No rigidity. Movements are appropriate with no tremor or abnormality. Speech: Normal; no dysarthria or tremor. Results Reviewed Results Reviewed: [address] [address] [address] Scan Report Signed Patient: Madalyn Vera MR#: [id number] : 1940 Acct:[id number] Age/Sex: 85 / F ADM Date: 03/10/25 Loc: HO.ED Attending Dr: Ordering Physician: aTl Gill MD Date of Service: 03/10/25 Procedure(s): CT angio head neck STROKE Accession Number(s): [id number] cc: THALIA LAO MD; Tal Gill MD~ Report Number: [id number]: Total DLP = 733.00 mGy-cm Reason for Exam: Difficulty with word finding, history of TIA rule EXAMINATION: CT ANGIOGRAM HEAD AND NECK CLINICAL INFORMATION: Word finding difficulty, rule out stroke/LVO. COMPARISON: No prior CT angiography. Noncontrast head CT dated earlier same day. Correlation made with MRI brain 07/29/2022. TECHNIQUE: Test bolus sequences and head and neck intravenous bolus administration 70 mL of Omnipaque 350. Helical imaging was performed in the axial plane from the aortic arch to the skull vertex. A [address] head was also obtained. The data was processed at the senior cytogenetic technologist's workstation for generation of MIP sequences. Angled MIPs and volume rendered reformatted images were also generated at an offline 3D workstation. Stenoses are assessed in accordance with NASCET criteria unless otherwise indicated. This CT examination was performed using dose optimization techniques as appropriate, variously including the following: *Automated exposure control *Adjustment of mA and/or kV according to patient size (this includes techniques or standardized protocols for targeted exams where dose is matched to indication/reason for exam; i.e. extremities or head) *Use of iterative reconstruction technique FINDINGS: NECK CTA: -AORTIC ARCH: Normal in caliber. Moderate atheromatous calcification. Three-vessel branching pattern. -GREAT VESSEL ORIGINS: Widely patent. No stenosis. -RIGHT COMMON CAROTID ARTERY: Normal in course and caliber to the level of the bifurcation. -CERVICAL RIGHT INTERNAL CAROTID ARTERY: Normal opacification without focal stenosis or occlusion. Remaining vessel is patent and tortuous into the skull base -LEFT COMMON CAROTID ARTERY: Normal in course and caliber to the level of the bifurcation. -CERVICAL LEFT INTERNAL CAROTID ARTERY: Calcific atherosclerotic disease of the carotid bulb and proximal internal carotid artery causing approximate 30% stenosis. Remaining vessel is patent and tortuous into the skull base. -CERVICAL RIGHT VERTEBRAL ARTERY: Codominant. Normal in origin, course and caliber into the skull base. -CERVICAL LEFT VERTEBRAL ARTERY: Codominant. Normal in origin, course and caliber into the skull base. OTHER, SOFT TISSUES: -No lymphadenopathy or mass. No abnormal fluid collection or soft tissue swelling. -Mildly heterogeneous thyroid without definable nodule. -Imaged superior mediastinal structures demonstrate a patulous appearing esophagus. -Imaged lung apices demonstrate mild biapical scarring, and mild hypoventilatory changes with Mosaic attenuation. CTA OF THE BRAIN: -INTRACRANIAL INTERNAL CAROTID ARTERIES: Calcific atherosclerotic disease of the intracranial internal carotid arteries without occlusion or flow-limiting stenosis. Patent ophthalmic artery origins. -RIGHT ANTERIOR CEREBRAL ARTERY: Normal A1 segment.. Normal arborization of the distal segments. -LEFT ANTERIOR CEREBRAL ARTERY: Normal A1 segment.. Normal arborization of the distal segments. -ANTERIOR COMMUNICATING ARTERY: Normal. -RIGHT MIDDLE CEREBRAL ARTERY: Normal M1 segment of the MCA without focal stenosis or occlusion. Normal bifurcation. Normal arborization of the distal segments. -LEFT MIDDLE CEREBRAL ARTERY: Normal M1 segment of the MCA without focal stenosis or occlusion. Normal bifurcation. Normal arborization of the distal segments. -RIGHT VERTEBRAL ARTERY V4: Normal in course and caliber. Normal PICA branch. -LEFT VERTEBRAL ARTERY V4: Normal in course and caliber. There is an AICA/PICA -BASILAR ARTERY: Normal without focal stenosis or occlusion. Normal appearance of the proximal superior cerebellar arteries. Normal basilar tip. -RIGHT POSTERIOR CEREBRAL ARTERY: Normal P1 segment. Normal opacification of the distal CHAIR [employer] segments. -LEFT POSTERIOR CEREBRAL ARTERY: Normal P1 segment. Normal opacification of the distal CHAIR AND [employer]CH [employer]KER segments. -POSTERIOR COMMUNICATING ARTERIES: Normal opacification of the superior sagittal, straight, transverse, and sigmoid sinuses. No venous thrombosis. No space-occupying hemorrhage or definite evolving infarct. CT/CT angio head neck STROKE IMPRESSION: CTA NECK: 1. There is an approximate 30% stenosis of the left ICA at the origin due to mixed soft and calcific plaque. 2. There is otherwise no hemodynamically significant stenosis, occlusion, dissection, or aneurysm of the major cervical arterial vasculature. 3. There is moderate atheromatous calcification of the aortic arch. Great vessels are patent. 4. Incidental note made of a patulous cervical esophagus. CTA HEAD: 1. There is no hemodynamically significant stenosis, occlusion, dissection, or aneurysm of the major intracranial arterial vasculature. 2. The major cortical and dural venous sinuses are patent. 3. There is no space-occupying hemorrhage or evolving infarct. EXAMINATION: CT HEAD WITHOUT CONTRAST (STROKE PROTOCOL) CLINICAL INFORMATION: Stroke protocol. Word finding difficulty, history of TIA. COMPARISON: 01/14/2025. TECHNIQUE: Contiguous axial imaging was performed from the skull base to vertex without intravenous administration of contrast. This CT examination was performed using dose optimization techniques as appropriate, variously including the following: *Automated exposure control *Adjustment of mA and/or kV according to patient size (this includes techniques or standardized protocols for targeted exams where dose is matched to indication/reason for exam; i.e. extremities or head) *Use of iterative reconstruction technique FINDINGS: There is no evidence of intracranial hemorrhage or extra-axial fluid collection. There is no mass effect, or edema. No CT evidence of acute territorial infarct. Ventricles, sulci, and cisterns are normal in size and configuration for patient age. No hydrocephalus. No midline shift. Negative hyperdense MCA sign. Negative insular ribbon sign. Patchy periventricular and deep white matter hypoattenuation is consistent with moderate small vessel ischemic changes. Normal pituitary. Atheromatous calcification of the bilateral carotid siphons. Globes and orbital contents image normally. No extracranial soft tissue abnormalities. The paranasal sinuses, mastoid air cells, and tympanic cavities are normally aerated. No suspicious bony abnormalities. There are no acute fractures evident. CT/CT head for STROKE IMPRESSION: No acute intracranial abnormality. No CT evidence of acute territorial infarct. 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 To further evaluate and rule out other causes for her symptoms, I recommended an electroencephalogram (EEG). I explained that this test would be done in our office, and the staff would assist her with scheduling it for a future date. Orders: Orders EEG Routine Today G40.909 - Epilepsy, unspecified, not intractable, without status epilepticus Coding Level of Care Code New Pt Level 4 (57641) Diagnoses Cerebral microvascular disease I67.89
== END 2025-05-20 13:37 | disposition home or self-care (01) ==
PROVIDERS: PCP Internal Medicine; Visit Provider Psychiatry & Neurology Neurology
DX: I67.89 Other cerebrovascular disease (principal)
CPT/HCPCS: 99204

== ENCOUNTER → 2025-05-20 12:56 | Outpatient (BNVA) | payer MEDICARE, SELFPAY | PROVIDERS: PCP Internal Medicine; Visit Provider Registered Nurse | DX: I10 Essential (primary) hypertension (principal); I67.89 Other cerebrovascular disease; K21.9 Gastro-esophageal reflux disease without esophagitis; Z79.82 Long term (current) use of aspirin | CPT/HCPCS: 99202 ==